=== PATIENT | female | born 1950 | race Caucasian/White ===

== ENCOUNTER 2023-02-01 14:47 | Observation (INO) ==
[2023-02-01] MEDS ORDERED: ONDANSETRON INJ 2 MG/ML 2 ML VIAL IV STA (14:57)
[2023-02-01 15:45] LABS: Basophils # (auto) 0.03 K/uL (0.00-0.20); Basophils % (auto) 0.4 %; Hematocrit (blood only) 41.2 % (37.0-47.0); Hemoglobin 14.6 g/dl (12.0-16.0); Immature Granulocytes # (auto) 0.03 K/uL (0.01-0.20); Immature Granulocytes % (auto) 0.4 %; Lymphocytes # (auto) 0.74 K/uL (1.20-3.40); Lymphocytes % (auto) 9.2 %; Mean Corpuscular Hemoglobin 30.3 pg (25.0-34.0); Mean Corpuscular Hgb Conc 35.4 g/dL (32.0-36.0); Mean Corpuscular Volume 85.5 fL (80.0-100.0); Mean Platelet Volume 11.5 fL (9.4-12.4); Monocytes # (auto) 0.18 K/uL (0.11-0.59); Monocytes % (auto) 2.2 %; Neutrophils # (auto) 7.04 K/uL (1.40-6.50); Neutrophils % (auto) 87.8 %; Platelet Count 201 K/uL (130-400); RDW Coefficient of Variation 12.5 % (11.5-14.5); RDW Standard Deviation 38.7 fL (36.4-46.3); Red Blood Count 4.82 M/uL (4.20-5.40); White Blood Count 8.02 K/ul (4.8-10.8)
[2023-02-01 15:57] LABS: Albumin Globulin Ratio 1.3 (0.9-2); Albumin Level 4.2 gm/dl (3.4-5.0); BUN Creatinine Ratio 22.7 (10-20); Bilirubin,Total 0.5 mg/dl (0.2-1.0); Calcium 9.2 mg/dl (8.6-10.3); Creatinine Clr Calc Pharmacy 61.6 ml/min; Est GFR (Non-African American) 78.5 ml/min; Globulin 3.3 gm/dl (2.5-4.0); Potassium 3.8 mmol/L (3.5-5.1); Total Protein 7.5 gm/dl (6.0-8.3)
[2023-02-01 15:59] LABS: Influenza A virus by PCR Negative (Neg); Influenza B virus by PCR Negative (Neg); RSV by PCR Negative (Neg); SARS CoV2 RNA(COVID-19) Ceph NEGATIVE (Negative)
[2023-02-01] MEDS ORDERED: SODIUM CHLORIDE 0.9% 1,000 ML IV ONE (16:11)
[2023-02-01] MEDS ORDERED: FAMOTIDINE 20MG IV PUSH 20 MG/5 ML SYR IV STA (16:11)
[2023-02-01] MEDS ORDERED: KETOROLAC TROMETHAMINE 15 MG/ML VIAL IV ONE (16:11)
[2023-02-01 16:14] LABS: Magnesium 1.9 mg/dl (1.7-2.4)
--- NOTE | 2023-02-01 16:16 | Emergency Department Note ---
Impression & Plan Dizziness, Vomiting, Ambulatory dysfunction ED Provider Note Provider: Ry Valle MD DATE OF SERVICE: 02/01/2023 CHIEF COMPLAINT: Vomiting, dizziness, weakness HISTORY OF PRESENT ILLNESS: Patient is a 72-year-old female history of IBS prior cholecystectomy presenting here from home via ambulance. Patient speaks primarily Nicaraguan. Patient's son is present at bedside and translate. Offered formal translation services which they declined. Report is the patient had a very transient episode of some dizziness on January 21 but self resolved in a brief period. Today this morning developed significant dizziness and unsteadiness with recurrent nausea and vomiting. Does report headache. Yellowish in nature. Has had a little bit sweaty and diffusely numb at times. No sick contacts. No URI symptoms. Denies significant shortness of breath or chest pain. Sharp burning type pain in the lower abdomen reported. Does take omeprazole normally. No trauma or syncope. No falls. Is concerned she could pass out and son reports that she is very unsteady on her feet that is new. Is having some improvement at this point after receiving some Zofran. Patient states it is worse when she sits up. PAST MEDICAL HISTORY: As noted above MEDICATIONS: Omeprazole SOCIAL HISTORY: Speaks Nicaraguan, lives with son PHYSICAL EXAM: GENERAL: alert and oriented in no acute distress on stretcher with son at bedside translating Head: normocephalic and atraumatic EYES: No injection, discharge or icterus. PERRL, EOMI. NECK: Trachea midline. ENT: Mucous membranes pink and moist. Pharynx without erythema or exudate. LUNGS: Airway patent. No retractions. Breath sounds clear with good air entry bilaterally. HEART: Regular rate and rhythm. No chest wall tenderness ABDOMEN: Soft mild diffuse abdominal tenderness without guarding. No rebound. SKIN: Acyanotic, warm, dry, without rashes EXTREMITIES: Without swelling, tenderness or deformity NEUROLOGICAL: No focal deficits. No aphasia. No facial droop or slurred speech. Normal strength and tone in the extremities. Sensation to gross touch normal. EK bpm normal sinus rhythm with incomplete right bundle branch block and left anterior fascicular block. No acute ST segment elevation or depression with a QTc of 463. CONTINUOUS CARDIAC MONITORING: was ordered and showed a heart rate of 70s bpm in normal sinus rhythm Patient's laboratory studies and imaging reviewed. Differential includes Benign positional vertigo, dehydration, hypovolemia, anemia, tumor, infection, hypoglycemia, electrolyte abnormalities, cardiac sources, intracerebral event, toxicologic, neurologic, gastrointestinal issues, pancreatitis, hepatitis, obstruction, perforation, diverticulitis, appendicitis, gastroenteritis, as well as other pathologies. IMPRESSION/MEDICAL DECISION MAKING: Flu COVID and RSV testing negative and really does not endorse URI symptoms. No focal numbness or weakness at this point but generalized dizziness. May be hydration only related given significant vomiting today. Son states that she always has some nausea issue and has a bad stomach. Mild diffuse tenderness. Will give some IV fluids and Pepcid in addition to Toradol. Some headache but again no significant or syncope reported. EKG obtained as well as troponin but denying significant chest discomfort. Basic blood work obtained without evidence of leukocytosis or anemia. No significant electrolyte abnormality or signs of renal dysfunction today. No findings concerning for bilirubin elevation or hepatitis based on labs. Plan for CT head given her age and complaint of headache and dizziness with vomiting as well as a CT of the abdomen pelvis given her complaint of abdominal pain here with nausea and vomiting. 2 stools today but not reported to be significantly bloody or diarrheal. Per radiology CT of the head and abdomen pelvis with contrast without evidence of acute intracranial abnormality or acute intra-abdominal pathology to explain the patient's symptoms. Discussed with the patient via her son acting as electro optics engineer per their request and reassessed. Patient declined Toradol as we have the son evidently the patient is allergic to NSAIDs and Tylenol. Still very dizzy but nausea is improving. Will try some sips of fluid but very unsteady she states is still unable to walk. Will try some meclizine as again CT imaging is reassuring. Given her significant symptoms however difficult with oral intake will discuss with hospitalist for further observation. DIAGNOSIS: Nausea and vomiting, dizziness DISPOSITION: Hospitalist will evaluate Past Med/Surg History Social History Smoking Status: Never smoker Second Hand Exposure: No; Do You Dip or Chew Tobacco: No; Tobacco Cessation Education Requested by Patient: No Hx Alcohol Use: No Hx Substance Use: No Preferred Language: Ukranian Communication Ability: Effective Manager Latin Required: No Beliefs That Will Affect Care: None Current Living Situation: Alone Other Information That Helps Us Care for You: No Feels Safe at Home: Yes Safety Concerns: Feels Safe At This Time Assistive Devices: None Allergies Allergies Allergy/AdvReac Type Severity Reaction Status Date / Time levofloxacin Allergy Severe increased Verified 03/09/20 13:31 pain magnesium Allergy Severe fainting Verified 03/09/20 13:31 procaine [From Novocain] AdvReac Severe Dizziness Unverified 03/09/20 13:31 NSAIDS (Non-Steroidal AdvReac Mild Verified 02/01/23 17:49 Anti-Inflamma ANALGEN Allergy Severe increased Uncoded 03/09/20 13:31 pain Home Meds Home Medications Medication Instructions Recorded Confirmed omeprazole 20 mg capsule,delayed 20 mg PO QDL 03/09/20 02/01/23 release Results & Data (ED) Vital Signs Vital Signs - 24 hr 02/01/23 14:40 02/01/23 14:49 02/01/23 15:30 Temperature 36.8 C Temperature Source Temporal Artery Scan Pulse Rate 88 Pulse Rate [Apical] 63 Pulse Rate from SpO2 Sensor Respiratory Rate 16 20 Respiratory Effort / Characteristics Non-Labored Spontaneous Respiratory Depth Normal Respiratory Pattern Regular Blood Pressure 131/80 151/76 H Blood Pressure [Right Arm] 151/76 H Blood Pressure Mean 97 115 Blood Pressure Mean [Right Arm] 101 Pulse Oximetry 97 99 Oxygen Delivery Method Room Air Room Air Sepsis Recent Fever Within 48 Hours No Sepsis New/Unexplained Change in Mental Status No Sepsis Action Taken by Nursing No Action Required 02/01/23 15:31 02/01/23 15:31 02/01/23 16:00 Temperature Temperature Source Pulse Rate 60 61 Pulse Rate [Apical] Pulse Rate from SpO2 Sensor 61 Respiratory Rate 19 Respiratory Effort / Characteristics Respiratory Depth Respiratory Pattern Blood Pressure 145/79 H Blood Pressure [Right Arm] Blood Pressure Mean 112 Blood Pressure Mean [Right Arm] Pulse Oximetry 97 Oxygen Delivery Method Sepsis Recent Fever Within 48 Hours Sepsis New/Unexplained Change in Mental Status Sepsis Action Taken by Nursing 02/01/23 16:00 02/01/23 17:44 02/01/23 17:45 Temperature Temperature Source Pulse Rate 61 73 Pulse Rate [Apical] Pulse Rate from SpO2 Sensor 61 Respiratory Rate 20 22 Respiratory Effort / Characteristics Respiratory Depth Respiratory Pattern Blood Pressure 155/79 H Blood Pressure [Right Arm] Blood Pressure Mean 104 Blood Pressure Mean [Right Arm] Pulse Oximetry 97 Oxygen Delivery Method Sepsis Recent Fever Within 48 Hours Sepsis New/Unexplained Change in Mental Status Sepsis Action Taken by Nursing 02/01/23 17:45 02/01/23 18:00 02/01/23 18:00 Temperature Temperature Source Pulse Rate 82 76 Pulse Rate [Apical] Pulse Rate from SpO2 Sensor 75 Respiratory Rate 16 14 Respiratory Effort / Characteristics Respiratory Depth Respiratory Pattern Blood Pressure 149/86 H Blood Pressure [Right Arm] Blood Pressure Mean 125 Blood Pressure Mean [Right Arm] Pulse Oximetry 97 Oxygen Delivery Method Sepsis Recent Fever Within 48 Hours Sepsis New/Unexplained Change in Mental Status Sepsis Action Taken by Nursing Laboratory Data 02/01/23 15:05 02/01/23 15:05 Lab Results 02/01/23 02/01/23 02/01/23 Range/Units 15:00 15:00 15:00 WBC (4.8-10.8) K/ul RBC (4.20-5.40) M/uL Hgb (12.0-16.0) g/dl Hct (37.0-47.0) % MCV (80.0-100.0) fL MCH (25.0-34.0) pg MCHC (32.0-36.0) g/dL RDW Std Deviation (36.4-46.3) fL RDW Coeff of Zahira (11.5-14.5) % Plt Count (130-400) K/uL MPV (9.4-12.4) fL Immature Gran % (Auto) % Neut % (Auto) % Lymph % (Auto) % [place] % (Auto) % Eos % (Auto) % Baso % (Auto) % Neut # (Auto) (1.40-6.50) K/uL Lymph # (Auto) (1.20-3.40) K/uL [place] # (Auto) (0.11-0.59) K/uL Eos # (Auto) (0.00-0.50) K/uL Baso # (Auto) (0.00-0.20) K/uL Immature Gran # (Auto) (0.01-0.20) K/uL Sodium (136-145) mmol/L Potassium (3.5-5.1) mmol/L Chloride (98-107) mmol/L Carbon Dioxide (21-32) mmol/L Anion Gap (3-11) BUN (6-23) mg/dl Creatinine (0.6-1.2) mg/dl Est Cr Clr Drug Dosing ml/min Est GFR ( Amer) ml/min Est GFR (Non-Af Amer) ml/min BUN/Creatinine Ratio (10-20) Glucose (70-99(Fasting)) mg/dl Calcium (8.6-10.3) mg/dl Magnesium (1.7-2.4) mg/dl Total Bilirubin (0.2-1.0) mg/dl AST (13-39) U/L ALT (7-52) U/L Alkaline Phosphatase (34-104) U/L Troponin I High Sens (0-14) pg/ml Total Protein (6.0-8.3) gm/dl Albumin (3.4-5.0) gm/dl Globulin (2.5-4.0) gm/dl Albumin/Globulin Ratio (0.9-2) Lipase (11-82) U/L TSH (0.300-4.500) uIu/ml Adenovirus (PCR) Not Detected (NotDetected) B. pertussis DNA (PCR) Not Detected (NotDetected) B.parapertussis DNA PCR Not Detected (NotDetected) C. pneumoniae DNA (PCR) Not Detected (NotDetected) Coronavirus OC43 (PCR) Not Detected (NotDetected) Coronavirus HKU1 (PCR) Not Detected (NotDetected) Coronavirus 229E (PCR) Not Detected (NotDetected) SARS-CoV-2 (PCR) NEGATIVE Not Detected (Negative) Coronavirus NL63 (PCR) Not Detected (NotDetected) Human Metapneumovir PCR Not Detected (NotDetected) Influenza Type A (PCR) Negative Not Detected (Neg) Influenza Type B (PCR) Negative (Neg) M. pneumoniae (PCR) (NotDetected) Parainfluenza 1 (PCR) (NotDetected) Parainfluenza 2 (PCR) (NotDetected) Parainfluenza 3 (PCR) (NotDetected) Parainfluenza 4 (PCR) (NotDetected) RSV (RT-PCR) (Neg) RSV (PCR) (NotDetected) Entero/Rhino (PCR) (NotDetected) 02/01/23 02/01/23 Range/Units 15:00 15:05 WBC 8.02 (4.8-10.8) K/ul RBC 4.82 (4.20-5.40) M/uL Hgb 14.6 (12.0-16.0) g/dl Hct 41.2 (37.0-47.0) % MCV 85.5 (80.0-100.0) fL MCH 30.3 (25.0-34.0) pg MCHC 35.4 (32.0-36.0) g/dL RDW Std Deviation 38.7 (36.4-46.3) fL RDW Coeff of Zahira 12.5 (11.5-14.5) % Plt Count 201 (130-400) K/uL MPV 11.5 (9.4-12.4) fL Immature Gran % (Auto) 0.4 % Neut % (Auto) 87.8 % Lymph % (Auto) 9.2 % [place] % (Auto) 2.2 % Eos % (Auto) 0.0 % Baso % (Auto) 0.4 % Neut # (Auto) 7.04 H (1.40-6.50) K/uL Lymph # (Auto) 0.74 L (1.20-3.40) K/uL [place] # (Auto) 0.18 (0.11-0.59) K/uL Eos # (Auto) 0.00 (0.00-0.50) K/uL Baso # (Auto) 0.03 (0.00-0.20) K/uL Immature Gran # (Auto) 0.03 (0.01-0.20) K/uL Sodium 137 (136-145) mmol/L Potassium 3.8 (3.5-5.1) mmol/L Chloride 101 (98-107) mmol/L Carbon Dioxide 24 (21-32) mmol/L Anion Gap 12 H (3-11) BUN 17 (6-23) mg/dl Creatinine 0.75 (0.6-1.2) mg/dl Est Cr Clr Drug Dosing 61.6 ml/min Est GFR ( Amer) 91.0 ml/min Est GFR (Non-Af Amer) 78.5 ml/min BUN/Creatinine Ratio 22.7 H (10-20) Glucose 134 H (70-99(Fasting)) mg/dl Calcium 9.2 (8.6-10.3) mg/dl Magnesium 1.9 (1.7-2.4) mg/dl Total Bilirubin 0.5 (0.2-1.0) mg/dl AST 17 (13-39) U/L ALT 12 (7-52) U/L Alkaline Phosphatase 57 (34-104) U/L Troponin I High Sens 3.8 (0-14) pg/ml Total Protein 7.5 (6.0-8.3) gm/dl Albumin 4.2 (3.4-5.0) gm/dl Globulin 3.3 (2.5-4.0) gm/dl Albumin/Globulin Ratio 1.3 (0.9-2) Lipase 16 (11-82) U/L TSH 0.883 (0.300-4.500) uIu/ml Adenovirus (PCR) (NotDetected) B. pertussis DNA (PCR) (NotDetected) B.parapertussis DNA PCR (NotDetected) C. pneumoniae DNA (PCR) (NotDetected) Coronavirus OC43 (PCR) (NotDetected) Coronavirus HKU1 (PCR) (NotDetected) Coronavirus 229E (PCR) (NotDetected) SARS-CoV-2 (PCR) (Negative) Coronavirus NL63 (PCR) (NotDetected) Human Metapneumovir PCR (NotDetected) Influenza Type A (PCR) (Neg) Influenza Type B (PCR) Not Detected (Neg) M. pneumoniae (PCR) Not Detected (NotDetected) Parainfluenza 1 (PCR) Not Detected (NotDetected) Parainfluenza 2 (PCR) Not Detected (NotDetected) Parainfluenza 3 (PCR) Not Detected (NotDetected) Parainfluenza 4 (PCR) Not Detected (NotDetected) RSV (RT-PCR) Negative (Neg) RSV (PCR) Not Detected (NotDetected) Entero/Rhino (PCR) Not Detected (NotDetected) Administered Medications Sodium Chloride (Nss) 1,000 mls @ 65 mls/hr IV .[id number] JAVIER Stop: 02/03/23 01:16 Last Admin: 02/01/23 21:19 Dose: 65 mls/hr Documented By: ACC Discontinued Medications Famotidine (Pepcid 20mg Iv Push) 20 mg in 5 mls @ 2.5 mls/min IV NOW STA Stop: 02/01/23 16:12 Last Admin: 02/01/23 16:40 Dose: 2.5 mls/min Documented By: ACC Sodium Chloride (Nss) 1,000 mls @ 999 mls/hr IV .[id number] ONE Stop: 02/01/23 17:11 Last Infusion: 02/01/23 17:51 Dose: Infused Documented By: Admin: 02/01/23 16:42 Dose: 999 mls/hr Documented By: ACC Potassium Chloride (K Jhoan / Wtr) 10 meq in 100 mls @ 100 mls/hr IV Q1H JAVIER Stop: 02/01/23 20:29 Last Infusion: 02/01/23 21:19 Dose: Infused Documented By: Admin: 02/01/23 19:52 Dose: 100 mls/hr Documented By: Infusion: 02/01/23 19:47 Dose: Infused Documented By: Admin: 02/01/23 18:47 Dose: 100 mls/hr Documented By: ACC Ioversol (Optiray 320 500ml) 88 ml IV ONCE ONE Stop: 02/01/23 16:32 Last Admin: 02/01/23 16:31 Dose: 88 ml Documented By: KSF Ketorolac Tromethamine (Ketorolac Tromethamine 15 Mg/Ml Vial) 10 mg IV NOW ONE Stop: 02/01/23 16:12 Last Admin: 02/01/23 16:57 Dose: Not Given Documented By: ACC Meclizine HCl (Meclizine Hcl 25 Mg Tab) 25 mg PO NOW STA Stop: 02/01/23 17:49 Last Admin: 02/01/23 18:03 Dose: 25 mg Documented By: ML Ondansetron HCl (Ondansetron Inj 2 Mg/Ml 2 Ml Vial) 4 mg IV NOW STA Stop: 02/01/23 14:58 Last Admin: 02/01/23 15:08 Dose: 4 mg Documented By: RJ Imaging Data Radiologist's Impression: Chest X-Ray 02/01/23 14:56 XR chest 1V portable CLINICAL HISTORY: dizziness, illness TECHNIQUE: Single frontal radiograph of the chest was obtained. Comparison: Comparison is made to chest radiograph 03/09/2020 FINDINGS: No lines and tubes are seen. Calcified aortic knob is seen. The lungs are clear. No evidence of pleural effusion or pneumothorax. IMPRESSION: No acute chest disease. ACT 112: Negative or not required by law. Electronically signed by: Guru George M.D. 02/01/2023 4:23 PM Abdomen/Pelvis CT 02/01/23 16:11 CT abd pelvis IV con only CLINICAL HISTORY: abd pain, vomiting, dizzy TECHNIQUE: Helical axial images of the abdomen and pelvis were obtained and displayed. Automated dose lowering techniques and/or adjustment according to patient size were utilized for this exam. This exam was performed with intravenous contrast. COMPARISON: None available at the time of this dictation. FINDINGS: Lower chest: Bibasilar atelectasis versus scarring is seen. Liver: Unremarkable. No focal lesions are seen. Gallbladder and biliary tree: Patient is status post cholecystectomy. Physiologic prominence of the biliary ducts is noted. Pancreas: Unremarkable, no focal lesions. Spleen: Unremarkable. Adrenals: Unremarkable. Kidneys and ureters: Unremarkable. Bladder: Unremarkable. Reproductive organs: Unremarkable. Bowel: Diverticulosis is seen without evidence of diverticulitis. The appendix is not seen. There is a small hiatal hernia. Lymph nodes Retroperitoneal: Unremarkable. Pelvic: Unremarkable. Mesenteric: Unremarkable. Peritoneum: Normal. Vessels: Atherosclerotic calcifications are seen. Abdominal wall: Unremarkable. Bones: Degenerative changes in the visualized spine. IMPRESSION: No acute abnormalities to explain vomiting and abdominal pain. ACT 112: Negative or not required by law. Electronically signed by: Guru George M.D. 02/01/2023 4:[address] 02/01/23 16:11 CT OF THE HEAD WITHOUT CONTRAST CLINICAL HISTORY: dizzy, headache, vomiting COMPARISON STUDY: No previous studies for comparison. CT DOSE: 1619.44 mGy.cm TECHNIQUE: Helical axial images of the head were obtained without IV contrast. Automated exposure control was utilized for the study. A dose lowering technique was utilized adhering to the principles of ALARA. FINDINGS: No acute intracranial hemorrhage, midline shift or mass effect is present. White matter hypodensity suggests small vessel disease. The ventricular system is unremarkable. The basal cisterns are patent. No extra-axial collections are present. There are no findings to suggest acute dural sinus thrombosis or acute territorial infarct. No significant calvarial abnormalities are present. Visualized portions of the sinuses and mastoid air cells are clear. IMPRESSION: No acute intracranial findings. ACT 112: Negative or not required by law. Electronically signed by: Al Ding M.D. 02/01/2023 4:39 PM Discharge Plan Visit Data Chief Complaint: Illness Stated Complaint: NAUSEA, VOMITING, DIZZINESS ED Provider: Ry Valle Discharge Problem: Dizziness, Vomiting, Ambulatory dysfunction Patient Disposition: Admitted As Inpatient Discharge Instructions Interventions: ED Discharge Assessment Last Done: 02/01/23 21:26 Discharge Problem: Vomiting Qualifiers: Vomiting type: unspecified Nausea presence: with nausea Qualified Code(s): R 11.2 - Nausea with vomiting, unspecified
[2023-02-01 16:21] LABS: Troponin I High Sensitivity 3.8 pg/ml (0-14)
--- NOTE | 2023-02-01 16:25 | XRay Report ---
XR chest 1V portable CLINICAL HISTORY: dizziness, illness TECHNIQUE: Single frontal radiograph of the chest was obtained. Comparison: Comparison is made to chest radiograph 03/09/2020 FINDINGS: No lines and tubes are seen. Calcified aortic knob is seen. The lungs are clear. No evidence of pleur al effusion or pneumothorax. IMPRESSION: No acute chest disease. ACT 112: Negative or not required by law. Electronically signed by: Guru George M.D. 02/01/2023 4:23 PM
[2023-02-01 16:31] LABS: Thyroid Stimulating Hormone 0.883 uIu/ml (0.300-4.500)
[2023-02-01] MEDS ORDERED: OPTIRAY 320 500ml IV ONE (16:31)
--- NOTE | 2023-02-01 16:40 | CT Scan Report ---
CT OF THE HEAD WITHOUT CONTRAST CLINICAL HISTORY: dizzy, headache, vomiting COMPARISON STUDY: No previous studies for comparison. CT DOSE: 1619.44 mGy.cm TECHNIQUE: Helical axial images of the head were obtained without IV contrast. Automated exposure con trol was utilized for the study. A dose lowering technique was utilized adhering to the principles o f ALARA. FINDINGS: No acute intracranial hemorrhage, midline shift or mass effect is present. White matter hyp odensity suggests small vessel disease. The ventricular system is unremarkable. The basal cisterns ar e patent. No extra-axial collections are present. There are no findings to suggest acute dural sinus thrombosis or acute territorial infarct. No significant calvarial abnormalities are present. Visualiz ed portions of the sinuses and mastoid air cells are clear. IMPRESSION: No acute intracranial findings. ACT 112: Negative or not required by law. Electronically signed by: Al Ding M.D. 02/01/2023 4:39 PM
--- NOTE | 2023-02-01 16:48 | CT Scan Report ---
CT abd pelvis IV con only CLINICAL HISTORY: abd pain, vomiting, dizzy TECHNIQUE: Helical axial images of the abdomen and pelvis were obtained and displayed. Automated dose lowering techniques and/or adjustment according to patient size were utilized for this exam. This e xam was performed with intravenous contrast. COMPARISON: None available at the time of this dictation. FINDINGS: Lower chest: Bibasilar atelectasis versus scarring is seen. Liver: Unremarkable. No focal lesions are seen. Gallbladder and biliary tree: Patient is status post cholecystectomy. Physiologic prominence of the b iliary ducts is noted. Pancreas: Unremarkable, no focal lesions. Spleen: Unremarkable. Adrenals: Unremarkable. Kidneys and ureters: Unremarkable. Bladder: Unremarkable. Reproductive organs: Unremarkable. Bowel: Diverticulosis is seen without evidence of diverticulitis. The appendix is not seen. There is a small hiatal hernia. Lymph nodes Retroperitoneal: Unremarkable. Pelvic: Unremarkable. Mesenteric: Unremarkable. Peritoneum: Normal. Vessels: Atherosclerotic calcifications are seen. Abdominal wall: Unremarkable. Bones: Degenerative changes in the visualized spine. IMPRESSION: No acute abnormalities to explain vomiting and abdominal pain. ACT 112: Negative or not required by law. Electronically signed by: Guru George M.D. 02/01/2023 4:47 PM
[2023-02-01] MEDS ORDERED: MECLIZINE HCL 25 MG TAB PO STA (17:48)
[2023-02-01] MEDS ORDERED: ACETAMINOPHEN 325 MG TAB PO PRN (18:27)
[2023-02-01] MEDS ORDERED: ONDANSETRON INJ 2 MG/ML 2 ML VIAL IV PRN (18:27)
[2023-02-01] MEDS ORDERED: SODIUM CHLORIDE 0.9% 1,000 ML IV SCH (18:30)
--- NOTE | 2023-02-01 18:43 | History & Physical Report ---
Date of Service February 01, 2023 Assessment & Plan (1) Vomiting: Plan Nausea, vomiting Generalized weakness History of irritable bowel syndrome Patient was reported to have nausea and vomiting/dizziness January 21 per patient's son, she was recovering from it. Nausea and vomiting worsened today leading to worsening dizziness and weakness. Patient denies diarrhea. Has poor appetite. Admitting labs and CTAP/CT head and CXR reviewed. No acute findings and imag ings. IV fluid, replace electrolyte Labs in a.m. PT/OT. Orthostatic vitals. Will get respiratory panel as patient also reports cough for 6 7 days. Nausea medications, clear liquid diet, advance diet as tolerated. Fall precaution. Other chronic medical conditions: GERD-continue with home meds as and when able. DVT prophylaxis: Heparin subcu DNR/DNI History of Present Illness Chief Complaint: Nausea and vomiting Primary Care Provider: Eliud Mendoza DO 72-year-old lady with PMH of HLD, IBS, GERD presented to the hospital with worsening nausea and vomiting x 1 day. Patient's son at bedside, patient speaks Iranian, they declined fertilizer mixer service. Per patient's son, patient had nausea and vomiting and dizziness episode in January 21 and she was recovering from it but again she had worsening nausea and vomiting today with worsening dizziness and hence they presented to the hospital. Patient also is having cough, mostly dry in nature for about 7 days, no sore throat. Patient denies chest pain. Per patient's son, patient usually shivers after nausea and vomiting episode which is seen at bedside exam. Patient's son reports that he has not seen any focal weakness but Pt has generalized weakness. She has decreased appetite secondary to vomiting. She only takes omeprazole at home. DNR DNI as per my discussion with the patient and her son. Patient denies smoking/alcohol use/recreational drug use. Allergies Allergy/AdvReac Type Severity Reaction Status Date / Time levofloxacin Allergy Severe increased Verified 03/09/20 13:31 pain magnesium Allergy Severe fainting Verified 03/09/20 13:31 procaine [From Novocain] AdvReac Severe Dizziness Unverified 03/09/20 13:31 NSAIDS (Non-Steroidal AdvReac Mild Verified 02/01/23 17:49 Anti-Inflamma ANALGEN Allergy Severe increased Uncoded 03/09/20 13:31 pain Home Medications Medication Instructions Recorded Confirmed Type omeprazole 20 mg capsule,delayed 20 mg PO QDL 03/09/20 02/01/23 History release Past Med/Surg History Social History Smoking Status: Never smoker Preferred Language: Ukranian Feels Safe at Home: Yes Review of Systems Review of Systems: Negative otherwise mentioned in HPI. Physical Exam Physical Exam: GENERAL: Alert and oriented x3. NAD, on RA. Appears weak/ill. HEENT: No pallor, no icterus. Pupils equal, round and reactive to light. Oral mucosa moist. NECK: No JVD, no neck masses. HEART: S1 and S2 heard. Regular rate and rhythm. No murmur, no gallop. RESPIRATORY SYSTEM: Normal AP diameter. No accessory muscle use. No wheezing, no crackles. ABDOMEN: Soft, bowel sounds present, nontender, no distention. CENTRAL NERVOUS SYSTEM: No facial droop. Speech is clear. Obeys simple commands. Moves extremities. Power 5/5 all extremities. EXTREMITIES: No edema, no erythema seen. Results & Data Results & Data Vital Signs (Past 12 Hours) Vital Signs Temp Pulse Pulse Resp BP BP Pulse Ox 02/01/23 15:31 60 02/01/23 14:49 36.8 C 88 20 131/80 99 02/01/23 14:40 63 16 151/76 H 97 O2 Del Method 02/01/23 15:31 02/01/23 14:49 Room Air 02/01/23 14:40 Room Air
[2023-02-01] MEDS: POTASSIUM CHLORIDE / WTR 10 MEQ/100 ML PLCT IV SCH ×2 (18:47→19:52)
[2023-02-01 19:49] LABS: Appearance Urine Clear (Clear); Bilirubin Urine Negative (Negative); Blood Urine Negative (Negative); Color Urine Yellow; Glucose Urine UA Negative (Negative); Ketones Urine 2+ (Negative); Leukocyte Esterase Urine Negative (Negative); Nitrite Urine Negative (Negative); Protein Urine Negative (Negative); Specific Gravity Urine > 1.045 (1.000-1.030); Urobilinogen Urine Negative (Negative); pH Urine 7.5 (4.5-7.5)
[2023-02-01 20:34] LABS: Adenovirus PCR Not Detected (NotDetected); Bordetella parapertussis PCR Not Detected (NotDetected); Bordetella pertussis PCR Not Detected (NotDetected); Chlamydia pneumoniae PCR Not Detected (NotDetected); Coronavirus 229E PCR Not Detected (NotDetected); Coronavirus CoV-2 (COVID19)PCR Not Detected (NotDetected); Coronavirus HKU1 PCR Not Detected (NotDetected); Coronavirus NL63 PCR Not Detected (NotDetected); Coronavirus OC43PCR Not Detected (NotDetected); Human Metapneumovirus PCR Not Detected (NotDetected); Influenza A PCR Not Detected (NotDetected); Influenza B PCR Not Detected (NotDetected); Mycoplasma pneumoniae PCR Not Detected (NotDetected); Parainfluenza Virus 1 PCR Not Detected (NotDetected); Parainfluenza Virus 2 PCR Not Detected (NotDetected); Parainfluenza Virus 3 PCR Not Detected (NotDetected); Parainfluenza Virus 4 PCR Not Detected (NotDetected); Respiratory Syncytial VirusPCR Not Detected (NotDetected); Rhinovirus/Enterovirus PCR Not Detected (NotDetected)
--- OUTSIDE RECORDS SUMMARY | 2023-02-01 23:54 | External Medical Summary | Summary of Care ---
Author Name Unknown Organization [facility] Address [address] [place] [address] Phone [phone] Care Team Providers Care Senior Service Technician Name Role Phone Jesús Gale MD Primary Care Provider + Reason for Visit * Reason Onset Date Comments Test Results 12/07/2022 Encounter Details Date Type Department Care Team (Late st Contact Info) Description 12/07/2022 Telephone General Internal Medicine [facility] [place] [address] Jesús Gale MD [address] [facility] [place] [address] Test Results Allergies Active Allergy Reactions Criticality Noted Date Comments Magnesium 09/12/2013 Novocain 09/12/2013 Other Allergy (See Comments) Other (Please comment) 04/17/2015 Patient reports reaction to medication anal'gin; medication not available in [place]; medication caused increased pain Acetaminophen 08/10/2018 documented as of this encounter (statuses as of 12/24/2022) Medications Medication Sig Dispensed Refills Start Date End Date Status Cyanocobalamin (VITAMIN B-12) 1000 MCG TabletIndications:Low serum vitamin B12 Take 1 Tablet by mouth in the morning. 0 01/16/2019 Active Aspirin 81 MG Oral Tablet Delayed Release Take 1 Tablet by mouth in the morning. 0 Active Omeprazole 20 MG Oral Capsule Delayed Release (PriLOSEC)Indications :Gastroesophageal reflux disease without esophagitis TAKE 1 CAPSULE BY MOUTH ONCE DAILY 1 hour prior to first meal of the day 90 Capsule 2 10/27/2021 Active documented as of this encounter (statuses as of 12/24/2022) Active Problems Problem Noted Date Diagnosed Date Mixed hyperlipidemia 04/10/2021 Gastroesophageal reflux disease without esophagi tis 10/03/2020 IBS (irritable bowel syndrome) 09/12/2013 documented as of this encounter (statuses as of 12/24/2022) Resolved Problems Problem Noted Date Diagnosed Date Resolved Date Mass on back 05/20/2017 10/27/2021 documented as of this encounter (statuses as of 12/24/2022) Social History Tobacco Use Types Packs/Day Years Used Date Smoking Tobacco: Never Smokeless Tobacco: Never Alcohol Use Standard Drinks/Week Comments No 0 (1 standard drink = 0.6 oz pur e alcohol) PHQ-2 Answer Date Recorded PHQ Adult Total Score 0 11/04/2022 Hunger Vital Sign Answer Date Recorded Worried About Running Out of Food in the Last Ye ar Never true 01/15/2019 Ran Out of Food in the Last Year Never true 01/15/2019 Sex and Gender Information Value Date Recorded Sex Assigned at Female 09/14/2019 12:18 PM EDT Gender Identity Female 09/14/2019 12:18 PM EDT Sexual Orientation Straight 09/14/2019 12 :18 PM EDT Job Start Date Occupation Industry Not on file Not on file Not on file documented as of this encounter Miscellaneous Notes * Telephone Encounter - Darin Heart CMA - 12/24/2022 3:43 PM EST Called, left message for patient to return call, via language line * Telephone Encounter - Lucas Hoff LPN - 12/07/2022 8:30 AM EDT Language line left message for pt to call back. * Telephone Encounter - Lucas Hoff LPN - 12/07/2022 8:29 AM EDT ----- Message from Jesús Gale MD sent at 11/10/2022 4:59 PM EDT ----- Has a large mass in shoulder which looks like a lipoma which is benign, but given size should have mri (test where she needs to lay still for 45 min) to confirm. Pls confirm no metal in body or claustrophobia and I will order if agrees. Can also refer to surgery if wants removed documented in this encounter Plan of Treatment Upcoming Encounters Date Type Department Care Team (Latest Contact Info) Description 02/21/2023 3:15 PM EST Office Visit Gynecology/Obstetri [facility] [address] [place] [address] Kenton Concepcion MD [address] [place] [address] 02/24/2023 2:05 PM EST Hospital Encounter [facility], Operating Room [facility] [address] [place] [address] Kenton Concepcion MD [address] [place] [address] 02/24/2023 2:05 PM EST - 02/24/2023 3:02 PM EST Surgery OR [facility], Operating Room [facility] [address] [place] [address] Kenton Concepcion MD [address] [place] [address] HYSTEROSCOPY WITH BIOPSY AND/OR POLYPECTOMY WITH OR WITHOUT D&C 03/09/2023 11:30 AM EST Office Visit Gynecology/Obstetri [facility] [address] [place] [address] Kenton Concepcion MD [address] [place] [address] 11/07/2023 10:20 AM EDT [facility] [place] [facility] [address] Jesús Gale MD 200 [facility] [place] [address] Scheduled Procedures Name Priority Associated Diagnoses Date/Ti me HYSTEROSCOPY WITH BIOPSY AND/OR POLYPECTOMY WITH OR WITHOUT D&C Postmenopausal bleeding Endometrial thickening on ultrasound 02/24/2023 2:05 PM EST PELVIC EXAMINATION UNDER ANESTHESIA Postmenopausal bleeding Endometrial thickening on ultrasound 02/24/2023 2:05 PM EST Health Maintenance Due Date Last Done Comments DXA Scan 1950 COVID-19 Vaccine (#1) 01/18/1951 Hepatitis C Screening 1966 DTaP,Tdap,and Td Vaccines (1 - Tdap) 07/20/1967 Cologuard 1993 Colonoscopy 1993 Colorectal Cancer Screening 1993 Fecal Occult Blood Test 1993 Sigmoidoscopy 1993 Zoster Vaccines (1 of 2) 1998 Pneumococcal Vaccine: 65+ Years (1 - PCV) 2013 Mammogram 12/04/2014 12/04/2013, 10/16/2013 Influenza Vaccine (FLU shot) (#1) 2022 Depression Screening 11/05/2023 11/04/2022 Lipid Panel 11/05/2027 11/04/2022, 10/16, 04/09/2021, Additional history exists GARDASIL-HPV IMMUNIZATION SERIES Aged Out No longer eligible based on patient's age to complete this topic Hepatitis B Aged Out No longer eligi ble based on patient's age to complete this topic MENINGOCOCCAL (MENACTRA/MENVEO) Aged Out No longer eligible based on patient's age to complete this topic documented as of this encounter Medical Devices Not on filedocumented as of this encounter Care Teams Senior Service Technician Relationship Specialty Start Date End Date Jesús Gale MD [address] [place] [address] PCP - General Internal Medicine 12/03/20 documented as of this encounter
--- OUTSIDE RECORDS SUMMARY | 2023-02-01 23:54 | External Medical Summary | Summary of Care ---
Author Name Unknown Organization [facility] Address [address] [place] [address] Phone [phone] Care Team Providers Care Coordinator Integrated Marketing Name Role Phone Jesús Gale MD Primary Care Provider + Reason for Visit * Reason Onset Date Comments Test Results 12/07/2022 Encounter Details Date Type Department Care Team (Late st Contact Info) Description 12/07/2022 Telephone General Internal Medicine [facility] 200 [facility] [place] [address] Jesús Gale MD [address] [facility] [address] Test Results Allergies Active Allergy Reactions Criticality Noted Date Comments Magnesium 09/12/2013 Novocain 09/12/2013 Other Allergy (See Comments) Other (Please comment) 04/17/2015 Patient reports reaction to medication anal'gin; medication not available in [place]; medication caused increased pain Acetaminophen 08/10/2018 documented as of this encounter (statuses as of 12/07/2022) Medications Medication Sig Dispensed Refills Start Date [...] as of this encounter (statuses as of 12/07/2022) Active Problems Problem Noted Date Diagnosed Date Mixed hyperlipidemia 04/10/2021 Gastroesophageal reflux disease without esophagi tis 10/03/2020 IBS (irritable bowel syndrome) 09/12/2013 documented as of this encounter (statuses as of 12/07/2022) Resolved Problems Problem Noted Date Diagnosed Date Resolved Date Mass on back 05/20/2017 10/27/2021 documented as of this encounter (statuses as of 12/07/2022) Social History Tobacco Use Types Packs/Day Years [...] encounter Miscellaneous Notes * Telephone Encounter - Lucas Hoff LPN [...] Upcoming Encounters Date Type Department Care Team (Late st Contact Info) Description 12/07/2022 12:15 PM EDT Imaging Radiology [facility] [address] [place] [address] 12/08/2022 2:00 PM EDT Office Visit Gynecology/Obstetrics [facility] [address] [place] [address] Kenton Concepcion MD [address] [place] [address] 11/07/2023 10:20 AM EDT Office Visit General Internal Medicine [facility] [place] [address] [facility] [place] [address] Jesús Gale MD 200 [facility] [place] [address] Health Maintenance Due Date Last Done Comments [...] filedocumented as of this encounter Care Teams Coordinator Integrated Marketing Relationship Specialty Start Date End Date Jesús Gale MD 200 [place] [address] PCP - General Internal Medicine 12/03/20 documented as of this encounter
--- OUTSIDE RECORDS SUMMARY | 2023-02-01 23:54 | External Medical Summary | Summary of Care ---
Author Name Unknown Organization [facility] Address [address] [place] [address] Phone [phone] Care Team Providers Care Hogshead Filler Name Role Phone Jesús Gale MD Primary Care Provider + Reason for Visit * Reason Onset Date Comments Test Results 12/07/2022 US PELVIS TRANS- VAGINAL NON-OB Encounter Details Date Type Department Care Team (Late st Contact Info) Description 12/07/2022 Telephone General Internal Medicine [facility] [address] [place] [address] Nikole Perkins MD [address] [facility] [place] [address] Test Results (US PELVIS TRANS-VAGINAL NON-OB) Allergies Active Allergy Reactions Criticality Noted Date Comments Magnesium 09/12/2013 Novocain 09/12/2013 Other Allergy (See Comments) Other (Please comment) 04/17/2015 Patient reports reaction to medication anal'gin; medication not available in [place]; medication caused increased pain Acetaminophen 08/10/2018 documented as of this encounter (statuses as of 12/08/2022) Medications Medication Sig Dispensed Refills Start Date [...] as of this encounter (statuses as of 12/08/2022) Active Problems Problem Noted Date Diagnosed Date Mixed hyperlipidemia 04/10/2021 Gastroesophageal reflux disease without esophagi tis 10/03/2020 IBS (irritable bowel syndrome) 09/12/2013 documented as of this encounter (statuses as of 12/08/2022) Resolved Problems Problem Noted Date Diagnosed Date Resolved Date Mass on back 05/20/2017 10/27/2021 documented as of this encounter (statuses as of 12/08/2022) Social History Tobacco Use Types Packs/Day Years [...] encounter Miscellaneous Notes * Telephone Encounter - Nikole Perkins MD - 12/08/2022 1:13 PM EDT Pelvic US - 1. Heterogenous endometrium which is abnormally thickened. In view of postmenopausal bleeding consideration should be given to endometrial sampling. 2. Lesion abutting the anterior wall of the cervix and lower uterine body could represent a subserosal fibroid arising from the cervix Keep Appliance Painter And Refinisher appoint Today for eval of both * Telephone Encounter - KEITH Leo - 12/07/2022 9:46 PM EDT Hello- The radiologist discovered an unexpected or indeterminate finding on Khang Oates ([id number]) and asks that you review the following report. Study Type:US PELVIS TRANS-VAGINAL NON-OB Date of Study: 12/07/2022 IMPRESSION IMPRESSION: 1. Heterogenous endometrium which is abnormally thickened. In view of postmenopausal bleeding consideration should be given to endometrial sampling. 2. Hypoechoic lesion abutting the anterior wall of the cervix and lower uterine body could represent a subserosal fibroid arising from the cervix. Correlate with prior imaging. If no prior imaging isavailable then consider further assessment with MRI of the pelvis without and with contrast. 3. Details as above. Please respond to this encounter to acknowledge receipt of this message and take responsibility to ensure this report is reviewed. Thank you, KEITH Leo Client Service Rep Diagnostic Medicine [place] documented in this encounter Plan of Treatment Upcoming Encounters Date Type Department Care Team (Late st Contact Info) Description 12/08/2022 2:00 PM EDT Office Visit Gynecology/Obstetrics [facility] [address] [place] [address] Kenton Concepcion MD [address] [place] [address] 11/07/2023 10:20 AM EDT Office Visit General Internal Medicine [facility] 200 [facility] [place] [address] Jesús Gale MD 200 [facility] [place] [address] Health Maintenance Due Date Last Done Comments [...] filedocumented as of this encounter Care Teams Hogshead Filler Relationship Specialty Start Date End Date Jesús Gale MD 200 [facility] [place] [address] PCP - General Internal Medicine 12/03/20 documented as of this encounter
--- OUTSIDE RECORDS SUMMARY | 2023-02-01 23:54 | External Medical Summary | Summary of Care ---
Author Name Unknown Organization [facility] Address [address] [place] [address] Phone [phone] Care Team Providers Care Digital Production Artist Name Role Phone Jesús Gale MD Primary Care Provider + Reason for Visit * Reason Onset Date Comments Test Results 12/07/2022 US PELVIS TRANS- VAGINAL NON-OB Encounter Details Date Type Department Care Team (Late st Contact Info) Description 12/07/2022 Telephone General Internal Medicine [facility] [address] [place] [address] Nikole Perkins MD [address] [place] [address] Test Results (US PELVIS TRANS-VAGINAL NON-OB) Allergies [...] encounter Miscellaneous Notes * Telephone Encounter - Micaela Nieves LPN - 12/08/2022 2:03 PM EDT Currently at appt with CARDIAC MONITOR TECHNICIAN * Telephone Encounter - Nikole Perkins MD - 12/08/2022 1:13 PM EDT Pelvic US - 1. Heterogenous endometrium which is abnormally thickened. In view of postmenopausal bleeding consideration should be given to endometrial sampling. 2. Lesion abutting the anterior wall of the cervix and lower uterine body could represent a subserosal fibroid arising from the cervix Keep Older Adult Social Work Specialist appoint Today for eval of both * Telephone Encounter - KEITH Leo - 12/07/2022 9:46 PM EDT Rashaad- The radiologist discovered an unexpected or indeterminate finding on Khang Oates ([id number]) and asks that you review the following [...] with prior imaging. If no prior imaging is available then consider further assessment with MRI of the pelvis without and with contrast. 3. Details as above. Please respond to this encounter to acknowledge receipt of this message and take responsibility to ensure this report is reviewed. Thank you, KEITH Leo Client Service Rep [facility] Medicine [place] documented in this encounter Plan of Treatment Upcoming Encounters Date Type Department Care Team (Late st Contact Info) Description 11/07/2023 10:20 AM EDT Office Visit General Internal Medicine [facility] 200 [facility] [place] [address] Jesús Gale MD 200 [facility] [address] Health Maintenance Due Date Last Done Comments [...] filedocumented as of this encounter Care Teams Digital Production Artist Relationship Specialty Start Date End Date Jesús Gale MD [address] [place] [address] PCP - General Internal Medicine 12/03/20 documented as of this encounter
--- OUTSIDE RECORDS SUMMARY | 2023-02-01 23:54 | External Medical Summary | Summary of Care ---
Author Name Unknown Organization [facility] Address [address] [place] [address] Phone [phone] Care Team Providers Care Document Review Specialist Name Role Phone Jesús Gale MD Primary Care Provider + Reason for Visit * Reason Onset Date Comments Test Results 12/07/2022 Encounter Details Date Type Department Care Team (Late st Contact Info) Description 12/07/2022 Telephone General Internal Medicine [facility] 200 [facility] [place] [address] Jesús Gale MD [address] [facility] [address] Test Results Allergies Active Allergy Reactions Criticality Noted Date Comments Magnesium 09/12/2013 Novocain 09/12/2013 Other Allergy (See Comments) Other (Please comment) 04/17/2015 Patient reports reaction to medication anal'gin; medication not available in [place]; medication caused increased pain Acetaminophen 08/10/2018 documented as of this encounter (statuses as of 12/30/2022) Medications Medication Sig Dispensed Refills Start Date [...] as of this encounter (statuses as of 12/30/2022) Active Problems Problem Noted Date Diagnosed Date Mixed hyperlipidemia 04/10/2021 Gastroesophageal reflux disease without esophagi tis 10/03/2020 IBS (irritable bowel syndrome) 09/12/2013 documented as of this encounter (statuses as of 12/30/2022) Resolved Problems Problem Noted Date Diagnosed Date Resolved Date Mass on back 05/20/2017 10/27/2021 documented as of this encounter (statuses as of 12/30/2022) Social History Tobacco Use Types Packs/Day Years [...] Telephone Encounter - Darin Heart CMA - 12/30/2022 3:11 PM EST Called, left message for patient to return call, via language line. Letter mailed to patient * Telephone Encounter - Darin Heart CMA [...] Gynecology/Obstetri [facility] [address] [place] [address] Kenton Concepcion MD [address] [place] [address] 02/24/2023 2:05 PM EST Hospital Encounter OR [facility], Operating Room [facility] [address] [place] [address] Kenton Concepcion MD [address] [place] [address] 02/24/2023 2:05 PM EST - 02/24/2023 3:02 PM EST Surgery OR [facility], Operating Room [facility] [address] [place] [address] Kenton Concepcion MD [address] [place] [address] HYSTEROSCOPY WITH BIOPSY AND/OR POLYPECTOMY WITH OR WITHOUT D&C 03/09/2023 11:30 AM EST Office Visit Gynecology/Obstetri [facility] [address] [place] [address] Kenton Concepcion MD [address] [place] [address] 11/07/2023 10:20 AM EDT Office Visit General Internal Medicine [facility] 200 [facility] [place] [address] Jesús Gale MD 200 [facility] [place] [address] Scheduled Procedures Name Priority Associated Diagnoses Date/Ti [...] filedocumented as of this encounter Care Teams Document Review Specialist Relationship Specialty Start Date End Date Jesús Gale MD 200 [facility], [place] [id number] PCP - General Internal Medicine 12/03/20 documented as of this encounter
--- OUTSIDE RECORDS SUMMARY | 2023-02-01 23:54 | External Medical Summary | Summary of Care ---
Author Name Unknown Organization [facility] Address [address] [place] [address] Phone [phone] Care Team Providers Care High School Librarian Name Role Phone Jesús Gale MD Primary Care Provider + Reason for Visit * Reason Onset Date Comments Test Results 12/07/2022 US PELVIS TRANS- VAGINAL NON-OB Encounter Details Date Type Department Care Team (Late st Contact Info) Description 12/07/2022 Telephone General Internal Medicine [facility] [address] [place] [address] Nikole Perkins MD [address] [facility] [place] [address] Test Results (US PELVIS TRANS-VAGINAL NON-OB) Allergies [...] 2:03 PM EDT Currently at appt with DIAGNOSTIC RADIOLOGIC TECHNOLOGIST * Telephone Encounter - Nikole Perkins MD - 12/08/2022 1:13 PM EDT Pelvic US - 1. Heterogenous endometrium which is abnormally thickened. In view of postmenopausal bleeding consideration should be given to endometrial sampling. 2. Lesion abutting the anterior wall of the cervix and lower uterine body could represent a subserosal fibroid arising from the cervix Keep Dialysis Tech appoint Today for eval of both * Telephone Encounter - KEITH Leo - 12/07/2022 9:46 PM EDT Rashaad- The radiologist discovered an unexpected or indeterminate finding on Khang Oates ([id number]) and asks that you review the following [...] Thank you, KEITH Leo Client Service Rep [facility] Medicine [place] documented in this encounter Plan of Treatment Upcoming Encounters Date Type Department Care Team (Late st Contact Info) Description 11/07/2023 10:20 AM EDT Office Visit General Internal Medicine [facility] [place] [address] Jesús Gale MD [facility] [address] Health Maintenance Due Date Last Done Comments [...] filedocumented as of this encounter Care Teams High School Librarian Relationship Specialty Start Date End Date Jesús Gale MD [address] [place] [address] PCP - General Internal Medicine 12/03/20 documented as of this encounter
--- OUTSIDE RECORDS SUMMARY | 2023-02-01 23:54 | External Medical Summary | Summary of Care ---
Author Name Unknown Organization [facility] Address [address] [place] [address] Phone [phone] Care Team Providers Care Stunner Animal Name Role Phone Jesús Jara MD Primary Care Provider + Reason for Referral * Precert (Within 10 days (routine)) - Pending Review Specialty Diagnoses / Procedures Referred By Clifford neri Referred To Contact Radiology Diagnoses Mass of joint of right shoulder Procedures MRI SHOULDER RIGHT W WO CONTRAST Jesús Jara MD [address] [place], [place] [address] [address] Referral ID Status Reason Start Date Expiration Date V isits Requested Visits Authorized [id number] Pending Review 01/12/[phone] Reason for Visit * Reason Onset Date Comments Test Results 12/07/2022 Encounter Details Date Type Department Care Team (Late st Contact Info) Description 12/07/2022 Telephone General Internal Medicine [facility] [place] [address] [place] [address] Jesús Jara MD [address] [place] [address] [place] [id number] Test Results Allergies Active Allergy Reactions Criticality Noted Date Comments Magnesium 09/12/2013 Novocain 09/12/2013 Other Allergy (See Comments) Other (Please comment) 04/17/2015 Patient reports reaction to medication anal'gin; medication not available in [place]; medication caused increased pain Acetaminophen 08/10/2018 documented as of this encounter (statuses as of 01/12/2023) Medications Medication Sig Dispensed Refills Start Date End Date Status Cyanocobalamin (VITAMIN B-12) 1000 MCG TabletIndications :Low serum vitamin B12 Take 1 Tablet by mouth in the morning. 0 01/16/2019 Active Aspirin 81 MG Oral Tablet Delayed Release Take 1 Tablet by mouth in the morning. 0 Active Omeprazole 20 MG Oral Capsule Delayed Release (PriLOSEC)Indicat ions:Gastroesopha geal reflux disease without esophagitis TAKE 1 CAPSULE BY MOUTH ONCE DAILY 1 hour prior to first meal of the day 90 Capsule 2 10/27/2021 01/10/2023 Discontinued documented as of this encounter (statuses as of 01/12/2023) Active Problems Problem Noted Date Diagnosed Date Mixed hyperlipidemia 04/10/2021 Gastroesophageal reflux disease without esophagi tis 10/03/2020 IBS (irritable bowel syndrome) 09/12/2013 documented as of this encounter (statuses as of 01/12/2023) Resolved Problems Problem Noted Date Diagnosed Date Resolved Date Mass on back 05/20/2017 10/27/2021 documented as of this encounter (statuses as of 01/12/2023) Social History Tobacco Use Types Packs/Day Years [...] as of this encounter Miscellaneous Notes * Addendum Note - Jesús Jara MD - 01/12/2023 3:08 PM ESTAddended by: JESÚS JARA on: 01/12/2023 03:08 PM Modules accepted: Orders * Telephone Encounter - Soha Esparza LPN - 01/12/2023 3:02 PM EST Patient's son Delaney aware and verbalized understanding, will comply. Delaney provided information to the pt while on the phone. States that the pt is not claustrophobic and has no metal in her body. Wants MRI for now and will decide on seeing surgeon later on. Please advise. * Telephone Encounter - Darin Heart CMA [...] 8:29 AM EDT ----- Message from Jesús Jara MD sent at 11/10/2022 4:59 PM EDT [...] 02/21/2023 3:15 PM EST Office Visit Gynecology/Obstetri [facility] [address] [place] [address] Kenton Concepcion MD [address] [place] [address] 02/24/2023 2:05 PM EST Hospital Encounter OR [facility], Operating Room [facility] [address] [place] [id number] Kenton Concepcion MD [address] [place] [address] 02/24/2023 2:05 PM EST - 02/24/2023 3:02 PM EST Surgery OR [facility], Operating Room [facility] [address] [place] [address] Kenton Concepcion MD [address] [place] [address] HYSTEROSCOPY WITH BIOPSY AND/OR POLYPECTOMY WITH OR WITHOUT D&C 03/09/2023 11:30 AM EST Office Visit Gynecology/Obstetri [facility] [address] [place] [address] Kenton Concepcion MD [address] [place] [address] 11/07/2023 10:20 AM EDT Office Visit General Internal Medicine [address] [place] [address] [place] [address] Jesús Jara MD 200 [facility] [place] [address] Scheduled Orders Name Type Priority Associated Diagnoses Orde r Schedule MRI SHOULDER RIGHT W WO CONTRAST Medical Imaging Routine Mass of joint of right shoulder Expected: 01/12/2023, Expires: 02/12/2024 Scheduled Procedures Name Priority Associated Diagnoses Date/Ti [...] Not on filedocumented as of this encounter Visit Diagnoses Diagnosis Mass of joint of right shoulder- Primary Postmenopausal bleeding Endometrial thickening on ultrasound documented in this encounter Care Teams Stunner Animal Relationship Specialty Start Date End Date Jesús Jara MD [address] [place] [address] PCP - General Internal Medicine 12/03/20 documented as of this encounter
--- OUTSIDE RECORDS SUMMARY | 2023-02-01 23:54 | External Medical Summary | Summary of Care ---
Author Name Unknown Organization [facility] Address [address] [place] [address] Phone [phone] Care Team Providers Care Hot Plate Plywood Press Feeder Name Role Phone Jesús Gale MD Primary Care Provider + Reason for Visit * Reason Onset Date Comments Test Results 12/07/2022 US PELVIS TRANS- VAGINAL NON-OB Encounter Details Date Type Department Care Team (Late st Contact Info) Description 12/07/2022 Telephone General Internal Medicine [facility] [address] [place] [address] Nikole Perkins MD [address] [place] [facility] [place] [address] Test Results (US PELVIS TRANS-VAGINAL NON-OB) Allergies [...] subserosal fibroid arising from the cervix Keep School Adjustment Counselor appoint Today for eval of both * Telephone Encounter - KEITH Leo - 12/07/2022 9:46 PM EDT Hello- The radiologist discovered an unexpected or indeterminate finding on Khang Oates ([id number]) and asks that you review the following [...] KEITH Leo Client Service Rep Diagnostic Medicine [place] documented in this encounter Plan of Treatment Upcoming Encounters Date Type Department Care Team (Late st Contact Info) Description 11/07/2023 10:20 AM EDT Office Visit General Internal Medicine [facility] 200 [facility] [place] [address] Jesús Gale MD 200 [facility] [place] [address] Health Maintenance Due Date Last Done Comments [...] filedocumented as of this encounter Care Teams Hot Plate Plywood Press Feeder Relationship Specialty Start Date End Date Jesús Gale MD [address] [place] [address] PCP - General Internal Medicine 12/03/20 documented as of this encounter
--- OUTSIDE RECORDS SUMMARY | 2023-02-01 23:54 | External Medical Summary | Summary of Care ---
Author Name Unknown Organization [facility] Address [address] [place] [address] Phone [phone] Care Team Providers Care Bow Maker Production Name Role Phone Jesús Gale MD Primary Care Provider + Reason for Visit * Reason Onset Date Comments Test Results 12/07/2022 Encounter Details Date Type Department Care Team (Late st Contact Info) Description 12/07/2022 Telephone General Internal Medicine [facility] [address] [place] [address] Jesús Gale MD [address] [facility] [address] Test Results Allergies Active Allergy Reactions Criticality [...] encounter Miscellaneous Notes * Telephone Encounter - Soha Esparza LPN [...] 02/21/2023 3:15 PM EST Office Visit Gynecology/Obstetri [facility] [address] [place] [address] Kenton Concepcion MD [address] [place] [address] 02/24/2023 2:05 PM EST Hospital Encounter OR [facility], Operating Room [facility] [address] [place] [phone] Kenton Concepcion MD [address] [place] [address] 02/24/2023 2:05 PM EST - 02/24/2023 3:02 PM EST Surgery OR [facility], Operating Room [facility] [address] [place] [phone] Kenton Concepcion MD [address] [place] [address] HYSTEROSCOPY WITH BIOPSY AND/OR POLYPECTOMY WITH OR WITHOUT D&C 03/09/2023 11:30 AM EST Office Visit Gynecology/Obstetri [facility] [address] [place] [address] Kenton Concepcion MD [address] [place] [address] 11/07/2023 10:20 AM EDT Office Visit General Internal Medicine [facility] 200 [facility] [place] [address] Jesús Gale MD 200 [facility] [place] [address] Scheduled Procedures Name Priority Associated Diagnoses Date/Ti [...] filedocumented as of this encounter Care Teams Bow Maker Production Relationship Specialty Start Date End Date Jesús Gale MD 200 [place] [address] PCP - General Internal Medicine 12/03/20 documented as of this encounter
--- OUTSIDE RECORDS SUMMARY | 2023-02-01 23:54 | External Medical Summary | Summary of Care ---
Author Name Unknown Organization [facility] Address [address] [place] [address] Phone [phone] Care Team Providers Care Tablet Coater Name Role Phone Jesús Jara MD Primary Care Provider + Reason for Visit * Reason Comments eRx-Medication Refill Encounter Details Date Type Department Care Team (Late st Contact Info) Description 01/10/2023 Refill General Internal Medicine [facility] [place] 200 [facility] [place] [address] Jesús Jara MD 200 [facility] [address] Gastroesophageal reflux disease without esophagitis Allergies Active Allergy Reactions Criticality Noted Date Comments Magnesium 09/12/2013 Novocain 09/12/2013 Other Allergy (See Comments) Other (Please comment) 04/17/2015 Patient reports reaction to medication anal'gin; medication not available in [place]; medication caused increased pain Acetaminophen 08/10/2018 documented as of this encounter (statuses as of 01/10/2023) Medications Medication Sig Dispensed Refills Start Date [...] meal of the day 90 Capsule 2 01/10/2023 Active Omeprazole 20 MG Oral Capsule Delayed Release (PriLOSEC)Indicat ions:Gastroesopha geal reflux disease without esophagitis TAKE 1 CAPSULE BY MOUTH ONCE DAILY 1 hour prior to first meal of the day 90 Capsule 2 10/27/2021 01/10/2023 Discontinued documented as of this encounter (statuses as of 01/10/2023) Active Problems Problem Noted Date Diagnosed Date Mixed hyperlipidemia 04/10/2021 Gastroesophageal reflux disease without esophagi tis 10/03/2020 IBS (irritable bowel syndrome) 09/12/2013 documented as of this encounter (statuses as of 01/10/2023) Resolved Problems Problem Noted Date Diagnosed Date Resolved Date Mass on back 05/20/2017 10/27/2021 documented as of this encounter (statuses as of 01/10/2023) Social History Tobacco Use Types Packs/Day Years [...] encounter Miscellaneous Notes * Telephone Encounter - Melissa Gamboa [facility] - 01/10/2023 5:26 PM ESTSigned Prescriptions: Disp Refills Omeprazole 20 MG Oral Capsule Delayed Rele*90 Cap*2 Sig: TAKE 1 CAPSULE BY MOUTH ONCE DAILY 1 hour prior to first meal of the dayAuthorizing Provider: JESÚS JARA User: MELISSA GAMBOA documented in this encounter Plan of Treatment Upcoming Encounters Date Type Department Care Team (Latest Contact Info) Description 02/21/2023 3:15 PM EST Office Visit Gynecology/Obstetri [facility] [address] [place] [address] Kenton Concepcion MD [address] [place] [address] 02/24/2023 2:05 PM EST Hospital Encounter OR [facility], Operating Room [facility] [address] [place] [phone] Kenton Concepcion MD [address] [place] [address] 02/24/2023 2:05 PM EST - 02/24/2023 3:02 PM EST Surgery OR [facility], Operating Room [facility] [address] [place] [address] Kenton Concepcion MD [address] [place] [address] HYSTEROSCOPY WITH BIOPSY AND/OR POLYPECTOMY WITH OR WITHOUT D&C 03/09/2023 11:30 AM EST Office Visit Gynecology/Obstetri [facility] [address] [place] [address] Kenton Concepcion MD [address] [place] [address] 11/07/2023 10:20 AM EDT Office Visit General Internal Medicine [facility] [place] 200 [facility] [place] [address] Jesús Jara MD 200 [facility] [place] [address] Scheduled Procedures Name Priority Associated Diagnoses Date/Ti [...] as of this encounter Visit Diagnoses Diagnosis Gastroesophageal reflux disease without esophagitis Esophageal reflux Postmenopausal bleeding Endometrial thickening on ultrasound documented in this encounter Care Teams Tablet Coater Relationship Specialty Start Date End Date Jesús Jara MD 200 [place] [address] PCP - General Internal Medicine 12/03/20 documented as of this encounter
--- OUTSIDE RECORDS SUMMARY | 2023-02-01 23:54 | External Medical Summary | Summary of Care ---
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 New * Evaluate & Treat - Unlimited Visits (Within 10 days (routine)) - Pending Review Specialty Diagnoses / Procedures Referred By Contac t Referred To Contact Obstetrics/Gynecology / Gynecology Obstetrics Diagnoses Postmenopausal vaginal bleeding Nikole Perkins MD [address] [place] [address] Referral ID Status Reason Start Date Expiration Date Visits Requested Visits Authorized [id number] Pending Review Specialty Services Required [phone] Encounter Details Date Type Department Care Team (Late st Contact Info) Description 12/08/2022 2:00 PM EDT Office Visit Gynecology/Obstetric s [facility] [address] [place] [address] Kenton Concepcion [facility] [place] [address] PMB (postmenopausal bleeding)* Allergies Active Allergy Reactions Criticality Noted Date [...] on file documented as of this encounter Last Filed Vital Signs Vital Sign Reading Time Taken Comments Blood Pressure 120/64 12/08/2022 2:06 PM EDT Pulse - - Temperature - - Respiratory Rate - - Oxygen Saturation - - Inhaled Oxygen Concentration - - Weight 66.7 kg (147 lb) 12/08/2022 2:06 PM EDT Height 154.9 cm (5' 1") 12/08/2022 2:06 PM EDT Body Mass Index 27.78 12/08/2022 2:06 PM EDT documented in this encounter Progress Notes * Kenton Concepcion MD - 12/08/2022 2:28 PM EDT Patient Name: Khang Oates Patient Context: (HPI) 72 year old presents with son with complaints of postmenopausal bleeding. Patient only speaks [place] so brand marketing manager is set up patient reports her bleeding started on 11/21/2021 and persistent 03/26/2021.. She denies any other pelvic complaints. Denies hematuria patient saw PCP who ordered an ultrasound that was done on 12/07/2022. Location: Quality: Severity: Duration: Worsening/improving sympt: Pain level/ Scale: Timing: Associated symptoms: Past Medical Hx: Past Medical History: Diagnosis Date Gastroesophageal reflux disease without esophagitis 10/03/2020 IBS (irritable bowel syndrome) 09/12/2013 Mass on back 05/20/2017 Past Surgical Hx: Past Surgical History: Procedure Laterality Date ANESTH, CS DELIVERY 1982 CHOLECYSTOTOMY OR CHOLECYSTOSTOMY, OPEN 1985 HEMORRHOID LIGATION, INTERNAL, 1 COLUMN Social Hx: Social History Socioeconomic History Marital status: Tobacco Use Smoking status: Never Smokeless tobacco: Never Substance and Sexual Activity Alcohol use: No Drug use: No Sexual activity: Not Currently Partners: Male Social Determinants of Health Food Insecurity: No Food Insecurity (01/15/2019) Hunger Vital Sign Worried About Running Out of Food in the Last Year: Never true Ran Out of Food in the Last Year: Never true Allergy: Review of patient's allergies indicates: Allergen Reactions Magnesium Novocain Other Allergy (See Comments) Other (Please comment) Patient reports reaction to medication anal'gin; medication not available in [place]; medication caused increased pain Tylenol [Acetaminophen] Family HX: Family History Problem Relation Age of Onset Hypertension Father Stroke Mother ROS: REVIEW OF SYSTEMS CONSTITUTIONAL ROS: No change in weight, No weakness, No fatigue and No fevers, sweats, or chills PULMONARY ROS: No cough, sputum, or hemoptysis, No wheezing, No shortness or breath and No recent change in breathing CARDIOVASCULAR ROS: No chest pain, No shortness of breath, No dyspnea on exertion, No orthopnea, Noparoxysmal nocturnal dyspnea, No edema, No palpitations and No syncope BREAST ROS: No new breast lumps or masses, No severe breast pain, No nipple discharge, No recent change in shape/color and Performs self breast exam ENDOCRINE ROS; No change in wt gain, hair loss or bowel habits, malaise or fatigue. No polyuria, polyphagia polydipsia GASTROINTESTINAL ROS: No abdominal pain, No change in bowel habits, No significant heartburn, No significant change in appetite, No nausea, vomiting, diarrhea, or constipation, No hematemesis, No blood in stools or black tarry stools, No abdominal bloating or early satiety and No dysphagia GENITO-URINARY FEMALE ROS: No STDs, No dysuria, No frequency, No incontinence, No urgency and No vaginal discharge and + for irreg menses. ALL OTHERS REVIEWED AND ALL OTHERS NEGATIVE LABS: Pelvic Sonogram; Done 12/07/2022 HISTORY: post menopausal bleeding TECHNIQUE: Sonographic evaluation of the pelvis using transvaginal and transabdominal approach. COMPARISON: None. FINDINGS: LMP: Postmenopausal UTERUS: Anteverted measuring 7.4 cm x 3.7 cm x 5.6 cm transvaginally. Nabothian cysts are present in the cervix. MYOMETRIUM: Heterogeneous. ENDOMETRIUM: Heterogenous endometrium measuring 6.6 mm at the level of the fundus and 4 mm at the level of the body. RIGHT OVARY: 1.9 cm x 1.1 cm x 1.4 cm, 1.6 ml. Unremarkable. LEFT OVARY: 2.0 cm x 1.1 cm x 1.9 cm, 2.3 ml. A 7 mm simple cyst is present. MISCELLANEOUS: A 1.9 x 1.4 x 1.1 cm hypoechoic vascular lesion abuts the anterior wall of the cervix and lower uterine body. IMPRESSION IMPRESSION: 1. Heterogenous endometrium which is [...] and with contrast. 3. Details as above. PHYSICAL EXAMINATION Well developed. Well nourishes white female in no acute distress Vital signs BP 120/64 | Ht 1.549 m (5' 1") | Wt 66.7 kg (147 lb) | BMI 27.78 kg/m | BSA 1.69 m Pelvic : Atrophic vulva vagina. Cervix appears atrophic as well. We will lesions or blood seen in the vaginal vault. Uterus is about 6 week size. No adnexal masses palpated. Patient tolerated exam well. No guarding or rebound. A/P Postmenopausal bleeding. Endometrial thickening seen on ultrasound. Discussed the above findings with patient offered patient office endometrial biopsy versus hysteroscopy D&C. Patient is with son we discussed risks and benefits of both. Both of agreed to undergo a D&C hysteroscopy. Evaluate [facility] to [facility] for scheduled. I spent a total of 30-39 minutes (exact time 33 mins) on the date of service in preparation, delivery, and documentation of the care provided to hKang Oates excluding any time spent in the performance of separately billed services. documented in this encounter Nursing Notes * Lynette De Leon LPN - 12/08/2022 2:05 PM EDT Pt is here for PMB 11/21-12/05 Was heavy changing pads 5+ times a day Had episode 1 yr ago lasted 2 days Denies any pain or any other symptoms Saw pcp and had US documented in this encounter Plan of Treatment Upcoming Encounters Date Type Department Care Team (Late st Contact Info) Description 11/07/2023 10:20 AM EDT Office Visit General Internal Medicine [address] [place] [address] Jesús Gale MD 200 [facility] [place], [place] [address] Scheduled Referrals Name Type Priority Associated Diagnoses Orde r Schedule [facility] REFERRAL OP Referral Within 10 days (routine) Postmenopausal vaginal bleeding Ordered: 11/30/2022 Health Maintenance Due Date Last Done Comments [...] as of this encounter Visit Diagnoses Diagnosis PMB (postmenopausal bleeding)- Primary Postmenopausal bleeding documented in this encounter Care Teams Shipping Room Supervisor Relationship Specialty Start Date End Date Jesús Gale MD 200 [place] [address] PCP - General Internal Medicine 12/03/20 documented as of this encounter
--- OUTSIDE RECORDS SUMMARY | 2023-02-01 23:54 | External Medical Summary | Summary of Care ---
Author Name Unknown Organization [facility] Address [address] [place] [address] Phone [phone] Care Team Providers Care Rubber Goods Repairer Name Role Phone Jesús Gale MD Primary Care Provider + Reason for Visit * Reason Onset Date Comments Test Results 12/07/2022 US PELVIS TRANS- VAGINAL NON-OB Encounter Details Date Type Department Care Team (Late st Contact Info) Description 12/07/2022 Telephone General Internal Medicine [facility] [address] [place] [address] Nikole Perkins MD [address] [place] [facility] [place] [address] Test Results (US PELVIS TRANS-VAGINAL NON-OB) Allergies [...] encounter Miscellaneous Notes * Telephone Encounter - KEITH Leo - 12/07/2022 9:46 PM EDT Hello- The radiologist discovered an unexpected or indeterminate finding on Khang Oates ([id number]) and asks that you review the following [...] KEITH Leo Client Service Rep Diagnostic Medicine [place] documented in this encounter Plan of Treatment Upcoming Encounters Date Type Department Care Team (Late st Contact Info) Description 12/08/2022 2:00 PM EDT Office Visit Gynecology/Obstetrics [facility] [address] [place] [address] Kenton Concepcion MD [address] [place] [address] 11/07/2023 10:20 AM EDT Office Visit General Internal [facility] 200 [place] [address] Jesús Gale MD 200 [facility] [place] [address] Health Maintenance Due Date Last Done Comments [...] filedocumented as of this encounter Care Teams Rubber Goods Repairer Relationship Specialty Start Date End Date Jesús Gale MD [address] [place] [address] PCP - General Internal Medicine 12/03/20 documented as of this encounter
--- OUTSIDE RECORDS SUMMARY | 2023-02-01 23:55 | External Medical Summary ---
Author Name Unknown Address Unknown Organization K09:[facility] [address] [place] [address] Laboratory Report Ordering Provider Test Date Status DO REECERENEE 11/04/2022 13:18:06 Final Observation Date Value Abnormality Reference (Units ) Status BUN 11/04/2022 13:18:06 17 6-20 (mg/dL) Final Creatinine 11/04/2022 13:18:06 0.9 0.5-1.0 (mg/dL) Final Glomerular filtration rate/1.73 sq M.predicted [Volume Rate/Area] in Serum, Plasma or Blood by Creatinine-based formula (CKD-EPI) 11/04/2022 13:18:06 72 >=60 (mL/min) Final eGFR is calculated based on the CKD-EPI 2020 equation SODIUM 11/04/2022 13:18:06 140 135-146 (m mol/L) Final Potassium 11/04/2022 13:18:06 4.4 3.5-5.1 (m mol/L) Final Cl 11/04/2022 13:18:06 102 98-107 (mm ol/L) Final CO2 11/04/2022 13:18:06 28 22-32 (mmo l/L) Final Anion gap 11/04/2022 13:18:06 10 7-15 (mmol /L) Final Glucose 11/04/2022 13:18:06 95 70-120 (mg /dL) Final Albumin 11/04/2022 13:18:06 4.6 3.8-5.0 (g /dL) Final AST (Aspartate aminotransferase) 11/04/2022 13:18:06 21 10-35 (U/L) Final Alk Phos 11/04/2022 13:18:06 70 35-130 (U/ L) Final Bilirubin, Total 11/04/2022 13:18:06 0.3 <=1 .2 (mg/dL) Final Calcium 11/04/2022 13:18:06 9.2 8.4-10.2 ( mg/dL) Final Protein 11/04/2022 13:18:06 7.0 6.0-8.3 (g /dL) Final ALT (Alanine aminotransferase) 11/04/2022 13:18:06 16 10-35 (U/L) Final Performing Location [facility] [address] [place] [address]
--- OUTSIDE RECORDS SUMMARY | 2023-02-01 23:55 | External Medical Summary ---
Author Name Unknown Address Unknown Organization K01:[facility] [place] [facility] [place] [address] [facility] [address] Laboratory Report Ordering Provider Test Date Status CARLOS EDUARDO HARDING 11/30/2022 09:26:37 Final Observation Date Value Abnormality Reference (Units ) Status TSH 11/30/2022 09:26:37 3.16 0.27-4.20 (uIU/mL) Final Performing Location [facility] [place] [address] [facility] [address]
--- OUTSIDE RECORDS SUMMARY | 2023-02-01 23:55 | External Medical Summary | Summary of Care ---
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 Name Role Phone Jesús Gale MD Primary Care Provider + Reason for Referral * Evaluate & Treat - Unlimited Visits (Within 10 days (routine)) - Pending Review Specialty Diagnoses / Procedures Referred By Contac t Referred To Contact Obstetrics/Gynecology / Gynecology Obstetrics Diagnoses Postmenopausal vaginal bleeding Nikole Perkins MD [address] [place] [address] Referral ID Status Reason Start Date Expiration Date Visits Requested Visits Authorized [id number] Pending Review Specialty Services Required 3 [phone] Question Answer Referral Priority Within 10 days (routine) Where should this appointment be scheduled? [facility] What condition is the patient being seen for? Bleeding Specific Condition: Heavy Comments Post menopausal bleeding * (Within 10 days (routine)) - Pending Review Specialty Diagnoses / Procedures Referred By Contac t Referred To Contact Radiology Diagnoses Postmenopausal vaginal bleeding Procedures US PELVIS TRANS-VAGINAL NON-OB Nikole Perkins MD [address] [facility] [place] [address] Referral ID Status Reason Start Date Expiration Date V isits Requested Visits Authorized [id number] Pending Review 12/07/[phone] * (Within 10 days (routine)) - Pending Review Specialty Diagnoses / Procedures Referred By Contac t Referred To Contact Radiology Diagnoses Postmenopausal vaginal bleeding Procedures US PELVIS TRANS-ABDOMINAL Nikole Perkins MD [address] [facility] [place] [address] Referral ID Status Reason Start Date Expiration Date V isits Requested Visits Authorized [id number] Pending Review 12/07/[phone] Reason for Visit * Reason Comments Vaginal Bleeding C/o vaginal bleeding for the past 10 days and it has not stopped. Son states it looks like she is having her period. Blood is bright red. Denies pain or other symptoms. Encounter Details Date Type Department Care Team Description 11/30/2022 Office Visit General Internal Medicine [facility] [address] [facility] [place] [id number] Nikole Perkins MD [address] [facility] [place] [id number] Postmenopausal vaginal bleeding*; Fatigue, unspecified type; Gastroesophageal reflux disease without esophagitis; Irritable bowel syndrome without diarrhea; Mixed hyperlipidemia Allergies Active Allergy Reactions Severity Noted Date Comments Magnesium 09/12/2013 Novocain 09/12/2013 Other Allergy (See Comments) Other (Please comment) 04/17/2015 Patient reports reaction to medication anal'gin; medication not available in [place]; medication caused increased pain Acetaminophen 08/10/2018 documented as of this encounter (statuses as of 11/30/2022) Medications Medication Sig Dispensed Refills Start Date [...] as of this encounter (statuses as of 11/30/2022) Active Problems Problem Noted Date Mixed hyperlipidemia 04/10/2021 Gastroesophageal reflux disease without esophagitis 10/03/2020 IBS (irritable bowel syndrome) 4 documented as of this encounter (statuses as of 11/30/2022) Resolved Problems Problem Noted Date Resolved Date Mass on back 05/20/2017 10/27/2021 documented as of this encounter (statuses as of 11/30/2022) Social History Tobacco Use Types Packs/Day Years Used Date Smoking Tobacco: Never Smokeless Tobacco: Never Alcohol Use Standard Drinks/Week Comments No 0 (1 standard drink = 0.6 oz pur e alcohol) Food Insecurity Answer Date Recorded Within the past 12 months, y ou worried that your food would run out before you got money to buy more. Never true 01/15/2019 Within the past 12 months, t he food you bought just didn't last and you didn't have money to get more. Never true 01/15/2019 Sex Assigned at Date Recorded Female 09/14/2019 12:18 PM EDT Job Start Date Occupation Industry Not on file Not on file Not on file documented as of this encounter Last Filed Vital Signs Vital Sign Reading Time Taken Comments Blood Pressure 128/82 11/30/2022 8:28 AM EDT Pulse 64 11/30/2022 8:28 AM EDT Temperature 36.6 C (97.9 F) 11/30/2022 8:28 AM ED T Respiratory Rate - - Oxygen Saturation 98% 11/30/2022 8:28 AM EDT Inhaled Oxygen Concentration - - Weight 66.7 kg (147 lb 1.6 oz) 11/30/2022 8:28 AM EDT Height - - Body Mass Index 27.79 11/04/2022 12:58 PM EDT documented in this encounter Progress Notes * Nikole Perkins MD - 11/30/2022 8:44 AM EDT Images from the original note were not included. History of Present Illness Khang Oates is a 72 year old female that presents for Vaginal Bleeding (C/o vaginal bleeding for the past 10 days and it has not stopped. Son states it looks like she is having her period. Blood is bright red. Denies pain or other symptoms. 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 The patient's pertinent negatives include no genital itching, genital lesions, genital rash, pelvic pain or vaginal discharge. This is a recurrent problem. The current episode started 1 to 4 weeks ago (Ten days). The problem occurs constantly. The problem has been gradually worsening. Pertinent negatives include no abdominal pain, anorexia, chills, constipation, diarrhea, discolored urine, dysuria, fever, flank pain, frequency, headaches,hematuria, joint swelling, nausea, sore throat, urgency or vomiting. Nothing aggravates the symptoms. Treatments tried: Used pads or paper towel. She is not sexually active. She is postmenopausal. There is no history of a section, an ectopic , a gynecological surgery, herpes simple x, PID or an STD. Physical Exam Vitals: 11/30/22 0828 Temp: 36.6 C (97.9 F) Pulse: 64 SpO2: 98% BP: 128/82 Physical Exam Vitals reviewed. Constitutional: General: She is not in acute distress. Appearance: She is normal weight. She is not ill-appearing. HENT: Head: Normocephalic. Mouth/Throat: Mouth: Mucous membranes are moist. Pharynx: Oropharynx is clear. No oropharyngeal exudate or posterior oropharyngeal erythema. Cardiovascular: Rate and Rhythm: Normal rate and regular rhythm. Heart sounds: Normal heart sounds. No murmur heard. Pulmonary: Effort: Pulmonary effort is normal. No respiratory distress. Breath sounds: Normal breath sounds. No wheezing. Abdominal: General: There is no distension. Palpations: Abdomen is soft. There is no mass. Tenderness: There is no abdominal tenderness. Musculoskeletal: General: No swelling or tenderness. Cervical back: No rigidity or tenderness. Right lower leg: No edema. Left lower leg: No edema. Lymphadenopathy: Cervical: No cervical adenopathy. Skin: General: Skin is warm. Neurological: Mental Status: She is alert. I have reviewed the following results: Assessment and Plan Postmenopausal vaginal bleeding - US PELVIS TRANS-ABDOMINAL; Future - US PELVIS TRANS-VAGINAL NON-OB; Future - [employer] FABRICATOR REFERRAL OP - CBC WITH WBC DIFFERENTIAL AND ANEMIA REFLEX WORKUP; Future - COMPREHENSIVE METABOLIC PANEL; Future TSH Fatigue, unspecified type - TSH WITH FREE T4 IF INDICATED; Future Gastroesophageal reflux disease without esophagitis Irritable bowel syndrome without diarrhea Mixed hyperlipidemia Wrap-Up Time: I spent a total of 30-39 minutes (exact time 35 mins) on the date of service in preparation, delivery, and documentation of the care provided to Khang Oates excluding any time spent in the performance of separately billed services. documented in this encounter Nursing Notes * Sarika Cheney LPN - 11/30/2022 8:28 AM EDT Chief Complaint Patient presents with Vaginal Bleeding C/o vaginal bleeding for the past 10 days and it has not stopped. Son states it looks like she is having her period. Blood is bright red. Denies pain or other symptoms. documented in this encounter Plan of Treatment Upcoming Encounters Date Type Specialty Care Team Description 12/07/2022 Imaging Radiology 12/07/2022 Imaging Radiology 12/08/2022 Office Visit Gynecology [facility]stetrics [facility]pcion [facility] [address] [facility] [address] 11/07/2023 Office Visit Internal Medicine Jesús Gale MD [address] [facility] [place] [place] [address] Pending Results Name Type Priority Associated Diagnoses Date /Time CBC WITH WBC DIFFERENTIAL AND ANEMIA REFLEX WORKUP Lab Routine Postmenopausal vaginal bleeding 11/30/2022 9:26 AM EDT TSH WITH FREE T4 IF INDICATED Lab Routine Fatigue, unspecified type 11/30/2022 9:26 AM EDT Scheduled Orders Name Type Priority Associated Diagnoses Orde r Schedule US PELVIS TRANS-ABDOMINAL Medical Imaging Routine Postmenopausal vaginal bleeding Expected: 12/07/2022, Expires: 01/01/2024 US PELVIS TRANS-VAGINAL NON-OB Medical Imaging Routine Postmenopausal vaginal bleeding Expected: 12/07/2022, Expires: 01/01/2024 CBC WITH WBC DIFFERENTIAL AND ANEMIA REFLEX WORKUP Lab Routine Postmenopausal vaginal bleeding Expected: 11/30/2022 (Approximate), Expires: 12/01/2023 TSH WITH FREE T4 IF INDICATED Lab Routine Fatigue, unspecified type Expected: 11/30/2022 (Approximate), Expires: 11/30/2023 Scheduled Referrals Name Type Priority Associated Diagnoses Orde r Schedule W[employer] F[employer]RICATOR REFERRAL OP Referral Within 10 days (routine) [...] Not on filedocumented as of this encounter Results * (ABNORMAL) COMPREHENSIVE METABOLIC PANEL (11/30/2022 9:26 AM EDT) BUN 15 6 - 20 mg/dL 11/30/2022 11:03 AM EDT [facility] Creatinine 1.0 0.5 - 1.0 mg/dL 11/30/2022 11:03 AM EDT [facility] Estimated Glomerular Filtration Rate 57(L) >=60 mL/min 11/30/2022 11:03 AM EDT [facility] Comment:eGFR is calculated b ased on the CKD-EPI 2020 equation Sodium 138 135 - 146 mmol/L 11/30/2022 11:03 AM EDT [facility] Potassium 4.7 3.5 - 5.1 mmol/L 11/30/2022 11:03 AM EDT [facility] 56- Chloride 104 98 - 107 mmol/L 11/30/2022 11:03 AM EDT [facility] 56- CO2 26 22 - 32 mmol/L 11/30/2022 11:03 AM EDT [facility] 56 Anion Gap 8 7 - 15 mmol/L 11/30/2022 11:03 AM EDT [address] Glucose 107 70 - 120 mg/dL 11/30/2022 11:03 AM EDT [address] Albumin 4.6 3.8 - 5.0 g/dL 11/30/2022 11:03 AM EDT [address] AST 24 10 - 35 U/L 11/30/2022 11:03 AM EDT [address] Alkaline Phosphatase 68 35 - 130 U/L 11/30/2022 11:03 AM T [address] Bilirubin, Total 0.3 <=1.2 mg/dL 11/30/2022 11:03 AM EDT [address] Calcium 9.2 8.4 - 10.2 mg/dL 11/30/2022 11:03 AM T [facility] 56 Protein 7.3 6.0 - 8.3 g/dL 11/30/2022 11:03 AM T [facility] 56- ALT 18 10 - 35 U/L 11/30/2022 11:03 AM T [facility] 56 Blood Venous blood specimen / Unknown Venipuncture / Unknown 11/30/2022 9:26 AM EDT 11/30/2022 9:26 AM EDT Nikole Perkins MD LAB BLOOD ORDERABLES [facility] [address] [facility] [place] [address] documented in this encounter Visit Diagnoses Diagnosis Postmenopausal vaginal bleeding- Primary Postmenopausal bleeding Fatigue, unspecified type Gastroesophageal reflux disease without esophagitis Esophageal reflux Irritable bowel syndrome without diarrhea Irritable bowel syndrome Mixed hyperlipidemia documented in this encounter Care Teams Furniture Assembly Supervisor Relationship Specialty Start Date End Date Jesús Gale MD [address] [facility] [address] PCP - General Internal Medicine 12/03/20 documented as of this encounter
--- OUTSIDE RECORDS SUMMARY | 2023-02-01 23:55 | External Medical Summary ---
Author Name Unknown Address Unknown Organization [facility] [place] [address] Laboratory Report Ordering Provider Test Date Status CARLOS EDUARDO HARDING 11/30/2022 09:26:37 Final Observation Date Value Abnormality Reference (Units ) Status BUN 11/30/2022 09:26:37 15 6-20 (mg/dL) Final Creatinine 11/30/2022 09:26:37 1.0 0.5-1.0 (mg/dL) Final Glomerular filtration rate/1.73 sq M.predicted [Volume Rate/Area] in Serum, Plasma or Blood by Creatinine-based formula (CKD-EPI) 11/30/2022 09:26:37 57 Below low normal >=60 (mL/min) Final eGFR is calculated based on the CKD-EPI 2020 equation SODIUM 11/30/2022 09:26:37 138 135-146 (m mol/L) Final Potassium 11/30/2022 09:26:37 4.7 3.5-5.1 (m mol/L) Final Cl 11/30/2022 09:26:37 104 98-107 (mm ol/L) Final CO2 11/30/2022 09:26:37 26 22-32 (mmo l/L) Final Anion gap 11/30/2022 09:26:37 8 7-15 (mmol /L) Final Glucose 11/30/2022 09:26:37 107 70-120 (mg /dL) Final Albumin 11/30/2022 09:26:37 4.6 3.8-5.0 (g /dL) Final AST (Aspartate aminotransferase) 11/30/2022 09:26:37 24 10-35 (U/L) Final Alk Phos 11/30/2022 09:26:37 68 35-130 (U/ L) Final Bilirubin, Total 11/30/2022 09:26:37 0.3 <=1 .2 (mg/dL) Final Calcium 11/30/2022 09:26:37 9.2 8.4-10.2 ( mg/dL) Final Protein 11/30/2022 09:26:37 7.3 6.0-8.3 (g /dL) Final ALT (Alanine aminotransferase) 11/30/2022 09:26:37 18 10-35 (U/L) Final Performing Location [facility] [address] [place] [address]
--- OUTSIDE RECORDS SUMMARY | 2023-02-01 23:55 | External Medical Summary | Summary of Care ---
Author Name Unknown Organization [facility] Address [address] [place] [address] Phone [phone] Care Team Providers Care Hand Cigar Maker Name Role Phone Jesús Gale MD Primary Care Provider + Reason for Referral * (Within 10 days (routine)) - Pending Review Specialty Diagnoses / Procedures Referred By Clifford neri Referred To Contact Radiology Diagnoses Lump of skin of back Skin lump of arm, right Procedures US EXTREMITY, NON-VASCULAR LIMITED Jesús Gale MD [address] [place] [address] Referral ID Status Reason Start Date Expiration Date V isits Requested Visits Authorized [id number] Pending Review 11/04/2022 999 999 Reason for Visit * Reason Comments Follow Up 6 month follow up. Kortney rudolph's son is present to translate. He states concerns for wanting referral to have right shoulder lump examined, states she has had for 20 years but continues to grow in size. Encounter Details Date Type Department Care Team Description 11/04/2022 Office Visit General Internal Medicine [facility] [address] [place] [address] Jesús Gale MD [address] [place] [address] Mixed hyperlipidemia*; Encounter for long-term (current) use of medications; Lump of skin of back; Skin lump of arm, right; Gastroesophageal reflux disease without esophagitis Allergies Active Allergy Reactions Severity Noted Date Comments Magnesium 09/12/2013 Novocain 09/12/2013 Other Allergy (See Comments) Other (Please comment) 04/17/2015 Patient reports reaction to medication anal'gin; medication not available in [place]; medication caused increased pain Acetaminophen 08/10/2018 documented as of this encounter (statuses as of 11/04/2022) Medications Medication Sig Dispensed Refills Start Date [...] as of this encounter (statuses as of 11/04/2022) Active Problems Problem Noted Date Mixed hyperlipidemia 04/10/2021 Gastroesophageal reflux disease without esophagitis 10/03/2020 IBS (irritable bowel syndrome) 4 documented as of this encounter (statuses as of 11/04/2022) Resolved Problems Problem Noted Date Resolved Date Mass on back 05/20/2017 10/27/2021 documented as of this encounter (statuses as of 11/04/2022) Social History Tobacco Use Types Packs/Day Years Used Date Smoking Tobacco: Never Smokeless Tobacco: Never Tobacco Cessation:Counseling Given: Not Answered Alcohol Use Standard Drinks/Week Comments No 0 [...] Sign Reading Time Taken Comments Blood Pressure 118/62 11/04/2022 12:58 PM EDT Pulse 68 11/04/2022 12:58 PM EDT Temperature 35.9 C (96.7 F) 11/04/2022 1 2:58 PM EDT Respiratory Rate - - Oxygen Saturation 97% 11/04/2022 12: 58 PM EDT Inhaled Oxygen Concentration - - Weight 66.1 kg (145 lb 11.2 oz) 023 12:58 PM EDT Height 154.9 cm (5' 1") 11/04/2022 12:5 8 PM EDT Body Mass Index 27.53 11/04/2022 12:58 PM EDT documented in this encounter Progress Notes * Jesús Gale MD - 11/04/2022 1:13 PM EDT Chief Complaint Patient presents with Follow Up 6 month follow up. Patient's son is present to translate. He states concerns for wanting referral to have right shoulder lump examined, states she has had for 20 years but continues to grow in size. SUBJECTIVE: Khang Oates is a 72 year old female with PMH as below who presents for follow up of lipids, gerd. No cp, sob, lees. Diet has been good. Mood is good. Has a lump right arm/back for 20 years, slowly bigger. 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 Patient Active Problem List Diagnosis Code IBS (irritable bowel syndrome) K58.9 Gastroesophageal reflux disease without esophagitis K21.9 Mixed hyperlipidemia E78.2 Current Outpatient Medications Medication Sig Dispense Refill Cyanocobalamin (VITAMIN B-12) 1000 MCG Tablet Take 1 Tablet by mouth in the morning. Aspirin 81 MG Oral Tablet Delayed Release Take 1 Tablet by mouth in the morning. Omeprazole 20 MG Oral Capsule Delayed Release (PriLOSEC) TAKE 1 CAPSULE BY MOUTH ONCE DAILY 1 hour prior to first meal of the day 90 Capsule 2 No current facility-administered medications for this visit. Review of patient's allergies indicates: Allergen Reactions Magnesium Novocain Other Allergy (See Comments) Other (Please comment) Patient reports reaction to medication anal'gin; medication not available in [place]; medication caused increased pain Tylenol [Acetaminophen] Health Maintenance Due Topic Date Due DXA Scan Never done COVID-19 Vaccine (1) Never done Hepatitis C Screening Never done DTaP,Tdap,and Td Vaccines (1 - Tdap) Never done Colorectal Cancer Screening Never done Zoster Vaccines (1 of 2) Never done Pneumococcal Vaccine: 65+ Years (1 - PCV) Never done Mammogram 12/04/2014 Depression Screening 01/16/2020 Influenza Vaccine (FLU shot) (1) Never done ROS: CONSTITUTIONAL: No change in weight, No weakness, and No fevers, sweats, or chills EYE: No recent significant change in vision and No eye pain, redness, discharge EARS: No ear pain, No drainage, No tinnitus or vertigo, and No recent change in hearing PULMONARY: No cough, sputum, or hemoptysis, No wheezing, No rales, No shortness of breath, and No recent change in breathing CARDIOVASCULAR: No chest pain, No shortness of breath, No dyspnea on exertion, No orthopnea, No paroxysmal nocturnal dyspnea, No edema, No palpitations, and No syncope GASTROINTESTINAL: No abdominal pain, No change in bowel habits, No significant heartburn, No significant change in appetite, No nausea, vomiting, diarrhea, or constipation, No hematemesis, No blood in stools or black tarry stools, No abdominal bloating or early satiety, and No dysphagia EXTREMITIES: No pain, redness or swelling on the joints SKIN/INTEGUMENTARY: No edema, No rash, and No itching ALL OTHER SYSTEMS NEGATIVE I reviewed social, PMH, PSH, and family history and updated where needed. Social History Socioeconomic History Marital status: Spouse name: Not on file Number of children: Not on file Years of education: Not on file Highest education level: Not on file Occupational History Not on file Tobacco Use Smoking status: Never Smokeless tobacco: Never Substance and Sexual Activity Alcohol use: No Drug use: No Sexual activity: Yes Partners: Male Other Topics Concern Not on file Social History Narrative Not on file Social Determinants of Health Financial Resource Strain: Not on file Food Insecurity: Not on file Transportation Needs: Not on file Physical Activity: Not on file Stress: Not on file Social Connections: Not on file Intimate Partner Violence: Not on file Housing Stability: Not on file Past Medical History: Diagnosis Date Gastroesophageal reflux disease without esophagitis 10/03/2020 IBS (irritable bowel syndrome) 09/12/2013 Mass on back 05/20/2017 Past Surgical History: Procedure Laterality Date ANESTH, CS DELIVERY 1982 CHOLECYSTOTOMY OR CHOLECYSTOSTOMY, OPEN 1985 HEMORRHOID LIGATION, INTERNAL, 1 COLUMN Family History Problem Relation Age of Onset Hypertension Father Stroke Mother OBJECTIVE: PHYSICAL EXAM: BP 118/62 | Pulse 68 | Temp 35.9 C (96.7 F) | Ht 1.549 m (5' 1") | Wt 66.1 kg (145 lb 11.2 oz) | SpO2 97% | BMI 27.53 kg/m | BSA 1.69 m General: alert, healthy, and no distress Head: Normocephalic, No masses, lesions, or abnormalities Eye Exam: conjunctiva are pink and non-injected, sclera clear Ears: External ears normal, Canals clear, TM's Normal Heart: regular rate & rhythm, no murmur, no gallops, PMI non-displaced, S-1 normal, and S-2 normal Lungs: normal respiratory rate and rhythm, lungs clear to auscultation Abdomen: abdomen soft, non-tender, normal bowel sounds, and no masses or organomegaly Back: back symmetric, no curvature, large mass proximal right arm on back/shoulder w/o pain, discharge Psych: normal affect, no flight of ideas or tangential thought, good eye contact, no pressured speech ASSESSMENT: E78.2 Mixed hyperlipidemia (primary encounter diagnosis) Z79.899 Encounter for long-term (current) use of medications R22.2 Lump of skin of back R22.31 Skin lump of arm, right K21.9 Gastroesophageal reflux disease without esophagitis PLAN: Mixed hyperlipidemia (Primary) - COMPREHENSIVE METABOLIC PANEL; Future; Expected date: 11/04/2022 - LIPID PANEL WITH DIRECT LDL IF TG IS HIGH; Future; Expected date: 11/04/2022 Recheck labs Encounter for long-term (current) use of medications - MAGNESIUM; Future; Expected date: 11/04/2022 - VITAMIN B12; Future; Expected date: 11/04/2022 Recheck on PPI Lump of skin of back - US EXTREMITY, NON-VASCULAR LIMITED Possible lipoma, check u/s Skin lump of arm, right - US EXTREMITY, NON-VASCULAR LIMITED Gastroesophageal reflux disease without esophagitis Cont PPI Follow Up: Return in about 1 year (around 11/05/2023), or if symptoms worsen or fail to improve, forFasting Labs Soon. | For: Fasting Labs Soon Declines all vaccines, screen/hm Jesús Gale MD documented in this encounter Nursing Notes * Darin eHart CMA - 11/04/2022 12:58 PM EDT Chief Complaint Patient presents with Follow Up 6 month follow up. Patient's son is present to translate. He states concerns for wanting referral to have right shoulder lump examined, states she has had for 20 years but continues to grow in size. documented in this encounter Plan of Treatment Upcoming Encounters Date Type Specialty Care Team Description 11/04/2022 Laboratory [facility] [place] [facility] [address] [place] [id number] Mixed hyperlipidemia; Encounter for long-term (current) use of medications 11/09/2022 Imaging Radiology 11/07/2023 Office Visit Internal Medicine Jesús Gale MD [address] [place] [address] Pending Results Name Type Priority Associated Diagnoses Date /Time COMPREHENSIVE METABOLIC PANEL Lab Routine Mixed hyperlipidemia 11/04/2022 1:18 PM EDT LIPID PANEL WITH DIRECT LDL IF TG IS HIGH Lab Routine Mixed hyperlipidemia 11/04/2022 1:18 PM EDT MAGNESIUM Lab Routine Encounter for long-term (current) use of medications 11/04/2022 1:18 PM EDT VITAMIN B12 Lab Routine Encounter for long-term (current) use of medications 11/04/2022 1:18 PM EDT Scheduled Orders Name Type Priority Associated Diagnoses Orde r Schedule COMPREHENSIVE METABOLIC PANEL Lab Routine Mixed hyperlipidemia Expected: 11/04/2022 (Approximate), Expires: 11/04/2023 LIPID PANEL WITH DIRECT LDL IF TG IS HIGH Lab Routine Mixed hyperlipidemia Expected: 11/04/2022, Expires: 11/05/2023 MAGNESIUM Lab Routine Encounter for long-term (current) use of medications Expected: 11/04/2022 (Approximate), Expires: 11/04/2023 VITAMIN B12 Lab Routine Encounter for long-term (current) use of medications Expected: 11/04/2022 (Approximate), Expires: 11/04/2023 EXTREMITY, NON-VASCULAR LIMITED Medical Imaging Routine Lump of skin of back Skin lump of arm, right Ordered: 11/04/2022 Health Maintenance Due Date Last Done Comments DXA Scan 1948 COVID-19 Vaccine (#1) 01/18/1951 Hepatitis C Screening 1966 DTaP,Tdap,and Td Vaccines (1 - Tdap) 07/20/1967 Cologuard 1993 Colonoscopy 1993 Colorectal Cancer Screening 1993 Fecal Occult Blood Test 1993 Sigmoidoscopy 1993 Zoster Vaccines (1 of 2) 1998 Pneumococcal Vaccine: 65+ Years (1 - PCV) 2013 Mammogram 12/04/2014 12/04/2013, 10/16/2013 Depression Screening 01/16/2020 01/15/2019 Influenza Vaccine (FLU shot) (#1) 2022 Lipid Panel 11/10/2026 11/10/2021, 04/09/2021, 09/12/2013 GARDASIL-HPV IMMUNIZATION SERIES Aged Out No longer eligible b ased on patient's age to complete this topic Hepatitis B Aged Out No longer eligi ble based on patient's age to complete this topic MENINGOCOCCAL (MENACTRA/MENVEO) Aged Out No longer eligible b ased on patient's age to complete this topic documented as of this encounter Medical Devices Not on filedocumented as of this encounter Visit Diagnoses Diagnosis Mixed hyperlipidemia- Primary Encounter for long-term (current) use of medications Encounter for long-term (current) use of other medications Lump of skin of back Localized superficial swelling, mass, or lump Skin lump of arm, right Gastroesophageal reflux disease without esophagitis Esophageal reflux Mixed hyperlipidemia Encounter for long-term (current) use of medications Encounter for long-term (current) use of other medications documented in this encounter Care Teams Hand Cigar Maker Relationship Specialty Start Date End Date Jesús Gale MD [address] [facility] [place] [address] PCP - General Internal Medicine 12/03/20 documented as of this encounter
--- OUTSIDE RECORDS SUMMARY | 2023-02-01 23:55 | External Medical Summary | Summary of Care ---
Author Name Unknown Organization [facility] Address [address] [place] [address] Phone [phone] Care Team Providers Care Director Of Channel Marketing Name Role Phone Jesús Gale MD Primary Care Provider + Reason for Visit * Reason Comments Outpatient Testing Encounter Details Date Type Department Care Team Description 11/04/2022 Laboratory [facility] [place] [facility] [place] [address] [place] [address] [place], [facility] [address] [place] [id number] Mixed hyperlipidemia; Encounter for long-term (current) use of medications Allergies Active Allergy Reactions Severity Noted Date [...] on file documented as of this encounter Plan of Treatment Upcoming Encounters Date Type Specialty Care Team Description 11/09/2022 Imaging Radiology 11/07/2023 Office Visit Internal Medicine Jesús Gale MD [address] [place] [address] Pending Results Name Type Priority Associated Diagnoses [...] use of medications 11/04/2022 1:18 PM EDT Health Maintenance Due Date Last Done Comments [...] of this encounter Visit Diagnoses Diagnosis Mixed hyperlipidemia Encounter for long-term (current) use of medications Encounter for long-term (current) use of other medications documented in this encounter Care Teams Director Of Channel Marketing Relationship Specialty Start Date End Date Jesús Gale MD [address] [place] [address] PCP - General Internal Medicine 12/03/20 documented as of this encounter
--- OUTSIDE RECORDS SUMMARY | 2023-02-01 23:55 | External Medical Summary | Summary of Care ---
Author Name Unknown Organization [facility] Address [address] [place] [address] Phone [phone] Care Team Providers Care Street Commissioner Name Role Phone Jesús Gale MD Primary Care Provider + Reason for Visit * Reason Comments Outpatient Testing Encounter Details Date Type Department Care Team Description 11/30/2022 Laboratory [facility] [place] [address] [place] [address] [place] [address] [place] [address] Postmenopausal vaginal bleeding; Fatigue, unspecified type Allergies Active Allergy Reactions Severity Noted Date [...] Gynecology Obstetrics Kenton Concepcion MD [address] [place] [address] 11/07/2023 Office Visit Internal Medicine Jesús Gale MD [address] [place] [address] Pending Results Name Type Priority Associated Diagnoses Date /Time CBC WITH WBC DIFFERENTIAL AND ANEMIA REFLEX WORKUP Lab Routine Postmenopausal vaginal bleeding 11/30/2022 9:26 AM EDT COMPREHENSIVE METABOLIC PANEL Lab Routine Postmenopausal vaginal bleeding 11/30/2022 9:26 AM EDT TSH WITH FREE T4 IF INDICATED Lab Routine Fatigue, unspecified type 11/30/2022 9:26 AM EDT ANEMIA CBC Lab Routine Postmenopausal vaginal bleeding 11/30/2022 9:26 AM EDT DIFFERENTIAL, AUTOMATED Lab Routine Postmenopausal vaginal bleeding 11/30/2022 9:26 AM EDT ANEMIA REFLEX CHEMISTRY HOLD Lab Routine Postmenopausal vaginal bleeding 11/30/2022 9:26 AM EDT Health Maintenance Due Date Last Done [...] as of this encounter Visit Diagnoses Diagnosis Postmenopausal vaginal bleeding Postmenopausal bleeding Fatigue, unspecified type documented in this encounter Care Teams Street Commissioner Relationship Specialty Start Date End Date Jesús Gale MD [address] [place] [address], [place] [address] PCP - General Internal Medicine 12/03/20 documented as of this encounter
--- OUTSIDE RECORDS SUMMARY | 2023-02-01 23:55 | External Medical Summary ---
Author Name Unknown Address Unknown Organization [id number]:LABORATORY [facility] [place] - [address] [place] [address] Laboratory Report Ordering Provider Test Date Status DO REECELAURENCESTEPHANIE 11/04/2022 13:18:06 Final Observation Date Value Abnormality Reference (Units ) Status Triglyceride 11/04/2022 13:18:06 98 <=174 ( mg/dL) Final Triglyceride Reference Range s (mg/dL):
<150 Acceptable
150-174 Borderline high
175-499 High
>=500 Very high Cholesterol 11/04/2022 13:18:06 197 <200 (mg /dL) Final Total Cholesterol Reference Ranges (mg/dL):
<200 Desirable
200-239 Borderline high
>=240 High HDL 11/04/2022 13:18:06 49 Below low normal >49 (mg/dL) Final HDL Cholesterol Reference Ra nges (mg/dL):
>=60 High (Desirable)
<50 Low (Undesirable) For Females
<40 Low (Undesirable) For Males NON-HDL CHOLESTEROL 11/04/2022 13:18:06 148 <=159 (mg/dL) Final Non-HDL Cholesterol Referenc e Range (mg/dL):
<100 Target level for high risk ASCVD patient
<130 Optimal for general population
130-159 Near optimal for general population
160-189 Borderline High
190-219 High
>=220 Very High LDL, (calculated) 11/04/2022 13:18:06 128 <= 129 (mg/dL) Final LDL Cholesterol Reference Ra nges (mg/dL):
<70 Target level for high risk ASCVD patient
<100 Optimal for general population
100-129 Near optimal for general population
130-159 Borderline high
160-189 High
>=190 Very high Performing Location LABORATORY [facility] [place] - [address] [facility] [address]
--- OUTSIDE RECORDS SUMMARY | 2023-02-01 23:55 | External Medical Summary | Summary of Care ---
Author Name Unknown Organization [facility] Address [address] [place] [address] Phone [phone] Care Team Providers Care Pathology Lab Technician Name Role Phone Jesús Gale MD Primary Care Provider + Reason for Visit * Reason Onset Date Comments Advice 11/29/2022 Appt scheduled. Encounter Details Date Type Department Care Team Description 11/29/2022 Telephone General Internal Medicine [facility] [place] [address] [facility] [place] [address] [facility] [address] Advice (Appt scheduled. ) Allergies Active Allergy Reactions Severity Noted Date [...] Telephone Encounter - Nikole Perkins MD - 11/30/2022 12:42 PM EDT Seen * Telephone Encounter - Maricarmen Resendiz LPN - 11/29/2022 10:13 AM EDT Patient's son Delaney and his calling. The patient has had vaginal bleeding for 6 days. Experiencing itching and burning. Patient is wearing a pad, changing 3x daily. Unknown if she is saturating the pads. Unknown if the color is bright red or dark. Patient is experiencing abdominal pain. Patient described to her son that it's like having a period. Denies fever, chills, nausea, vomiting. They don't have any additional details. Not with the patient. Requesting a PUSH CONNECTOR ASSEMBLER referral. Advised appt in PCPs office for eval. Appt scheduled with Dr. Perkins tomorrow morning at 840am. documented in this encounter Plan of Treatment Upcoming Encounters Date Type Specialty Care Team Description 12/07/2022 Imaging Radiology 12/07/2022 Imaging Radiology 12/08/2022 Office Visit Gynecology Obstetrics Kenton Concepcion MD [address] [place] [address] 11/07/2023 Office Visit Internal Medicine Jesús Gale MD [address] [place] [address] Health Maintenance Due Date Last Done Comments [...] filedocumented as of this encounter Care Teams Pathology Lab Technician Relationship Specialty Start Date End Date Jesús Gale MD [address] [place] [address] PCP - General Internal Medicine 12/03/20 documented as of this encounter
--- OUTSIDE RECORDS SUMMARY | 2023-02-01 23:55 | External Medical Summary ---
Author Name Unknown Address Unknown Organization [id number]:[facility] [place] [address] Laboratory Report Ordering Provider Test Date Status MAREK NEWELL 11/04/2022 13:18:06 Final Observation Date Value Abnormality Reference (Units ) Status Magnesium 11/04/2022 13:18:06 2.2 1.5-2.6 (m g/dL) Final Performing Location [facility] [place] [address]
--- OUTSIDE RECORDS SUMMARY | 2023-02-01 23:55 | External Medical Summary ---
Author Name Unknown Address Unknown Organization [id number]:LABORATORY [facility] [place] - [address] [facility] [address] Laboratory Report Ordering Provider Test Date Status CARLOS EDUARDO HARDING 11/30/2022 09:26:37 Final Observation Date Value Abnormality Reference (Units ) Status SYNC LEUKOCYTES IN BLOOD BY AUTOMATED COUNT 11/30/2022 09:26:37 5.36 4.00-10.80 (K/uL) Final Segs 11/30/2022 09:26:37 73.6 40.0-75.0 (%) Final Lymphs % 11/30/2022 09:26:37 18.3 18.0-42.0 (%) Final Monos 11/30/2022 09:26:37 6.7 1.0-11.0 (%) Final Eosinophils 11/30/2022 09:26:37 0.6 0.0-6.0 (%) Final Basos 11/30/2022 09:26:37 0.6 0.0-2.0 (%) Final Immature Granulocyte, Percent 11/30/2022 09:26:37 0.2 0.0-2.0 (%) Final Absolute Segs 11/30/2022 09:26:37 3.95 1.80-7.70 (K/uL) Final Lymphs, absolute 11/30/2022 09:26:37 0.98 Below low normal 1.00-4.80 (K/ul) Final Monos, Abs 11/30/2022 09:26:37 0.36 0.00-1.10 (K/uL) Final Eos, Abs 11/30/2022 09:26:37 0.03 0.00-0.70 (K/uL) Final Basos, Abs 11/30/2022 09:26:37 0.03 0.00-0.20 (K/uL) Final Immature Granulocytes, Number 11/30/2022 09:26:37 0.01 0.00-0.20 (K/uL) Final Performing Location LABORATORY [facility] - [address] [facility] [address]
--- OUTSIDE RECORDS SUMMARY | 2023-02-01 23:55 | External Medical Summary ---
Author Name Unknown Address Unknown Organization [id number]:[facility] [place] [address] [place] [address] Laboratory Report Ordering Provider Test Date Status MAREK NEWELL 11/04/2022 13:18:06 Final Observation Date Value Abnormality Reference (Units ) Status Vitamin B12 11/04/2022 13:18:06 348 384-1819 (pg/mL) Final Performing Location [facility] [place] [address] [place] [address]
--- OUTSIDE RECORDS SUMMARY | 2023-02-01 23:55 | External Medical Summary ---
Author Name Unknown Address Unknown Organization K01:[facility] - [address] [place] [address] Laboratory Report Ordering Provider Test Date Status CARLOS EDUARDO HARDING 11/30/2022 09:26:37 Final Observation Date Value Abnormality Reference (Units ) Status WBC, Total 11/30/2022 09:26:37 5.36 4.00-10.8 0 (K/uL) Final RBC 11/30/2022 09:26:37 4.58 3.85-5.15 (M/uL) Final Hemoglobin 11/30/2022 09:26:37 13.9 12.0-15.3 (g/dL) Final Anemia reflex testing trigge rs on a HGB < 12.0 for Females and HGB < 13.0 for Males in accordance with the WHO Anemia Guidelines
Anemia reflex testing triggers on a HGB < 12.0 for Females and HGB < 13.0 for Males in accordance with the WHO Anemia Guidelines HCT 11/30/2022 09:26:37 43.6 36.0-45.2 (%) Final MCV 11/30/2022 09:26:37 95.2 81.5-97.5 (fL) Final MCH 11/30/2022 09:26:37 30.3 27.0-34.0 (pg) Final MCHC 11/30/2022 09:26:37 31.9 32.0-36.0 (g/dL) Final RDW 11/30/2022 09:26:37 13.6 11.5-15.5 (%) Final Platelets 11/30/2022 09:26:37 190 140-400 (K /uL) Final MPV 11/30/2022 09:26:37 11.8 6.6-11.1 ( fL) Final Nucleated erythrocytes/100 leukocytes [Ratio] in Blood by Automated count 11/30/2022 09:26:37 0 <=0 (/100 WBCs) Fi [facility] Performing Location LABORATORY [facility] - [address] [facility] [address]
[2023-02-02 06:28] LABS: Hematocrit (blood only) 37.1 % (37.0-47.0); Hemoglobin 12.3 g/dl (12.0-16.0); Mean Corpuscular Hemoglobin 29.5 pg (25.0-34.0); Mean Corpuscular Hgb Conc 33.2 g/dL (32.0-36.0); Mean Platelet Volume 11.4 fL (9.4-12.4); Platelet Count 160 K/uL (130-400); RDW Coefficient of Variation 12.6 % (11.5-14.5); RDW Standard Deviation 41.1 fL (36.4-46.3); Red Blood Count 4.17 M/uL (4.20-5.40); White Blood Count 5.19 K/ul (4.8-10.8)
[2023-02-02 06:51] LABS: BUN Creatinine Ratio 17.8 (10-20); Calcium 7.7 mg/dl (8.6-10.3); Creatinine Clr Calc Pharmacy 63.3 ml/min; Est GFR (Non-African American) 81.1 ml/min; Phosphorus 2.2 mg/dl (2.5-4.9); Potassium 3.7 mmol/L (3.5-5.1)
[2023-02-02] MEDS ORDERED: PANTOprazole 40 MG TAB PO SCH (11:30)
--- NOTE | 2023-02-02 14:48 | Discharge Summary ---
Date of Service February 02, 2023 Admission HPI Per Admitting Provider 72-year-old lady with PMH of HLD, IBS, GERD presented to the hospital with worsening nausea and vomiting x 1 day. 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 Per patient's son, patient had nausea and vomiting and dizziness episode in January 21 and she was recovering from it but again she had worsening nausea and vomiting today with worsening dizziness and hence they presented to the hospital. Patient also is having cough, mostly dry in nature for about 7 days, no sore throat. Patient denies chest pain. Per patient's son, patient usually shivers after nausea and vo miting episode which is seen at bedside exam. Patient's son reports that he has not seen any focal weakness but Pt has generalized weakness. She has decreased appetite secondary to vomiting. She only takes omeprazole at home. DNR DNI as per my discussion with the patient and her son. Patient denies smoking/alcohol use/recreational drug use. Admission Exam Per Admitting Provider GENERAL: Alert and oriented x3. NAD, on RA. Appears weak/ill. HEENT: No pallor, no icterus. Pupils equal, round and reactive to light. Oral mucosa moist. NECK: No JVD, no neck masses. HEART: S1 and S2 heard. Regular rate and rhythm. No murmur, no gallop. RESPIRATORY SYSTEM: Normal AP diameter. No accessory muscle use. No wheezing, no crackles. ABDOMEN: Soft, bowel sounds present, nontender, no distention. CENTRAL NERVOUS SYSTEM: No facial droop. Speech is clear. Obeys simple commands. Moves extremities. Power 5/5 all extremities. EXTREMITIES: No edema, no erythema seen. Principal Diagnosis Acute gastroenteritis Discharge Exam Constitutional: Awake alert oriented x 3; not in distress. Respiratory: normal respiratory effort, lungs clear to auscultation, no wheeze, rales, rhonchi. Normal insp/exp effort, no accessory muscle use Cardiovascular: RRR, no murmur, no edema Vessels: no JVD or carotid bruit Chest: normal inspection of chest Abdomen: normal bowel sounds, soft, nontender, no hepatosplenomegaly Musculoskeletal: no cyanosis or clubbing, extremities motor strength 5/5 Skin: no rashes, warm and dry normal turgor Neurologic: PERRL, EOMI, accommodation nl, no face palsy, no dysarthria CN's II- XI intact bilaterally and moves all extremities Psychiatric: A+Ox3, euthymic affect Discharge Data Allergies Allergy/AdvReac Type Severity Reaction Status Date / Time levofloxacin Allergy Severe increased Verified 03/09/20 13:31 pain magnesium Allergy Severe fainting Verified 03/09/20 13:31 procaine [From Novocain] AdvReac Severe Dizziness Unverified 03/09/20 13:31 NSAIDS (Non-Steroidal AdvReac Mild Verified 02/01/23 17:49 Anti-Inflamma ANALGEN Allergy Severe increased Uncoded 03/09/20 13:31 pain Consultations 02/01/23 18:08 ED Decision to Admit Stat Ordered Studies 02/01/23 16:11 CT abd pelvis IV con only Stat CT head/brain wo con Stat Hospital Course (1) Vomiting: Plan Nausea, vomiting Generalized weakness Acute gastroenteritis Patient was reported to have nausea and vomiting/dizziness for several days. On presentation to the ED, vitals were stable. Patient was afebrile and hemodynamically stable. CT abdomen pelvis did not show any acute findings. CT head without contrast did not show any acute findings. Patient was admitted to medical floor; started on IV fluids. Over night, patient reported improvement in the symptoms. Discussed with her son at bedside; no acute concern at the moment. Reports that patient has improved significantly with IV hydration; no nausea or vomiting noted by him during the hospitalization. He wanted to take her home. Patient discharged home with her son. Please note the above document was generated using voice recognition software. It may contain grammatical, syntax or spelling errors. Any formal questions or concerns about the content, text or information contained within the body of this dictation should be directly addressed to the provider for clarification Total Time Total Time Spent Total Time Spent (In Minutes): 35 Total Time Includes: Examination of the Patient, Discharge Planning, Medication Reconciliation, Communication With Other Providers and Other Discharge Plan Discharge Items Patient Disposition: Home - Self-Care Reason For Visit: VOMITING Discharge Diagnosis: Acute gastroenteritis Activity: Resume your previous activity Non-emergency contact: Primary Care Provider Call non-emergency contact if: you have any medication questions and your symptoms worsen Follow-up/Referrals: Eliud Mendoza, [Primary Care Provider] - (Date & Time 02/08/2023 10:20 AM Provider Emilia Alexandra MD Department General Internal Medicine [facility] ) Diet: Regular Addtl Attending Provider Instructions: You were admitted to the hospital due to nausea and vomiting. CT of the abdomen was done which did not show any abnormality. The cause for the nausea and vomiting could be acute gastroenteritis. Please advance diet as tolerated at home. You are prescribed Zofran to be taken as needed every 8 hours for nausea and vomiting. An appointment with your primary care doctor will be set up in next couple of weeks. You might need GI referral if you have persistent nausea and vomiting. Pending Studies at Discharge: No Stand-Alone Forms: My [facility], Smoking Cessation Medications and DC Order Prescriptions: New ondansetron 4 mg tablet,disintegrating 4 mg PO Q8H PRN (Reason: nausea and vomiting) Qty: 20 0RF Continued omeprazole 20 mg capsule,delayed release(DR/EC) 20 mg PO QDL Discharge Orders: Discharge Order (Routine); Ordered 02/02/23 Ordered By: Abdoulaye Fischer Admission Data Admit Date/Time: 02/01/23 18:27 Attending Provider: Abdoulaye Fischer Admit Provider: Brie Jenkins Primary Care Provider: Eliud Mendoza Other Providers: Brie Jenkins Other Interventions: Discharge Summary Assessment (RN) Last Done: 02/02/23 13:03
--- NOTE | 2023-02-04 06:25 | Electrocardiogram Report ---
Test Reason : Blood Pressure : / mmHG Vent. Rate : 077 BPM Atrial Rate : 077 BPM P-R Int : 144 ms QRS Dur : 104 ms QT Int : 410 ms P-R-T Axes : 057 -61 044 degrees QTc Int : 463 ms Normal sinus rhythm Incomplete right bundle branch block Left anterior fascicular block Abnormal ECG When compared with ECG of 09-MAR-2020 11:08, No significant change Confirmed by Timur Scott ([id number]) on 02/04/2023 6:24:33 AM Referred By: Confirmed By:Timur Scott
== END 2023-02-02 13:27 | disposition home or self-care (01) ==
LOC: 2S 14:47 → ED 14:47 → SUATTDRO 18:27 → 2S 21:26

== ENCOUNTER 2023-09-12 13:35 | Inpatient (IN) ==
--- NOTE | 2023-09-12 14:09 | Emergency Department Note ---
Impression & Plan Abdominal pain, Intractable nausea and vomiting, Vomiting, Dizziness ED Provider Note Name: TRISTAN COLLINS Age: 73 Sex: Female Arrives Via: Ambulance Informant: Patient(Sierra Leonean-speaking) son at bedside gives primary story ED Provider: John Paul MD Chief Complaint: Abdominal pain Impression: As per impressions above Medical Decision Making: Pleasant 73-year-old female with episodes of recurrent abdominal pain vomiting and dizziness over the last year arrives for evaluation of severe abdominal pain and vomiting. Once she was feeling bit better from this she noted she would been having some dizzy spells as well. She was given Dilaudid, Zofran and then some Ativan with some improvement in her symptoms the nausea continues and another dose of Zofran was given. Laboratory was consistent with her baseline neutropenia but otherwise no acute concerning findings. A CT of her head is unremarkable. A CT of her abdomen pelvis shows some questionable ureteral thickening but her UA is unremarkable thus I think this is unlikely infectious. Due to return of symptoms she had been given further fentanyl and Zofran. In the setting of persistent symptoms hospitalist was consulted for further management. Of note patient does not have acute peritonitis. Her symptoms have been ongoing since yesterday has no neurodeficits I do not feel this patient is a TNKase candidate and does not have evidence of LVO. Hospitalist consulted for further evaluation and management. Triage/Nursing Notes reviewed by Me External Chart Review by me: Discharge summary 02/02/2023 describing similar symptoms. Differential:Gastroenteritis, food borne illness, infections, appendicitis, diverticulitis, inflammatory bowel disease, obstruction, GI bleed, biliary pathology, volvulus, as well as other pathologies. Vital Signs: reviewed and remarkable for moderate hypertension on arrival Interventions: Dilaudid IV, Zofran IV, Ativan IV, Zofran IV, fentanyl IV, normal saline bolus Labs:ED labs Reviewed by me and remarkable for neutropenia chronic Imaging:CT of the head without consciousness as per my informal interpretation no intracranial hemorrhage or mass effect appreciated. Confirmed by radiologist CT of the abdomen and pelvis with IV contrast as per my informal interpretation. No obstruction, no free air, no significant free fluid. Confirmed by radiologist who does note some thickening of the ureter. EKG:As per my interpretation. Indication hypertension. Normal sinus rhythm 75 bpm QTc of 453. There is no ectopy nor ischemia. A bifascicular block is noted. When compared to EKG of June 10, 2023 there is no significant change. Cardiac/Tele Monitoring: Cardiac Monitoring: An Order was placed for continuous cardiac monitoring. The monitor shows a rate of 75 with a normal sinus rhythm. Consults:Dr Keli Mckee hospitalist. Discussed case with her she will evaluate for further management and possible hospitalization. Plan: Disposition:Hospitalization. Condition: Good History of Present Illness: 73-year-old female arrives for evaluation of abdominal pain. This has been ongoing for the last 24 hours. Associated with nausea, vomiting. She has been hypertensive since yesterday with a blood pressure in the 170s where it usually is in the 120s. Is also associated with headache, dizziness, lightheadedness difficulty ambulating. She is also been having significant loose stools with some diarrhea. No black or bloody stools. No blood in emesis. No swelling. Patient has been having near syncopal events but has not passed out. This is occurred twice previously once May 2023 and the other in January 2023. There is no clear etiology of the symptoms. Patient was feeling fine until yesterday morning when she started having symptoms again. Denies any falls, trauma, injuries. Unable to keep down any of her oral medications including Zofran that she was prescribed. Past Medical History: Hypertension, GERD Home Medications: Zofran, amlodipine, omeprazole Allergies: Levaquin, magnesium, procaine, NSAIDs Vitals:Blood Pressure: 176/98, Pulse 69, RR 22, T 36.5C, O2 99% on RA Physical Exam: GENERAL: Patient is uncomfortable appearing and in moderate distress. Tremulous RESPIRATORY: No dyspnea. Clear to auscultation and equal bilaterally. CARDIOVASCULAR: Regular rate and rhythm.No murmur appreciated. GASTROINTESTINAL: Diffuse upper abdominal tenderness palpation. No peritonitis. Normoactive bowel sounds. EXTREMITIES: Normal motion all extremities, no cyanosis, no edema. NEUROLOGIC: Alert and oriented. No focal neurologic deficits appreciated SKIN: No rash, no jaundice, no diaphoresis. PSYCH: Appropriate GCS: 15 ED Course: Times/Reassessments: Patient with waxing and waning symptoms though unable to fully control and still too weak and fatigued to discharge to home. John Paul MD Past Med/Surg History Problem List (Updated 09/12/23 @ 18:14 by Megan Vides PA-C) Intractable nausea and vomiting Abdominal pain Dizziness (Acute) Vomiting (Acute) Contact dermatitis (Acute) Medical History Irritable bowel syndrome (IBS) Mixed hyperlipidemia GERD (gastroesophageal reflux disease) Ambulatory dysfunction Social History Smoking Status: Unknown if ever smoked Second Hand Exposure: No; Do You Dip or Chew Tobacco: No; Hx Alcohol Use: No Hx Substance Use: No Preferred Language: Ukranian Communication Ability: Effective Communication Tools: Other Production Material Handler Required: No Beliefs That Will Affect Care: None Current Living Situation: Alone Feels Safe at Home: Yes Assistive Devices: None Allergies Allergies Allergy/AdvReac Type Severity Reaction Status Date / Time levofloxacin AdvReac Severe increased Verified 09/12/23 16:00 pain magnesium AdvReac Severe fainting Verified 09/12/23 16:00 NSAIDS (Non-Steroidal AdvReac Severe losses Verified 09/12/23 16:00 Anti-Inflamma consciousness procaine [From Novocain] AdvReac Severe Dizziness Verified 09/12/23 16:00 acetaminophen [From Tylenol] AdvReac Unknown PER PT'S Verified 09/12/23 16:00 SON, "WILL NOT TAKE". ANALGEN AdvReac Severe increased Uncoded 09/12/23 16:00 pain Home Meds Home Medications Medication Instructions Recorded Confirmed omeprazole 20 mg capsule,delayed 20 mg PO QDL 03/09/20 09/12/23 release meclizine 25 mg tablet 12.5 mg PO TID PRN Dizziness Or 09/12/23 09/12/23 Vertigo sumatriptan succinate 25 mg tablet 50 mg PO Q2H PRN Migraine Headache 09/12/23 09/12/23 Previous Rx's Medication Instructions Recorded ondansetron 4 mg disintegrating 4 mg PO Q8H PRN nausea and 02/02/23 tablet vomiting #20 tabs Results & Data (ED) Vital Signs Vital Signs - 24 hr 09/12/23 13:42 09/12/23 13:52 09/12/23 13:52 Temperature 36.5 C Temperature Source Temporal Artery Scan Pulse Rate 72 69 Pulse Rate [Apical] Respiratory Rate 22 Respiratory Effort / Characteristics Non-Labored Respiratory Depth Normal Blood Pressure 176/98 H Blood Pressure [Left Arm] Blood Pressure Mean 124 Blood Pressure Mean [Left Arm] Pulse Oximetry 99 Oxygen Delivery Method Room Air Room Air Sepsis New/Unexplained Change in Mental Status No Sepsis Action Taken by Nursing No Action Required 09/12/23 15:30 09/12/23 17:00 09/12/23 17:40 Temperature Temperature Source Pulse Rate 68 Pulse Rate [Apical] 60 62 Respiratory Rate 20 20 Respiratory Effort / Characteristics Respiratory Depth Blood Pressure Blood Pressure [Left Arm] 159/74 H 144/76 H Blood Pressure Mean Blood Pressure Mean [Left Arm] 102 98 Pulse Oximetry 97 97 Oxygen Delivery Method Room Air Room Air Sepsis New/Unexplained Change in Mental Status Sepsis Action Taken by Nursing 09/12/23 18:00 Temperature Temperature Source Pulse Rate Pulse Rate [Apical] 62 Respiratory Rate 14 Respiratory Effort / Characteristics Respiratory Depth Blood Pressure Blood Pressure [Left Arm] 156/83 H Blood Pressure Mean Blood Pressure Mean [Left Arm] 107 Pulse Oximetry 98 Oxygen Delivery Method Room Air Sepsis New/Unexplained Change in Mental Status Sepsis Action Taken by Nursing Laboratory Data 09/12/23 13:45 09/12/23 13:45 Lab Results 09/12/23 09/12/23 Range/Units 13:45 16:21 WBC 3.80 L (4.8-10.8) K/ul RBC 4.27 (4.20-5.40) M/uL Hgb 13.1 (12.0-16.0) g/dl Hct 37.5 (37.0-47.0) % MCV 87.8 (80.0-100.0) fL MCH 30.7 (25.0-34.0) pg MCHC 34.9 (32.0-36.0) g/dL RDW Std Deviation 40.8 (36.4-46.3) fL RDW Coeff of [place] 12.8 (11.5-14.5) % Plt Count 176 (130-400) K/uL MPV 10.6 (9.4-12.4) fL Immature Gran % (Auto) 0.3 % Neut % (Auto) 67.2 % Lymph % (Auto) 26.6 % [place] % (Auto) 5.3 % Eos % (Auto) 0.3 % Baso % (Auto) 0.3 % Neut # (Auto) 2.56 (1.40-6.50) K/uL Lymph # (Auto) 1.01 L (1.20-3.40) K/uL [place] # (Auto) 0.20 (0.11-0.59) K/uL Eos # (Auto) 0.01 (0.00-0.50) K/uL Baso # (Auto) 0.01 (0.00-0.20) K/uL Immature Gran # (Auto) 0.01 (0.01-0.20) K/uL Sodium 136 (136-145) mmol/L Potassium 3.3 L (3.5-5.1) mmol/L Chloride 99 (98-107) mmol/L Carbon Dioxide 25 (21-32) mmol/L Anion Gap 12 H (3-11) BUN 12 (6-23) mg/dl Creatinine 0.75 (0.6-1.2) mg/dl Est Cr Clr Drug Dosing 56.0 ml/min Est GFR ( Amer) 90.4 ml/min Est GFR (Non-Af Amer) 78.0 ml/min BUN/Creatinine Ratio 16.0 (10-20) Glucose 107 H (70-99(Fasting)) mg/dl Calcium 9.6 (8.6-10.3) mg/dl Magnesium 1.7 (1.7-2.4) mg/dl Total Bilirubin 0.8 (0.2-1.0) mg/dl Direct Bilirubin 0.1 (0-0.2) mg/dl AST 30 (13-39) U/L ALT 23 (7-52) U/L Alkaline Phosphatase 46 (34-104) U/L Troponin I High Sens 5.4 (0-14) pg/ml Total Protein 7.8 (6.0-8.3) gm/dl Albumin 4.9 (3.4-5.0) gm/dl Lipase 22 (11-82) U/L Urine Color Yellow Urine Appearance Clear (Clear) Urine pH 6.5 (4.5-7.5) Ur Specific [place] > 1.045 H (1.000-1.030) Urine Protein Negative (Negative) Urine Glucose (UA) Negative (Negative) Urine Ketones 2+ H (Negative) Urine Blood Negative (Negative) Urine Nitrite Negative (Negative) Urine Bilirubin Negative (Negative) Urine Urobilinogen Negative (Negative) Ur Leukocyte Esterase Negative (Negative) Administered Medications Discontinued Medications Fentanyl Citrate (Fentanyl Citrate Pf 100 Mcg/2 Ml Vial) 50 mcg IV NOW STA Stop: 09/12/23 17:43 Last Admin: 09/12/23 18:01 Dose: 50 mcg Documented By: HOUSTON Hydromorphone HCl (Hydromorphone Inj 0.5 Mg/0.5 Ml Syr) 0.5 mg IV NOW STA Stop: 09/12/23 14:07 Last Admin: 09/12/23 14:19 Dose: 0.5 mg Documented By: KIRA Sodium Chloride (Nss) 1,000 mls @ 999 mls/hr IV .Q1H1M ONE Stop: 09/12/23 15:06 Last Infusion: 09/12/23 15:20 Dose: Infused Documented By: Admin: 09/12/23 14:19 Dose: 999 mls/hr Documented By: KIRA Ioversol (Optiray 320 100ml) 94 ml IV ONCE ONE Stop: 09/12/23 15:08 Last Admin: 09/12/23 15:08 Dose: 94 ml Documented By: VIPUL Lorazepam (Lorazepam 1 Mg/1 Ml Syr Ed Inj Use) 1 mg IV ONE STA Stop: 09/12/23 16:14 Last Admin: 09/12/23 16:22 Dose: 1 mg Documented By: HOUSTON Ondansetron HCl (Ondansetron Inj 2 Mg/Ml 2 Ml Vial) 4 mg IV NOW STA Stop: 09/12/23 14:07 Last Admin: 09/12/23 14:19 Dose: 4 mg Documented By: KIRA Ondansetron HCl (Ondansetron Inj 2 Mg/Ml 2 Ml Vial) 4 mg IV NOW STA Stop: 09/12/23 17:43 Last Admin: 09/12/23 18:02 Dose: 4 mg Documented By: HOUSTON Imaging Data Radiologist's Impression: Abdomen/Pelvis CT 09/12/23 14:06 CT abd pelvis IV con only CLINICAL HISTORY: diffuse abdominal pain vomiting TECHNIQUE: Helical axial images of the abdomen and pelvis were obtained and displayed. Automated dose lowering techniques and/or adjustment according to patient size were utilized for this exam. This exam was performed with intravenous contrast. CT DOSE: 1189.16 mGy.cm COMPARISON: Comparison is made to CT abdomen pelvis 02/01/2023 FINDINGS: Lower chest: No acute abnormality. Liver: Unremarkable. No focal lesions are seen. Gallbladder and biliary tree: Patient is status post cholecystectomy. Physiologic prominence of the biliary ducts is noted. Pancreas: Unremarkable, no focal lesions. Spleen: Unremarkable. Adrenals: Nodularity of the adrenal glands is noted. Kidneys and ureters: There is mild prominence and enhancement of the bilateral ureteral long. Bladder: Diffuse homogeneous wall thickening is seen. Reproductive organs: Unremarkable. Bowel: Diverticulosis is seen without evidence of diverticulitis. A small hiatal hernia is seen. Patient is status post appendectomy. Lymph nodes Retroperitoneal: Unremarkable. Pelvic: Unremarkable. Mesenteric: Unremarkable. Peritoneum: Normal. Vessels: Unremarkable. Abdominal wall: Unremarkable. Bones: Degenerative changes in the visualized spine. IMPRESSION: 1. There is mild prominence and enhancement of the ureteral wall which can be seen in ureteritis. Correlation with urinalysis is recommended. 2. Diverticulosis without diverticulitis. 3. Small hiatal hernia. ACT 112: Negative or not required by law. Electronically signed by: Guru George M.D. 09/12/2023 4:[address] 09/12/23 14:[address] DOSE: HISTORY: headache, ataxia, HTN, vomiting TECHNIQUE: Multiaxial CT images of the head were performed without the use of intravenous contrast. Automated exposure control was utilized for this study. A dose lowering technique was utilized adhering to the principles of ALARA. Comparison: Head CT 02/01/2023. Findings: The paranasal sinuses and mastoid air cells are clear. The calvarium and skull base are intact. The ventricles and sulci are within normal limits. There is no mass, hematoma, midline shift, or acute infarct. Impression: No acute intracranial abnormality. ACT 112: Negative or not required by law. Electronically signed by: Remigio Cabello M.D. 09/12/2023 3:38 PM Chest X-Ray 09/12/23 14:07 XR chest 1V portable CLINICAL HISTORY: HTN, dizzy, vomiting TECHNIQUE: Single frontal radiograph of the chest was obtained. Comparison: Comparison is made to chest and abdomen radiograph 06/10/2023 FINDINGS: No lines and tubes are seen. Calcified aortic knob is seen. The lungs are clear. No evidence of pleural effusion or pneumothorax. IMPRESSION: No acute chest disease. ACT 112: Negative or not required by law. Electronically signed by: Guru George M.D. 09/12/2023 2:44 PM Discharge Plan Visit Data Chief Complaint: Weakness Stated Complaint: GENERAL WEAKNESS, V/D, BACK & ABD PAIN ED Provider: John Paul Discharge Problem: Abdominal pain, Intractable nausea and vomiting, Vomiting, Dizziness Forms Stand Alone Forms: [employer] Prescriptions Prescriptions: No Action omeprazole 20 mg capsule,delayed release(DR/EC) 20 mg PO QDL ondansetron 4 mg tablet,disintegrating 4 mg PO Q8H PRN (Reason: nausea and vomiting) Qty: 20 0RF Rx Instructions: PER PT'S SON "DOES NOT HELP". sumatriptan succinate 25 mg tablet 50 mg PO Q2H PRN (Reason: Migraine Headache) Rx Instructions: Take 2 tablets at onset of migraine and one tablet every 2 hours as needed, not more than 5 tablets in 24 hours. meclizine 25 mg tablet 12.5 mg PO TID PRN (Reason: Dizziness Or Vertigo) Rx Instructions: Take 0.5 Tablets by mouth 3 times a day as needed for dizziness. Referrals Referrals: Eliud Mendoza, [Outside Practitioners] -
[2023-09-12] MEDS: HYDROmorphone INJ 0.5 MG/0.5 ML SYR IV STA (14:19)
[2023-09-12] MEDS: SODIUM CHLORIDE 0.9% 1,000 ML IV ONE (14:19)
[2023-09-12] MEDS: ONDANSETRON INJ 2 MG/ML 2 ML VIAL IV STA ×2 (14:19→18:02)
[2023-09-12 14:20] LABS: Basophils # (auto) 0.01 K/uL (0.00-0.20); Basophils % (auto) 0.3 %; Eosinophils # (auto) 0.01 K/uL (0.00-0.50); Eosinophils % (auto) 0.3 %; Hematocrit (blood only) 37.5 % (37.0-47.0); Hemoglobin 13.1 g/dl (12.0-16.0); Immature Granulocytes # (auto) 0.01 K/uL (0.01-0.20); Immature Granulocytes % (auto) 0.3 %; Lymphocytes # (auto) 1.01 K/uL (1.20-3.40); Lymphocytes % (auto) 26.6 %; Mean Corpuscular Hemoglobin 30.7 pg (25.0-34.0); Mean Corpuscular Hgb Conc 34.9 g/dL (32.0-36.0); Mean Corpuscular Volume 87.8 fL (80.0-100.0); Mean Platelet Volume 10.6 fL (9.4-12.4); Monocytes % (auto) 5.3 %; Neutrophils # (auto) 2.56 K/uL (1.40-6.50); Neutrophils % (auto) 67.2 %; Platelet Count 176 K/uL (130-400); RDW Coefficient of Variation 12.8 % (11.5-14.5); RDW Standard Deviation 40.8 fL (36.4-46.3); Red Blood Count 4.27 M/uL (4.20-5.40)
[2023-09-12 14:36] LABS: Albumin Level 4.9 gm/dl (3.4-5.0); Bilirubin Direct 0.1 mg/dl (0-0.2); Bilirubin,Total 0.8 mg/dl (0.2-1.0); Calcium 9.6 mg/dl (8.6-10.3); Est GFR (African American) 90.4 ml/min; Magnesium 1.7 mg/dl (1.7-2.4); Potassium 3.3 mmol/L (3.5-5.1); Total Protein 7.8 gm/dl (6.0-8.3)
[2023-09-12 14:42] LABS: Troponin I High Sensitivity 5.4 pg/ml (0-14)
--- NOTE | 2023-09-12 14:45 | XRay Report ---
XR chest 1V portable CLINICAL HISTORY: HTN, dizzy, vomiting TECHNIQUE: Single frontal radiograph of the chest was obtained. Comparison: Comparison is made to chest and abdomen radiograph 06/10/2023 FINDINGS: No lines and tubes are seen. Calcified aortic knob is seen. The lungs are clear. No evidence of pleur al effusion or pneumothorax. IMPRESSION: No acute chest disease. ACT 112: Negative or not required by law. Electronically signed by: Guru George M.D. 09/12/2023 2:44 PM
[2023-09-12] MEDS: OPTIRAY 320 100ml IV ONE (15:08)
--- NOTE | 2023-09-12 15:40 | CT Scan Report ---
HEAD CT NONCONTRAST CT DOSE: HISTORY: headache, ataxia, HTN, vomiting TECHNIQUE: Multiaxial CT images of the head were performed without the use of intravenous contrast. A utomated exposure control was utilized for this study. A dose lowering technique was utilized adheri ng to the principles of ALARA. Comparison: Head CT 02/01/2023. Findings: The paranasal sinuses and mastoid air cells are clear. The calvarium and skull base are int act. The ventricles and sulci are within normal limits. There is no mass, hematoma, midline shift, or acute infarct. Impression: No acute intracranial abnormality. ACT 112: Negative or not required by law. Electronically signed by: Remigio Cabello M.D. 09/12/2023 3:38 PM
--- NOTE | 2023-09-12 16:11 | CT Scan Report ---
CT abd pelvis IV con only CLINICAL HISTORY: diffuse abdominal pain vomiting TECHNIQUE: Helical axial images of the abdomen and pelvis were obtained and displayed. Automated dose lowering techniques and/or adjustment according to patient size were utilized for this exam. This e xam was performed with intravenous contrast. CT DOSE: 1189.16 mGy.cm COMPARISON: Comparison is made to CT abdomen pelvis 02/01/2023 FINDINGS: Lower chest: No acute abnormality. Liver: Unremarkable. No focal lesions are seen. Gallbladder and biliary tree: Patient is status post cholecystectomy. Physiologic prominence of the b iliary ducts is noted. Pancreas: Unremarkable, no focal lesions. Spleen: Unremarkable. Adrenals: Nodularity of the adrenal glands is noted. Kidneys and ureters: There is mild prominence and enhancement of the bilateral ureteral long. Bladder: Diffuse homogeneous wall thickening is seen. Reproductive organs: Unremarkable. Bowel: Diverticulosis is seen without evidence of diverticulitis. A small hiatal hernia is seen. Beth ent is status post appendectomy. Lymph nodes Retroperitoneal: Unremarkable. Pelvic: Unremarkable. Mesenteric: Unremarkable. Peritoneum: Normal. Vessels: Unremarkable. Abdominal wall: Unremarkable. Bones: Degenerative changes in the visualized spine. IMPRESSION: 1. There is mild prominence and enhancement of the ureteral wall which can be seen in ureteritis. Co rrelation with urinalysis is recommended. 2. Diverticulosis without diverticulitis. 3. Small hiatal hernia. ACT 112: Negative or not required by law. Electronically signed by: Guru George M.D. 09/12/2023 4:09 PM
[2023-09-12] MEDS: LORazepam 1 MG/1 ML SYR ED Inj Use IV STA (16:22)
[2023-09-12 16:48] LABS: Appearance Urine Clear (Clear); Bilirubin Urine Negative (Negative); Blood Urine Negative (Negative); Color Urine Yellow; Glucose Urine UA Negative (Negative); Ketones Urine 2+ (Negative); Leukocyte Esterase Urine Negative (Negative); Nitrite Urine Negative (Negative); Protein Urine Negative (Negative); Specific Gravity Urine > 1.045 (1.000-1.030); Urobilinogen Urine Negative (Negative); pH Urine 6.5 (4.5-7.5)
--- NOTE | 2023-09-12 17:56 | History & Physical Report ---
Date of Service September 12, 2023 Assessment & Plan (1) Abdominal pain: (2) Lightheadedness: (3) Dizziness: (4) Intractable nausea and vomiting: Plan Khang Oates is a 73y/o F with PMHx significant for mixed hyperlipidemia, IBS and GERD without esophagitis who presented to the ED for evaluation secondary to abdominal pain, intractable nausea/vomiting and vertigo symptoms. Patient's son translates for her directly [declined assisted living care manager service] - patient only speaks Emirati. Abdominal Pain Lightheadedness & Dizziness Intractable Nausea & Vomiting CBC rather unremarkable; No evidence of leukocytosis or anemia. UA negative for infection, lipase WNL. Head CT & CXR were both negative for any acute findings. MRI brain & mesenteric duplex US pending - follow results. However, CTAP revealed the following: i. There is mild prominence and enhancement of the ureteral wall which can be seen in ureteritis. ii. Diverticulosis without diverticulitis. Small hiatal hernia. Urology consulted given above finding of ureteritis; ? May be related to her presenting symptoms ? Will keep pt NPO for now 2/2 intractable N/V; Reassess in AM, could start w/ clear liquid diet tomorrow if N/V improved. Pt was administered the following in the ED: 1L NSS, 1mg IV Ativan, 0.5mg IV Dilaudid, 50mcg IV fentanyl & 8mg IV Zofran. Will continue IVF w/ LR's @ 80cc/hr x 2 bags, PRN IV Zofran. PT/OT consults pending, pain regimen in place. 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 GI consulted given repeated episodes of intractable N/V; Appreciate their recs/input moving forward. No previous GI visits or history of endoscopic evaluation per chart review. Pt is scheduled to see [facility] on 10[facility]12/23 according to chart review. Hypokalemia K+ 3.3 on admission; Ordered 10mEq IV KCl x 4 bags. Continue to monitor K+ closely and replete PRN. DVT Prophylaxis: SQ Heparin Code Status: FULL CODE PCP: Jesús Gale MD Disposition: Admit to Med/Surg w/ Telemetry Patient seen in collaboration with Dr. Dickey. Please see addendum. I spent a total of 60 minutes coordinating, documenting, and providing care for this patient excluding time spent in the performance of separately billed services. This included personally reviewing all current laboratories and imaging studies, medical reconciliation, outpatient chart review and discussion with specialists. This chart was completed in part utilizing Speech Voice Recognition Software. Grammatical errors, random word insertions, pronoun errors, and incomplete sentences are an occasional consequence of this system due to software limitations, ambient noise, and hardware issues. Any formal questions or concerns about the content, text, or information contained within the body of this dictation should be directly addressed to the provider for clarification. History of Present Illness Chief Complaint: Abdominal Pain, N/V & Vertigo Primary Care Provider: Jesús Gale MD Khang Oates is a 73y/o F with PMHx significant for mixed hyperlipidemia, IBS and GERD without esophagitis who presented to the ED for evaluation secondary to abdominal pain, intractable nausea/vomiting and vertigo symptoms. Patient's son at bedside and translates the history from the patient; patient speaks Emirati - declined assisted living care manager service. Additional history obtained from chart review and [place] phlebotomist medical lab assistant helping with translation at bedside. Patient has been experiencing abdominal pain for the past 24 hours with associated nausea and vomiting. Son reports that she was hypertensive this morning with a systolic BP in the 170s - it is usually in the 120s at baseline. She is also experiencing dizziness, lightheadedness and difficulty ambulating. The dizziness occurs both with movement and at rest. Patient is experiencing loose stools as well, however denies any black or bloody stools. She also denies any blood in her vomit. Her son reports that she is "vomiting up bile all of the time." Patient has reportedly been close to syncope, but has never passed out. According to her son, this situation has occurred twice previously - once in May 2023 and once in January 2023. There has been no clear etiology of her symptoms thus far. Patient was reportedly feeling fine yesterday morning until these symptoms began. No recent falls, trauma or injuries per her son. Patient i s unable to keep any oral medications down, including her Zofran - which was prescribed by her PCP back in April. Patient denies any fevers or recent illness, but does endorse chills. She is reporting some improvement in her nausea after receiving some Zofran and IVF in the ED. Allergies Allergy/AdvReac Type Severity Reaction Status Date / Time levofloxacin AdvReac Severe increased Verified 09/12/23 16:00 pain magnesium AdvReac Severe fainting Verified 09/12/23 16:00 NSAIDS (Non-Steroidal AdvReac Severe losses Verified 09/12/23 16:00 Anti-Inflamma consciousness procaine [From Novocain] AdvReac Severe Dizziness Verified 09/12/23 16:00 acetaminophen [From Tylenol] AdvReac Unknown PER PT'S Verified 09/12/23 16:00 SON, "WILL NOT TAKE". ANALGEN AdvReac Severe increased Uncoded 09/12/23 16:00 pain Home Medications Medication Instructions Recorded Confirmed Type omeprazole 20 mg capsule,delayed 20 mg PO QDL 03/09/20 09/12/23 History release ondansetron 4 mg disintegrating 4 mg PO Q8H PRN nausea and 02/02/23 09/12/23 Rx tablet vomiting #20 tabs meclizine 25 mg tablet 12.5 mg PO TID PRN Dizziness Or 09/12/23 09/12/23 History Vertigo sumatriptan succinate 25 mg tablet 50 mg PO Q2H PRN Migraine Headache 09/12/23 09/12/23 History Past Med/Surg History Problem List (Updated 09/12/23 @ 20:00 by Megan Vides PA-C) Lightheadedness Intractable nausea and vomiting Abdominal pain Dizziness (Acute) Vomiting (Acute) Contact dermatitis (Acute) Medical History Irritable bowel syndrome (IBS) Mixed hyperlipidemia GERD (gastroesophageal reflux disease) Ambulatory dysfunction Social History Smoking Status: Unknown if ever smoked Second Hand Exposure: No; Do You Dip or Chew Tobacco: No; Hx Alcohol Use: No Hx Substance Use: No Preferred Language: Emirati Communication Ability: Effective Communication Ability Comment: Pt's son is her main assisted living care manager Communication Tools: Other Medical Billing Service Required: No Beliefs That Will Affect Care: None Current Living Situation: Alone Feels Safe at Home: Yes Assistive Devices: None Review of Systems Review of Systems: At least ten systems reviewed and negative, except as noted in the HPI. Physical Exam Physical Exam: General: Vitals as above, NAD, laying down in bed, appears comfortable. A+Ox3, euthymic affect. HEENT: Normocephalic, atraumatic. PERRL, conjunctivae normal, anicteric sclerae. Oropharynx slightly dry. Respiratory: Normal respiratory effort, lungs clear to auscultation, no wheeze, rales, rhonchi. No accessory muscle use. Cardiovascular: Regular rate, rhythm, no murmur, normal peripheral pulses, no BLE edema. Vessels: No JVD. Abdomen/GI: Normal bowel sounds, diffusely tender to palpation (lower abdomen > upper abdomen). Extremities/Musculoskeletal: No cyanosis or clubbing, able to move all extremities. Neurologic: EOMI, accommodation nl, no face palsy, no dysarthria - no focal deficits appreciated. Skin: No rashes, normal color, warm/dry, no diaphoresis. Results & Data Results & Data Vital Signs (Past 12 Hours) Vital Signs Temp Pulse Pulse Resp BP BP Pulse Ox 09/12/23 17:00 62 20 144/76 H 97 09/12/23 15:30 60 20 159/74 H 97 09/12/23 13:52 09/12/23 13:52 36.5 C 69 22 176/98 H 99 09/12/23 13:42 72 O2 Del Method 09/12/23 17:00 Room Air 09/12/23 15:30 Room Air 09/12/23 13:52 Room Air 09/12/23 13:52 Room Air 09/12/23 13:42 Laboratory Results Short CBC 09/12/23 Range/Units 13:45 WBC 3.80 L (4.8-10.8) K/ul Hgb 13.1 (12.0-16.0) g/dl Hct 37.5 (37.0-47.0) % Plt Count 176 (130-400) K/uL BMP 09/12/23 13:45 Sodium 136 Potassium 3.3 L Chloride 99 Carbon Dioxide 25 BUN 12 Creatinine 0.75 Glucose 107 H Calcium 9.6 Liver Function 09/12/23 Range/Units 13:45 Total Bilirubin 0.8 (0.2-1.0) mg/dl Direct Bilirubin 0.1 (0-0.2) mg/dl AST 30 (13-39) U/L ALT 23 (7-52) U/L Alkaline Phosphatase 46 (34-104) U/L Albumin 4.9 (3.4-5.0) gm/dl Urine 09/12/23 Range/Units 16:21 Urine Color Yellow Urine Appearance Clear (Clear) Urine pH 6.5 (4.5-7.5) Ur Specific [place] > 1.045 H (1.000-1.030) Urine Protein Negative (Negative) Urine Glucose (UA) Negative (Negative) Diagnostic Findings Abdomen/Pelvis CT 09/12/23 14:06 CT abd pelvis IV con only CLINICAL HISTORY: diffuse abdominal pain vomiting TECHNIQUE: Helical axial images of the abdomen and pelvis were obtained and d isplayed. Automated dose lowering techniques and/or adjustment according to patient size were utilized for this exam. This exam was performed with intravenous contrast. CT DOSE: 1189.16 mGy.cm COMPARISON: Comparison is made to CT abdomen pelvis 02/01/2023 FINDINGS: Lower chest: No acute abnormality. Liver: Unremarkable. No focal lesions are seen. Gallbladder and biliary tree: Patient is status post cholecystectomy. Physiologic prominence of the biliary ducts is noted. Pancreas: Unremarkable, no focal lesions. Spleen: Unremarkable. Adrenals: Nodularity of the adrenal glands is noted. Kidneys and ureters: There is mild prominence and enhancement of the bilateral ureteral long. Bladder: Diffuse homogeneous wall thickening is seen. Reproductive organs: Unremarkable. Bowel: Diverticulosis is seen without evidence of diverticulitis. A small hiatal hernia is seen. Patient is status post appendectomy. Lymph nodes Retroperitoneal: Unremarkable. Pelvic: Unremarkable. Mesenteric: Unremarkable. Peritoneum: Normal. Vessels: Unremarkable. Abdominal wall: Unremarkable. Bones: Degenerative changes in the visualized spine. IMPRESSION: 1. There is mild prominence and enhancement of the ureteral wall which can be seen in ureteritis. Correlation with urinalysis is recommended. 2. Diverticulosis without diverticulitis. 3. Small hiatal hernia. ACT 112: Negative or not required by law. Electronically signed by: Guru George M.D. 09/12/2023 4:[address] 09/12/23 14:[address] DOSE: HISTORY: headache, ataxia, HTN, vomiting TECHNIQUE: Multiaxial CT images of the head were performed without the use of intravenous contrast. Automated exposure control was utilized for this study. A dose lowering technique was utilized adhering to the principles of ALARA. Comparison: Head CT 02/01/2023. Findings: The paranasal sinuses and mastoid air cells are clear. The calvarium and skull base are intact. The ventricles and sulci are within normal limits. There is no mass, hematoma, midline shift, or acute infarct. Impression: No acute intracranial abnormality. ACT 112: Negative or not required by law. Electronically signed by: Remigio Cabello M.D. 09/12/2023 3:38 PM Chest X-Ray 09/12/23 14:07 XR chest 1V portable CLINICAL HISTORY: HTN, dizzy, vomiting TECHNIQUE: Single frontal radiograph of the chest was obtained. Comparison: Comparison is made to chest and abdomen radiograph 06/10/2023 FINDINGS: No lines and tubes are seen. Calcified aortic knob is seen. The lungs are clear. No evidence of pleural effusion or pneumothorax. IMPRESSION: No acute chest disease. ACT 112: Negative or not required by law. Electronically signed by: Guru George M.D. 09/12/2023 2:44 PM Medications Administered Discontinued Medications Hydromorphone HCl (Hydromorphone Inj 0.5 Mg/0.5 Ml Syr) 0.5 mg IV NOW STA Stop: 09/12/23 14:07 Last Admin: 09/12/23 14:19 Dose: 0.5 mg Documented By: KIRA Sodium Chloride (Nss) 1,000 mls @ 999 mls/hr IV .Q1H1M ONE Stop: 09/12/23 15:06 Last Infusion: 09/12/23 15:20 Dose: Infused Documented By: Admin: 09/12/23 14:19 Dose: 999 mls/hr Documented By: KIRA Ioversol (Optiray 320 100ml) 94 ml IV ONCE ONE Stop: 09/12/23 15:08 Last Admin: 09/12/23 15:08 Dose: 94 ml Documented By: VIPUL Lorazepam (Lorazepam 1 Mg/1 Ml Syr Ed Inj Use) 1 mg IV ONE STA Stop: 09/12/23 16:14 Last Admin: 09/12/23 16:22 Dose: 1 mg Documented By: [place] Ondansetron HCl (Ondansetron Inj 2 Mg/Ml 2 Ml Vial) 4 mg IV NOW STA Stop: 09/12/23 14:07 Last Admin: 09/12/23 14:19 Dose: 4 mg Documented By: ALS Code Status & VTE Plan Code Status FULL CODE Supervising Physician Co-Signing Physician Notes I have seen and discussed the case with the collaborating advanced practitioner. I agree with the above H&P. I have reviewed and confirmed the patients medical history, the findings on physical examination, and the patients diagnosis and treatment plan with Brian MENDEZ and agree with the information documented. Ms. 73 year old year old woman with PMH significant for HLD, GERD, IBS , post menopausal bleed under evaluation, migraine, dizziness admitted for ongoing dizziness, which often precipitates vomiting and nausea spells. 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 It seems dizziness spells are multiple times a week, which then often result in severe nausea and vomiting of bile. Once the vomiting starts, patient is unable to "break" the cycle. Patient has followed up as an OP and seeking to establish with GI--but even drinking oral contrast is intolerable. Patient will go days without eating and drinking minimally Patient suspects her blood pressure contributes to the symptoms--however, it was explained that perhaps the pressure is elevated given the distress of the vomiting. She states the dizziness is more like a "wavy" feeling, and not brought on positionally. Denies vision changes or MSK symptoms. She notes that she does have frequent suprapubic pain and flank pain, but is not sure if it is all related. GENERAL APPEARANCE: AxOx4, generally well-appearing interactive, no acute distress. HEENT: NC, AT. MMM. EOMI, clear conjunctiva, oropharynx clear. NECK: Supple without lymphadenopathy. No stiffness or restricted ROM. HEART: Normal rate and regular rhythm, normal S1/S1, no m/r/g LUNGS: CTAB, moving air well. No crackles or wheezes are heard. ABDOMEN: Soft, TTP suprapubic area and epigastrium BACK: No CVAT, no obvious deformity. EXTREMITIES: Without cyanosis, clubbing or edema. NEUROLOGICAL: Grossly nonfocal. Alert and oriented, moving all 4 extremities. CN not formally tested but appear grossly intact. Dizziness not reproduced with sitting upright Skin: Warm and dry without any rash. #Dizziness -Unclear eitology, doesn't seem to be BPPV related, given the reports of it preceeding the N/V will order MRI #Intractable Nausea/Vomiting, diffuse abominal pain Imaging/exam not c/w reported pain and discomfort -NPO -Antiemetics prn and pain regimen -PPI BID IV -IVF -GI consult given inability to eat #Diffuse bladder thickening #Ureteris Noted on CT imaging, UA without hematuria or other changes--question if this is contributing to the presentation v incidental finding Urology consult rest of plan as above I spent a total of 35 minutes coordinating, documenting, and providing care for this patient excluding time spent in the performance of separately billed services. All of the aforementioned completed outside of collaborating with the assigned advanced practitioner for a full treatment plan. I have reviewed the advanced practitioner's documentation, and I agree with, and take responsibility for the plan of care (1) Abdominal pain Abdominal location: unspecified location Qualified Code(s): R10.9 - Unspecified abdominal pain
[2023-09-12] MEDS: fentaNYL citrate PF 100 MCG/2 ML VIAL IV STA (18:01)
[2023-09-12] MEDS: FAMOTIDINE 20MG IV PUSH 20 MG/5 ML SYR IV STA (19:34)
[2023-09-12] MEDS ORDERED: MECLIZINE 12.5 MG TAB PO PRN (19:44)
[2023-09-12] MEDS: LORazepam 0.5 MG in SYRINGE 0.25 ML IV STA (20:10)
[2023-09-12] MEDS ORDERED: POLYETHYLENE (MIRALAX) 17 GM PACK PO PRN (21:50)
--- NOTE | 2023-09-12 22:24 | Communication Note ---
Date of Service: September 12, 2023 Urology service recommending antibiotic Rx for ureteritis on CT. Ceftriaxone Rx for now
[2023-09-12] MEDS: HYDROmorphone INJ 0.5 MG/0.5 ML SYR IV PRN (22:30)
[2023-09-12] MEDS: LACTATED RINGER'S 1,000 ML IV SCH (22:30)
[2023-09-12] MEDS: ONDANSETRON INJ 2 MG/ML 2 ML VIAL IV PRN (22:30)
[2023-09-12] MEDS: HEPARIN SOD 5,000 UNIT/0.5 ML VIAL SQ SCH (22:30)
[2023-09-12] MEDS: POTASSIUM CHLORIDE / WTR 10 MEQ/100 ML PLCT IV SCH (22:31)
--- NOTE | 2023-09-12 22:31 | Urology Consultation ---
Date of Consultation September 12, 2023 Assessment & Plan (1) Ureteritis: The patient has been admitted on the hospitalist service. From a urologic perspective we recommend the following: Although the patient has urinalysis does not indicative of infection the patient does have some clinical signs and symptoms suggestive of a urinary tract infection/pyelonephritis (dysuria, nausea and vomiting, CVA tenderness with percussion) May be beneficial to treat the patient empirically with antibioticsI have discussed with the fast food shift lead hospitalist and he notes that he will add antibiotics to the patient's medication regimen I have ordered a urine culture just to make sure that there is no bacteria t hat shows on the study that was not evident on urinalysis Will monitor the patient's clinical response with further recommendations to follow Based on the patient's clinical response and may be beneficial to reimage the patient's abdomen/pelvis in the future to determine she has resolution of the noted ureteritis History of Present Illness Reason for Consultation: Ureteritis Attending Physician: Kait Dickey MD History of Present Illness This is a 73-year-old Malawian-speaking female who presented to the emergency department secondary to abdominal pain as well as nausea and vomiting. Should be noted that the patient speaks Malawian but her son was at bedside who did help translate. He notes that the patient has been experiencing abdominal pain for the past 24 hours with associated nausea and vomiting. Patient notes that she has been having some intermittent dysuria but denies hematuria. She also notes bilateral flank pain with the left greater than the right. The patient denies any radiation of the pain and denies any modifying factors other than the pain was palliated with medicines that have been administered since she has been hospitalized. Because of her symptomatology she presented to the emergency department. Since admission to the hospital the patient has had labs and imaging which I independent reviewed. A CT scan of the abdomen and pelvis showed the patient had prominence of the ureteral long concerning for ureteritis. There is diverticulosis without diverticulitis. The patient had a CT scan of the head that showed no acute intracranial abnormalities. Chest x-ray showed no acute disease. A brain MRI has also been ordered which is pending. Labs included CBC were white blood cell count was 3.8. Hemoglobin, hematocrit, and platelet count were normal. Chemistry profile showed sodium is 136 with a potassium of 3.3. BUN and creatinine were both normal. The patient did have a urinalysis that was not indicative of infection. After further discussion with the patient's son he notes that the patient was seen in the emergency department on 06/10/2023 for similar symptoms but was able to be discharged home. Review of diagnostic studies performed during this emergency department visit included an obstruction series which showed no evidence of obstruction and no acute cardiopulmonary process on the chest x-ray portion. Labs included CBC were white blood cell count was elevated at 2.9. Hemoglobin and hematocrit were 12.6 and 36.8. Platelet count was normal. Chemistry profile showed sodium was 138 with a potassium of 3.4. BUN and creatinine were noted to be normal. Urinalysis was not performed at that time. At the time of my interview the patient was resting comfortably in bed and she was in no distress Allergies Allergy/AdvReac Type Severity Reaction Status Date / Time levofloxacin AdvReac Severe increased Verified 09/12/23 16:00 pain magnesium AdvReac Severe fainting Verified 09/12/23 16:00 NSAIDS (Non-Steroidal AdvReac Severe losses Verified 09/12/23 16:00 Anti-Inflamma consciousness procaine [From Novocain] AdvReac Severe Dizziness Verified 09/12/23 16:00 acetaminophen [From Tylenol] AdvReac Unknown PER PT'S Verified 09/12/23 22:13 SON, "WILL NOT TAKE". ANALGEN AdvReac Severe increased Uncoded 09/12/23 16:00 pain Home Medications Medication Instructions Recorded Confirmed Type omeprazole 20 mg capsule,delayed 20 mg PO QDL 03/09/20 09/12/23 History release ondansetron 4 mg disintegrating 4 mg PO Q8H PRN nausea and 02/02/23 09/12/23 Rx tablet vomiting #20 tabs meclizine 25 mg tablet 12.5 mg PO TID PRN Dizziness Or 09/12/23 09/12/23 History Vertigo sumatriptan succinate 25 mg tablet 50 mg PO Q2H PRN Migraine Headache 09/12/23 09/12/23 History Patient History Medical History Irritable bowel syndrome (IBS) Mixed hyperlipidemia GERD (gastroesophageal reflux disease) Ambulatory dysfunction Social History Smoking Status: Unknown if ever smoked Second Hand Exposure: No; Do You Dip or Chew Tobacco: No; Hx Alcohol Use: No Hx Substance Use: No Preferred Language: Malawian Communication Ability: Effective Communication Ability Comment: Pt's son is her main street photographer Communication Tools: Other Skip Loader Required: No Beliefs That Will Affect Care: None Current Living Situation: Alone Feels Safe at Home: Yes Assistive Devices: None Review of Systems Review of Systems: All systems reviewed & are unremarkable except as noted in HPI & below Physical Exam Constitutional: WD/WN, vitals as above Eyes: no conjunctival abnormality ENMT: Ears: no hearing impairment and no external ear abnormality Neck: trachea midline Respiratory: normal respiratory effort; no respiratory distress and no labored breathing Cardiovascular: Rate/Rhythm: regular rate and regular rhythm Gastrointestinal (Abdomen): Abdomen is soft and nonrigid. It is nondistended. There is no rebound tenderness or guarding. Palpation at this time did not elicit a painful response Musculoskeletal: No calf tenderness Skin: no rashes Neurologic: moves all extremities Genitourinary: CVA tenderness was noted bilaterally with percussion with the left greater than the right Results & Data Vital Signs (Past 12 Hours) Vital Signs Temp Pulse Pulse Resp BP BP Pulse Ox 09/12/23 21:50 36.6 C 62 18 165/67 H 97 09/12/23 20:00 67 20 131/66 98 09/12/23 18:00 62 14 156/83 H 98 09/12/23 17:40 68 09/12/23 17:00 62 20 144/76 H 97 09/12/23 15:30 60 20 159/74 H 97 09/12/23 13:52 09/12/23 13:52 36.5 C 69 22 176/98 H 99 09/12/23 13:42 72 O2 Del Method 09/12/23 21:50 Room Air 09/12/23 20:00 Room Air 09/12/23 18:00 Room Air 09/12/23 17:40 09/12/23 17:00 Room Air 09/12/23 15:30 Room Air 09/12/23 13:52 Room Air 09/12/23 13:52 Room Air 09/12/23 13:42 PG Care Time/CCT Total # of Minutes Spent Total Time Spent with Patient: Total time spent is greater than 50% in coordination of care (as documented) at patient's floor/unit and/or counseling patient: Coding Level of Care Code 79998 INT INP/OBS CARE MIN Diagnoses Ureteritis N28.89
--- OUTSIDE RECORDS SUMMARY | 2023-09-12 22:36 | External Medical Summary | Summary of Care ---
Author Name Unknown Organization [facility] Address [address] [place] [address] Phone [phone] Care Team Providers Care Box Spring Frame Builder Name Role Phone Jesús Jaar MD Primary Care Provider + Reason for Visit * Reason Comments eRx-Medication Refill Encounter Details Date Type Department Care Team (Late st Contact Info) Description 06/27/2023 Refill General Internal Medicine [facility] [place] [address] [facility] [place] [id number] Nikole Perkins MD [address] [facility] [place] [id number] Nausea and vomiting, unspecified vomiting type Allergies Active Allergy Reactions Criticality Noted Date Comments Magnesium 09/12/2013 Novocain 09/12/2013 Other Allergy (See Comments) Other (Please comment) 04/17/2015 Patient reports reaction to medication anal'gin; medication not available in [place]; medication caused increased pain Acetaminophen 08/10/2018 documented as of this encounter (statuses as of 06/29/2023) Medications Medication Sig Dispensed Refills Start Date End Date Status Cyanocobalamin (VITAMIN B-12) 1000 MCG TabletIndication s:Low serum vitamin B12 Take 1 Tablet by mouth in the morning. 0 01/16/2019 Active Meclizine HCl 25 MG Oral Tablet (Antivert)Indica tions:Migraine variant,Dizzines s Take 0.5 Tablets by mouth 3 times a day as needed for Dizziness. 30 Tablet 1 02/17/2023 Active SUMAtriptan Succinate 25 MG Oral Tablet (Imitrex)Indicat ions:Migraine variant,Dizzines s Take 2 tablets at onset of migraine and one tablet every 2 hours as needed, not more than 5 tablets in 24 hours 6 Tablet 11 02/17/2023 Active predniSONE 10 MG Oral Tablet (Deltasone)Indic ations:Migraine variant Take 5 tabs for 2 days, 4 tabs for 2 days, 3 tabs for 2 days, 2 tabs for 2 days 1 tab for 2 days 30 Tablet 0 02/17/2023 Active Additional Information Patient not taking.Reported on 04/18/2023 Omeprazole 20 MG Oral Capsule Delayed Release (PriLOSEC)Indica tions:Gastroesop hageal reflux disease without esophagitis TAKE 1 CAPSULE BY MOUTH ONCE DAILY 1 hour prior to first meal of the day and 2nd dose at bedtime 180 Capsule 2 04/18/2023 Active Ondansetron HCl 4 MG Oral Tablet (Zofran)Indicati ons:Nausea and vomiting, unspecified vomiting type TAKE ONE TABLET BY MOUTH EVERY EIGHT HOURS NEEDED FOR NAUSEA 30 Tablet 1 06/29/2023 Active Ondansetron HCl 4 MG Oral TabletIndication s:Nausea and vomiting, unspecified vomiting type Take 1 Tablet by mouth every 8 hours as needed for Nausea. 30 Tablet 1 04/18/2023 06/29/19 24 Discontinued documented as of this encounter (statuses as of 06/29/2023) Active Problems Problem Noted Date Diagnosed Date Mixed hyperlipidemia 04/10/2021 Gastroesophageal reflux disease without esophagi tis 10/03/2020 IBS (irritable bowel syndrome) 09/12/2013 documented as of this encounter (statuses as of 06/29/2023) Resolved Problems Problem Noted Date Diagnosed Date Resolved Date Mass on back 05/20/2017 10/27/2021 documented as of this encounter (statuses as of 06/29/2023) Social History Tobacco Use Types Packs/Day Years [...] encounter Miscellaneous Notes * Telephone Encounter - Jesús Jara MD - 06/29/2023 1:31 PM EDTSigned Prescriptions: Disp Refills Ondansetron HCl 4 MG Oral Tablet (Zofran) 30 Tab*1 Sig: TAKE ONE TABLET BY MOUTH EVERY EIGHT HOURS NEEDED FOR NAUSEA Authorizing Provider: JESÚS JARA * Telephone Encounter - Interface, [facility] - 06/29/2023 11:58 AM EDT Pending Prescriptions: Disp Refills Ondansetron HCl 4 MG Oral Tablet (Zofran) 30 Tab* Sig: TAKE ONE TABLET BY MOUTH EVERY EIGHT HOURS NEEDED FOR NAUSEA * Telephone Encounter - Karolyn Butler [facility] - 06/28/2023 4:38 PM EDTPending Prescriptions: Disp Refills Ondansetron HCl 4 MG Oral Tablet (Zofran) 30 Tab* Sig: TAKE ONE TABLET BY MOUTH EVERY EIGHT HOURS NEEDED FOR NAUSEA * Telephone Encounter - Karolyn Butler RPh - 06/28/2023 4:37 PM EDT Ondansetron prescribed on 04/18/23 OV. Please approve continuation of therapy if appropriate. Thank you, Karolyn Butler, PharmD Clinical Pharmacist [facility] (formerly [facility]) [phone] 06/28/2023, 4:37 PM Pending Prescriptions: Disp Refills Ondansetron HCl 4 MG Oral Tablet (Zofran)*30 Tab* Sig: TAKE ONE TABLET BY MOUTH EVERY EIGHT HOURS NEEDED FOR NAUSEA Last Visit: 04/18/2023 (in office), Visit date not found (telemedicine) Next Visit: 11/07/2023 If no future appointments scheduled, and last appointment is greater than a year ago, please schedule patient for a follow-up appointment Last date the medication was ordered: 04/17 Pharmacy: [facility] [id number] Is this request for a controlled substance? No Urine Drug Screen:No results found for this or any previous visit. Patient Phone Numbers Labs: Lab Results Component Value Date/Time CREAT 0.9 04/18/2023 02:04 PM CREAT 0.84 03/09/2020 12:00 AM CREAT 0.7 01/15/2019 02:51 PM POTASSIUM 4.0 04/18/2023 02:04 PM POTASSIUM 3.7 03/09/2020 12:00 AM POTASSIUM 4.8 01/15/2019 02:51 PM TSH 3.16 11/30/2022 09:26 AM TSH 1.270 03/09/2020 12:00 AM TSH 2.13 09/12/2013 03:56 PM LDLCALC 128 11/04/2022 01:18 PM LDLDIRECT 92 09/12/2013 03:56 PM ALT 14 04/18/2023 02:04 PM ALT 12 01/15/2019 02:51 PM HGBA1C 5.5 11/10/2021 09:52 AM documented in this encounter Plan of Treatment Upcoming Encounters Date Type Department Care Team (Late st Contact Info) Description 10/12/2023 8:00 AM EDT Office Visit Gastroenterology, [facility] [address] [place] [id number] Dolores Shaver CRNP [address] [place] [id number] 11/07/2023 10:20 AM EDT Office Visit General Internal Medicine [facility] [address] [facility] [place] [address] Jesús Jara MD [address] [facility] [place] [address] Health Maintenance Due Date Last Done Comments DXA Scan 1948 Hepatitis C Screening 1966 DTaP,Tdap,and Td Vaccines (1 - Tdap) 07/20/1967 Cologuard 1993 Colonoscopy 1993 Colorectal Cancer Screening 1993 Fecal Occult Blood Test 1993 Sigmoidoscopy 1993 Zoster Vaccines (1 of 2) 1998 Pneumococcal Vaccine: 65+ Years (1 of 1 - PCV) 2013 Mammogram 12/04/2014 12/04/2013, 10/16/2013 COVID-19 Vaccine ( - 2022- season) 2022 Influenza Vaccine (FLU shot) (Season Ended) 2023 Depression Screening 11/05/2023 11/04/2022 Lipid Panel 11/05/2027 [...] as of this encounter Visit Diagnoses Diagnosis Nausea and vomiting, unspecified vomiting type documented in this encounter Care Teams Box Spring Frame Builder Relationship Specialty Start Date End Date Jesús Jara MD [address] [place] [address] PCP - General Internal Medicine 12/03/20 documented as of this encounter
[2023-09-12] MEDS: cefTRIAXone SODIUM 2,000 MG/50 ML BAG IV SCH (22:39)
[2023-09-12] MEDS: PANTOprazole 40 MG in SYRINGE 0 ML IV SCH (22:39)
--- NOTE | 2023-09-12 22:48 | Magnetic Resonance Report ---
Exam(s): MRI HEAD Without Contrast EXAM: MR Head Without Intravenous Contrast CLINICAL HISTORY: Reason for exam: Dizziness, lightheadedness. TECHNIQUE: Magnetic resonance images of the head/brain without intravenous contrast in multiple planes. COMPARISON: No relevant prior studies available. FINDINGS: Brain: Mild nonspecific white matter changes. No mass. No hemorrhage. No acute infarct. The flow voids at the base of the brain are intact. Ventricles: Unremarkable. No ventriculomegaly. Bones/joints: Unremarkable. No acute fracture. Sinuses: Chronic ethmoid sinusitis. No acute sinusitis. Mastoid air cells: Unremarkable as visualized. No mastoid effusion. Orbits: Unremarkable as visualized. IMPRESSION: No evidence of acute intracranial pathology. Mild nonspecific white matter changes. Electronically signed by: Rosa Rutledge MD 09/12/23 22:46 PM
[2023-09-12] MEDS: ACETAMINOPHEN 1,000 MG/100 ML VIAL IV SCH (23:01)
--- NOTE | 2023-09-13 06:15 | Gastrointestinal Consultation ---
<Statement entered by Stormy Parisi MD - 09/13/23 17:51> I have examined the patient, reviewed the History & Physical and in the interval since the performance of the History & Physical I have noted the following changes of clinical significance: no changes noted. I agree with the documentation provided by [place] with no additional comments. Intermittent n/v for a few years; requiring 3 hospital visits in the last 8 months. Some constipation but symptoms do not occur at the same time. No evidence of bleeding. ~5-8 lb weight loss. Was taking occasional aspirin but no regular NSAID usage. Proceed w EGD 09/13. Date of Consultation September 13, 2023 Assessment & Plan (1) Intractable nausea and vomiting: (2) Abdominal pain: Plan -Continue to treat ureteritis per urology -Continue IV Protonix 40 mg BID; Can continue this upon discharge as patient's son did not feel like the Omeprazole was helping. -Continue IV antiemetics. -Keep NPO after midnight for EGD tomorrow 09/14/23. History of Present Illness Reason for Consultation: Intractable nausea & vomiting, abdominal pain Attending Physician: Kait iDckey MD History of Present Illness Patient is a 73 yo female with PMH of HLD, IBS, & GERD who presented to the ED with abdominal pain, nausea, vomiting, & vertigo that occurred abruptly. Much of the provided history thus far has come from son as patient is British speaking only and does not wish to utilize translation services. In the ED, the patient was noted to have a low WBC count. CT abdomen/pelvis without oral contrast identified ureteritis but no GI abnormalities. Urology is following and treating with antibiotics. UA was unremarkable. The patient has a reported history of IBS and chronic looser stools. She takes Omeprazole 20 mg daily chronically for her GERD. Patient is currently on IV antiemetics and IV Protonix 40 mg BID. Reported ly she was unable to tolerate po medications at home including Zofran. I am unclear whether this is the dissolvable tablets. No significant NSAID use. No melena, hematemesis, hematochezia. No EGD history. Patient's presenting hemoglobin was >13. It is now 10.1 after IV fluid hydration. No overt GI bleeding at present. No pertinent family history. Patient's son tells me that he feels that she is vomiting bile. She is s/p cholecystectomy years ago. He feels that the Omeprazole stopped working. She has an evaluation planned with [facility] in September 2023. Allergies Allergy/AdvReac Type Severity Reaction Status Date / Time levofloxacin AdvReac Severe increased Verified 09/12/23 16:00 pain magnesium AdvReac Severe fainting Verified 09/12/23 16:00 NSAIDS (Non-Steroidal AdvReac Severe losses Verified 09/12/23 16:00 Anti-Inflamma consciousness procaine [From Novocain] AdvReac Severe Dizziness Verified 09/12/23 16:00 acetaminophen [From Tylenol] AdvReac Unknown PER PT'S Verified 09/12/23 22:13 SON, "WILL NOT TAKE". ANALGEN AdvReac Severe increased Uncoded 09/12/23 16:00 pain Home Medications Medication Instructions Recorded Confirmed Type omeprazole 20 mg capsule,delayed 20 mg PO QDL 03/09/20 09/12/23 History release ondansetron 4 mg disintegrating 4 mg PO Q8H PRN nausea and 02/02/23 09/12/23 Rx tablet vomiting #20 tabs meclizine 25 mg tablet 12.5 mg PO TID PRN Dizziness Or 09/12/23 09/12/23 History Vertigo sumatriptan succinate 25 mg tablet 50 mg PO Q2H PRN Migraine Headache 09/12/23 09/12/23 History Patient History Medical History Irritable bowel syndrome (IBS) Mixed hyperlipidemia GERD (gastroesophageal reflux disease) Ambulatory dysfunction Social History Smoking Status: Never smoker Second Hand Exposure: No; Do You Dip or Chew Tobacco: No; Hx Alcohol Use: No Hx Substance Use: No Preferred Language: British Communication Ability: Effective Communication Ability Comment: Pt's son is her main platform operations director Communication Tools: Other Senior Sales Operations Analyst Required: Yes Beliefs That Will Affect Care: None Current Living Situation: Family Current Living Situation Comment: son staying with her at her apartment. Feels Safe at Home: Yes Safety Concerns: Feels Safe At This Time Assistive Devices: Walker, Wheelchair and Other Review of Systems Constitutional: no fever and no chills Respiratory: no cough Cardiovascular: no chest pain Gastrointestinal: + nausea and + vomiting Physical Exam Constitutional: well developed Respiratory: normal respiratory effort Gastrointestinal (Abdomen): normal bowel sounds, soft, nontender, no hepatosplenomegaly Psychiatric: Orientation: alert and oriented x 3 Results & Data Vital Signs (Past 12 Hours) Vital Signs Temp Pulse Pulse Pulse Resp BP BP 09/13/23 02:25 36.9 C 57 L 16 126/68 09/12/23 23:03 09/12/23 22:09 36.6 C 62 18 165/67 H 09/12/23 22:00 57 L 09/12/23 21:50 36.6 C 62 18 165/67 H 09/12/23 20:00 67 20 131/66 Pulse Ox O2 Del Method 09/13/23 02:25 97 Room Air 09/12/23 23:03 Room Air 09/12/23 22:09 97 Room Air 09/12/23 22:00 09/12/23 21:50 97 Room Air 09/12/23 20:00 98 Room Air PG Care Time/CCT Total # of Minutes Spent Total Time Spent with Patient: Total time spent is greater than 50% in coordination of care (as documented) at patient's floor/unit and/or counseling patient: Coding Level of Care Code 29498 IN/OBS CONSULT LVL 4,60M Diagnoses Intractable nausea and vomiting R11.2 Abdominal pain, unspecified abdominal location R10.9 Abdominal location: unspecified location (2) Abdominal pain Abdominal location: unspecified location Qualified Code(s): R10.9 - Unspecified abdominal pain
[2023-09-13 06:20] LABS: Hematocrit (blood only) 31.9 % (37.0-47.0); Hemoglobin 10.8 g/dl (12.0-16.0); Mean Corpuscular Hemoglobin 30.3 pg (25.0-34.0); Mean Corpuscular Hgb Conc 33.9 g/dL (32.0-36.0); Mean Corpuscular Volume 89.6 fL (80.0-100.0); Mean Platelet Volume 10.7 fL (9.4-12.4); Platelet Count 147 K/uL (130-400); RDW Coefficient of Variation 12.5 % (11.5-14.5); RDW Standard Deviation 41.1 fL (36.4-46.3); Red Blood Count 3.56 M/uL (4.20-5.40); White Blood Count 3.57 K/ul (4.8-10.8)
[2023-09-13 06:22] LABS: BUN Creatinine Ratio 13.7 (10-20); Creatinine Clr Calc Pharmacy 57.5 ml/min; Est GFR (African American) 93.4 ml/min; Est GFR (Non-African American) 80.6 ml/min; Magnesium 1.7 mg/dl (1.7-2.4); Phosphorus 3.1 mg/dl (2.5-4.9); Potassium 3.9 mmol/L (3.5-5.1)
--- NOTE | 2023-09-13 06:22 | Electrocardiogram Report ---
Test Reason : Blood Pressure : / mmHG Vent. Rate : 075 BPM Atrial Rate : 075 BPM P-R Int : 162 ms QRS Dur : 120 ms QT Int : 406 ms P-R-T Axes : 073 -63 052 degrees QTc Int : 453 ms Normal sinus rhythm Right bundle branch block Left anterior fascicular block Bifascicular block Abnormal ECG When compared with ECG of 10-JUN-2023 12:47, No significant change Confirmed by Timur Scott ([id number]) on 09/13/2023 6:22:34 AM Referred By: REFERRED SELF Confirmed By:Timur Scott
--- NOTE | 2023-09-13 11:21 | Urology Progress Note ---
Date of Service September 13, 2023 Assessment & Plan (1) Ureteritis: Plan: 73-year-old female admitted for abdominal pain, nausea and vomiting. Patient afebrile, hemodynamically stable Labs reviewedcreatinine 0.73, no leukocytosis CT with possible ureteritis UA on arrival was not suspicious for UTI Urine culture is pending Continue with broad-spectrum antibiotics and follow culture Continue supportive care, antibiotics, and medical management per primary team Continue with GI recommendations No acute intervention at this time We can arrange follow-up outpatient with our service will follow peripherally Admission and Anticipated Discharge Date Admission Date: September 12, 2023 Subjective Patient seen and examined at bedside this morning Her son is present Offered marketing rep, but he wishes to facilitate She reports some intermittent flank/back pain, greater on the left She is voiding spontaneously Reports occasional dysuria, not presently Nausea/vomiting improved No fever or chills Review of Systems Constitutional: as per Subjective / HPI Genitourinary: as per Subjective / HPI Physical Exam Constitutional: well developed and well nourished; no acute distress Respiratory: normal respiratory effort; no respiratory distress and no labored breathing Gastrointestinal (Abdomen): Inspection/Auscultation: abdomen normal to inspection Musculoskeletal: Head/Neck/Chest: normocephalic Neurologic: moves all extremities and awake Psychiatric: Orientation: alert and oriented x 3 Genitourinary: mild tenderness to percussion on left flank Results & Data Vital Signs (Past 12 Hours) Vital Signs Temp Pulse Pulse Resp BP Pulse Ox O2 Del Method 09/13/23 11:05 37.2 C 61 16 162/75 H 97 Room Air 09/13/23 07:28 36.8 C 64 14 169/76 H 96 Room Air 09/13/23 07:16 56 L 09/13/23 02:25 36.9 C 57 L 16 126/68 97 Room Air PG Care Time/CCT Total # of Minutes Spent Total Time Spent with Patient: Total time spent is greater than 50% in coordination of care (as documented) at patient's floor/unit and/or counseling patient: Coding Level of Care Code 91830 SUB INP/OBS CARE 03/10MIN Diagnoses Ureteritis N28.89
--- NOTE | 2023-09-13 17:52 | Hospitalist Progress Note ---
Date of Service September 13, 2023 Assessment & Plan (1) Abdominal pain: (2) Lightheadedness: (3) Dizziness: (4) Intractable nausea and vomiting: Plan Khang Oates is a 73y/o F with PMHx significant for mixed hyperlipidemia, IBS and GERD without esophagitis who presented to the ED for evaluation secondary to abdominal pain, intractable nausea/vomiting and vertigo symptoms. Patient's son translates for her directly [declined apartment coordinator service] - patient only speaks Grenadian. Abdominal Pain Lightheadedness & Dizziness Intractable Nausea & Vomiting GERD w/o Esophagitis H/O Diverticulosis & IBS Has been getting intravenous fluid and symptomatic medications for nausea and vomiting Intravenous PPI twice daily MRI of the brain did not show any significant finding Clinically better Appreciate GI input and recommendation for possible EGD tomorrow Patient remains weak and does not want to go for EGD Will continue current management and evaluate in the morning Urethritis UA negative for infection, lipase WNL. However, CTAP revealed the following: i. There is mild prominence and enhancement of the ureteral wall which can be seen in ureteritis. ii. Diverticulosis without diverticulitis. Small hiatal hernia. Appreciate urology input and recommendation Will continue intravenous antibiotic for now Await cultures Hypokalemia K+ 3.3 on admission; Ordered 10mEq IV KCl x 4 bags. Continue to monitor K+ closely and replete PRN. Potassium has been normalized DVT Prophylaxis: SQ Heparin Code Status: FULL CODE PCP: Jesús Gale MD Admission and Anticipated Discharge Date Admission Date: September 12, 2023 Subjective 09/13/2023 The patient was seen and examined in medical telemetry unit in presence of the son She was admitted with the intractable nausea vomiting and abdominal discomfort She has been feeling better and does not want to go for endoscopy She remains generally weak and lethargic Review of Systems Review of Systems: All systems reviewed and are unremarkable except as noted below Physical Exam Physical Exam: Lying in bed without any acute distress Constitutional: + ill appearing and average body habitus Eyes: PERRL, conjunctivae normal, anicteric sclerae ENMT: external ear and nose normal, oropharynx normal Neck: trachea midline, no thyromegaly Respiratory: no respiratory distress Auscultation: lungs clear to auscultation bilaterally Cardiovascular: Rate/Rhythm: regular rate and regular rhythm; not tachycardic Heart Sounds: normal S1 and normal S2; no murmur Gastrointestinal (Abdomen): Inspection/Auscultation: normal bowel sounds; abdomen not distended Percussion/Palpation: + abdomen tender (Mainly in lower quadrants and renal angles) and abdomen soft Musculoskeletal: No acute arthritis involving any of the joints Neurologic: normal touch/pain/proprioception and moves all extremities; no focal motor deficits Lymphatic: no cervical or axillary lymphadenopathy Results & Data Results & Data Vital Signs (Past 12 Hours) Vital Signs Temp Pulse Pulse Resp BP Pulse Ox O2 Del Method 09/13/23 15:15 37.0 C 63 16 111/70 96 Room Air 09/13/23 13:55 57 L 09/13/23 11:05 37.2 C 61 16 162/75 H 97 Room Air 09/13/23 07:28 36.8 C 64 14 169/76 H 96 Room Air 09/13/23 07:16 56 L Laboratory Results Short CBC 09/13/23 Range/Units 05:20 WBC 3.57 L (4.8-10.8) K/ul Hgb 10.8 L (12.0-16.0) g/dl Hct 31.9 L (37.0-47.0) % Plt Count 147 (130-400) K/uL BMP 09/13/23 05:20 Sodium 137 Potassium 3.9 Chloride 104 Carbon Dioxide 26 BUN 10 Creatinine 0.73 Glucose 76 Calcium 9.0 Medications Administered Current Inpatient Medications Heparin Sodium (Porcine) (Heparin Sod 5,000 Unit/0.5 Ml Vial) 5,000 units SQ Q12 [facility] Stop: 10/12/23 21:49 Last Admin: 09/13/23 07:50 Dose: 5,000 units Hydromorphone HCl (Hydromorphone Inj 0.5 Mg/0.5 Ml Syr) 0.5 mg IV Q3H PRN PRN Reason: Mod-Sev Pain (Scale 4-10) Stop: 09/26/23 21:49 Last Admin: 09/13/23 12:40 Dose: 0.5 mg Lactated Ringer's (Lr) 1,000 mls @ 80 mls/hr IV .[id number] [facility] Stop: 09/13/23 22:49 Last Infusion: 09/13/23 11:51 Dose: 80 mls/hr Pantoprazole Sodium 40 mg/ (Syringe) 10 mls @ 5 mls/min IV BID J[facility]IER Stop: 10/12/23 21:49 Last Admin: 09/13/23 07:50 Dose: 5 mls/min Ceftriaxone Sodium (Rocephin) 2,000 mg in 50 mls @ 100 mls/hr IV Q24H [facility] Stop: 09/22/23 22:29 Last Infusion: 09/12/23 23:09 Dose: Infused Meclizine HCl (Meclizine 12.5 Mg Tab) 12.5 mg PO TID PRN PRN Reason: Dizziness Or Vertigo Stop: 10/12/23 19:43 Ondansetron HCl (Ondansetron Inj 2 Mg/Ml 2 Ml Vial) 4 mg IV Q4H PRN PRN Reason: Nausea Stop: 10/12/23 21:49 Last Admin: 09/13/23 05:54 Dose: 4 mg Polyethylene Glycol (Polyethylene (Miralax) 17 Gm Pack) 17 gm PO DAILY PRN PRN Reason: Constipation Stop: 10/12/23 21:49 (1) Abdominal pain Abdominal location: unspecified location Qualified Code(s): R10.9 - Unspecified abdominal pain
[2023-09-14 06:46] LABS: Basophils # (auto) 0.02 K/uL (0.00-0.20); Basophils % (auto) 0.6 %; Eosinophils # (auto) 0.04 K/uL (0.00-0.50); Eosinophils % (auto) 1.2 %; Hematocrit (blood only) 33.9 % (37.0-47.0); Hemoglobin 11.6 g/dl (12.0-16.0); Immature Granulocytes # (auto) 0.01 K/uL (0.01-0.20); Immature Granulocytes % (auto) 0.3 %; Lymphocytes # (auto) 1.02 K/uL (1.20-3.40); Lymphocytes % (auto) 29.7 %; Mean Corpuscular Hemoglobin 30.2 pg (25.0-34.0); Mean Corpuscular Hgb Conc 34.2 g/dL (32.0-36.0); Mean Corpuscular Volume 88.3 fL (80.0-100.0); Mean Platelet Volume 10.3 fL (9.4-12.4); Monocytes # (auto) 0.23 K/uL (0.11-0.59); Monocytes % (auto) 6.7 %; Neutrophils # (auto) 2.12 K/uL (1.40-6.50); Neutrophils % (auto) 61.5 %; Platelet Count 148 K/uL (130-400); RDW Coefficient of Variation 12.5 % (11.5-14.5); RDW Standard Deviation 39.8 fL (36.4-46.3); Red Blood Count 3.84 M/uL (4.20-5.40); White Blood Count 3.44 K/ul (4.8-10.8)
[2023-09-14 07:13] LABS: BUN Creatinine Ratio 17.9 (10-20); Calcium 8.6 mg/dl (8.6-10.3); Creatinine Clr Calc Pharmacy 53.8 ml/min; Est GFR (African American) 86.2 ml/min; Est GFR (Non-African American) 74.4 ml/min; Potassium 3.8 mmol/L (3.5-5.1)
--- NOTE | 2023-09-14 09:14 | History & Physical Bridge Note ---
<Statement entered by Stormy Parisi MD - 09/14/23 14:26> I agree with the documentation provided by CONTRERAS Alvarez with no additional comments. Date of Service September 14, 2023 History & Physical Bridge Note I have reviewed the History & Physical and in the interval since the performance of the History & Physical I have noted the following changes of clinical significance: no changes noted Keep NPO & proceed with EGD today.
--- NOTE | 2023-09-14 14:15 | Anesthesiology Consultation ---
Date of Service September 14, 2023 Assessment & Plan Chart Review Chart Review: Acceptable Risk for Surgery and Patient NOT seen in Pre Admission Testing Consults Requested none ASA ASA2 Proposed Anesthesia Anesthesia Type: MAC Risk / Benefits Reviewed With: PT / POA / Parent / Guardian, Accepts Plan and Informed Consent Obtained History Surgery Operation Date: 09/14/23 16:30 Proposed Procedures p Esophagogastroduodenoscopy Isak - Stormy Parisi MD Height/Weight Height: 5 ft 4 in Weight: 55.9 kg Allergies Allergy/AdvReac Type Severity Reaction Status Date / Time levofloxacin AdvReac Severe increased Verified 09/12/23 16:00 pain magnesium AdvReac Severe fainting Verified 09/12/23 16:00 NSAIDS (Non-Steroidal AdvReac Severe losses Verified 09/12/23 16:00 Anti-Inflamma consciousness procaine [From Novocain] AdvReac Severe Dizziness Verified 09/12/23 16:00 acetaminophen [From Tylenol] AdvReac Unknown PER PT'S Verified 09/12/23 22:13 SON, "WILL NOT TAKE". ANALGEN AdvReac Severe increased Uncoded 09/12/23 16:00 pain Medications Home Medications Medication Instructions Recorded Confirmed Last Taken omeprazole 20 mg capsule,delayed 20 mg PO QDL 03/09/20 09/12/23 03/08/20 release ondansetron 4 mg disintegrating 4 mg PO Q8H PRN nausea and 02/02/23 09/12/23 Unknown tablet vomiting #20 tabs meclizine 25 mg tablet 12.5 mg PO TID PRN Dizziness Or 09/12/23 09/12/23 Unknown Vertigo sumatriptan succinate 25 mg tablet 50 mg PO Q2H PRN Migraine Headache 09/12/23 09/12/23 Unknown Active Medications Generic Name Dose Route Start Last Admin Trade Name Freq PRN Reason Stop Dose Admin Heparin Sodium (Porcine) 5,000 units 09/12/23 21:50 09/14/23 07:20 Heparin Sod 5,000 Unit/0.5 Ml Vial SQ 10/12/23 21:49 5,000 units Q12 [facility] Administration Hydromorphone HCl 0.5 mg 09/12/23 21:50 09/13/23 20:24 Hydromorphone Inj 0.5 Mg/0.5 Ml Syr IV 09/26/23 21:49 0.5 mg Q3H PRN Administration Mod-Sev Pain (Scale 4-10) Pantoprazole Sodium 40 mg/ 10 mls @ 5 mls/min 09/12/23 21:50 09/14/23 07:20 Syringe IV 10/12/23 21:49 5 mls/min BID JAVIER Administration Ceftriaxone Sodium 2,000 mg in 50 mls @ 100 mls/hr 09/12/23 22:30 09/13/23 21:19 Rocephin IV 09/22/23 22:29 Infused Q24H [facility] Infusion Ondansetron HCl 4 mg 09/12/23 21:50 09/13/23 20:24 Ondansetron Inj 2 Mg/Ml 2 Ml Vial IV 10/12/23 21:49 4 mg Q4H PRN Administration Nausea NPO Date Last Intake of Fluids: 09/13/23 Time Last Intake of Fluids: 23:59 Date Last Intake of Solids: 09/13/23 Time Last Intake of Solids: 23:59 Past Medical History Medical History Irritable bowel syndrome (IBS) Mixed hyperlipidemia GERD (gastroesophageal reflux disease) Ambulatory dysfunction Exercise / Class Metabolic Activity II 4-5 Yardwork/Stairs/Walk up hill Past Anesthesia History No Hx of Anesthesia Complications and No Family Hx of Anesthesia Complications History of PONV No Hx of PONV and No Hx of Motion Sickness Social History Smoking Status: Never smoker Do You Dip or Chew Tobacco: No Hx Alcohol Use: No Hx Substance Use: No Physical Exam Vital Signs Last Vital Signs Temp 36.6 C 09/14/23 14:01 Pulse 81 09/14/23 14:01 Resp 18 09/14/23 14:01 BP 166/74 H 09/14/23 14:01 Pulse Ox 97 09/14/23 14:01 O2 Del Method Room Air 09/14/23 14:01 ENMT Mouth: no dentition abnormality Thyromental Distance: > or= 3.5 Finger Breadths Mallampati Class: II Neck normal visual inspection Respiratory normal respiratory effort Auscultation: lungs clear to auscultation bilaterally Cardiovascular Rate/Rhythm: regular rate and regular rhythm Psychiatric Orientation: alert Testing Laboratory Results 09/14/23 06:12 09/14/23 06:12 Urine Color Yellow 09/12/23 16:21 Urine Appearance Clear (Clear) 09/12/23 16:21 Urine pH 6.5 (4.5-7.5) 09/12/23 16:21 Ur Specific [employer] > 1.045 (1.000-1.030) H 09/12/23 16:21 Urine Protein Negative (Negative) 09/12/23 16:21 Urine Glucose (UA) Negative (Negative) 09/12/23 16:21 Urine Ketones 2+ (Negative) H 09/12/23 16:21 Urine Nitrite Negative (Negative) 09/12/23 16:21 Ur Leukocyte Esterase Negative (Negative) 09/12/23 16:21 09/13/23 00:55 Urine Culture - Preliminary Urine,Clean Catch No growth - Less than 1,000 colonies/mL, Final report to follow.
--- NOTE | 2023-09-14 14:54 | GI REPORT ---
[facility] Patient: TRISTAN COLLINS : 1950 Sex at : Female Age: 73 Years Procedure: Upper GI endoscopy Date: 09/14/2023 Attending Physician: Stormy Parisi MD Referring MD: Ja Parks Indications: - Epigastric abdominal pain Medications: - Monitored Anesthesia Care Complications: - No immediate complications. Estimated Blood Loss: - Estimated blood loss was minimal. Procedure: - Prior to the procedure, a History and Physical was performed, and patient medications and allergies were reviewed. The patient's tolerance of previous anesthesia was also reviewed. The risks and benefits of the procedure and the sedation options and risks were discussed with the patient. All questions were answered, and informed consent was obtained. Prior Anticoagulants: The patient has taken no anticoagulant or antiplatelet agents. ASA Grade Assessment: II - A patient with mild systemic disease. After reviewing the risks and benefits, the patient was deemed in satisfactory condition to undergo the procedure. - The egd scope was introduced through the mouth and advanced to the third part of the duodenum. - The upper GI endoscopy was accomplished without difficulty. - The patient tolerated the procedure well. Findings: - The examined esophagus was normal. - Patchy mild inflammation characterized by congestion (edema) was found in the gastric antrum. Biopsies were taken with a cold forceps for histology. - The examined duodenum was normal. Impression: - Normal esophagus. - Non-erosive gastritis, characterized by congestion (edema). Biopsied. - Normal examined duodenum. Recommendation: - Resume previous diet. - Continue present medications. - Await pathology results. Procedure Code(s): - 48193, Esophagogastroduodenoscopy, flexible, transoral; with biopsy, single or multiple Diagnosis Code(s): - R10.13, Epigastric pain - K29.60, Other gastritis without bleeding CPT(R) - 2023 copyright [employer]. All Rights Reserved. The CPT codes, CCI edits and ICD codes generated are intended as suggestions and were generated based on input data. These codes are preliminary and upon stockroom attendant review may be revised to meet current compliance and payer requirements. The provider is responsible for the final determination of appropriate codes, and modifiers. Stormy Parisi MD This document has been electronically signed. Note Initiated:09/14/2023 Note Completed:09/14/2023 2:53 PM [id number]
--- NOTE | 2023-09-14 15:01 | Anesthesiology Progress Note ---
Date of Service September 14, 2023 Anesthesia Post Procedure Vital Signs Vital Signs: Temp Pulse Pulse Resp BP BP Pulse Ox 09/14/23 14:52 79 16 115/77 99 09/14/23 14:01 36.6 C 81 18 166/74 H 97 09/14/23 10:53 37.1 C 73 16 134/63 98 09/14/23 08:17 66 09/14/23 07:38 37.1 C 71 16 123/67 96 09/14/23 07:20 147/71 H 09/13/23 23:15 09/13/23 22:56 36.6 C 56 L 16 106/49 L 96 09/13/23 21:55 57 L 09/13/23 19:00 36.9 C 62 16 125/58 L 96 09/13/23 15:15 37.0 C 63 16 111/70 96 O2 Del Method 09/14/23 14:52 Room Air 09/14/23 14:01 Room Air 09/14/23 10:53 Room Air 09/14/23 08:17 09/14/23 07:38 Room Air 09/14/23 07:20 09/13/23 23:15 Room Air 09/13/23 22:56 Room Air 09/13/23 21:55 09/13/23 19:00 Room Air 09/13/23 15:15 Room Air Transfer of Care Handoff Completed per policy Notes Mental Status: alert / awake / arousable Patient Amnestic to Procedure: Yes Nausea / Vomiting: adequately controlled Pain: adequately controlled Airway Patency, RR, SpO2: stable & adequate BP & HR: stable & adequate Hydration State: stable & adequate Anesthetic Complications: no major complications apparent
[2023-09-14] MEDS: LIDOCAINE 2% 2 ML VIAL/AMP(20MG/ML) INFIL ONE (15:41)
[2023-09-14] MEDS: PROPOFOL IV EMULSION 10 MG/ML 20 ML VIAL IV ONE (15:41)
[2023-09-14] MEDS: ONDANSETRON INJ 2 MG/ML 2 ML VIAL ONE (15:41)
[2023-09-14] MEDS: SODIUM CHLORIDE 0.9% 500 ML IV SCH (15:42)
--- NOTE | 2023-09-14 15:42 | Hospitalist Progress Note ---
Date of Service September 14, 2023 Assessment & Plan (1) Abdominal pain: (2) Lightheadedness: (3) Dizziness: (4) Intractable nausea and vomiting: Plan Khang Oates is a 73y/o F with PMHx significant for mixed hyperlipidemia, IBS and GERD without esophagitis who presented to the ED for evaluation secondary to abdominal pain, intractable nausea/vomiting and vertigo symptoms. Patient's son translates for her directly [declined bus company manager service] - patient only speaks Sammarinese. Abdominal Pain Lightheadedness & Dizziness Intractable Nausea & Vomiting GERD w/o Esophagitis H/O Diverticulosis & IBS Has been getting intravenous fluid and symptomatic medications for nausea and vomiting Intravenous PPI twice daily MRI of the brain did not show any significant finding Clinically better Appreciate GI input and recommendation for possible EGD tomorrow Patient remains weak and does not want to go for EGD Will continue current management and evaluate in the morning Denies any more abdominal pain and no more nausea and or vomiting Status post EGD which showed nonerosive gastritis Biopsy has been taken She definitely wants to go home and does not want to stay any longer in the hospital She will be discharged home this afternoon She will be discharged on Protonix 40 mg twice daily Urethritis UA negative for infection, lipase WNL. However, CTAP revealed the following: i. There is mild prominence and enhancement of the ureteral wall which can be seen in ureteritis. ii. Diverticulosis without diverticulitis. Small hiatal hernia. Appreciate urology input and recommendation Will continue intravenous antibiotic for now Await cultures-Urine culture has been negative Will give antibiotic for next 4 days to finish the course of 5 days in total Hypokalemia K+ 3.3 on admission; Ordered 10mEq IV KCl x 4 bags. Continue to monitor K+ closely and replete PRN. Potassium has been normalized DVT Prophylaxis: SQ Heparin Code Status: FULL CODE PCP: Jesús Gale MD Admission and Anticipated Discharge Date Admission Date: September 12, 2023 Subjective 09/13/2023 The patient was seen and examined in medical telemetry unit in presence of the son She was admitted with the intractable nausea vomiting and abdominal discomfort She has been feeling better and does not want to go for endoscopy She remains generally weak and lethargic 09/14/2023 The patient was seen and examined in in medical telemetry unit in presence of the family members She has had EGD which showed nonerosive gastritis She wants to go home and she she has not been taking any food from the hospital After long discussion with the family members and the patient decided that she will be discharged this evening Review of Systems Review of Systems: All systems reviewed and are unremarkable except as noted below Physical Exam Physical Exam: Lying in bed without any acute distress Constitutional: + ill appearing and average body habitus Eyes: PERRL, conjunctivae normal, anicteric sclerae ENMT: external ear and nose normal, oropharynx normal Neck: trachea midline, no thyromegaly Respiratory: no respiratory distress Auscultation: lungs clear to auscultation bilaterally Cardiovascular: Rate/Rhythm: regular rate and regular rhythm; not tachycardic Heart Sounds: normal S1 and normal S2; no murmur Gastrointestinal (Abdomen): Inspection/Auscultation: normal bowel sounds; abdomen not distended Percussion/Palpation: + abdomen tender (Mainly in lower quadrants and renal angles) and abdomen soft Neurologic: normal touch/pain/proprioception and moves all extremities; no focal motor deficits Lymphatic: no cervical or axillary lymphadenopathy Results & Data Results & Data Vital Signs (Past 12 Hours) Vital Signs Temp Pulse Pulse Resp BP BP Pulse Ox 09/14/23 15:22 69 16 156/78 H 98 09/14/23 15:07 68 16 145/83 H 97 09/14/23 14:52 79 16 115/77 99 09/14/23 14:01 36.6 C 81 18 166/74 H 97 09/14/23 10:53 37.1 C 73 16 134/63 98 09/14/23 08:17 66 09/14/23 07:38 37.1 C 71 16 123/67 96 09/14/23 07:20 147/71 H O2 Del Method 09/14/23 15:22 Room Air 09/14/23 15:07 Room Air 09/14/23 14:52 Room Air 09/14/23 14:01 Room Air 09/14/23 10:53 Room Air 09/14/23 08:17 09/14/23 07:38 Room Air 09/14/23 07:20 Laboratory Results Short CBC 09/14/23 Range/Units 06:12 WBC 3.44 L (4.8-10.8) K/ul Hgb 11.6 L (12.0-16.0) g/dl Hct 33.9 L (37.0-47.0) % Plt Count 148 (130-400) K/uL BMP 09/14/23 06:12 Sodium 139 Potassium 3.8 Chloride 102 Carbon Dioxide 22 BUN 14 Creatinine 0.78 Glucose 54 L Calcium 8.6 Medications Administered Current Inpatient Medications Heparin Sodium (Porcine) (Heparin Sod 5,000 Unit/0.5 Ml Vial) 5,000 units SQ Q12 [facility] Stop: 10/12/23 21:49 Last Admin: 09/14/23 07:20 Dose: 5,000 units Hydromorphone HCl (Hydromorphone Inj 0.5 Mg/0.5 Ml Syr) 0.5 mg IV Q3H PRN PRN Reason: Mod-Sev Pain (Scale 4-10) Stop: 09/26/23 21:49 Last Admin: 09/13/23 20:24 Dose: 0.5 mg Pantoprazole Sodium 40 mg/ (Syringe) 10 mls @ 5 mls/min IV BID JAVIER Stop: 10/12/23 21:49 Last Admin: 09/14/23 07:20 Dose: 5 mls/min Ceftriaxone Sodium (Rocephin) 2,000 mg in 50 mls @ 100 mls/hr IV Q24H [facility] Stop: 09/22/23 22:29 Last Infusion: 09/13/23 21:19 Dose: Infused Sodium Chloride (Nss) 500 mls @ 15 mls/hr IV .Q24H [facility] Stop: 09/15/23 07:29 Last Admin: 09/14/23 15:42 Dose: Not Given Meclizine HCl (Meclizine 12.5 Mg Tab) 12.5 mg PO TID PRN PRN Reason: Dizziness Or Vertigo Stop: 10/12/23 19:43 Ondansetron HCl (Ondansetron Inj 2 Mg/Ml 2 Ml Vial) 4 mg IV Q4H PRN PRN Reason: Nausea Stop: 10/12/23 21:49 Last Admin: 09/13/23 20:24 Dose: 4 mg Polyethylene Glycol (Polyethylene (Miralax) 17 Gm Pack) 17 gm PO DAILY PRN PRN Reason: Constipation Stop: 10/12/23 21:49 (1) Abdominal pain Abdominal location: unspecified location Qualified Code(s): R10.9 - Unspecif ied abdominal pain
--- NOTE | 2023-09-14 17:31 | Anesthesiology Progress Note ---
Date of Service September 14, 2023 Anesthesia Post Procedure Vital Signs Vital Signs: Temp Pulse Pulse Pulse Resp BP BP 09/14/23 16:13 36.6 C 62 69 16 134/63 156/78 H 09/14/23 15:47 72 09/14/23 15:22 69 16 156/78 H 09/14/23 15:07 68 16 145/83 H 09/14/23 14:52 79 16 115/77 09/14/23 14:01 36.6 C 81 18 166/74 H 09/14/23 10:53 37.1 C 73 16 134/63 09/14/23 08:17 66 09/14/23 07:38 37.1 C 71 16 123/67 09/14/23 07:20 147/71 H 09/13/23 23:15 09/13/23 22:56 36.6 C 56 L 16 106/49 L 09/13/23 21:55 57 L 09/13/23 19:00 36.9 C 62 16 125/58 L Pulse Ox O2 Del Method 09/14/23 16:13 98 09/14/23 15:47 09/14/23 15:22 98 Room Air 09/14/23 15:07 97 Room Air 09/14/23 14:52 99 Room Air 09/14/23 14:01 97 Room Air 09/14/23 10:53 98 Room Air 09/14/23 08:17 09/14/23 07:38 96 Room Air 09/14/23 07:20 09/13/23 23:15 Room Air 09/13/23 22:56 96 Room Air 09/13/23 21:55 09/13/23 19:00 96 Room Air Transfer of Care Handoff Completed per policy Notes Mental Status: alert / awake / arousable and participated in evaluation Patient Amnestic to Procedure: Yes Nausea / Vomiting: adequately controlled Pain: adequately controlled Airway Patency, RR, SpO2: stable & adequate BP & HR: stable & adequate Hydration State: stable & adequate Anesthetic Complications: no major complications apparent and Pt Satisfied with anesthetic care
--- NOTE | 2023-09-15 07:40 | Discharge Summary ---
Date of Service September 15, 2023 Admission HPI Per Admitting Provider Khang Oates is a 73y/o F with PMHx significant for mixed hyperlipidemia, IBS and GERD without esophagitis who presented to the ED for evaluation secondary to abdominal pain, intractable nausea/vomiting and vertigo symptoms. Patient's son at bedside and translates the history from the patient; patient speaks Jamaican - declined monomer recovery supervisor service. Additional history obtained from chart review and [place] medical scientific liaison helping with translation at bedside. Patient has been experiencing abdominal pain for the past 24 hours with associated nausea and vomiting. Son reports that she was hypertensive this morning with a systolic BP in the 170s - it is usually in the 120s at baseline. She is also experiencing dizziness, lightheadedness and difficulty ambulating. The dizziness occurs both with movement and at rest. Patient is experiencing loose stools as well, however denies any black or bloody stools. She also denies any blood in her vomit. Her son reports that she is "vomiting up bile all of the time." Patient has reportedly been close to syncope, but has never passed out. According to her son, this situation has occurred twice previously - once in May 2023 and once in January 2023. There has been no clear etiology of her symptoms thus far. Patient was reportedly feeling fine yesterday morning until these symptoms began. No recent falls, trauma or injuries per her son. Patient is unable to keep any oral medications down, including her Zofran - which was prescribed by her PCP back in April. Patient denies any fevers or recent illness, but does endorse chills. She is reporting some improvement in her nausea after receiving some Zofran and IVF in the ED. Admission Exam Per Admitting Provider Physical Exam: General: Vitals as above, NAD, laying down in bed, appears comfortable. A+Ox3, euthymic affect. HEENT: Normocephalic, atraumatic. PERRL, conjunctivae normal, anicteric sclerae. Oropharynx slightly dry. Respiratory: Normal respiratory effort, lungs clear to auscultation, no wheeze, rales, rhonchi. No accessory muscle use. Cardiovascular: Regular rate, rhythm, no murmur, normal peripheral pulses, no BLE edema. Vessels: No JVD. Abdomen/GI: Normal bowel sounds, diffusely tender to palpation (lower abdomen > upper abdomen). Extremities/Musculoskeletal: No cyanosis or clubbing, able to move all extremities. Neurologic: EOMI, accommodation nl, no face palsy, no dysarthria - no focal deficits appreciated. Skin: No rashes, normal color, warm/dry, no diaphoresis. Principal Diagnosis Nonerosive gastritis,Uteritis Discharge Exam Lying in bed without any acute distress Constitutional + ill appearing and average body habitus Eyes PERRL, conjunctivae normal, anicteric sclerae ENMT external ear and nose normal, oropharynx normal Neck trachea midline, no thyromegaly Respiratory no respiratory distress Auscultation: lungs clear to auscultation bilaterally Cardiovascular Rate/Rhythm: regular rate and regular rhythm; not tachycardic Heart Sounds: normal S1 and normal S2; no murmur Gastrointestinal (Abdomen) Inspection/Auscultation: normal bowel sounds; abdomen not distended Percussion/Palpation: + abdomen tender (Mainly in lower quadrants and renal angles) and abdomen soft Neurologic normal touch/pain/proprioception and moves all extremities; no focal motor deficits Lymphatic no cervical or axillary lymphadenopathy Discharge Data Allergies Allergy/AdvReac Type Severity Reaction Status Date / Time levofloxacin AdvReac Severe increased Verified 09/12/23 16:00 pain magnesium AdvReac Severe fainting Verified 09/12/23 16:00 NSAIDS (Non-Steroidal AdvReac Severe losses Verified 09/12/23 16:00 Anti-Inflamma consciousness procaine [From Novocain] AdvReac Severe Dizziness Verified 09/12/23 16:00 acetaminophen [From Tylenol] AdvReac Unknown PER PT'S Verified 09/12/23 22:13 SON, "WILL NOT TAKE". ANALGEN AdvReac Severe increased Uncoded 09/12/23 16:00 pain Consultations 09/12/23 17:58 ED Decision to Admit Stat 09/12/23 19:04 Consult Gastroenterology Routine 09/12/23 19:48 Consult Urology Routine Procedures Performed Operation Date: 09/14/23 16:30 Actual Procedures p EGD Biopsy Cytology - Stormy Parisi MD Ordered Studies 09/12/23 14:06 CT abd pelvis IV con only Stat CT head/brain wo con Stat 09/12/23 18:59 MRI Brain [MR brain wo con] Routine Hospital Course (1) Abdominal pain: (2) Lightheadedness: (3) Dizziness: (4) Intractable nausea and vomiting: Plan Khang Oates is a 73y/o F with PMHx significant for mixed hyperlipidemia, IBS and GERD without esophagitis who presented to the ED for evaluation secondary to abdominal pain, intractable nausea/vomiting and vertigo symptoms. Patient's son translates for her directly [declined monomer recovery supervisor service] - patient only speaks Jamaican. Abdominal Pain Lightheadedness & Dizziness Intractable Nausea & Vomiting GERD w/o Esophagitis H/O Diverticulosis & IBS Has been getting intravenous fluid and symptomatic medications for nausea and vomiting Intravenous PPI twice daily MRI of the brain did not show any significant finding Clinically better Appreciate GI input and recommendation for possible EGD tomorrow Patient remains weak and does not want to go for EGD Will continue current management and evaluate in the morning Denies any more abdominal pain and no more nausea and or vomiting Status post EGD which showed nonerosive gastritis Biopsy has been taken She definitely wants to go home and does not want to stay any longer in the hospital She will be discharged home this afternoon She will be discharged on Protonix 40 mg twice daily Urethritis UA negative for infection, lipase WNL. However, CTAP revealed the following: i. There is mild prominence and enhancement of the ureteral wall which can be seen in ureteritis. ii. Diverticulosis without diverticulitis. Small hiatal hernia. Appreciate urology input and recommendation Will continue intravenous antibiotic for now Await cultures-Urine culture has been negative Will give antibiotic for next 4 days to finish the course of 5 days in total Hypokalemia K+ 3.3 on admission; Ordered 10mEq IV KCl x 4 bags. Continue to monitor K+ closely and replete PRN. Potassium has been normalized DVT Prophylaxis: SQ Heparin Code Status: FULL CODE PCP: Jesús Gale MD Total Time Total Time Spent Total Time Spent (In Minutes): 40 minutes Discharge Plan Discharge Items Patient Disposition: Home - Self-Care Reason For Visit: VERTIGO, ABD PAIN, N/V Discharge Diagnosis: Nonerosive gastritis,Uteritis Condition on Discharge: Fair Activity: Resume your previous activity Non-emergency contact: Primary Care Provider Call non-emergency contact if: you have any medication questions and your symptoms worsen Follow-up/Referrals: Jesús Gale MD [Primary Care Provider] - 09/21/23 5:20 pm Diet: Other - See Diet Comment Diet Comment: Continue with your previous diet Addtl Attending Provider Instructions: Please take precautions to avoid falls Take your medications as advised Please give appointment with the healthcare provider Pending Studies at Discharge: Yes Studies:: Result of Stomach biopsy Stand-Alone Forms: My [facility], Smoking Cessation Medications and DC Order Prescriptions: New pantoprazole [Protonix] 40 mg tablet,delayed release (DR/EC) 40 mg PO BID Qty: 60 0RF cephalexin 250 mg capsule 250 mg PO Q8H 4 Days Qty: 12 0RF Continued ondansetron 4 mg tablet,disintegrating 4 mg PO Q8H PRN (Reason: nausea and vomiting) Qty: 20 0RF Rx Instructions: PER PT'S SON "DOES NOT HELP". sumatriptan succinate 25 mg tablet 50 mg PO Q2H PRN (Reason: Migraine Headache) Rx Instructions: Take 2 tablets at onset of migraine and one tablet every 2 hours as needed, not more than 5 tablets in 24 hours. meclizine 25 mg tablet 12.5 mg PO TID PRN (Reason: Dizziness Or Vertigo) Rx Instructions: Take 0.5 Tablets by mouth 3 times a day as needed for dizziness. Discontinued omeprazole 20 mg capsule,delayed release(DR/EC) 20 mg PO QDL Discharge Orders: Discharge Order (Routine); Ordered 09/14/23 Ordered By: Ja Parks Admission Data Admit Date/Time: 09/12/23 18:07 Attending Provider: aJ Parks Admit Provider: Kait Dickey Primary Care Provider: Jesús Gale Other Providers: Kesha Gonzales Jr; David Caldwell; Kait Dickey Other Interventions: Discharge Summary Assessment (RN) Last Done: 09/14/23 16:13
== END 2023-09-14 16:28 | disposition home or self-care (01) | DRG 392 ==
LOC: ED 13:35 → SUATTDRO 18:07 → 2N 18:07

== ENCOUNTER 2024-03-16 01:23 | Observation (INO) ==
[2024-03-16] MEDS: FAMOTIDINE 20MG IV PUSH 20 MG/5 ML SYR IV STA (02:55)
[2024-03-16] MEDS: SODIUM CHLORIDE 0.9% 1,000 ML IV ONE (02:55)
[2024-03-16] MEDS: DICYCLOMINE HCL 10 MG/ML 2 ML AMP/VIAL IM ONE (02:58)
[2024-03-16] MEDS: ONDANSETRON INJ 2 MG/ML 2 ML VIAL IV STA (02:58)
[2024-03-16 03:03] LABS: Basophils # (auto) 0.02 K/uL (0.00-0.20); Basophils % (auto) 0.2 %; Eosinophils # (auto) 0.06 K/uL (0.00-0.50); Eosinophils % (auto) 0.7 %; Hematocrit (blood only) 37.1 % (37.0-47.0); Hemoglobin 12.6 g/dl (12.0-16.0); Immature Granulocytes # (auto) 0.02 K/uL (0.01-0.20); Immature Granulocytes % (auto) 0.2 %; Lymphocytes # (auto) 0.89 K/uL (1.20-3.40); Lymphocytes % (auto) 10.5 %; Mean Corpuscular Hemoglobin 29.5 pg (25.0-34.0); Mean Corpuscular Volume 86.9 fL (80.0-100.0); Monocytes # (auto) 0.31 K/uL (0.11-0.59); Monocytes % (auto) 3.6 %; Neutrophils # (auto) 7.21 K/uL (1.40-6.50); Neutrophils % (auto) 84.8 %; Platelet Count 162 K/uL (130-400); RDW Coefficient of Variation 12.6 % (11.5-14.5); Red Blood Count 4.27 M/uL (4.20-5.40); White Blood Count 8.51 K/ul (4.8-10.8)
[2024-03-16 03:08] LABS: Albumin Globulin Ratio 1.4 (0.9-2); Albumin Level 4.5 gm/dl (3.4-5.0); BUN Creatinine Ratio 27.4 (10-20); Bilirubin,Total 0.3 mg/dl (0.2-1.0); Calcium 9.2 mg/dl (8.6-10.3); Creatinine Clr Calc Pharmacy 41.2 ml/min; Globulin 3.2 gm/dl (2.5-4.0); Magnesium 1.9 mg/dl (1.7-2.4); Potassium 3.6 mmol/L (3.5-5.1); Total Protein 7.7 gm/dl (6.0-8.3)
--- NOTE | 2024-03-16 04:14 | Emergency Department Note ---
Impression & Plan Abdominal pain, Nausea & vomiting, Diarrhea ED Provider Note ED Provider Note NAME: TRISTAN COLLINS AGE:73 SEX: Female : 1950 ARRIVES VIA: Private vehicle INFORMANT: Patient, son ED PROVIDER(s): Unique Koenig DO CHIEF COMPLAINT: Abdominal pain, vomiting and diarrhea HPI: This is a 73-year-old female who presents to the emergency department with family at bedside due to concern for abdominal pain with vomiting and diarrhea. Patient is primarily Uruguayan speaking and we did use the iPad japanese interpreter to help with her evaluation. Patient states this evening at 10 PM she developed abdominal pain and had recurrent vomiting and diarrhea. She states the pain is in the central abdomen and is otherwise nonradiating. She states it is intermittent and sharp. She denies hematemesis, melena, or hematochezia. She denies fevers or chills but states she is cold at this time. No recent change in diet or new medications. Patient states she has had similar episodes before and was admitted last year. She states she feels some of this is side effects of having had a prior cholecystectomy. No recent travel, no URI symptoms. It was difficult obtaining a history even with use of the iPad japanese interpreter. Patient's son tried to help at bedside additionally and provide further history regarding these episodes. He states at 1 point she had significant dizziness and that was part of the reason for her last admission. PAST MEDICAL HISTORY:See Below PAST SURGICAL HISTORY:See Below FAMILY HISTORY:See Below SOCIAL HISTORY:See Below HOME MEDICATIONS:See Below ALLERGIES:See Below VITALS:See Below PHYSICAL EXAMINATION: GENERAL: alert, well appearing, well nourished, no distress, non-toxic EYE EXAM: normal conjunctiva, PERRL and EOM's grossly intact OROPHARYNX: no exudate, no erythema, lips, buccal mucosa, and tongue normal and mucous membranes are moist NECK: supple, no nuchal rigidity, no adenopathy, non-tender LUNGS: Clear to auscultation. Normal chest wall mechanics, no w/r/r HEART: no murmurs, S1 normal and S2 normal ABDOMEN: abdomen soft, mild central abdominal tenderness with palpation normo- active bowel sounds, no masses, no rebound or guarding. SKIN: no rashes, petechiae, orbruising UPPER EXTREMITIES: upper extremities are grossly normal. FROM, nml pulses b/l. LOWER EXTREMITIES: No pitting edema. FROM, nml pulses b/l. NEURO EXAM: Normal sensorium, cranial nerves II-XII grossly intact, normal speech, no facial droop,nogross weakness of arms, no gross weakness of legs. Gross sensation intact. No ataxia. Vital Signs: reviewed and remarkable Differential Diagnosis: Viral syndrome, SBO, perforation, PUD, foodborne illness, medication ADR, IBS, anxiety, as well as others were considered MEDICAL DECISION MAKING: This is a 73-year-old female who presents to the emergency department with family at bedside due to concern for abdominal pain, nausea and vomiting, and diarrhea. She was afebrile and hemodynamically stable on arrival. Labs drawn and sent, IV established, EKG performed at bedside interpreted by me and she was monitored on telemetry. Initially CT of the abdomen pelvis was ordered however patient declined this stating this episode is similar to last time when she did not wish to have any further imaging as she was concern for potential side effects. Patient started on IV fluids and given IV Tylenol, IV Zofran, IV Pepcid, and IM Bentyl. Patient did report some improvement however symptoms were still present she had 3 further episodes of vomiting the emergency department and 1 further episode of diarrhea. Stool culture was obtained and sent. We did try p.o. challenge at bedside as patient had reported some improvement following medications however she stated she could not tolerate anything by mouth at this time and still felt weak and dizzy additionally. Case discussed with the hospitalist team for additional evaluation. Stool culture pending at that time. Consultation(s): 810: Discussed with Dr. Jenkins, [facility] hospitalist team for additional evaluation and management. ER Treatment Provided: See below Diagnostics Interpreted By Me: -ECG: Normal sinus at 76, leftward axis, normal intervals, no acute ST/T wave changes -Cardiac Monitoring: An order was placed for continuous cardiac monitoring. The monitor shows a rate of 80 with normal sinus rhythm. -Laboratory studies: As stated above and show below. Triage Nursing Note Reviewed Prior/Outside Records Reviewed -prior hospitalization and discharge summary reviewed including GI consult and EGD from 2023 Past Med/Surg History Problem List (Updated 03/16/24 @ 10:31 by Reina Gonzales PA-C) Gastroenteritis due to norovirus Diarrhea (Acute) Nausea & vomiting (Acute) Ureteritis Lightheadedness Intractable nausea and vomiting Abdominal pain (Acute) Dizziness (Acute) Vomiting (Acute) Contact dermatitis (Acute) Medical History Irritable bowel syndrome (IBS) Mixed hyperlipidemia GERD (gastroesophageal reflux disease) Ambulatory dysfunction Social History Smoking Status: Never smoker Second Hand Exposure: No; Do You Dip or Chew Tobacco: No; Hx Alcohol Use: No Hx Substance Use: No Preferred Language: Ukranian Communication Ability: Ukranian Communication Ability Comment: Pt's son is her main adz worker Communication Tools: IPad Staff Rn Required: Yes Beliefs That Will Affect Care: None Current Living Situation: Spouse Current Living Situation Comment: son staying with her at her apartment. Feels Safe at Home: Yes Assistive Devices: Glasses Allergies Allergies Allergy/AdvReac Type Severity Reaction Status Date / Time levofloxacin AdvReac Severe increased Verified 09/12/23 16:00 pain magnesium AdvReac Severe fainting Verified 09/12/23 16:00 NSAIDS (Non-Steroidal AdvReac Severe losses Verified 09/12/23 16:00 Anti-Inflamma consciousness procaine [From Novocain] AdvReac Severe Dizziness Verified 09/12/23 16:00 acetaminophen [From Tylenol] AdvReac Unknown PER PT'S Verified 09/12/23 22:13 SON, "WILL NOT TAKE". ANALGEN AdvReac Severe increased Uncoded 09/12/23 16:00 pain Home Meds Home Medications Medication Instructions Recorded Confirmed meclizine 25 mg tablet 12.5 mg PO TID PRN Dizziness Or 09/12/23 03/16/24 Vertigo sumatriptan succinate 25 mg tablet 50 mg PO Q2H PRN Migraine Headache 09/12/23 03/16/24 mirtazapine 15 mg tablet 15 mg PO UD 03/16/24 03/16/24 pantoprazole 40 mg tablet,delayed 40 mg PO UD 03/16/24 03/16/24 release (Protonix) Previous Rx's Medication Instructions Recorded ondansetron 4 mg disintegrating 4 mg PO Q8H PRN nausea and 02/02/23 tablet vomiting #20 tabs Results & Data (ED) Vital Signs Vital Signs - 24 hr 03/16/24 01:28 03/16/24 03:30 03/16/24 04:25 Temperature 36.5 C Temperature Source Oral Pulse Rate 83 74 Pulse Rate [Finger] 78 Pulse Rhythm [Finger] Regular Pulse Strength [Finger] Normal Respiratory Rate 27 H 20 Respiratory Effort / Characteristics Non-Labored Spontaneous Non-Labored Respiratory Depth Normal Normal Respiratory Pattern Blood Pressure 147/79 H Blood Pressure [Right Arm] 131/70 Blood Pressure Mean 101 Blood Pressure Mean [Right Arm] 90 Blood Pressure Position [Right Arm] Lying Pulse Oximetry 97 Oxygen Delivery Method Room Air Room Air Sepsis Recent Fever Within 48 Hours No Sepsis New/Unexplained Change in Mental Status No Sepsis Action Taken by Nursing No Action Required 03/16/24 05:00 03/16/24 07:00 03/16/24 08:03 Temperature Temperature Source Pulse Rate 79 Pulse Rate [Finger] 105 H 98 H Pulse Rhythm [Finger] Regular Regular Pulse Strength [Finger] Normal Normal Respiratory Rate 20 20 Respiratory Effort / Characteristics Non-Labored Spontaneous Respiratory Depth Normal Respiratory Pattern Regular Blood Pressure Blood Pressure [Right Arm] 133/75 131/79 Blood Pressure Mean Blood Pressure Mean [Right Arm] 94 96 Blood Pressure Position [Right Arm] Sitting Pulse Oximetry 98 98 Oxygen Delivery Method Room Air Room Air Sepsis Recent Fever Within 48 Hours Sepsis New/Unexplained Change in Mental Status Sepsis Action Taken by Nursing Laboratory Data 03/17/24 06:26 03/17/24 06:26 Lab Results 03/16/24 03/16/24 03/16/24 Range/Units 01:36 05:50 07:50 WBC 8.51 (4.8-10.8) K/ul RBC 4.27 (4.20-5.40) M/uL Hgb 12.6 (12.0-16.0) g/dl Hct 37.1 (37.0-47.0) % MCV 86.9 (80.0-100.0) fL MCH 29.5 (25.0-34.0) pg MCHC 34.0 (32.0-36.0) g/dL RDW Std Deviation 40.0 (36.4-46.3) fL RDW Coeff of Zahira 12.6 (11.5-14.5) % Plt Count 162 (130-400) K/uL MPV 12.0 (9.4-12.4) fL Immature Gran % (Auto) 0.2 % Neut % (Auto) 84.8 % Lymph % (Auto) 10.5 % Walsh % (Auto) 3.6 % Eos % (Auto) 0.7 % Baso % (Auto) 0.2 % Neut # (Auto) 7.21 H (1.40-6.50) K/uL Lymph # (Auto) 0.89 L (1.20-3.40) K/uL Walsh # (Auto) 0.31 (0.11-0.59) K/uL Eos # (Auto) 0.06 (0.00-0.50) K/uL Baso # (Auto) 0.02 (0.00-0.20) K/uL Immature Gran # (Auto) 0.02 (0.01-0.20) K/uL Sodium 140 (136-145) mmol/L Potassium 3.6 (3.5-5.1) mmol/L Chloride 106 (98-107) mmol/L Carbon Dioxide 26 (21-32) mmol/L Anion Gap 8 (3-11) BUN 29 H (6-23) mg/dl Creatinine 1.06 (0.6-1.2) mg/dl Est Cr Clr Drug Dosing 41.2 ml/min eGFR 54.78 BUN/Creatinine Ratio 27.4 H (10-20) Glucose 120 H (70-99(Fasting)) mg/dl Calcium 9.2 (8.6-10.3) mg/dl Magnesium 1.9 (1.7-2.4) mg/dl Total Bilirubin 0.3 (0.2-1.0) mg/dl AST 29 (13-39) U/L ALT 17 (7-52) U/L Alkaline Phosphatase 56 (34-104) U/L Total Protein 7.7 (6.0-8.3) gm/dl Albumin 4.5 (3.4-5.0) gm/dl Globulin 3.2 (2.5-4.0) gm/dl Albumin/Globulin Ratio 1.4 (0.9-2) Lipase 44 (11-82) U/L Urine Color Yellow Urine Appearance Clear (Clear) Urine pH 5.0 (4.5-7.5) Ur Specific Snover 1.019 (1.000-1.030) Urine Protein Negative (Negative) Urine Glucose (UA) Negative (Negative) Urine Ketones Negative (Negative) Urine Blood Negative (Negative) Urine Nitrite Negative (Negative) Urine Bilirubin Negative (Negative) Urine Urobilinogen Negative (Negative) Ur Leukocyte Esterase Negative (Negative) Stl C. cayetanensis PCR Not Detected (NotDetected) Stool Rotavirus A PCR Not Detected (NotDetected) Stl Adenov F 40/41 PCR Not Detected (NotDetected) Stool Astrovirus (PCR) Not Detected (NotDetected) Stool Campylobacter PCR Not Detected (NotDetected) Stool Cryptosporidium PCR Not Detected (NotDetected) Stl E.coli Shiga Tox PCR Not Detected (NotDetected) Stl Enterotoxigenic E PCR Not Detected (NotDetected) Stool EPEC (PCR) Not Detected (NotDetected) Stool EAEC (PCR) Not Detected (NotDetected) Stl E. histolytica PCR Not Detected (NotDetected) Stool Giardia Lamblia PCR Not Detected (NotDetected) Stool Salmonella PCR Not Detected (NotDetected) Stool Sapovirus (PCR) Not Detected (NotDetected) Stl P. shigelloides PCR Not Detected (NotDetected) Stl Shigella/EIEC PCR Not Detected (NotDetected) St Y.enterocolitica PCR Not Detected (NotDetected) Stool Vibrio (PCR) Not Detected (NotDetected) Stl Vibrio cholerae PCR Not Detected (NotDetected) Stl Norovirus GI/GII PCR DETECTED A* (NotDetected) Administered Medications Discontinued Medications Dicyclomine HCl (Dicyclomine Hcl 10 Mg/Ml 2 Ml Amp/Vial) 20 mg IM NOW ONE Stop: 03/16/24 02:46 Last Admin: 03/16/24 02:58 Dose: 20 mg Documented By: COLLEEN Sodium Chloride (Nss) 1,000 mls @ 999 mls/hr IV .Q1H1M ONE Stop: 03/16/24 03:43 Last Infusion: 03/16/24 03:58 Dose: Infused Documented By: Admin: 03/16/24 02:55 Dose: 999 mls/hr Documented By: COLLEEN Famotidine (Pepcid 20mg Iv Push) 20 mg in 5 mls @ 2.5 mls/min IV NOW STA Stop: 03/16/24 02:44 Last Admin: 03/16/24 02:55 Dose: 2.5 mls/min Documented By: COLLEEN Sodium Chloride (Nss) 1,000 mls @ 125 mls/hr IV .Q8H JAVIER Stop: 03/17/24 07:44 Last Infusion: 03/17/24 07:33 Dose: Infused Documented By: Admin: 03/16/24 23:45 Dose: 125 mls/hr Documented By: Infusion: 03/16/24 23:45 Dose: Infused Documented By: Admin: 03/16/24 16:19 Dose: 125 mls/hr Documented By: Infusion: 03/16/24 15:59 Dose: Infused Documented By: Admin: 03/16/24 07:59 Dose: 125 mls/hr Documented By: KATELYNN Pantoprazole Sodium (Protonix) 40 mg in 10 mls @ 5 mls/min IV NOW ONE Stop: 03/16/24 07:46 Last Admin: 03/16/24 07:59 Dose: 5 mls/min Documented By: KATELYNN Pantoprazole Sodium (Protonix) 40 mg in 10 mls @ 5 mls/min IV BID JAVIER Stop: 04/15/24 20:59 Last Admin: 03/17/24 08:09 Dose: 5 mls/min Documented By: Admin: 03/16/24 20:41 Dose: 5 mls/min Documented By: LIANNA Mirtazapine (Mirtazapine Tab 15 Mg Tab) 15 mg PO HS JAVIER Stop: 04/15/24 20:59 Last Admin: 03/16/24 20:46 Dose: 15 mg Documented By: LIANNA Ondansetron HCl (Ondansetron Inj 2 Mg/Ml 2 Ml Vial) 4 mg IV NOW STA Stop: 03/16/24 02:46 Last Admin: 03/16/24 02:58 Dose: 4 mg Documented By: COLLEEN Discharge Plan Visit Data Chief Complaint: Abdominal Pain Stated Complaint: abd pain ED Provider: Unique Koenig Discharge Problem: Abdominal pain, Nausea & vomiting, Diarrhea Patient Disposition: Admitted As Inpatient Discharge Instructions Interventions: ED Discharge Assessment Last Done: 03/16/24 11:23
[2024-03-16 06:08] LABS: Appearance Urine Clear (Clear); Bilirubin Urine Negative (Negative); Blood Urine Negative (Negative); Color Urine Yellow; Glucose Urine UA Negative (Negative); Ketones Urine Negative (Negative); Leukocyte Esterase Urine Negative (Negative); Nitrite Urine Negative (Negative); Protein Urine Negative (Negative); Specific Gravity Urine 1.019 (1.000-1.030); Urobilinogen Urine Negative (Negative)
--- OUTSIDE RECORDS SUMMARY | 2024-03-16 06:43 | External Medical Summary | Summary of Care ---
Author Name Unknown Organization [facility] Address [address] [place] [address] Phone [phone] Care Team Providers Care Pet Nutrition Specialist Name Role Phone Jesús Jara MD Primary Care Provider + Reason for Visit * Reason Comments eRx-Medication Refill Encounter Details Date Type Department Care Team (Late st Contact Info) Description 02/24/2024 Refill General Internal Medicine [facility] [address] [place] [address] Yamileth Schaefer PA-C [address] [place] [address] Allergies Active Allergy Reactions Criticality Noted Date Comments Novocain 09/12/2013 Other Allergy (See Comments) Other (Please comment) 04/17/2015 Patient reports reaction to medication anal'gin; medication not available in [place]; medication caused increased pain Acetaminophen 08/10/2018 documented as of this encounter (statuses as of 02/24/2024) Medications Mirtazapine 15 MG Oral Tablet (Remeron) Take 1 Tablet by mouth at bedtime. 30 Tablet 12 4 Active Rosuvastatin Calcium 5 MG Oral Tablet (Crestor) Take 1 Tablet by mouth in the morning. 90 Tablet 3 4 Active Metoclopramide HCl 10 MG Oral Tablet (Reglan)Indicat ions:Migraine without aura and without status migrainosus, not intractable Take 2 tablets by mouth every 6-8 hours for head pain and nausea. Take no more than 3 days a week. 30 Tablet 6 4 Active Pantoprazole Sodium 40 MG Oral Tablet Delayed Release (Protonix) Take 1 Tablet by mouth in the morning. 30 Tablet 2 5 Active Pantoprazole Sodium 40 MG Oral Tablet Delayed Release (Protonix) Take 1 Tablet by mouth in the morning. 30 Tablet 3 4 025 Discontinued documented as of this encounter (statuses as of 02/24/2024) Active Problems Problem Noted Date Diagnosed Date Migraine without aura and wi thout status migrainosus, not intractable 01/09/2024 Balance problem 01/09/2024 Mixed hyperlipidemia 04/10/2021 Gastroesophageal reflux disease without esophagi tis 10/03/2020 IBS (irritable bowel syndrome) 09/12/2013 documented as of this encounter (statuses as of 02/24/2024) Resolved Problems Problem Noted Date Diagnosed Date Resolved Date Mass on back 05/20/2017 10/27/2021 documented as of this encounter (statuses as of 02/24/2024) Social History Tobacco Use Types Packs/Day Years Used Date Smoking Tobacco: Never Smokeless Tobacco: Never Alcohol Use Standard Drinks/Week Comments No 0 (1 standard drink = 0.6 oz pur e alcohol) PHQ-2 Answer Date Recorded PHQ Adult Total Score 0 11/04/2022 Hunger Vital Sign Answer Date Recorded Within the past 12 months, y ou worried that your food would run out before you got the money to buy more. Patient declined Within the past 12 months, t he food you bought just didn't last and you didn't have money to get more. Patient declined Childcare Answer Date Recorded Do you feel overwhelmed with taking care of a child, family member or friend? No 01/09/2024 Does your family need help f inding childcare? (Household - for ages 0-17 years) Not on file 01/09/2024 Clothing Answer Date Recorded Have you been unable to get clothing when it was really needed? No 01/09/2024 Is your family able to get c lothes or diapers when needed? (Household - for ages 0-17 years) Not on file 01/09/2024 Personal Safety Answer Date Recorded Do you feel unsafe or have concerns for your saf ety? No 01/09/2024 Do you have concerns for you r family's safety? (Household - for ages 0-17 years) Not on file 01/09/2024 Utilities Answer Date Recorded Do you have trouble paying y our heating, water, or electric bill? No 01/09/2024 Is your family able to pay t he heat, water, or electric bill? (Household - for ages 0-17 years) Not on file 01/09/2024 Does your family have access to good internet? (Household - for ages 0-17 years) Not on file 01/09/2024 Employment Status Answer Date Recorded Are you unemployed or without regular income? No 01/09/2024 Does the household have a [facility] source of income? (Household - for ages 0-17 years) Not on file 01/09/2024 Social Connections Answer Date Recorded How often do you feel lonely or isolated from th ose around you? Never 01/09/2024 Financial Resource Strain Answer Date R ecorded Do you have any trouble payi ng for your medications, or do you think you might in the future? No 01/09/2024 Does your family have troubl e paying for medicine? (Household - for ages 0-17 years) Not on file 01/09/2024 Transportation Needs Answer Date Record ed Do you have trouble getting a ride to medical visits or work? (Adult - for ages 18 years and over) Not on file 01/09/2024 Does your family have a hard time getting a ride to doctors visits? (Household - for ages 0-17 years) Not on file 01/09/2024 Has lack of transportation k ept you from medical appointments, meetings, work, or from getting things needed for daily living? Check all that apply. No 01/09/2024 Do you (or your family) have trouble finding or paying for a ride (transportation)? (Household - for ages 0-17 years) Not on file 01/09/2024 Housing Stability Answer Date Recorded Do you currently live in a s helter or have no steady place to sleep at night? No 01/09/2024 Do you think you are at risk of becoming homeless? (Adult - for ages 18 years and over) Not on file 01/09/2024 Does your family worry about paying for your home or becoming homeless? (Household - for ages 0-17 years) Not on file 1 03/10/2023 Are you homeless or worried that you might be in the future? No 01/09/2024 Are you (or your family) theodore eless or worried that you might be in the future? (Household - for ages 0-17 years) Not on file Food Insecurity Answer Date Recorded Do you need food for this week? No 01/09/2024 Are you able to get enough f ood for your family? (Household - for ages 0-17 years) Not on file 01/09/2024 Does your family need food t his week? (Household - for ages 0-17 years) Not on file 01/09/2024 Do you always have enough fo od for your family? (Household - for ages 0-17 years) Not on file 01/09/2024 Comments No Sex and Gender Information Value Date Recorded Sex Assigned at Female 09/14/2019 12:18 PM EDT Legal Sex Female 4:21 PM EDT Gender Identity Female 09/14/2019 12:18 PM EDT Sexual Orientation Straight 09/14/2019 12 :18 PM EDT documented as of this encounter Miscellaneous Notes * Telephone Encounter - July Patton RPh - 02/24/2024 8:43 PM EST Signed Prescriptions: Disp Refills Pantoprazole Sodium 40 MG Oral Tablet Charleen*30 Tab*2 Sig: Take 1 Tablet by mouth in the morning.Authorizing Provider: JESÚS JARA User: JULY PATTON documented in this encounter Plan of Treatment Upcoming Encounters Date Type Department Care Team (Late st Contact Info) Description 07/31/2024 2:40 PM EDT Office [facility] [place] [address] [facility] [place] [address] Jesús Jara MD [address] [place] [address] 08/21/2024 9:00 AM EDT Office Visit Gastroenterology, [facility] [address] [place] [address] Dolores Shaver CRNP [address] [place] [address] 02/04/2025 2:20 PM EST Office Visit Neurology [facility] [place] [address] [place] [phone] Nandini Nielson MD [address] [facility] [place] [address] Health Maintenance Due Date Last Done Comments DXA Scan 1950 Hepatitis C Screening 1966 DTap/Tdap Vaccines (1 - Tdap) 07/20/1967 Pneumococcal Vaccine: 50+ Ye ars (1 of 1 - PCV) 1998 Zoster Vaccines (1 of 2) 1998 Adult Wellness Visit 2014 COVID-19 Vaccine ( - 2023-2 5 season) 2023 Influenza Vaccine (FLU shot) (#1) 2023 Depression Screening 11/05/2023 11/04/2022 HPV (Gardasil) Vaccine Aged Out No lo nger eligible based on patient's age to complete this topic Hepatitis B Vaccine Aged Out No longe r eligible based on patient's age to complete this topic MENINGOCOCCAL (MENACTRA/MENVEO) Aged Out No longer eligible based on patient's age to complete this topic documented as of this encounter Medical Devices Not on filedocumented as of this encounter Care Teams Pet Nutrition Specialist Relationship Specialty Start Date End Date Jesús Jara MD [address] [place] [address] PCP - General Internal Medicine 12/03/20 documented as of this encounter
--- OUTSIDE RECORDS SUMMARY | 2024-03-16 06:43 | External Medical Summary | Summary of Care ---
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 [facility] What body part is the patient being seen for? Shoulder What condition is the patient being seen for? Tumor - all ages Reason for Visit * Reason Onset Date Comments Test Results 12/02/2023 Unexpected or In determinate Result Encounter Details Date Type Department Care Team (Late st Contact Info) Description 12/02/2023 Telephone General Internal Medicine [facility] [address] [place] [address] Jesús Gale MD [address] [place] [address] Test Results (Unexpected or Indeterminate ... Allergies Active Allergy Reactions Criticality Noted Date Comments Novocain 09/12/2013 Other Allergy (See Comments) Other (Please comment) 04/17/2015 Patient reports reaction to medication anal'gin; medication not available in [place]; medication caused increased pain Acetaminophen 08/10/2018 documented as of this encounter (statuses as of 03/02/2024) Medications Mirtazapine 15 MG Oral Tablet (Remeron) Take 1 Tablet by mouth at bedtime. 30 Tablet 12 4 Active Rosuvastatin Calcium 5 MG Oral Tablet (Crestor) Take 1 Tablet by mouth in the morning. 90 Tablet 3 4 Active Pantoprazole Sodium 40 MG Oral Tablet Delayed Release (Protonix) Take 1 Tablet by mouth in the morning. 30 Tablet 3 4 02/23/19 25 Discontinued documented as of this encounter (statuses as of 03/02/2024) Active Problems Problem Noted Date Diagnosed Date Migraine without aura and wi thout status migrainosus, not intractable 01/09/2024 Balance problem 01/09/2024 Mixed hyperlipidemia 04/10/2021 Gastroesophageal reflux disease without esophagi tis 10/03/2020 IBS (irritable bowel syndrome) 09/12/2013 documented as of this encounter (statuses as of 03/02/2024) Resolved Problems Problem Noted Date Diagnosed Date Resolved Date Mass on back 05/20/2017 10/27/2021 documented as of this encounter (statuses as of 03/02/2024) Social History Tobacco Use Types Packs/Day Years [...] No 01/09/2024 Does the household have a re gular source of income? (Household - for ages [...] encounter Miscellaneous Notes * Telephone Encounter - John Singer RN - 12/06/2023 10:19 AM EDT Called and spoke with patient's son Jaime and informed him of Dr. Gale's previous message. He verbalized understanding of all information, agreeable for patient to see ortho oncology. Referral order pended for review and signature. * Telephone Encounter - Jesús Gale MD - 12/06/2023 8:25 AM EDT Please call has a large (12.6 cm!) shoulder lesion. This is likely lipoma, but also has some changes that could suggest malignancy. I would strongly suggest they see orthopaedics oncology to see if malignant and if needs surgery to remove. Let me know if agreeable to set up visit likely in [place] * Telephone Encounter - Jasmin Wei MED ASSIST - 12/02/2023 3:50 PM EDT Please review. * Telephone Encounter - Briseida Fernandez OSA - 12/02/2023 3:45 PM EDT Hello- The radiologist discovered an unexpected or indeterminate finding on Khang Oates ([id number]) and asks that you review the following report. Study Type:MRI SHOULDER RIGHT WO CONTRAST Date of Study: 12/02/2023 IMPRESSION 1. 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 Referral to orthopedic oncology is suggested. 2. Additional findings, as above. Please respond to this encounter to acknowledge receipt of this message and take responsibility to ensure this report is reviewed. Thank you, WAYNE Ashley Client Service Rep [facility] documented in this encounter Plan of Treatment Upcoming Encounters Date Type Department Care Team (Late st Contact Info) Description 07/31/2024 2:40 PM EDT Office Visit General Internal Medicine [facility] [address] [facility] [place] [address] Jesús Gale MD [address] [facility] [place] [address] 08/21/2024 9:00 AM EDT Office Visit Gastroenterology, [facility] [address] [facility] [address] Dolores Shaver CRNP [address] [place] [address] 02/04/2025 2:20 PM EST Office Visit Neurology [address] [place] [phone] Nandini Nielson MD [address] [place] [address] Scheduled Referrals Name Type Priority Associated Diagnoses Order Schedule ORTHOPAEDICS REFERRAL OP Referral Within 3 days (urgent) Shoulder mass 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
--- OUTSIDE RECORDS SUMMARY | 2024-03-16 06:43 | External Medical Summary | Summary of Care ---
Author Name Unknown Organization [facility] Address [address] [facility] [address] Phone [phone] Care Team Providers Care Metal Furniture Assembly Supervisor Name Role Phone Jesús Gale MD Primary Care Provider + Reason for Visit * Reason Comments Follow Up Pt here w/ son to f/ u for N/V/gastroparesis and wt loss. Encounter Details Date Type Department Care Team (Latest Contact Info) Description 02/22/2024 9:00 AM EST Office Visit [facility]ology, [facility] [address] [facility] [address] Dolores Shaver CRNP [address] [place] [address] Gastroesophageal reflux disease without esophagitis*; Gastroparesis Allergies Active Allergy Reactions Criticality Noted Date Comments Novocain 09/12/2013 Other Allergy (See Comments) Other (Please comment) 04/17/2015 Patient reports reaction to medication anal'gin; medication not available in [place]; medication caused increased pain Acetaminophen 08/10/2018 documented as of this encounter (statuses as of 02/22/2024) Medications Mirtazapine 15 MG Oral Tablet (Remeron) Take 1 Tablet by mouth at bedtime. 30 Tablet 12 10/12/2023 Active Pantoprazole Sodium 40 MG Oral Tablet Delayed Release (Protonix) Take 1 Tablet by mouth in the morning. 30 Tablet 3 10/25/2023 Active Rosuvastatin Calcium 5 MG Oral Tablet (Crestor) Take 1 Tablet by mouth in the morning. 90 Tablet 3 11/11/2023 Active Metoclopramide HCl 10 MG Oral Tablet (Reglan)Indicati ons:Migraine without aura and without status migrainosus, not intractable Take 2 tablets by mouth every 6-8 hours for head pain and nausea. Take no more than 3 days a week. 30 Tablet 6 01/09/2024 Active documented as of this encounter (statuses as of 02/22/2024) Active Problems Problem Noted Date Diagnosed Date Migraine without aura and wi thout status migrainosus, not intractable 01/09/2024 Balance problem 01/09/2024 Mixed hyperlipidemia 04/10/2021 Gastroesophageal reflux disease without esophagi tis 10/03/2020 IBS (irritable bowel syndrome) 09/12/2013 documented as of this encounter (statuses as of 02/22/2024) Resolved Problems Problem Noted Date Diagnosed Date Resolved Date Mass on back 05/20/2017 10/27/2021 documented as of this encounter (statuses as of 02/22/2024) Social History Tobacco Use Types Packs/Day Years [...] No 01/09/2024 Does the household have a [facility] source of income? (Household - for ages [...] PM EDT documented as of this encounter Last Filed Vital Signs Vital Sign Reading Time Taken Comments Blood Pressure 130/74 02/22/2024 8:52 AM EST Pulse - - Temperature 36.7 C (98.1 F) 02/22/2024 8:52 AM ES T Respiratory Rate - - Oxygen Saturation - - Inhaled Oxygen Concentration - - Weight 62.1 kg (137 lb) 02/22/2024 8:52 AM EST Height - - Body Mass Index 24.66 01/09/2024 9:51 AM EST documented in this encounter Progress Notes * Dolores Shaver CRNP - 02/22/2024 8:55 AM EST CC: f/u N/V HPI: Recall that Ms. Khang Oates is a 73 yr old female pt of Dr. Gregorio eller a hx of migraines who was seen in GI clinic in September for unintentional weight loss, N/V. She was started on mirtazapine which helped her appetite and improved her sleep. GES showed gastroparesis. She was started on metoclopramide twice daily. She feels much better. She has [place]. She is here with her son today who serves as a wire preparation worker. They declined the translation video service. Diagnostic Testing: Labs: August 2023 at [facility]: Hb 10.8, 11.6, Hct 33.9, WBC 3.44,MCV normalCMP w/o significant abnormalities EGD at [facility] August 2023: patchy mild gastric inflammation (non erosive gastritis) CTAP w IV April 2023: No acute intra-abdominal pathology Brain CT and MRI August 2023: no acute changes CTAP w IV August 2023 [facility]: 1. There is mild prominence and enhancement of the ureteral wall which can be seen in ureteritis. Correlation with urinalysis is recommended. 2. Diverticulosis without diverticulitis. 3. Small hiatal hernia. CTAP w IV Jan 2023 [facility]: No acute abnormalities to explain vomiting and abdominal pain. Colonoscopy in the [facility] about 30 yrs ago. EXAM: BP 130/74 | Temp 36.7 C (98.1 F) | Wt 62.1 kg (137 lb) | BMI 24.66 kg/m | BSA 1.66 m GENERAL: 73 year old female well developed and well nourished in no acute distress SKIN: no rashes, ulcers, or spider angiomata HEENT: normocephalic, sclera clear, pharynx normal NECK: supple, no lymphadenopathy, no masses or thyroid enlargement LUNGS: clear to auscultation anterior and posterior HEART: regular rate & rhythm, no murmurs and no gallops ABDOMEN: normo-active bowel sounds, soft, non-tender, non-distended no masses, no hepatosplenomegaly, no rebound or guarding, no bruits EXTREMITIES: no palmar erythema, no edema, no skin discoloration, no clubbing, no cyanosis NEURO: no lateralizing findings, Sensory/Motor grossly normal IMPRESSION/RECOMMENDATIONS: 73 year old female with Gastroesophageal reflux disease without esophagitis (Primary) - Continue pantoprazole 40 mg 1 tablet every morning Gastroparesis - continue metoclopramide 10 mg as needed for nausea. . If develops tremors. - continue mirtazapine 15 mg 1 tablet at bedtime Of note Neurology also recommended continuing thisfor prevention of migraines. Recheck in GI in 6 months I spent a total of 30 minutes on the date of service in review of patient's record, and previously obtained information in person and appropriate medical visit, discussion and education of plan, withpatient and/or caregiver, placing orders for tests/referral/procedures as medically necessary and documentation of pertinent clinical information in patient's medical records for their visit today. Thank you for the opportunity to be involved in the care of this patient. MARCELLUS Jiménez documented in this encounter Nursing Notes * Cami Lagunas CMA - 02/22/2024 8:51 AM EST Chief Complaint Patient presents with Follow Up Pt here w/ son to f/u for N/V/gastroparesis and wt loss. documented in this encounter Plan of Treatment Upcoming Encounters Date Type Department Care Team (Late st Contact Info) Description 07/31/2024 2:40 PM EDT Office Visit General Internal Medicine [facility] [address] [facility] [place] [address] Jesús Gale MD [address] [facility] [place] [address] 08/21/2024 9:00 AM EDT Office Visit Gastroenterology, [facility] [address] [place] [address] [facility]aver [facility] [place] [address] 02/04/2025 2:20 PM EST Office Visit Neurology [address] [place] [phone] Nandini Nielson MD [address] [facility] [place] [address] Health Maintenance Due Date Last Done Comments [...] Visit Diagnoses Diagnosis Gastroesophageal reflux disease without esophagitis- Primary Esophageal reflux Gastroparesis documented in this encounter Care Teams Metal Furniture Assembly Supervisor Relationship Specialty Start Date End Date Jesús Gale MD [address] [facility] [place] [address] PCP - General Internal Medicine 12/03/20 documented as of this encounter"
--- OUTSIDE RECORDS SUMMARY | 2024-03-16 06:44 | External Medical Summary ---
Author Name Unknown Address Unknown Organization K09:[facility] [place] [address] Laboratory Report Ordering Provider Test Date Status DO REECELAURENCESTEPHANIE 12/16/2023 12:11:44 Final Observation Date Value Abnormality Reference (Units ) Status WBC, Total 12/16/2023 12:11:44 3.73 Below low normal 4. 00-10.80 (K/uL) Final RBC 12/16/2023 12:11:44 3.50 3.85-5.15 (M/uL) Final Hemoglobin 12/16/2023 12:11:44 10.8 Below low normal 12 .0-15.3 (g/dL) Final HCT 12/16/2023 12:11:44 32.5 Below low normal 36. 0-45.2 (%) Final MCV 12/16/2023 12:11:44 92.9 81.5-97.5 (fL) Final MCH 12/16/2023 12:11:44 30.9 27.0-34.0 (pg) Final MCHC 12/16/2023 12:11:44 33.2 32.0-36.0 (g/dL) Final RDW 12/16/2023 12:11:44 12.9 11.5-15.5 (%) Final Platelets 12/16/2023 12:11:44 154 140-400 (K /uL) Final MPV 12/16/2023 12:11:44 11.4 6.6-11.1 ( fL) Final Performing Location [facility] [place] [address]
--- OUTSIDE RECORDS SUMMARY | 2024-03-16 06:44 | External Medical Summary | Summary of Care ---
Author Name Unknown Organization [facility] Address [address] [place] [address] Phone [phone] Care Team Providers Care Personnel Security Specialist Name Role Phone Jesús Gale MD Primary Care Provider + Reason for Visit * Reason Onset Date Comments Forms Request 10/07/2023 Encounter Details Date Type Department Care Team (Late st Contact Info) Description 10/07/2023 Telephone General Internal Medicine [facility] 200 [place] [address] Jesús Gale MD 200 [facility], [place] [address] Forms Request Allergies Active Allergy Reactions Criticality Noted Date Comments Novocain 09/12/2013 Other Allergy (See Comments) Other (Please comment) 04/17/2015 Patient reports reaction to medication anal'gin; medication not available in [place]; medication caused increased pain Acetaminophen 08/10/2018 documented as of this encounter (statuses as of 01/06/2024) Medications No known medicationsdocumented as of this encounter (statuses as of 01/06/2024) Active Problems Problem Noted Date Diagnosed Date Mixed hyperlipidemia 04/10/2021 Gastroesophageal reflux disease without esophagi tis 10/03/2020 IBS (irritable bowel syndrome) 09/12/2013 documented as of this encounter (statuses as of 01/06/2024) Resolved Problems Problem Noted Date Diagnosed Date Resolved Date Mass on back 05/20/2017 10/27/2021 documented as of this encounter (statuses as of 01/06/2024) Social History Tobacco Use Types Packs/Day Years [...] in the Last Year Never true 01/15/2019 Utilities Answer Date Recorded Do you have trouble paying y our heating, water, or electric bill? (Adult - for ages 18 years and over) Not on file 08/02/2023 Is your family able to pay t he heat, water, or electric bill? (Household - for ages 0-17 years) Not on file 08/02/2023 Does your family have access to good internet? (Household - for ages 0-17 years) Not on file 08/02/2023 Social Connections Answer Date Recorded How often do you feel lonely or isolated from those around you? (Adult - for ages 18 years and over) Not on file 08/02/2023 Comments No Sex and Gender Information Value Date Recorded Sex Assigned at Female 09/14/2019 12:18 PM EDT Legal Sex Female 4:21 PM EDT Gender Identity Female 09/14/2019 12:18 PM EDT Sexual Orientation Straight 09/14/2019 12 :18 PM EDT documented as of this encounter Miscellaneous Notes * Telephone Encounter - Salud Pino MED ASSIST - 10/07/2023 3:42 PM EDT Demographic and physician information completed. Form placed in Dr. Gale's folder to be completed. * Telephone Encounter - Kalli Del Valle OSA - 10/07/2023 1:16 PM EDT Patient's son dropped off forms to be filled out. The son is requesting that the forms be filled out for correction care rather than short term care. Forms are located in IM mailbox at E2. Please callthe pt when forms are completed. documented in this encounter Plan of Treatment Upcoming Encounters Date Type Department Care Team (Late st Contact Info) Description 01/09/2024 10:00 AM EST Office Visit Neurology [address] [place] [address] Nandini Nielson MD 100 [address] [facility] [place] [address] 01/27/2024 11:00 AM EST Office Visit Urology Sarah Lopez [address] [place] [address] [place] [address] Tashia Doan PA-C [address] [place] [address] 02/22/2024 9:00 AM EST Office Visit Gastroenterology, [facility] 132 [facility] [place] [address] Dolores Shaver CRNP 132 [facility] [place] [address] 07/31/2024 2:40 PM EDT Office Visit General Internal Medicine [facility] 200 [facility] [address] Jesús Gale MD 200 [facility] [address] Health Maintenance Due Date Last Done Comments DXA Scan 1950 Hepatitis C Screening 1966 DTap/Tdap Vaccines (1 - Tdap) 07/20/1967 Zoster Vaccines (1 of 2) 1998 Pneumococcal Vaccine: 65+ Ye ars (1 of 1 - PCV) 2013 Adult Wellness Visit 2014 COVID-19 Vaccine ( [...] filedocumented as of this encounter Care Teams Personnel Security Specialist Relationship Specialty Start Date End Date Jesús Gale MD 200 [facility] [place] [address] PCP - General Internal Medicine 12/03/20 documented as of this encounter
--- OUTSIDE RECORDS SUMMARY | 2024-03-16 06:44 | External Medical Summary | Summary of Care ---
Author Name Unknown Organization [facility] Address [address] [place] [address] Phone [phone] Care Team Providers Care Vice President Medical Affairs Name Role Phone Jesús Gale MD Primary Care Provider + Reason for Visit * Reason Onset Date Comments Test Results Lab 12/21/2023 Encounter Details Date Type Department Care Team (Late st Contact Info) Description 12/21/2023 Telephone General Internal Medicine [facility] 200 [facility] [place] [address] Jesús Gale MD 200 [facility] [address] Test Results Lab Allergies Active Allergy Reactions Criticality Noted Date Comments Novocain 09/12/2013 Other Allergy (See Comments) Other (Please comment) 04/17/2015 Patient reports reaction to medication anal'gin; medication not available in [place]; medication caused increased pain Acetaminophen 08/10/2018 documented as of this encounter (statuses as of 12/26/2023) Medications Mirtazapine 15 MG Oral Tablet (Remeron) Take 1 Tablet by mouth at bedtime. 30 Tablet 12 10/12/2023 Active Pantoprazole Sodium 40 MG Oral Tablet Delayed Release (Protonix) Take 1 Tablet by mouth in the morning. 30 Tablet 3 10/25/2023 Active Rosuvastatin Calcium 5 MG Oral Tablet (Crestor) Take 1 Tablet by mouth in the morning. 90 Tablet 3 11/11/2023 Active documented as of this encounter (statuses as of 12/26/2023) Active Problems Problem Noted Date Diagnosed Date Mixed hyperlipidemia 04/10/2021 Gastroesophageal reflux disease without esophagi tis 10/03/2020 IBS (irritable bowel syndrome) 09/12/2013 documented as of this encounter (statuses as of 12/26/2023) Resolved Problems Problem Noted Date Diagnosed Date Resolved Date Mass on back 05/20/2017 10/27/2021 documented as of this encounter (statuses as of 12/26/2023) Social History Tobacco Use Types Packs/Day Years [...] Encounter - Salud Pino MED ASSIST - 12/21/2023 2:41 PM EST Language Line lobby porter [phone] left message for the patient to call the office. Upon return call please transfer to a dedicated triage telephone nurse. * Telephone Encounter - Salud Pino, MED ASSIST - 12/21/2023 2:40 PM EST ----- Message from Jesús Gale MD sent at 12/19/2023 9:08 AM EST ----- 1. Kidney, liver ok 2. Slightly anemic, I want to recheck this in 1-2 weeks to trend 3. Lipids much better!!! 4. She was to see ortho about her shoulder mass, (see previous phone), can she please schedule thisasap!! documented in this encounter Plan of Treatment Upcoming Encounters Date Type Department Care Team (Late st Contact Info) Description 01/09/2024 10:00 AM EST Office Visit Neurology [address] [place] [address] Nandini Nielson MD [address] [facility] [place] [address] 01/27/2024 11:00 AM EST Office Visit Urology Sarah Lopez [address] [place] [address] [place] [address] Tashia Doan PA-C [address] [place] [address] 02/22/2024 9:00 AM EST Office Visit Gastroenterology, [facility] [address] [place] [address] Dolores Shaver CRNP [address] [place] [address] 07/31/2024 2:40 PM EDT Office Visit General Internal Medicine [facility] [address] [place] [address] Jesús Gale MD 200 [facility] [place] [address] Health Maintenance Due Date Last Done Comments DXA Scan 1950 Hepatitis C Screening 1966 DTap/Tdap Vaccines (1 - Tdap) 07/20/1967 Zoster Vaccines (1 of 2) 1998 Pneumococcal Vaccine: 65+ Ye ars (1 of 1 - PCV) 2013 Adult Wellness Visit 2014 COVID-19 Vaccine (1 - 2023-2 5 season) 2023 Influenza Vaccine [...] filedocumented as of this encounter Care Teams Vice President Medical Affairs Relationship Specialty Start Date End Date Jesús Gale MD [address] [place], [place] [address] PCP - General Internal Medicine 12/03/20 documented as of this encounter
--- OUTSIDE RECORDS SUMMARY | 2024-03-16 06:44 | External Medical Summary | Summary of Care ---
Author Name Unknown Organization [facility] Address [address] [place] [address] Phone [phone] Care Team Providers Care Hoop Machine Operator Name Role Phone Jesús Gale MD Primary Care Provider + Reason for Visit * Reason Comments Outpatient Testing Encounter Details Date Type Department Care Team (Late st Contact Info) Description 02/01/2024 9:30 AM EST Laboratory Laboratory [facility] [place] [address] [place] [address] [facility] [address] [facility] [place] [address] Ureteritis; History of UTI Allergies Active Allergy Reactions Criticality Noted Date Comments Novocain 09/12/2013 Other Allergy (See Comments) Other (Please comment) 04/17/2015 Patient reports reaction to medication anal'gin; medication not available in [place]; medication caused increased pain Acetaminophen 08/10/2018 documented as of this encounter (statuses as of 02/01/2024) Medications Mirtazapine 15 MG Oral Tablet (Remeron) [...] as of this encounter (statuses as of 02/01/2024) Active Problems Problem Noted Date Diagnosed Date Migraine without aura and wi thout status migrainosus, not intractable 01/09/2024 Balance problem 01/09/2024 Mixed hyperlipidemia 04/10/2021 Gastroesophageal reflux disease without esophagi tis 10/03/2020 IBS (irritable bowel syndrome) 09/12/2013 documented as of this encounter (statuses as of 02/01/2024) Resolved Problems Problem Noted Date Diagnosed Date Resolved Date Mass on back 05/20/2017 10/27/2021 documented as of this encounter (statuses as of 02/01/2024) Social History Tobacco Use Types Packs/Day Years [...] 01/09/2024 Does the household have a re lar source of income? (Household - for ages [...] PM EDT documented as of this encounter Plan of Treatment Upcoming Encounters Date Type Department Care Team (Late st Contact Info) Description 02/06/2024 1:45 PM EST Imaging Radiology [address] [place] [address] 02/10/2024 10:00 AM EST Telemedicine Urology Sarah Lopez [address] [place] [address] [place] [address] Tashia Doan PA-C [address] [place] [address] 02/22/2024 9:00 AM EST Office Visit Gastroenterology, [facility] [address] [place] [address] Dolores Shaver CRNP [address] [place] [address] 07/31/2024 2:40 PM EDT Office Visit General Internal Medicine [facility] 200 [facility] [address] Jesús Gale MD 200 [place] [address] 02/04/2025 2:20 PM EST Office Visit Neurology [address] [place] [address] Nandini Nielson MD [address] [place] [address] Pending Results Name Type Priority Associated Diagnoses Date /Time CREATININE Lab Routine Ureteritis History of UTI 02/01/2024 9:38 AM EST Health Maintenance Due Date Last Done [...] as of this encounter Visit Diagnoses Diagnosis Ureteritis Other specified disorder of kidney and ureter History of UTI Personal history of urinary (tract) infection documented in this encounter Care Teams Hoop Machine Operator Relationship Specialty Start Date End Date Jesús Gale MD [address] [place] [address] PCP - General Internal Medicine 12/03/20 documented as of this encounter
--- OUTSIDE RECORDS SUMMARY | 2024-03-16 06:44 | External Medical Summary | Summary of Care ---
Author Name Unknown Organization [facility] Address [address] [place] [address] Phone [phone] Care Team Providers Care Risk And Insurance Manager Name Role Phone Jesús Gale MD Primary Care Provider + Reason for Visit * Reason Onset Date Comments Blood Pressure Check Patient acc ompanied by son who is translating - declined ekg/ecg technician today Blood Pressure Check 11/23/2023 Encounter Details Date Type Department Care Team (Late st Contact Info) Description 11/23/2023 10:00 AM EDT Nurse Only Ancillary [facility] [place] [address] [place] [address] Nurse, Int Med 200 [facility] [place] [address] Blood Pressure Check (Patient accompanied ... Allergies Active Allergy Reactions Criticality Noted Date Comments Novocain 09/12/2013 Other Allergy (See Comments) Other (Please comment) 04/17/2015 Patient reports reaction to medication anal'gin; medication not available in [place]; medication caused increased pain Acetaminophen 08/10/2018 documented as of this encounter (statuses as of 11/23/2023) Medications Medication Sig Dispensed Refills Start Date End Date Status Mirtazapine 15 MG Oral Tablet (Remeron) Take [...] as of this encounter (statuses as of 11/23/2023) Active Problems Problem Noted Date Diagnosed Date Mixed hyperlipidemia 04/10/2021 Gastroesophageal reflux disease without esophagi tis 10/03/2020 IBS (irritable bowel syndrome) 09/12/2013 documented as of this encounter (statuses as of 11/23/2023) Resolved Problems Problem Noted Date Diagnosed Date Resolved Date Mass on back 05/20/2017 10/27/2021 documented as of this encounter (statuses as of 11/23/2023) Social History Tobacco Use Types Packs/Day Years [...] years and over) Not on file 08/02/2023 Sex and Gender Information Value Date Recorded Sex Assigned at Female 09/14/2019 12:18 PM EDT Gender Identity Female 09/14/2019 12:18 PM EDT Sexual Orientation Straight 09/14/2019 12 :18 PM EDT Job Start Date Occupation Industry Not on file Not on file Not on file documented as of this encounter Last Filed Vital Signs Vital Sign Reading Time Taken Comments Blood Pressure 116/62 11/23/2023 10:09 AM EDT Pulse 72 11/23/2023 10:09 AM EDT Temperature - - Respiratory Rate - - Oxygen Saturation - - Inhaled Oxygen Concentration - - Weight - - Height - - Body Mass Index - - documented in this encounter Progress Notes * John Singer RN - 11/23/2023 10:17 AM EDT Khang Oates presented for blood pressure check per provider orders. The blood pressure was obtained using the left arm in the sitting position using a adult cuff. The results were charted in Vital Signs. BP Readings from Last 3 Encounters: 11/23/23 116/62 11/09/23 110/56 10/25/23 144/78 BP 116/62 (BP Site: Left Arm, BP Position: Sitting, BP Cuff Size: Regular) | Pulse 72 Reading using patient's home BP cuff: BP 115/68 (BP Site: Left Arm, BP Position: Sitting, BP Cuff Size: Regular) | Pulse 72 Patient denies headache, pressure in head, lightheadedness, chest discomfort, focal neurological symptoms, change in vision, nose bleeds. Patient reports slight dizziness at this time. Patient statesshe has not eaten anything yet today. Did patient take medications today? No, does not take any BP medication. Advised patient's son that BP cuff is accurate and to continue home BP readings as Dr. Gale previously instructed. Patient's son verbalized understanding. Patient informed ok for her to go and we will call with any further instructions from PCP. Patient and patient's son verbalized understanding. documented in this encounter Nursing Notes * John Singer RN - 11/23/2023 10:11 AM EDT Chief Complaint Patient presents with Blood Pressure Check Patient accompanied by son who is translating - declined ekg/ecg technician today Blood Pressure Check Reading using patient's home BP cuff: BP 115/68 (BP Site: Left Arm, BP Position: Sitting, BP Cuff Size: Regular) | Pulse 72 documented in this encounter Plan of Treatment Upcoming Encounters Date Type Department Care Team (Late st Contact Info) Description 12/02/2023 12:30 PM EDT Imaging Radiology [address], [place] 132 [facility] [place] [address] 12/07/2023 10:00 AM EDT Imaging [facility] 2nd Floor Cardiology, [address] [place] [address] 12/07/2023 11:30 AM EDT Imaging [facility] 2nd Floor Cardiology, [address] [place] [address] 12/07/2023 12:30 PM EDT Imaging [facility] 2nd Floor Cardiology, [address] [place] [address] 12/07/2023 2:30 PM EDT Imaging [facility] 2nd Floor Cardiology, [address] [place] [address] 01/09/2024 10:00 AM EST Office Visit Neurology [address] [place] [address] Nandini Nielson MD [address] [place] [facility] [place] [address] 01/27/2024 11:00 AM EST Office Visit Urology Sarah Lopez [address] [place] [address] [place] [address] Tashia Doan PA-C [address] [place] [address] 02/22/2024 9:00 AM EST Office Visit Gastroenterology, [facility] 132 [facility] [place] [address] Dolores Shaver CRNP 132 [facility] [place] [address] 07/31/2024 2:40 PM EDT Office Visit General Internal [facility] [address] [place] [address] Jesús Gale MD 200 [facility] [place] [address] Health Maintenance Due Date Last Done Comments [...] Not on filedocumented as of this encounter Procedures Procedure Name Priority Date/Time Associated Diagnosis Comments BLOOD PRESSURE Routine 11/23/2023 10:20 AM EDT Elevated blood pressure, situational documented in this encounter Results * BLOOD PRESSURE (11/23/2023 10:20 AM EDT) Narrative John Singer RN - 11/23/2023 10:20 AM EDT BP 116/62 (BP Site: Left Arm, BP Position: Sitting, BP Cuff Size: Regular) | Pulse 72 Jesús Gale MD MEDICAL SERVICES documented in this encounter Visit Diagnoses Diagnosis Elevated blood pressure, situational- Primary Elevated blood pressure reading without diagnosis of hypertension documented in this encounter Care Teams Risk And Insurance Manager Relationship Specialty Start Date End Date Jesús Gale MD [address] [place] [address] PCP - General Internal Medicine 12/03/20 documented as of this encounter"
--- OUTSIDE RECORDS SUMMARY | 2024-03-16 06:44 | External Medical Summary | Summary of Care ---
Author Name Unknown Organization [facility] Address [address] [place] [address] Phone [phone] Care Team Providers Care Maintenance Data Analyst Name Role Phone Jesús Gale MD Primary Care Provider + Reason for Visit * Reason Onset Date Comments MyCode Nonconsent - Language Barrier 11/09/2023 Encounter Details Date Type Department Care Team (Late st Contact Info) Description 11/09/2023 Orders Only Outcomes Research Department [address] [place] [address] Felice George CHRA MyCode Nonconsent Documentation Allergies Active Allergy Reactions Criticality Noted Date Comments Novocain 09/12/2013 Other Allergy (See Comments) Other (Please comment) 04/17/2015 Patient reports reaction to medication anal'gin; medication not available in [place]; medication caused increased pain Acetaminophen 08/10/2018 documented as of this encounter (statuses as of 11/09/2023) Medications Medication Sig Dispensed Refills Start Date End Date Status Mirtazapine 15 MG Oral Tablet (Remeron) Take 1 Tablet by mouth at bedtime. 30 Tablet 12 10/12/2023 Active Pantoprazole Sodium 40 MG Oral Tablet Delayed Release (Protonix) Take 1 Tablet by mouth in the morning. 30 Tablet 3 10/25/2023 Active documented as of this encounter (statuses as of 11/09/2023) Active Problems Problem Noted Date Diagnosed Date Mixed hyperlipidemia 04/10/2021 Gastroesophageal reflux disease without esophagi tis 10/03/2020 IBS (irritable bowel syndrome) 09/12/2013 documented as of this encounter (statuses as of 11/09/2023) Resolved Problems Problem Noted Date Diagnosed Date Resolved Date Mass on back 05/20/2017 10/27/2021 documented as of this encounter (statuses as of 11/09/2023) Social History Tobacco Use Types Packs/Day Years [...] on file documented as of this encounter Progress Notes * Felice George CHRA - 11/09/2023 2:28 PM EDT MyCode Nonconsent Documentation Khang Oates was approached in the clinic regarding participation in the MyCode Project and did not consent. documented in this encounter Plan of Treatment Upcoming Encounters Date Type Department Care Team (Late st Contact Info) Description 11/23/2023 10:00 AM EDT Nurse Only Ancillary [place] [facility] [address] [place] [address] Nurse, Int Med [address] [place] [address] 12/02/2023 12:30 PM EDT Imaging Radiology [facility] 1st Floor, [place] [facility] [place] [address] 12/07/2023 10:00 AM EDT Imaging [facility] 2nd Floor Cardiology, [address] [place] [address] 12/07/2023 11:30 AM EDT Imaging [facility] 2nd Floor Cardiology, [address] [place] [address] 12/07/2023 12:30 PM EDT Imaging [facility] 2nd Floor Cardiology, [address] [place] [address] 12/07/2023 2:30 PM EDT Imaging [facility] 2nd Floor Cardiology, [place] 132 [facility] [place] [address] 01/09/2024 10:00 AM EST Office Visit Neurology [address] [place] [address] Nandini Nielosn MD [address] [place] [address] 01/27/2024 11:00 AM EST Office Visit Urology Sarah Lopez [address] [place] [address] [place] [address] Tashia Doan PA-C [address] [place] [address] 02/22/2024 9:00 AM EST Office Visit Gastroenterology, [facility], [place] 132 [facility] [place] [address] Dolores Shaver CRNP 132 [place] [address] 07/31/2024 2:40 PM EDT Office Visit General Internal Medicine [place] [facility] [address] [place] [address] Jesús Gale MD 200 [facility] [place] [address] Health Maintenance Due Date Last Done Comments [...] filedocumented as of this encounter Care Teams Maintenance Data Analyst Relationship Specialty Start Date End Date Jesús Glae MD [address] [place] [address] [address] PCP - General Internal Medicine 12/03/20 documented as of this encounter
--- OUTSIDE RECORDS SUMMARY | 2024-03-16 06:44 | External Medical Summary | Summary of Care ---
Author Name Unknown Organization [facility] Address [address] [place] [address] Phone [phone] Care Team Providers Care Religious Educator Name Role Phone Jesús Gale MD Primary Care Provider + Reason for Visit * Reason Comments Outpatient Testing Encounter Details Date Type Department Care Team (Late st Contact Info) Description 12/16/2023 12:10 PM EDT Laboratory Laboratory [facility] [place] [address] [place] [address] [facility] [address] [facility] [place] [address] Abnormal CBC; Mixed hyperlipidemia Allergies Active Allergy Reactions Criticality Noted Date Comments Novocain 09/12/2013 Other Allergy (See Comments) Other (Please comment) 04/17/2015 Patient reports reaction to medication anal'gin; medication not available in [place]; medication caused increased pain Acetaminophen 08/10/2018 documented as of this encounter (statuses as of 12/16/2023) Medications Medication Sig Dispensed Refills Start Date [...] as of this encounter (statuses as of 12/16/2023) Active Problems Problem Noted Date Diagnosed Date Mixed hyperlipidemia 04/10/2021 Gastroesophageal reflux disease without esophagi tis 10/03/2020 IBS (irritable bowel syndrome) 09/12/2013 documented as of this encounter (statuses as of 12/16/2023) Resolved Problems Problem Noted Date Diagnosed Date Resolved Date Mass on back 05/20/2017 10/27/2021 documented as of this encounter (statuses as of 12/16/2023) Social History Tobacco Use Types Packs/Day Years [...] [place] [id number] Nandini Nielson MD [address] [facility] [place] [address] 01/27/2024 11:00 AM EST Office Visit Urology [place] [address] [place] [address] [place] [address] Tashia Doan PA-C [address] [place] [address] 02/22/2024 9:00 AM EST Office Visit Gastroenterology, [facility] [address] [place] [address] Dolores Shaver CRNP [address] [place] [address] 07/31/2024 2:40 PM EDT Office Visit General Internal Medicine [facility] [address] [place] [address] Jesús Gale MD [address] [place] [address] Pending Results Name Type Priority Associated Diagnoses Date /Time CBC WITH WBC DIFFERENTIAL Lab Routine Abnormal CBC 12/16/2023 12:11 PM EDT COMPREHENSIVE METABOLIC PANEL Lab Routine Mixed hyperlipidemia 12/16/2023 12:11 PM EDT LIPID PANEL WITH DIRECT LDL IF TG IS HIGH Lab Routine Mixed hyperlipidemia 12/16/2023 12:11 PM EDT CBC Lab Routine Abnormal CBC 12/16/2023 12:11 PM EDT DIFFERENTIAL, AUTOMATED Lab Routine Abnormal CBC 12/16/2023 12:11 PM EDT Health Maintenance Due Date Last [...] as of this encounter Visit Diagnoses Diagnosis Abnormal CBC Other abnormal blood chemistry Mixed hyperlipidemia documented in this encounter Care Teams Religious Educator Relationship Specialty Start Date End Date Jesús Gale MD [address] [facility] [place] [address] PCP - General Internal Medicine 12/03/20 documented as of this encounter
--- OUTSIDE RECORDS SUMMARY | 2024-03-16 06:44 | External Medical Summary | Summary of Care ---
Author Name Unknown Organization [facility] Address [address] [place] [address] Phone [phone] Care Team Providers Care Machine Hand Name Role Phone Jesús Gale MD Primary Care Provider + Encounter Details Date Type Department Care Team (Late st Contact Info) Description 11/11/2023 [address]phone [address] Internal Medicine [facility] [address] [facility] [place] [phone] [facility] [id number] Allergies Active Allergy Reactions Criticality Noted Date Comments Novocain 09/12/2013 Other Allergy (See Comments) Other (Please comment) 04/17/2015 Patient reports reaction to medication anal'gin; medication not available in [place]; medication caused increased pain Acetaminophen 08/10/2018 documented as of this encounter (statuses as of 11/11/2023) Medications Medication Sig Dispensed Refills Start Date [...] as of this encounter (statuses as of 11/11/2023) Active Problems Problem Noted Date Diagnosed Date Mixed hyperlipidemia 04/10/2021 Gastroesophageal reflux disease without esophagi tis 10/03/2020 IBS (irritable bowel syndrome) 09/12/2013 documented as of this encounter (statuses as of 11/11/2023) Resolved Problems Problem Noted Date Diagnosed Date Resolved Date Mass on back 05/20/2017 10/27/2021 documented as of this encounter (statuses as of 11/11/2023) Social History Tobacco Use Types Packs/Day Years [...] encounter Miscellaneous Notes * Telephone Encounter - Naida Rivera LPN - 11/11/2023 1:28 PM EDT Called patient. Given message to her son. Verbalized understanding. Will comply. Asking for the crestor 5 mg to be sent to [facility]. * Telephone Encounter - Naida Rivera LPN - 11/11/2023 1:18 PM EDT ----- Message from Jesús Gale MD sent at 11/10/2023 9:30 AM EDT ----- 1. Lipids higher, still suggest crestor 5 mg to help lower. Watch out for muscle aches/pains, fatigue, cola colored urine, and call if develop. Repeat labs 1 month to follow 2. Looks slightly dry on labs, make sure staying hydrated 3. Sugar fine 4. Wbc slightly low, would like to repeat 1 month to follow documented in this encounter Plan of Treatment Upcoming Encounters Date Type Department Care Team (Late st Contact Info) Description 11/23/2023 10:00 AM EDT Nurse Only Ancillary [facility] [place] [address] [place] [address] Nurse, Int Med [address] [facility] [place] [address] 12/02/2023 12:30 PM EDT Imaging Radiology [facility] 1st Floor, [place] [facility] [place] [address] 12/07/2023 10:00 AM EDT Imaging [facility] 2nd Floor Cardiology, [place] [address] 12/07/2023 11:30 AM EDT Imaging [facility] 2nd Floor Cardiology, [place] [address] 12/07/2023 12:30 PM EDT Imaging [facility]le [facility] II 2nd Floor Cardiology, [place] [address] 12/07/2023 2:30 PM EDT Imaging [facility]le [facility] II 2nd Floor Cardiology, [place] [address] 01/09/2024 10:00 AM EST Office Visit Neurology [address] [place], [place] [phone] Nandini Nielson MD [address] [facility] [place] [address] 01/27/2024 11:00 AM EST Office Visit Urology [place] [address] [place] [address] [place] [address] Tashia Doan PA-C [address] [place] [address] 02/22/2024 9:00 AM EST Office Visit Gastroenterology, [facility] [address] [place] [address] Dolores Shaver CRNP [address] [place] [address] 07/31/2024 2:40 PM EDT Office Visit General Internal Medicine [facility] [address] [place] [address] Jesús Gale MD 200 [place] [address] Health Maintenance Due Date Last Done Comments [...] filedocumented as of this encounter Care Teams Machine Hand Relationship Specialty Start Date End Date Jesús Gale MD [address] [place] [address] PCP - General Internal Medicine 12/03/20 documented as of this encounter
--- OUTSIDE RECORDS SUMMARY | 2024-03-16 06:44 | External Medical Summary ---
Author Name Unknown Address Unknown Organization K[facility] [place] [address] Laboratory Report Ordering Provider Test Date Status DO REECERENEE 12/16/2023 12:11:44 Final Observation Date Value Abnormality Reference (Units ) Status SYNC LEUKOCYTES IN BLOOD BY AUTOMATED COUNT 12/16/2023 12:11:44 3.73 Below low normal 4.00-10.80 (K/uL) Final Segs 12/16/2023 12:11:44 59.6 40.0-75.0 (%) Final Lymphs % 12/16/2023 12:11:44 32.4 18.0-42.0 (%) Final Monos 12/16/2023 12:11:44 7.2 1.0-11.0 (%) Final Eosinophils 12/16/2023 12:11:44 0.5 0.0-6.0 (%) Final Basos 12/16/2023 12:11:44 0.3 0.0-2.0 (%) Final Absolute Segs 12/16/2023 12:11:44 2.22 1.80-7.70 (K/uL) Final Lymphs, absolute 12/16/2023 12:11:44 1.21 1.00-4.80 (K/ul) Final Monos, Abs 12/16/2023 12:11:44 0.27 0.00-1.10 (K/uL) Final Eos, Abs 12/16/2023 12:11:44 0.02 0.00-0.70 (K/uL) Final Basos, Abs 12/16/2023 12:11:44 0.01 0.00-0.20 (K/uL) Final Performing Location [facility] [place] [address]
--- OUTSIDE RECORDS SUMMARY | 2024-03-16 06:44 | External Medical Summary | Summary of Care ---
Author Name Unknown Organization [facility] Address [address] [place] [address] Phone [phone] Care Team Providers Care Sales Architect Name Role Phone Jesús Gale MD Primary Care Provider + Reason for Visit * Reason Comments NEW PATIENT * Evaluate & Treat - Unlimited Visits (Within 30 days (routine)) - Pending Review Specialty Diagnoses / Procedures Referred By Contac t Referred To Contact Neurology Diagnoses Nausea and vomiting, unspecified vomiting type Dizzinesses Hx of migraine headaches Dolores Shaver CRNP [address] [place] [address] Phone: tel: fax: [facility] Referral ID Status Reason Start Date Expiration Date Visits Requested Visits Authorized [id number] Pending Review Specialty Services Required 10/12/[phone] Encounter Details Date Type Department Care Team (Late st Contact Info) Description 01/09/2024 10:00 AM EST Office Visit Neurology [address] [place] [address] Nandini Nielson MD [address] [place] [address] Balance problem*; Migraine without aura and without status migrainosus, not intractable Allergies Active Allergy Reactions Criticality Noted Date Comments Novocain 09/12/2013 Other Allergy (See Comments) Other (Please comment) 04/17/2015 Patient reports reaction to medication anal'gin; medication not available in [place]; medication caused increased pain Acetaminophen 08/10/2018 documented as of this encounter (statuses as of 01/09/2024) Medications Mirtazapine 15 MG Oral Tablet (Remeron) [...] as of this encounter (statuses as of 01/09/2024) Active Problems Problem Noted Date Diagnosed Date Migraine without aura and wi thout status migrainosus, not intractable 01/09/2024 Balance problem 01/09/2024 Mixed hyperlipidemia 04/10/2021 Gastroesophageal reflux disease without esophagi tis 10/03/2020 IBS (irritable bowel syndrome) 09/12/2013 documented as of this encounter (statuses as of 01/09/2024) Resolved Problems Problem Noted Date Diagnosed Date Resolved Date Mass on back 05/20/2017 10/27/2021 documented as of this encounter (statuses as of 01/09/2024) Social History Tobacco Use Types Packs/Day Years [...] Sign Reading Time Taken Comments Blood Pressure 139/64 01/09/2024 9:51 AM EST Pulse 60 01/09/2024 9:51 AM EST Temperature 36.2 C (97.1 F) 01/09/2024 9:51 AM ES T Respiratory Rate - - Oxygen Saturation 100% 01/09/2024 9:51 AM EST Inhaled Oxygen Concentration - - Weight 59.6 kg (131 lb 8 oz) 01/09/2024 9:51 AM EST Height 158.8 cm (5' 2.5") 01/09/2024 9:51 AM EST Body Mass Index 23.67 01/09/2024 9:51 AM EST documented in this encounter Progress Notes * Nandini Nielson MD - 01/09/2024 9:16 AM EST [facility] Consultation 01/09/2024 PCP: Jesús Gale MD [address] [place] [address] [place] [address] CHIEF COMPLAINT: headache HPI: Ms. Oates is a 73 year old right handed female who is being seen in consultation at the request of Dolores GERMAIN for evaluation of her headache. Her headache first started in her 30s. She has not had headaches since May since starting the Remeron. Ms. 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 Referral reads: Frequent headaches; episodes of dizziness From [facility] Shaver's note on 10-12-23: 73 year old female pt of Jesús Gale MD with an otherwise unremarkable PMH who presents for N/V. She has had a significant unintentional weight loss in th past year 147-> 117. One week after the hospital had N/V and dizziness again, woke up at 6Am, everything was spinning, had to crawl on all fours until I could get to a place I could vomit. Generally vomiting every 2-3 days and gets high BP at the same time. High BP first, then gets dizziny then crawls on knees, then vomits, then stays in bed for 1-2 days, just unable to eat. Gets upper abd painwith the N/V (under the ribs, both sides). In between these episodes, she has nausea - it is constant. If vomiting occurs, it is always before eating in the morning, occurs only once and consists of bile/liquids. After vomiting she "just knows that I can't eat the rest of the day." Has a hx of migraines, takes Imitrex, has had these for years, since young - gets the N/V with out headaches. With her eyes closed, she is dizzy. She is not dizzy when she opens her eyes. She is not getting the information from her feet (proprioception). MIDAS (Migraine Disability Assessment) score: 30 (0 to 5, Little or no disability; 6 to 10, Mild disability; 11 to 20, Moderate disability; 21+, Severe disability) She only eats vegetables. She rarely eats fish. The patient's main concern today is to maintain her improvement. Current pertinent co-morbidities are GERD, IBS, hyperlipidemia, mild gastroparesis. Her current medications include Crestor, Protonix, Remeron. Current Medication Overuse: no. Past Neuroimaging Studies I reviewed the following imaging studies MRI brain 09-12-23 No acute intracranial abnormalities. Non-specific WM changes. Patient-Entered [facility] 2019 Msp: Part I And Employment Question 01/09/2024 9:11 AM EST - Incomplete Are you currently employed? No, Never Employed Do you have a spouse who is currently employed? No, Never Employed Medicare requires that we periodically ask the following questions. Are you receiving benefits under the Black Lung Benefits Act (BL)? No Was the illness/injury due to a work-related accident/condition? No Are you receiving treatment for an injury or illness covered under no-fault (and/or medical-paymentcoverage) including premises or automobile? No Are you receiving treatment for an injury, or illness, for which another green party may be liable? No Are you entitled to Medicare based on: Age? Yes End-stage renal disease (ESRD)? No Travel Screening Question 01/09/2024 9:20 AM EST - Filed by Patient Do you have any of the following new or worsening symptoms? None of these Have you recently been in contact with someone who was sick? 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 (Do not count mild pain) Inmy 30's If your first moderate to severe head/facial pain happened within the last year, please identify the month (Feb., Mar., Apr., etc. Please do not use numbers) september Section II: Headache and/or Facial Pain Characteristics The lowest level of head/facial pain I have had in the last 3 months is? (Answer '0' if you have days without head/facial pain) 4 The highest level of head/facial pain I have had in the last 3 months is? (Answer '0' if you have days without head/facial pain) 9 How often in the last 91 days (3 months) have you experienced head or facial pain? Daily (every day, but not all day) How long does your head/facial pain last? Hours My head/facial pain reaches its maximum severity... Suddenly Does your head/facial pain worsen with normal activity (climbing stairs, carrying groceries, ect.)?Never Describe the quality of your headache pain. Pressure What side of your head/face is affected by your pain? One side at a time, but can be left or right What area of your head/face is affected by your pain? Back of head Do you experience any of the following symptoms when you have head or facial pain? Weakness in face/arm/leg Loss of balance Blurry vision Vomiting Room spinning Nausea Do any of the following trigger your pain? Blood pressure Barometric pressure/weather Weather Do any of the following alleviate your head/facial pain? Vomiting Do you have a non-pain warning, lasting more than 5 minutes, before the onset of your headache or head pain begins? Ringing in ears Have you had this warning more than 5 times? No How long does the non-pain warning usually last? not sure Have you ever had a non-pain warning lasting more than 60 minutes? No Do you experience any of the following symptoms in the 24 hours before having headache or head pain, AND would NOT have experienced the symptoms if you were NOT going to be having a headache or face pain? I do not experience any of these symptoms in the 24 hours before having headache or head pain Section III: Lifestyle On average, how many cups of coffee do you drink a day? 0 On average, how many cups of tea do you have per day? 0 On average, how many soft drinks do you have per day? 0 On average, how many energy drinks do you have per day? 0 On average, how many ounces of noncaffeinated clear liquids do you drink per day? 25 On average, how many beers do you drink per day? 0 On average, how many coolers do you have per day? 0 On average, how many glasses of wine do you have per day? 0 On average, how muh liquor or spirits do you drink per week? 0 On average, how many hours do you sleep per 24 hour period? 6 to 8 How often do you have difficulty falling asleep or staying asleep? Never How often do you use tobacco products (cigars, cigarettes, pipes, chewing tobacco, etc.)? Never How often do you use smokeless tobacco, e-cigarettes, or vaping? Never Describe your eating habits on most days. 3 meals per day without snacks Describe your stress level. Mild/below average Do you feel you handle stress well? No How do you manage stress? Other Please describe how you manage your stress. 0 Section IV: Medical and Family History Have you ever experienced injury to your head, neck, or face? Yes Please describe the injury that you experienced to your head, neck, or face. the dog bite me Have any family members been diagnosed with any of the following? Headaches like yours High blood pressure Please describe the headaches like yours that a family member has been diagnosed with. 7 Please describe the high blood pressure your family member has been diagnosed with. 160 90 90 Have you ever had any of these tests or procedures? MRI, MRA of the brain CT scan of the head and/or brain From the list below, please select each problem if you have ever had the problem. I have no historyof these problems Section V: Please indicate if you have had a problem with any of the following in the past 2-4 weeks. Constitutional: No problems in the last 2-4 weeks Eyes: No problems in the past 2-4 weeks Ear: No problems in the last 2-4 weeks Nose: No problems in the last 2-4 weeks Neck: No problems in the last 2-4 weeks Lungs: No problems in the last 2-4 weeks Heart: Chest pain Stomach: Abdominal pain Extremities: No problems in last 2-4 weeks Nerves: Balance problems No problems in the last 2-4 weeks Endocrine: No problem in the last 2-4 weeks Psychiatric: No problems in the last 2-4 weeks Sleep: No problems in the last 2-4 weeks Section : Have you EVER TAKEN any of the following medications even if NOT taken for headache or facial pain. Sumatriptan (Imitrex, Treximet) No Naratriptan (Amerge) No Frovatriptan (Frova) No Rizatriptan (Maxalt) No Eletriptan (Relpax) No Zolmitriptan (Zomig) No Almotriptan (Axert) No Section : Have you EVER TAKEN any of the following medications even if NOT taken for headache or facial pain. Isometheptene (Midrin) No Ergotamine (Cafergot, Ergomar) No Dihydroergotamine (Migranal, DHE) No Intranasal Lidocaine No Methylergonovine (Methergine) No Section : Have you EVER TAKEN any of the following medications even if NOT taken for headache or facial pain. Ibuprofen (Advil, Motrin) Yes Excedrin No Naproxen (Anaprox, Aleve) No Indomethacin (Indocin) No Nabumetone (Relafen) No Meloxicam (Mobic) No Ketorolac (Toradol) No Salsalate (Amigesic, Disalcid) No Celecoxib (Celebrex) No Aspirin (Ecotrin, Patria, Fasprin) No Acetaminophen (Tylenol, Panadol, Paracetamol) No Diclofenac (Voltaren, Cambia) No Rofecoxib (Vioxx) No Piroxicam (Feldene) No Ketoprofen (Actron, Orudis) No Section : Have you EVER TAKEN any of the following medications even if NOT taken for headache or facial pain. Metoclopramide (Reglan, Metozolv) No Promethazine (Phenergan) No Prochlorperazine (Compazine) No Chlorpromazine (Thorazine) No Droperidol (Dridol) No Hydroxyzine (Vistaril) No Ondansetron (Zofran) No Section : Have you EVER TAKEN any of the following medications even if NOT taken for headache or facial pain. Baclofen (Lioresal) No Metaxalone (Skelaxin) No Cyclobenzaprine (Flexeril) No Methocarbamol (Robaxin) No Orphenadrine (Norflex) No Tizanidine (Zanaflex) No Carisoprodol (Soma) No Chlorzoxazone ( Parafan Forte) No Section : Have you EVER TAKEN any of the following medications even if NOT taken for headache or facial pain. Butabarbital (Soneryl) No Butalbital (Fiorinal, Fioricet, Alagesic, Analor, Dolgic, Esgic, Margesic, Orbivan, Repan, Zebutal,Medigesic) No Phenobarbital (Luminal) No Secobarbital (Seconal) No Thiopental (Pentothal) No Section : Have you EVER TAKEN any of the following medications even if NOT taken for headache or facial pain. Codeine No Propoxyphene (Darvocet) No Hydromorphone (Dilaudid, Hyrdrostat) No Oxycodone (Oxycontin, Endocet, Percocet, Percodone) No Tramadol (Ultram, Ultracet) No Hydrocodone (Anolor, Hydrocet, Lorcet, Lortab, Vicodin) No Meperidine (Demerol) No Morphine (MS Contin, Roxanol) No Methadone (Methadose) No Fentanyl (Actiq) No Diphenoxylate (Lomotil, Lonox) No Naloxone (Narcan) No Section : Have you EVER TAKEN any of the following medications even if NOT taken for headache or facial pain. Prednisone No Wellbutrin (Bupropion hydrochloride) No Botox injections? No Greater Occipital Nerve (CYNDEE) blocks? No Other types of nerve blocks? No Section : Have you EVER TAKEN any of the following medications even if NOT taken for headache or facial pain. Amitriptyline (Elvail) No Nortriptyline (Pamelor) No Dosulepin (Adapin, Sinequan) No Protriptyline (Vivactil) No Clomipramine (Anafranil) No Desiparmine (Norpramin) No Imipramine (Tofranil) No Section : Have you EVER TAKEN any of the following medications even if NOT taken for headache or facial pain. Citalopram (Celexa) No Escitalopram (Lexapro) No Paroxetine (Paxil) No Fluoxetine (Prozac) No Sertaline (Zoloft) No Fluvoxamine (Luvox) No Section : Have you EVER TAKEN any of the following medications even if NOT taken for headache or facial pain. Duloxetine (Cymbalta) No Venlafaxine (Effexor) No Desvenlafaxine (Pristiq) No Milnacipran (Ixel, Salvella) No Section : Have you EVER TAKEN any of the following medications even if NOT taken for headache or facial pain. Aimovig (Injectable)? No Emgality (Injectable)? No Aivoy (Injectable)? No Section : Have you EVER TAKEN any of the following medications even if NOT taken for headache or facial pain. Valproic Acid (Depakote) No Levetiracetam (Keppra) No Lamotrigine (Lamictal) No Pregabin (Lyrica) No Gabapentin (Neurontin) No Topiramate (Topamax) No Oxcarbazepine (Trileptal) No Zonisamide (Zonegran) No Phenytoin (Dilantin) No Carbamazepine (Tegretol) No Lacosamide (Vimpat) No Vigabatrin (Sabril) No Rufinamide (Banzel) No Section : Have you EVER TAKEN any of the following medications even if NOT taken for headache or facial pain. Propranolol (Inderal) No Nadolol (Corgard) No Metoprolol (Lopressor, Toprol) No Atenolol (Tenormin) No Nebivolol (Bystolic) No Penbutolol (Levatol) No Pindolol (Visken) No Carvedilol (Coreg) No Labetatol (Trandate) No Sotalol (Betapace, Sorine) No Timolol (Betimol, Timoptic) No Section : Have you EVER TAKEN any of the following medications even if NOT taken for headache or facial pain. COQ10 No Vitamin B2 (Riboflavan) No Petasites (Butterbur) No Magnesium No Melatonin No Feverfew No Section : Have you EVER TAKEN any of the following medications even if NOT taken for headache or facial pain. Clonazepam (Klonopin) No Lorazepam (Ativan) No Chlordiazepoxide (Librium) No Alprazolam (Xanax) No Diazepam (Valium) No Midazolam No Oxazepam (Serax) No Temazepam (Restoril) No Have you EVER TAKEN Methylergonovine Maleate (Methergine) even if NOT taken for headache or facial pain. No Section : Have you EVER TAKEN any of the following medications even if NOT taken for headache or facial pain. Memantine (Namenda) No Amantadine (Symmetrel) No Dextromethorpan (Delsym, Entex) No Ketamine (Ketaset, Ketalar) No Section : Have you EVER TAKEN any of the following medications even if NOT taken for headache or facial pain. Verapamil (Isoptin,Calan, Covera, Verelan) No Nimodipine (Nimotop, Nymalize) No Amlodipine (Norvasac, Caduet) No Diltiazem (Cardizem, Dilacor) No Felodipine (Plendil) No Isradipine (DynaCirc) No Nicardipine (Cardene) No Nifendipine (Procardia, Adelat, Nifedical, Afeditab) No Nisoldipine (Sular) No Section : Have you EVER TAKEN any of the following medications even if NOT taken for headache or facial pain. Acetazolamide (Diamox) No Furosemide (Lasix) No Metolazone (Zaroxolyn) No Amiloride (Midamor) No Butetanide (Bumex) No Spironolactone (Aldactone) No Torsemide (Demadex) No Triamterene (Dyrenium) No Section : Have you EVER TAKEN any of the following medications even if NOT taken for headache or facial pain. Eszopicolone (Lunesta) No Zolpidem (Ambien) No Zaleplon (Sonata) No Trazadone (Desyrel) No Doxepin (Sinequan) No Mirtazepine (Remeron) No Quetiapine (Serequel) No Section : Have you EVER TAKEN any of the following medications even if NOT taken for headache or facial pain. 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 Not working Please answer the following questions about ALL of the headaches you have had over the last 3 months. Input your answer in the box below each question. Input zero if you did not have the activity in the last 3 months. On how many days in the last 3 months did you not do household work (such as housework, home repairs and maintenance, shoping, caring for children and relatives) because of your headaches? (range: 0 - 92) 0 How many days in the last 3 months was your productivity in household work reduced by half or more because of your headaches? (Do not include days you counted in question 3 where you did not do household work.) (range: 0 - 92) 0 On how many days in the last 3 months did you miss family, social or leisure activities because of your headaches? (range: 0 - 92) 30 On how many days in the last 3 months did you have a headache (If a headache lasted more than 1 day, count each day.) (range: 0 - 92) 5 On a scale of 0 - 10, on average how painful were these headaches? (where 0=no pain at all, and 10=pain as bad as it can be.) 4 Total Disability Score (range: 0 - 450) 30 (Severe Disability: Grade IV) Current Outpatient Medications Medication Sig Dispense Refill Mirtazapine 15 MG Oral Tablet (Remeron) Take 1 Tablet by mouth at bedtime. 30 Tablet 12 Pantoprazole Sodium 40 MG Oral Tablet Delayed Release (Protonix) Take 1 Tablet by mouth in the morning. 30 Tablet 3 Rosuvastatin Calcium 5 MG Oral Tablet (Crestor) Take 1 Tablet by mouth in the morning. 90 Tablet 3 No current facility-administered medications for this visit. Past Medical History: Diagnosis Date Gastroesophageal reflux disease without esophagitis 10/03/2020 IBS (irritable bowel syndrome) 09/12/2013 Mass on back 05/20/2017 Past Surgical History: Procedure Laterality Date ANESTH, CS DELIVERY 02/14/1982 CHOLECYSTOTOMY OR CHOLECYSTOSTOMY, OPEN 02/14/1985 COLONOSCOPY HEMORRHOID LIGATION, INTERNAL, 1 [place] DELIVERY ONLY REMOVAL OF APPENDIX UPPER GI ENDOSCOPY Family History Problem Relation Name Age of Onset Stroke Mother Hypertension Father Social History Socioeconomic History Marital status: Spouse name: Not on file Number of children: Not on file Years of education: Not on file Highest education level: Not on file Occupational History Not on file Tobacco Use Smoking status: Never Smokeless tobacco: Never Vaping Use Vaping status: Never Used Substance and Sexual Activity Alcohol use: No Drug use: No Sexual activity: Not Currently Partners: Male Other Topics Concern Not on file Social History Narrative Not on file Social Needs Financial Resource Strain: Not on file Food Insecurity: No Food Insecurity (01/15/2019) Hunger Vital Sign Worried About Running Out of Food in the Last Year: Never true Ran Out of Food in the Last Year: Never true Transportation Needs: Not on file Social Connections: Unknown (08/02/2023) Social Connections How often do you feel lonely or isolated from those around you? (Adult - for ages 18 years and over): Not on file Housing Stability: Not on file Review of patient's allergies indicates: Allergen Reactions Novocain Other Allergy (See Comments) Other (Please comment) Patient reports reaction to medication anal'gin; medication not available in [place]; medication caused increased pain Tylenol [Acetaminophen] PHYSICAL EXAM: BP 139/64 (BP Site: Right Arm, BP Position: Sitting, BP Cuff Size: Regular) | Pulse 60 | Temp 36.2 C (97.1 F) (Tympanic) | Ht 1.588 m (5' 2.5") | Wt 59.6 kg (131 lb 8 oz) | SpO2 100% | BMI 23.67 kg/m | BSA 1.62 m General appearance: non cachetic, normal appearing Lungs: clear to auscultation Heart: regular rate & rhythm, no murmurs and no gallops Cervical examination: no CYNDEE tenderness, no cervical facet tenderness, no shoulder trigger points, and no TMJ tenderness. Neurologic Examination Mental status: Alert and oriented X3 normal speech and language recent and remote memory, attention span and concentration and fund of knowledge are intact Neurovascular examination: No supraclavicular, carotid, cranial or orbital bruits Eyes: TONI, EOMI, sclera clear Fundoscopic examination: sharp disc margins and venous pulsations bilaterally Presence of nystagmus no CRANIAL NERVES: -II : Visual boucher equal to examiner -III, IV, : EOMI, direct & consensual pupillary light reflexes intact, no ptosis. -V : Facial sensation intact, good bite strength -VII : Spontaneous Facial expressions symmetric -VIII: Auditory acuity intact to conversational voice -IX, X : palate elevates symmetrical, swallows without difficulty -XI : lateral head rotation, neck flexion and shoulder shrug intact -XII : tongue protrudes midline without deviation STRENGTH: - Deltoid/Arm Abduction/C5: 5/5 bilaterally - Biceps/Elbow Flexion/C5: 5/5 bilaterally - Ext. Carpi Radialis/Wrist Extension/C6: 5/5 bilaterally - Triceps/Elbow Extension/C7: 5/5 bilaterally - Intrinsics/finger abduction/C8: 5/5 bilaterally - Iliopsoas/Hip Flexion/L2, L3: 5/5 bilaterally - Quadriceps/Knee Extension/L4: 5/5 bilaterally Muscle tone and bulk are normal. No muscle atrophy. No pronator drift. No ataxia in the arms on [id number] testing. Rapid alternating movements are normal. Normal del angel sweep (knee to ankle). Reflexes are equal and symmetric throughout and plantar responses are flexor bilaterally. Sensory response to light touch, proprioception, vibration, and pinprick is intact in the arms and legs. Gait is normal. Tandem walking and walking on the heels and toes is normal. Romberg negative. Impression: Ms. Oates is a 73 year old right handed female who has been seen in consuttation at the request of Dolores GERMAIN for evaluation of her headache. By history, her headache meets criteria for (R26.89) Balance problem (primary encounter diagnosis) Plan: VITAMIN B12 (G43.009) Migraine without aura and without status migrainosus, not intractable Plan: Metoclopramide HCl 10 MG Oral Tablet (Reglan) Plan: Labs as above Medications: Preventive: Continue Remeron Abortive: Can take metoclopramide (Reglan) 10 mg, 1-2 tablet(s) at start of headache for relief of nausea and head pain. May use twice a day up to 3-4 days a week (more often may cause involuntary movements known as tardive dyskinesia). Use 2 tablets for pain. I spent a total of 50 minutes on the date of service in preparation, delivery, and documentation ofthe care provided to Khang Oates excluding any time spent in the performance of separately billed services. Among other things, we discussed: We discussed medication side effects and the patient was given written materials on her new medications along with written instructions on how to take the medications. We discussed the role of her neck pathology and poor posture, with straightening of the normal cervical lordosis, in her headaches. We discussed how tightening of the neck muscles can irritate the nerves in the occipital region of her head and cause or worsen head pain. We also discussed and demonstrated neck strengthening and relaxation exercises, as well as giving written instructions on these exercises. We talked about the importance of good posture for improving her shoulder, neck, and head pain. Thepatient was given visualization exercises for correcting posture, which she will practice at home. If this simple exercise does not help improve the posture, we will consider formal physical therapy in the future. We discussed lifestyle issues such as getting regular and sufficient sleep, having at least three meals daily (never skipping breakfast), drinking plenty of clear fluids (at least 64 ounces daily), getting regular exercise (one hour every other day or a half hour every day), limiting caffeine intake to less than 200 mg daily, and not using tobacco products. We discussed medication overuse headache (MOH) and how to avoid it in the future. It was explained that all analgesics have the potential to cause medication overuse headache (MOH) and analgesic overuse can negate the effectiveness of headache preventive measures. After successful MOH treatment, preventive medications for an underlying primary headache disorder have a greater chance for success. Avoid medications with narcotics, barbiturates, or caffeine in them as these can cause rebound headaches after very few doses and can interfere with other headache medicine efficacy. Taking any analgesics for more than 2-3 days a week can cause medication overuse headache. Nandini Nielson MD 01/09/2024 9:16 AM documented in this encounter Plan of Treatment Upcoming Encounters Date Type Department Care Team (Late st Contact Info) Description 01/27/2024 11:00 AM EST Office Visit Urology Sarah Lopez [address] [facility] [address] [place] [address] Tashia Doan PA-C [address] [place] [address] 02/22/2024 9:00 AM EST Office Visit Gastroenterology, [facility] [address] [place] [address] Dolores Shaver CRNP [address] [place] [address] 07/31/2024 2:40 PM EDT Office Visit General Internal Medicine [facility] Rupa Meredith [address] [place] [address] Jesús Gale MD 200 [facility] [place] [address] 02/04/2025 2:20 PM EST Office Visit Neurology [address] [place] [address] Nandini Nielson MD 100 [address] [facility] [place] [id number] Scheduled Orders Name Type Priority Associated Diagnoses Orde r Schedule VITAMIN B12 Lab Routine Balance problem Ordered: 01/09/2024 Health Maintenance Due Date Last Done Comments [...] as of this encounter Visit Diagnoses Diagnosis Balance problem- Primary Other symptoms involving nervous and musculoskeletal systems Migraine without aura and without status migrainosus, not intractable Migraine without aura, without mention of intractable migraine without mention of status migrainosus documented in this encounter Care Teams Sales Architect Relationship Specialty Start Date End Date Jesús Gale MD 200 [place] [address] PCP - General Internal Medicine 12/03/20 documented as of this encounter
--- OUTSIDE RECORDS SUMMARY | 2024-03-16 06:44 | External Medical Summary | Summary of Care ---
Author Name Unknown Organization [facility] Address [address] [place] [address] Phone [phone] Care Team Providers Care Supervisor Parking Lot Name Role Phone Jesús Gale MD Primary Care Provider + Reason for Visit * Reason Onset Date Comments Test Results Imaging Study 12/09/2023 Encounter Details Date Type Department Care Team (Late st Contact Info) Description 12/09/2023 Telephone Gastroenterology, [facility] [address] [place] [address] Brooklyn Perry CRNP [address] [place] [address] Test Results Imaging Study Allergies Active Allergy Reactions Criticality Noted Date Comments Novocain 09/12/2013 Other Allergy (See Comments) Other (Please comment) 04/17/2015 Patient reports reaction to medication anal'gin; medication not available in [place]; medication caused increased pain Acetaminophen 08/10/2018 documented as of this encounter (statuses as of 12/09/2023) Medications Medication Sig Dispensed Refills Start Date [...] as of this encounter (statuses as of 12/09/2023) Active Problems Problem Noted Date Diagnosed Date Mixed hyperlipidemia 04/10/2021 Gastroesophageal reflux disease without esophagi tis 10/03/2020 IBS (irritable bowel syndrome) 09/12/2013 documented as of this encounter (statuses as of 12/09/2023) Resolved Problems Problem Noted Date Diagnosed Date Resolved Date Mass on back 05/20/2017 10/27/2021 documented as of this encounter (statuses as of 12/09/2023) Social History Tobacco Use Types Packs/Day Years [...] encounter Miscellaneous Notes * Telephone Encounter - Mariana Peterson LPN - 12/09/2023 11:09 AM EDT Spoke with Jaime to inform him of his mom's results and recommendations. Diet form was also mailed. * Telephone Encounter - Mariana Peterson LPN - 12/09/2023 11:09 AM EDT ----- Message from Brooklyn Avilan sent at 12/08/2023 4:23 PM EDT ----- GES consistent with mild gastroparesis. Pls contact pt and provide education for gastroparesis typediet MARCELLUS Tamayo documented in this encounter Plan of Treatment Upcoming Encounters Date Type Department Care Team (Late st Contact Info) Description 01/09/2024 10:00 AM EST Office Visit Neurology Sanju [address] [place] [phone] Nandini Nielson MD 100 [address] [facility] [place] [id number] 01/27/2024 11:00 AM EST Office Visit Urology Sarah Lopez [address] [place] [address] [place] [place] [address] Tashia Doan PA-C [address] [place] [address] 02/22/2024 9:00 AM EST Office Visit Gastroenterology, [facility] [address] [place] [address] Dolores Shaver CRNP [address] [place] [address] 07/31/2024 2:40 PM EDT Office Visit General Internal Medicine [facility] [place] 200 [facility] [place] [address] Jesús Gale MD 200 [facility] [place] [address] Health Maintenance Due Date Last Done Comments [...] filedocumented as of this encounter Care Teams Supervisor Parking Lot Relationship Specialty Start Date End Date Jesús Gale MD [address] [place] [address] PCP - General Internal Medicine 12/03/20 documented as of this encounter
--- OUTSIDE RECORDS SUMMARY | 2024-03-16 06:44 | External Medical Summary | Summary of Care ---
Author Name Unknown Organization [facility] Address [address] [place] [address] Phone [phone] Care Team Providers Care Painter Touch Up Name Role Phone Jesús Gale MD Primary Care Provider + Reason for Visit * Reason Comments Outpatient Testing Encounter Details Date Type Department Care Team (Late st Contact Info) Description 11/09/2023 10:40 AM EDT Laboratory Laboratory [facility] [place] [address] [place] [address] [place], Lab Scenery [address] [facility] [place] [address] Nausea; Mixed hyperlipidemia Allergies Active Allergy Reactions Criticality [...] AM EDT Nurse Only Ancillary [address] [place] [address] [place] [address] Nurse, Int Med [address] [facility] [place] [address] 12/02/2023 12:30 PM EDT Imaging Radiology [facility] 1st [facility] [place] 132 [facility] [place] [address] 12/07/2023 10:00 AM EDT Imaging [facility] 2nd Floor Cardiology, [place] 132 [facility] [place] [address] 12/07/2023 11:30 AM EDT Imaging [facility] 2nd Floor Cardiology, [address] [place] [address] 12/07/2023 12:30 PM EDT Imaging [facility] 2nd Floor Cardiology, [place] 132 [facility] [place] [address] 12/07/2023 2:30 PM EDT Imaging [facility] 2nd Floor Cardiology, [place] 132 [facility] [place] [address] 01/09/2024 10:00 AM EST Office Visit Neurology Sanju [address]oso Dr [address] [place] [address] Nandini Nielson MD [address] [place] [address] 01/27/2024 11:00 AM EST Office Visit Urology Barry Lopezwn [address] [place] [address] [place] [address] Tashia Doan PA-C [address] [place] [address] 02/22/2024 9:00 AM EST Office Visit Gastroenterology, [facility] 132 [facility] [place] [address] Dolores Shaver CRNP 132 [facility] [place] [address] 07/31/2024 2:40 PM EDT Office Visit General Internal Medicine [facility] [address] [place] [address] Jesús Gale MD [address] [place] [address] Pending Results Name Type Priority Associated Diagnoses Date /Time COMPREHENSIVE METABOLIC PANEL Lab Routine Nausea 11/09/2023 10:37 AM EDT CBC WITH WBC DIFFERENTIAL Lab Routine Nausea 11/09/2023 10:37 AM EDT LIPID PANEL WITH DIRECT LDL IF TG IS HIGH Lab Routine Mixed hyperlipidemia 11/09/2023 10:37 AM EDT CBC Lab Routine Nausea 11/09/2023 10:37 AM EDT DIFFERENTIAL, AUTOMATED Lab Routine Nausea 11/09/2023 10:37 AM EDT Health Maintenance Due Date Last [...] of this encounter Visit Diagnoses Diagnosis Nausea Nausea alone Mixed hyperlipidemia documented in this encounter Care Teams Painter Touch Up Relationship Specialty Start Date End Date Jesús Gale MD [address] [place] [address] PCP - General Internal Medicine 12/03/20 documented as of this encounter
--- OUTSIDE RECORDS SUMMARY | 2024-03-16 06:44 | External Medical Summary | Summary of Care ---
Author Name Unknown Organization [facility] Address [address] [place] [address] Phone [phone] Care Team Providers Care Hot Metal Mixer Operator Helper Name Role Phone Jesús Gale MD Primary Care Provider + Reason for Visit * Reason Onset Date Comments Test Results Lab 12/21/2023 Encounter Details Date Type Department Care Team (Late st Contact Info) Description 12/21/2023 Telephone General Internal Medicine [facility] 200 [facility] [place] [address] Jesús Gale MD 200 [facility] [address] Test Results Lab Allergies Active Allergy Reactions [...] encounter Miscellaneous Notes * Telephone Encounter - Marika Samano LPN - 12/26/2023 5:33 PM EST Letter sent. * Telephone Encounter - Salud Pino, MED ASSIST - 12/21/2023 2:41 PM EST Language Line manager decision support [phone] left message for the patient to call the office. Upon return call please transfer to a dedicated triage telephone nurse. * Telephone Encounter - Salud Pino MED ASSIST - 12/21/2023 2:40 PM EST [...] [place] [phone] Nandini Nielson MD 100 N [facility] [place] [address] 01/27/2024 11:00 AM EST Office Visit Urology Sarah Lopez [address] [place] [address] [address] Tashia Doan PA-C [address] [place] [address] 02/22/2024 9:00 AM EST Office Visit Gastroenterology, [facility] [address] [place] [address] Dolores Shaver CRNP [address] [place] [address] 07/31/2024 2:40 PM EDT Office Visit General Internal Medicine H[address] [place]e [place] 200 [facility] [address] [place] [address] Jesús Gale MD 200 [facility] [address] [facility] [address] Health Maintenance Due Date Last Done Comments [...] as of this encounter Care Teams Hot Metal Mixer Operator Helper Relationship Specialty Start Date End Date Jesús Gael MD [address] [place] [address] PCP - General Internal Medicine 12/03/20 documented as of this encounter
--- OUTSIDE RECORDS SUMMARY | 2024-03-16 06:44 | External Medical Summary | Summary of Care ---
Author Name Unknown Organization [facility] Address [address] [place] [facility] [place] [place] [address] Phone [phone] Care Team Providers Care Die Drawing Checker Name Role Phone Jesús Gale MD Primary Care Provider + Encounter Details Date Type Department Care Team (Late st Contact Info) Description 02/13/2024 10:00 AM EST Telemedicine Urology Sarah Lopez [address] [place] [address] [address] Tashia Lara PA-C [address] [place] [address] Ureteritis*; History of UTI Allergies Active Allergy Reactions Criticality Noted Date Comments Novocain 09/12/2013 Other Allergy (See Comments) Other (Please comment) 04/17/2015 Patient reports reaction to medication anal'gin; medication not available in [place]; medication caused increased pain Acetaminophen 08/10/2018 documented as of this encounter (statuses as of 02/13/2024) Medications Mirtazapine 15 MG Oral Tablet (Remeron) [...] as of this encounter (statuses as of 02/13/2024) Active Problems Problem Noted Date Diagnosed Date Migraine without aura and wi thout status migrainosus, not intractable 01/09/2024 Balance problem 01/09/2024 Mixed hyperlipidemia 04/10/2021 Gastroesophageal reflux disease without esophagi tis 10/03/2020 IBS (irritable bowel syndrome) 09/12/2013 documented as of this encounter (statuses as of 02/13/2024) Resolved Problems Problem Noted Date Diagnosed Date Resolved Date Mass on back 05/20/2017 10/27/2021 documented as of this encounter (statuses as of 02/13/2024) Social History Tobacco Use Types Packs/Day Years [...] No 01/09/2024 Does the household have a [facility] source of income? (Household - for ages [...] Care Team (Late st Contact Info) Description 02/22/2024 9:00 AM EST Office Visit Gastroenterology, [facility] [place] [address] Dolores Shaver CRNP 132 [place] [address] 07/31/2024 2:40 PM EDT Office Visit [facility] Internal [facility] [address] [place] [address] Jesús Gale MD [address] [place] [address] 02/04/2025 2:20 PM EST Office Visit Neurology Sanju [address] [place] [phone] Nandini Nielson MD 100 N [facility] [place] [address] Health Maintenance Due Date Last Done Comments DXA Scan 1948 Hepatitis C Screening 1966 DTap/Tdap Vaccines (1 - Tdap) 07/20/1967 Pneumococcal Vaccine: 50+ Ye ars (1 of 1 - PCV) 1998 Zoster Vaccines (1 of 2) 1998 Adult Wellness Visit 2014 COVID-19 Vaccine (1 [...] as of this encounter Visit Diagnoses Diagnosis Ureteritis- Primary Other specified disorder of kidney and ureter History of UTI Personal history of urinary (tract) infection documented in this encounter Care Teams Die Drawing Checker Relationship Specialty Start Date End Date Jesús Gale MD 200 [place] [address] PCP - General Internal Medicine 12/03/20 documented as of this encounter
--- OUTSIDE RECORDS SUMMARY | 2024-03-16 06:44 | External Medical Summary | Summary of Care ---
Author Name Unknown Organization [facility] Address [address] [facility] [address] Phone [phone] Care Team Providers Care Clinical Education Academic Coordinator Name Role Phone Jesús Gale MD Primary Care Provider + Encounter Details Date Type Department Care Team (Late st Contact Info) Description 12/24/2023 Orders Only PATIENT PORTAL DO NOT DELETE THIS DEPT USED BY [place] [address] Allergies Active Allergy Reactions Criticality Noted Date Comments Novocain 09/12/2013 Other Allergy (See Comments) Other (Please comment) 04/17/2015 Patient reports reaction to medication anal'gin; medication not available in [place]; medication caused increased pain Acetaminophen 08/10/2018 documented as of this encounter (statuses as of 12/24/2023) Medications Mirtazapine 15 MG Oral Tablet (Remeron) [...] as of this encounter (statuses as of 12/24/2023) Active Problems Problem Noted Date Diagnosed Date Mixed hyperlipidemia 04/10/2021 Gastroesophageal reflux disease without esophagi tis 10/03/2020 IBS (irritable bowel syndrome) 09/12/2013 documented as of this encounter (statuses as of 12/24/2023) Resolved Problems Problem Noted Date Diagnosed Date Resolved Date Mass on back 05/20/2017 10/27/2021 documented as of this encounter (statuses as of 12/24/2023) Social History Tobacco Use Types Packs/Day Years [...] [place] [phone] Nandini Nielson MD 100 [address] [facility] [place] [address] 01/27/2024 11:00 AM EST Office Visit Urology Sarah Lopez [address] [place] [address] [place] [place] [id number] Tashia Doan PA-C [address] [place] [address] 02/22/2024 9:00 AM EST Office Visit Gastroenterology, [facility] [address] [place] [address] Dolores Shaver CRNP [address] [facility] [place] [address] 07/31/2024 2:40 PM EDT Office Visit General Internal Medicine [facility] 200 [facility] [place] [address] Jesús Gale MD 200 [facility] [place] [address] Health Maintenance Due Date Last Done Comments [...] filedocumented as of this encounter Care Teams Clinical Education Academic Coordinator Relationship Specialty Start Date End Date Jesús Gale MD 200 [facility] [place] [address] PCP - General Internal Medicine 12/03/20 documented as of this encounter
--- OUTSIDE RECORDS SUMMARY | 2024-03-16 06:44 | External Medical Summary | Summary of Care ---
Author Name Unknown Organization [facility] Address [address] [place] [address] Phone [phone] Care Team Providers Care It Systems Analyst Name Role Phone Jesús Gale MD Primary Care Provider + Reason for Referral * Precert (Within 10 days (routine)) - Pending Review Specialty Diagnoses / Procedures Referred By Contac t Referred To Contact Radiology Diagnoses Ureteritis History of UTI Procedures CT UROGRAPHY W WO [place] Tashia Doan PA-C [address] [place] [place] [address] Phone: tel: fax: Referral ID Status Reason Start Date Expiration Date V isits Requested Visits Authorized [id number] Pending Review 01/27/[phone] Reason for Visit * Reason Comments NEW PATIENT * Evaluate & Treat - Unlimited Visits (Within 30 days (routine)) - Pending Review Specialty Diagnoses / Procedures Referred By Contalicja t Referred To Contact Urology Diagnoses Ureteritis Jesús Gale MD 200 [place] [address] Phone: tel: fax: Referral ID Status Reason Start Date Expiration Date Visits Requested Visits Authorized [id number] Pending Review Specialty Services Required 11/09/[phone] Encounter Details Date Type Department Care Team (Late st Contact Info) Description 01/27/2024 11:00 AM EST Office Visit Urology Sarah Lopez [address] [place] [address] [place] [address] Tashia Doan PA-C [address] [place] [address] Ureteritis*; History of UTI Allergies Active Allergy Reactions Criticality Noted Date Comments Novocain 09/12/2013 Other Allergy (See Comments) Other (Please comment) 04/17/2015 Patient reports reaction to medication anal'gin; medication not available in [place]; medication caused increased pain Acetaminophen 08/10/2018 documented as of this encounter (statuses as of 01/27/2024) Medications Mirtazapine 15 MG Oral Tablet (Remeron) [...] as of this encounter (statuses as of 01/27/2024) Active Problems Problem Noted Date Diagnosed Date Migraine without aura and wi thout status migrainosus, not intractable 01/09/2024 Balance problem 01/09/2024 Mixed hyperlipidemia 04/10/2021 Gastroesophageal reflux disease without esophagi tis 10/03/2020 IBS (irritable bowel syndrome) 09/12/2013 documented as of this encounter (statuses as of 01/27/2024) Resolved Problems Problem Noted Date Diagnosed Date Resolved Date Mass on back 05/20/2017 10/27/2021 documented as of this encounter (statuses as of 01/27/2024) Social History Tobacco Use Types Packs/Day Years [...] PM EDT documented as of this encounter Nursing Notes * Ophelia Luu LPN - 01/27/2024 10:54 AM EST New patient presents for evaluation of ureteritis. 09/12/23, was admitted to hospital for UTI at [facility]. States her only urinary symptoms was lower abdominal pain. Was given IV antibiotics. States she feeling better now. Denies any urinary difficulties or gross hematuria. Derrick Hand used: Name- Kaylee ID- [id number] documented in this encounter Plan of Treatment Upcoming Encounters Date Type Department Care Team (Late st Contact Info) Description 02/06/2024 1:45 PM EST Imaging Radiology [facility] 1st [facility] 132 [facility] [place] [address] 02/10/2024 10:00 AM EST Telemedicine Urology Sarah Lopez [address] [place] [address] [place] [address] Tashia Doan PA-C [address] [place] [place] [address] 02/22/2024 9:00 AM EST Office Visit Gastroenterology, [facility] 132 [facility] [place] [address] Dolores Shaver CRNP 132 [place] [address] 07/31/2024 2:40 PM EDT Office Visit [facility] 200 [facility] [place] [address] Jesús Gale MD [address] [place] [address] 02/04/2025 2:20 PM EST Office Visit Neurology Sanju [address] [place] [address] Nandini Nielson MD [address] [place] [address] Scheduled Orders Name Type Priority Associated Diagnoses Orde r Schedule CT UROGRAPHY W WO [place] Medical Imaging Routine Ureteritis History of UTI Expected: 01/27/2024 (Approximate), Expires: 02/26/2025 CREATININE Lab Routine Ureteritis History of UTI Expected: 01/27/2024, Expires: 01/26/2025 Health Maintenance Due Date Last Done Comments [...] infection documented in this encounter Care Teams It Systems Analyst Relationship Specialty Start Date End Date Jesús Gale MD 200 [facility] [place] [address] PCP - General Internal Medicine 12/03/20 documented as of this encounter
--- OUTSIDE RECORDS SUMMARY | 2024-03-16 06:44 | External Medical Summary ---
Author Name Unknown Address Unknown Organization K09[facility] [place] [address] Laboratory Report Ordering Provider Test Date Status KINDRA GARNICA 02/01/2024 09:38:33 Final Observation Date Value Abnormality Reference (Units ) Status Creatinine 02/01/2024 09:38:33 1.2 Above high normal 0.5-1.0 (mg/dL) Final Glomerular filtration rate/1.73 sq M.predicted [Volume Rate/Area] in Serum, Plasma or Blood by Creatinine-based formula (CKD-EPI) 02/01/2024 09:38:33 50 Below low normal >=60 (mL/min) Final eGFR is calculated based on the CKD-EPI 2020 equation. Performing Location [facility] [place] [address]
--- OUTSIDE RECORDS SUMMARY | 2024-03-16 06:44 | External Medical Summary ---
Author Name Unknown Address Unknown Organization K09:[facility] [place] [address] Laboratory Report Ordering Provider Test Date Status DO REECERENEE 12/16/2023 12:11:44 Final Observation Date Value Abnormality Reference (Units ) Status BUN 12/16/2023 12:11:44 32 Above high normal 6-20 (mg/dL) Final Creatinine 12/16/2023 12:11:44 1.0 0.5-1.0 (mg/dL) Final Glomerular filtration rate/1.73 sq M.predicted [Volume Rate/Area] in Serum, Plasma or Blood by Creatinine-based formula (CKD-EPI) 12/16/2023 12:11:44 56 Below low normal >=60 (mL/min) Final eGFR is calculated based on the CKD-EPI 2020 equation. Sodium 12/16/2023 12:11:44 141 135-146 (m mol/L) Final Potassium 12/16/2023 12:11:44 4.4 3.5-5.1 (m mol/L) Final Cl 12/16/2023 12:11:44 105 98-107 (mm ol/L) Final CO2 12/16/2023 12:11:44 26 22-32 (mmo l/L) Final Anion gap 12/16/2023 12:11:44 10 7-15 (mmol /L) Final Glucose 12/16/2023 12:11:44 95 70-120 (mg /dL) Final Albumin 12/16/2023 12:11:44 4.3 3.8-5.0 (g /dL) Final AST (Aspartate aminotransferase) 12/16/2023 12:11:44 18 10-35 (U/L) Final Alk Phos 12/16/2023 12:11:44 63 35-130 (U/ L) Final Bilirubin, Total 12/16/2023 12:11:44 0.4 <=1 .2 (mg/dL) Final Calcium 12/16/2023 12:11:44 9.3 8.4-10.2 ( mg/dL) Final Protein 12/16/2023 12:11:44 6.9 6.0-8.3 (g /dL) Final ALT (Alanine aminotransferase) 12/16/2023 12:11:44 15 10-35 (U/L) Final Performing Location [facility] [address] [place] [address]
--- OUTSIDE RECORDS SUMMARY | 2024-03-16 06:44 | External Medical Summary | Summary of Care ---
Author Name Unknown Organization [facility] Address [address] [place] [address] Phone [phone] Care Team Providers Care Rig Welder Name Role Phone Jesús Gale MD Primary Care Provider + Reason for Visit * Reason Onset Date Comments Blood Pressure Check 11/23/2023 Encounter Details Date Type Department Care Team (Late st Contact Info) Description 11/23/2023 Telephone General Internal Medicine [facility] 200 [facility] [place] [address] Jesús Gale MD 200 [facility] [address] Blood Pressure Check Allergies Active Allergy Reactions Criticality Noted Date [...] encounter Miscellaneous Notes * Telephone Encounter - Yenni Hyde LPN - 11/23/2023 4:45 PM EDT Patient's son is aware and verbalizes understanding. * Telephone Encounter - Emmanuelle Rivas OSA - 11/23/2023 4:42 PM EDT Reason for patient's call: pt son retuning call Caller was transferred to [facility] at the nurse line. * Telephone Encounter - John Singer RN - 11/23/2023 1:29 PM EDT Called, left message for patient's son Jaime to return call to the dedicated nurse call center. Please see Dr. Gale's previous message. * Telephone Encounter - Jesús Gale MD - 11/23/2023 11:08 AM EDT Noted. Send me bp readings 2 weeks * Telephone Encounter - John Singer RN - 11/23/2023 10:23 AM EDT Khang Oates presented for blood [...] reports slight dizziness at this time. Patient states she has not eaten anything yet today.I did offer a snack and some water for the patient, but patient's son declined. He said she is on astrict diet, and she will go and eat. Did patient take medications today? No, does not take any BP medication. Advised patient's son that BP cuff is accurate and to continue home BP readings as Dr. Gale previously instructed. Patient's son verbalized understanding. Patient informed ok for her to go and we will call with any further instructions from PCP. Patient and patient's son verbalized understanding. Pharmacy confirmed. Please advise. documented in this encounter Plan of Treatment Upcoming Encounters Date Type Department Care Team (Late st Contact Info) Description 12/02/2023 12:30 PM EDT Imaging Radiology [facility] 1st Floor, [address] [place] [address] 12/07/2023 10:00 AM EDT Imaging [facility] 2nd Floor Cardiology, [address] [place] [address] 12/07/2023 11:30 AM EDT Imaging [facility] 2nd Floor Cardiology, [address] [address] 12/07/2023 12:30 PM EDT Imaging [facility] 2nd Floor Cardiology, [address] [place] [address] 12/07/2023 2:30 PM EDT Imaging [facility] 2nd Floor Cardiology, [address] [address] 01/09/2024 10:00 AM EST Office Visit Neurology [address] [place] [address] Nandini Nielson MD [address] [facility] [place] [id number] 01/27/2024 11:00 AM EST Office Visit Urology Sarah Lopez [address] [place] [address] [place] [phone] Tashia Doan PA-C [address] [place] [address] 02/22/2024 9:00 AM EST Office Visit Gastroenterology, [facility] [address] [place] [address] Dolores Shaver CRNP [address] [place] [address] 07/31/2024 2:40 PM EDT Office Visit General Internal Medicine [facility] [place] 200 [facility] [place] [address] Jesús Gale MD 200 [facility] [place] [address] Health Maintenance Due Date Last Done Comments [...] filedocumented as of this encounter Care Teams Rig Welder Relationship Specialty Start Date End Date Jesús Gale MD 200 [facility] [place] [address] PCP - General Internal Medicine 12/03/20 documented as of this encounter"
--- OUTSIDE RECORDS SUMMARY | 2024-03-16 06:45 | External Medical Summary | Summary of Care ---
Author Name Unknown Organization [facility] Address [address] [facility] [place] [address] Phone [phone] Care Team Providers Care Flight Attendant Name Role Phone Jesús Gale MD Primary Care Provider + Encounter Details Date Type Department Care Team (Late st Contact Info) Description 09/14/2023 Result Scan Unspecified Department Jesús Gale MD [address] [facility] [address] <No scans attached> Allergies Active Allergy Reactions Criticality Noted Date Comments Novocain 09/12/2013 Other Allergy (See Comments) Other (Please comment) 04/17/2015 Patient reports reaction to medication anal'gin; medication not available in [place]; medication caused increased pain Acetaminophen 08/10/2018 documented as of this encounter (statuses as of 10/18/2023) Medications No known medicationsdocumented as of this encounter (statuses as of 10/18/2023) Active Problems Problem Noted Date Diagnosed Date Mixed hyperlipidemia 04/10/2021 Gastroesophageal reflux disease without esophagi tis 10/03/2020 IBS (irritable bowel syndrome) 09/12/2013 documented as of this encounter (statuses as of 10/18/2023) Resolved Problems Problem Noted Date Diagnosed Date Resolved Date Mass on back 05/20/2017 10/27/2021 documented as of this encounter (statuses as of 10/18/2023) Social History Tobacco Use Types Packs/Day Years [...] Team (Late st Contact Info) Description 11/09/2023 10:00 AM EDT Office Visit General Internal Medicine [facility] [address] [place] [address] Jesús Gale MD 200 [facility] [place] [address] 12/07/2023 10:00 AM EDT Imaging [facility] 2nd Floor Cardiology, [place] [address] [phone] 12/07/2023 11:30 AM EDT Imaging [facility] 2nd Floor Cardiology, [place] [phone] 12/07/2023 12:30 PM EDT [facility], [place] [facility] [place] [address] 12/07/2023 2:30 PM EDT Imaging [facility] [address] [place] [phone] 01/09/2024 10:00 AM EST Office Visit Neurology [address] [place] [phone] Nandini Nielson MD 100 [address] [facility] [place] [address] 02/22/2024 9:00 AM EST Office Visit Gastroenterology, [facility] [address] [place] [address] Dolores Shaver CRNP [address] [place] [address] Health Maintenance Due Date Last Done Comments DXA Scan 1950 Hepatitis C Screening 1966 DTap/Tdap Vaccines (1 - Tdap) 07/20/1967 Zoster Vaccines (1 of 2) 1998 Pneumococcal Vaccine: 65+ Ye ars (1 of 1 - PCV) 2013 Adult Wellness Visit 2014 COVID-19 Vaccine ( - 2022-2 4 season) 2023 Influenza Vaccine (FLU shot) (#1) [...] Procedure Name Priority Date/Time Associated Diagnosis Comments PATHOLOGY SCANNED RESULT 09/14/2023 documented in this encounter Results * PATHOLOGY SCANNED RESULT (09/14/2023) 09/14/2023 Jesús Gale MD PATHOLOGY documented in this encounter Care Teams Flight Attendant Relationship Specialty Start Date End Date Jesús Gale MD [address] [place] [address], [place] [address] PCP - General Internal Medicine 12/03/20 documented as of this encounter
--- OUTSIDE RECORDS SUMMARY | 2024-03-16 06:45 | External Medical Summary | Summary of Care ---
Author Name Unknown Organization [facility] Address [address] [place] [address] Phone [phone] Care Team Providers Care Landscape Artist Name Role Phone Jesús Gale MD Primary Care Provider + Encounter Details Date Type Department Care Team (Late st Contact Info) Description 10/18/2023 Orders Only General Internal Medicine [facility] [place] 200 [facility] [place] [address] Jesús Gale MD 200 [facility] [id number] Allergies Active Allergy Reactions Criticality Noted Date Comments Novocain 09/12/2013 Other Allergy (See Comments) Other (Please comment) 04/17/2015 Patient reports reaction to medication anal'gin; medication not available in [place]; medication caused increased pain Acetaminophen 08/10/2018 documented as of this encounter (statuses as of 10/18/2023) Medications Medication Sig Dispensed Refills Start Date End Date Status Pantoprazole Sodium 40 MG Oral Tablet Delayed Release (Protonix) Take 1 Tablet by mouth in the morning and 1 Tablet before bedtime. 09/14/2023 Active Mirtazapine 15 MG Oral Tablet (Remeron) Take 1 Tablet by mouth at bedtime. 30 Tablet 12 10/12/2023 Active documented as of this encounter (statuses [...] Office Visit General Internal Medicine [address] [place] [address] [place] [address] Jesús Gale MD [address] [facility] [place] [address] 12/07/2023 10:00 AM EDT Imaging [facility] 2nd Floor Cardiology, [place] 132 [facility] [place] [address] 12/07/2023 11:30 AM EDT Imaging [facility] 2nd [facility] Cardiology, [place] 132 [facility] [place] [address] 12/07/2023 12:30 PM EDT Imaging [address] Cardiology, [address] [place] [address] 12/07/2023 2:30 PM EDT Imaging [address], [address] [place] [address] 01/09/2024 10:00 AM EST Office Visit Neurology [address] [place], [place] [address] Nandini Nielson MD 100 [address] [facility] [place] [address] 02/22/2024 9:00 AM EST Office Visit Gastroenterology, [facility] 132 [facility] [place] [address] Dolores Shaver CRNP 132 [facility] [place] [address] Health Maintenance Due Date Last Done Comments [...] Procedure Name Priority Date/Time Associated Diagnosis Comments CHEMISTRY-OUTSIDE Routine 09/14/2023 XR CHEST 1 VIEW Routine 09/12/2023 CHEMISTRY-OUTSIDE Routine 09/12/2023 documented in this encounter Results * (ABNORMAL) CHEMISTRY-OUTSIDE (09/14/2023) Not all results display below - see scan for full detail OUTSIDE LAB (SEE SCANNED REPORT) Comment:SCAN INCLUDES - CBCD , BMP CREATININE-OUTSID E LAB 0.78 0.6 - 1.2 MG/DL OUTSIDE LAB (SEE SCANNED REPORT) EGFR-OUTSIDE LAB 74.4 ML/MIN OUT SIDE LAB (SEE SCANNED REPORT) POTASSIUM-OUTSIDE LAB 3.8 3.5 - 5.1 MMOL/L OUTSIDE LAB (SEE SCANNED REPORT) GLUCOSE-OUTSIDE LAB 54(A) 70 - 99 MG/DL OUTSIDE LAB (SEE SCANNED REPORT) HOURS FASTING OUTSID E LAB (SEE SCANNED REPORT) TRIGLYCERIDES-OUT SIDE LAB OUTSIDE LAB (SEE SCANNED REPORT) CHOLESTEROL-OUTSI DE LAB OUTSIDE LAB (SEE SCANNED REPORT) HDL-OUTSIDE LAB OUTS ANNIKA LAB (SEE SCANNED REPORT) CHOL/HDL RATIO-OUTSIDE LAB OUTSIDE LA B (SEE SCANNED REPORT) LDL (CALCULATED)-OUTS ANNIKA LAB OUTSIDE LAB (SEE SCANNED REPORT) LDL (DIRECT MEASURE)-OUTSIDE LAB OUTSIDE LAB (SEE SCANNED REPORT) HEMOGLOBIN, [id number] LAB OUTSIDE LAB (SEE SCANNED REPORT) PHOSPHORUS-OUTSID E LAB OUTSIDE LAB (SEE SCANNED REPORT) PTH-OUTSIDE LAB OUTS ANNIKA LAB (SEE SCANNED REPORT) MICROALBUMIN RATIO-OUTSIDE LAB OUTSIDE LA B (SEE SCANNED REPORT) PROTEIN, UA-OUTSIDE LAB OUTSIDE LAB (SEE SCANNED REPORT) HGB 11.6(A) 12.0 - 16.0 G/DL OUTSIDE LAB (SEE SCANNED REPORT) 09/14/2023 Ja Parks MD LABORATORY OUTSIDE LAB (SEE SCANNED REPORT) * (ABNORMAL) CHEMISTRY-OUTSIDE (09/12/2023) Not all results display below - see scan for full detail OUTSIDE LAB (SEE SCANNED REPORT) Comment:SCAN INCLUDES - CBCD , CMP, MG, TROPONIN I, LIPASE, UA CREATININE-OUTSI DE LAB 0.75 0.6 - 1.2 MG/DL OUTSIDE LAB (SEE SCANNED REPORT) EGFR-OUTSIDE LAB 78.0 ML/MIN OUT SIDE LAB (SEE SCANNED REPORT) POTASSIUM-OUTSID E LAB 3.3(A) 3.5 - 5.1 MMOL/L OUTSIDE LAB (SEE SCANNED REPORT) GLUCOSE-OUTSIDE LAB 107(A) 70 - 99 MG/DL OUTSIDE LAB (SEE SCANNED REPORT) HOURS FASTING OUTSID E LAB (SEE SCANNED REPORT) TRIGLYCERIDES-OU TSIDE LAB OUTSIDE LAB (SEE SCANNED REPORT) CHOLESTEROL-OUTS ANNIKA LAB OUTSIDE LAB (SEE SCANNED REPORT) HDL-OUTSIDE LAB OUTS ANNIKA LAB (SEE SCANNED REPORT) CHOL/HDL RATIO-OUTSIDE LAB OUTSIDE LAB (SEE SCANNED REPORT) LDL (CALCULATED)-OUT SIDE LAB OUTSIDE LAB (SEE SCANNED REPORT) LDL (DIRECT MEASURE)-OUTSIDE LAB OUTSIDE LAB (SEE SCANNED REPORT) HEMOGLOBIN, [id number] LAB OUTSIDE LAB (SEE SCANNED REPORT) PHOSPHORUS-OUTSI DE LAB OUTSIDE LAB (SEE SCANNED REPORT) PTH-OUTSIDE LAB OUTS ANNIKA LAB (SEE SCANNED REPORT) MICROALBUMIN RATIO-OUTSIDE LAB OUTSIDE LAB (SEE SCANNED REPORT) PROTEIN, UA-OUTSIDE LAB NEGATIVE NEGATIVE OUTSIDE LAB (SEE SCANNED REPORT) HGB 13.1 12.0 - 16.0 G/DL OUTSIDE LAB (SEE SCANNED REPORT) 09/12/2023 John Paul MD LABORATORY OUTSIDE LAB (SEE SCANNED REPORT) * XR CHEST 1 VIEW (09/12/2023) Anatomical Region Laterality Modality Chest Other 09/12/2023 John Paul MD RADIOLOGY (RA D GENERAL) documented in this encounter Care Teams Landscape Artist Relationship Specialty Start Date End Date Jesús Gale MD [address] [place] [address] PCP - General Internal Medicine 12/03/20 documented as of this encounter
--- OUTSIDE RECORDS SUMMARY | 2024-03-16 06:45 | External Medical Summary ---
Author Name Unknown Address Unknown Organization [facility] [place] [address] Laboratory Report Ordering Provider Test Date Status MAREK NEWELL 11/09/2023 10:37:17 Final Observation Date Value Abnormality Reference (Units ) Status WBC, Total 11/09/2023 10:37:17 3.27 Below low normal 4. 00-10.80 (K/uL) Final RBC 11/09/2023 10:37:17 3.62 3.85-5.15 (M/uL) Final Hemoglobin 11/09/2023 10:37:17 11.3 Below low normal 12 .0-15.3 (g/dL) Final HCT 11/09/2023 10:37:17 34.0 Below low normal 36. 0-45.2 (%) Final MCV 11/09/2023 10:37:17 93.9 81.5-97.5 (fL) Final MCH 11/09/2023 10:37:17 31.2 27.0-34.0 (pg) Final MCHC 11/09/2023 10:37:17 33.2 32.0-36.0 (g/dL) Final RDW 11/09/2023 10:37:17 13.0 11.5-15.5 (%) Final Platelets 11/09/2023 10:37:17 174 140-400 (K /uL) Final MPV 11/09/2023 10:37:17 10.8 6.6-11.1 ( fL) Final Performing Location [facility] [place] [address]
--- OUTSIDE RECORDS SUMMARY | 2024-03-16 06:45 | External Medical Summary | Summary of Care ---
Author Name Unknown Organization [facility] Address [address] [place] [address] Phone [phone] Care Team Providers Care Office Specialist Name Role Phone Jesús Gale MD Primary Care Provider + Encounter Details Date Type Department Care Team (Late st Contact Info) Description 10/16/2023 New Patient Triage (CASE FITTER USE ONLY) Neurology [address] [place] [phone] Karly Robertson PA-C [address] [place] [address] Allergies Active Allergy Reactions Criticality Noted Date Comments Novocain 09/12/2013 Other Allergy (See Comments) Other (Please comment) 04/17/2015 Patient reports reaction to medication anal'gin; medication not available in [place]; medication caused increased pain Acetaminophen 08/10/2018 documented as of this encounter (statuses as of 10/16/2023) Medications Medication Sig Dispensed Refills Start Date End Date Status Pantoprazole Sodium 40 MG Oral Tablet Delayed Release (Protonix) Take 1 Tablet by mouth in the morning and 1 Tablet before bedtime. 09/14/2023 Active Mirtazapine 15 MG Oral Tablet (Remeron) Take 1 Tablet by mouth at bedtime. 30 Tablet 12 10/12/2023 Active documented as of this encounter (statuses as of 10/16/2023) Active Problems Problem Noted Date Diagnosed Date Mixed hyperlipidemia 04/10/2021 Gastroesophageal reflux disease without esophagi tis 10/03/2020 IBS (irritable bowel syndrome) 09/12/2013 documented as of this encounter (statuses as of 10/16/2023) Resolved Problems Problem Noted Date Diagnosed Date Resolved Date Mass on back 05/20/2017 10/27/2021 documented as of this encounter (statuses as of 10/16/2023) Social History Tobacco Use Types Packs/Day Years [...] as of this encounter Progress Notes * Karly Robertson PA-C - 10/16/2023 5:38 PM EDT Does patient need to be seen?: Yes Modality: First available Urgency: Within 30 days (routine) Discussed care plan with patient or proxy?: No sent to scheduling. Patient is appropriately scheduled with Dr. Nielson on 01/09/2024. * Karly Robertson PA-C - 10/16/2023 5:38 PM EDT New Patient Triage What is the diagnosis/reason for referral?: nausea and vomiting, dizziness, history of migraine headache Enter order ID here: [id number] Specialty specific documentation: Neuroscience: Neurology documented in this encounter Plan of Treatment Upcoming Encounters Date Type Department Care Team (Late st Contact Info) Description 11/09/2023 10:00 AM EDT Office Visit General Internal Medicine [facility] [address] [facility] [place] [address] Jesús Gale MD [address] [place] [address] 12/07/2023 10:00 AM EDT Imaging [facility] 2nd Floor Cardiology, [address] [place] [address] 12/07/2023 11:30 AM EDT Imaging [facility] 2nd Floor Cardiology, [address] [place] [address] 12/07/2023 12:30 PM EDT Imaging [facility] 2nd Floor Cardiology, [address] [place] [address] 12/07/2023 2:30 PM EDT Imaging [facility] 2nd Floor Cardiology, [address] [place] [address] 01/09/2024 10:00 AM EST Office Visit Neurology [address] [place] [phone] Nandini Nielson MD 100 [address] [facility] [place] [address] 02/22/2024 9:00 AM EST Office Visit Gastroenterology, [address] [place] [address] Dolores Shaver CRNP [address] [place] [address] Health Maintenance Due Date Last Done Comments DXA Scan 1950 Hepatitis C Screening 1966 DTap/Tdap Vaccines (1 - Tdap) 07/20/1967 Zoster Vaccines (1 of 2) 1998 Pneumococcal Vaccine: 65+ Ye ars (1 of 1 - PCV) 2013 Adult Wellness Visit 2014 COVID-19 Vaccine (1 - 2022-2 4 season) 2023 Influenza Vaccine [...] filedocumented as of this encounter Care Teams Office Specialist Relationship Specialty Start Date End Date Jesús Gale MD 200 [facility] [place] [address] PCP - General Internal Medicine 12/03/20 documented as of this encounter
--- OUTSIDE RECORDS SUMMARY | 2024-03-16 06:45 | External Medical Summary | Summary of Care ---
Author Name Unknown Organization [facility] Address [address] [place] [address] Phone [phone] Care Team Providers Care Shellacker Name Role Phone Jesús Gale MD Primary Care Provider + Reason for Visit * Reason Comments Return Visit Patient return to aureliano mary concerns regarding high blood pressure and pulse - son is concerned high BP is causing patient to vomit. Son was also inquiring about a certification form. Encounter Details Date Type Department Care Team (Late st Contact Info) Description 10/25/2023 1:40 PM EDT Office Visit General Internal Medicine [facility] [place] [address] [facility] [place] [address] Yamileth Schaefer PA-C [address] [facility] [place] [id number] Nausea and vomiting, unspecified vomiting type*; Dizziness; Light-headed feeling; Abdominal pain, epigastric Allergies Active Allergy Reactions Criticality Noted Date Comments Novocain 09/12/2013 Other Allergy (See Comments) Other (Please comment) 04/17/2015 Patient reports reaction to medication anal'gin; medication not available in [place]; medication caused increased pain Acetaminophen 08/10/2018 documented as of this encounter (statuses as of 10/25/2023) Medications Medication Sig Dispensed Refills Start Date End Date Status Mirtazapine 15 MG Oral Tablet (Remeron) Take 1 Tablet by mouth at bedtime. 30 Tablet 12 10/12/2023 Active Pantoprazole Sodium 40 MG Oral Tablet Delayed Release (Protonix) Take 1 Tablet by mouth in the morning. 30 Tablet 3 10/25/2023 Active Pantoprazole Sodium 40 MG Oral Tablet Delayed Release (Protonix) Take 1 Tablet by mouth in the morning and 1 Tablet before bedtime. 09/14/2023 10/25/2023 Discontinued (Refill) documented as of this encounter (statuses as of 10/25/2023) Active Problems Problem Noted Date Diagnosed Date Mixed hyperlipidemia 04/10/2021 Gastroesophageal reflux disease without esophagi tis 10/03/2020 IBS (irritable bowel syndrome) 09/12/2013 documented as of this encounter (statuses as of 10/25/2023) Resolved Problems Problem Noted Date Diagnosed Date Resolved Date Mass on back 05/20/2017 10/27/2021 documented as of this encounter (statuses as of 10/25/2023) Social History Tobacco Use Types Packs/Day Years [...] Sign Reading Time Taken Comments Blood Pressure 144/78 10/25/2023 2:26 PM EDT Pulse 89 10/25/2023 2:26 PM EDT Temperature 36.1 C (96.9 F) 10/25/2023 1:38 PM ED T Respiratory Rate - - Oxygen Saturation 98% 10/25/2023 1:38 PM EDT Inhaled Oxygen Concentration - - Weight 55.6 kg (122 lb 8 oz) 10/25/2023 1:38 PM EDT Height - - Body Mass Index 21.98 10/12/2023 8:07 AM EDT documented in this encounter Progress Notes * Yamileth Schaefer PA-C - 10/25/2023 1:43 PM EDT Images from the original note were not included. History of Present Illness Khang Oates is a 73 year old female that presents for Return Visit (Patient return to discussconcerns regarding high blood pressure and pulse - son is concerned high BP is causing patient to vomit. Son was also inquiring about a certification form. ) Pt here today with concerns about her BP. Accompanied by her son who translates for the pt. Declines use of staff counselor service. Pt has been dealing with ongoing worsening episodes of N/V and dizziness. These episodes are happening every few days. Last occurred on 10/18. Pt reports dizziness sometimesbefore and after the episodes. Once she vomits she avoids eating the rest of the day. Has had a coup le episodes of syncope, but not recently. Saw GI and was given mirtazapine 15 mg to help with appetite. Only other current med is Protonix--this was given in hospital and they have no refills remaining. They are concerned that her BP being up is causing the dizziness and vomiting. BP here in the office has always been stable. Review of Systems: See HPI for pertinent positives. All other review of systems is negative. Physical Exam Vitals: 10/25/23 1338 10/25/23 1425 10/25/23 1426 Temp: 36.1 C (96.9 F) Pulse: 79 76 89 SpO2: 98% BP: 124/60 140/83 144/78 Physical Exam Constitutional: General: She is not in acute distress. Appearance: She is not diaphoretic. HENT: Right Ear: Tympanic membrane, ear canal and external ear normal. Left Ear: Tympanic membrane, ear canal and external ear normal. Mouth/Throat: Mouth: Mucous membranes are moist. Pharynx: Oropharynx is clear. Cardiovascular: Rate and Rhythm: Normal rate and regular rhythm. Pulmonary: Effort: Pulmonary effort is normal. Breath sounds: Normal breath sounds. Abdominal: General: Bowel sounds are normal. Palpations: Abdomen is soft. Tenderness: There is generalized abdominal tenderness. There is no guarding or rebound. Musculoskeletal: Cervical back: Normal range of motion and neck supple. Skin: General: Skin is warm and dry. Neurological: General: No focal deficit present. Mental Status: She is alert. Mental status is at baseline. I have reviewed the following results: Assessment and Plan Nausea and vomiting, unspecified vomiting type Pt has seen GI. Gastric emptying study ordered. Continue mirtazapine and f/up with GI as sched. Dizziness Pt was on meclizine but this was recently D/C'ed by GI. Was referred to Neuro--has upcoming appt there. Light-headed feeling Orthostatic vitals stable today. Abdominal pain, epigastric Continue Protonix 40 mg daily. Wrap-Up Follow Up: Return if symptoms worsen or fail to improve. Time: I spent a total of 40-54 minutes (exact time 40 mins) on the date of service in preparation, delivery, and documentation of the care provided to Khang Oates excluding any time spent in the performance of separately billed services. documented in this encounter Nursing Notes * Jasmin Wei MED ASSIST - 10/25/2023 2:27 PM EDT Orthostatic BP Lying - 140/83 | P - 76 Standing - 144/78 | P - 89 * Jasmin Wei MED ASSIST - 10/25/2023 1:41 PM EDT Chief Complaint Patient presents with Return Visit Patient return to discuss concerns regarding high blood pressure and pulse - son is concerned high BP is causing patient to vomit. Son was also inquiring about a certification form. Will look into certification form for patient. documented in this encounter Plan of Treatment Upcoming Encounters Date Type Department Care Team (Late st Contact Info) Description 11/09/2023 10:00 AM EDT Office Visit [facility] [address] [place] [address] Jesús Gale MD [address] [place] [address] 12/07/2023 10:00 AM EDT Imaging [facility] 2nd Floor Cardiology, [address] [place] [address] 12/07/2023 11:30 AM EDT Imaging [facility] 2nd Floor Cardiology, [address] [place] [address] 12/07/2023 12:30 PM EDT Imaging [facility] 2nd Floor Cardiology, [address] [place] [address] 12/07/2023 2:30 PM EDT Imaging [facility] 2nd Floor Cardiology, [address] [place] [address] 01/09/2024 10:00 AM EST Office Visit Neurology [address] [place] [phone] Nandini Nielson MD [address] [place] [address] 02/22/2024 9:00 AM EST Office Visit Gastroenterology, [facility] [address] [place] [address] Dolores Shaver CRNP [address] [place] [address] Health Maintenance Due Date Last Done Comments [...] Diagnoses Diagnosis Nausea and vomiting, unspecified vomiting type- Primary Dizziness Dizziness and giddiness Light-headed feeling Dizziness and giddiness Abdominal pain, epigastric documented in this encounter Care Teams Shellacker Relationship Specialty Start Date End Date Jesús Gale MD [address] [place] [id number] PCP - General Internal Medicine 12/03/20 documented as of this encounter"
--- OUTSIDE RECORDS SUMMARY | 2024-03-16 06:45 | External Medical Summary | Summary of Care ---
Author Name Unknown Organization [facility] Address [address] [place] [address] Phone [phone] Care Team Providers Care Seed Tester Name Role Phone Jesús Gale MD Primary Care Provider + Encounter Details Date Type Department Care Team (Late st Contact Info) Description 09/12/2023 Result Scan Unspecified Department <No scans attached> Allergies Active Allergy Reactions [...] AM EDT Office Visit General Internal [facility] [address] [place] [address] Jesús Gale MD [address] [place] [address] 12/07/2023 10:00 AM EDT Imaging [facility] 2nd Floor Cardiology, [place] [address] 12/07/2023 11:30 AM EDT Imaging [facility] 2nd Floor Cardiology, [place] [address] 12/07/2023 12:30 PM EDT Imaging [facility] 2nd Floor Cardiology, [place] [address] [place] [address] 12/07/2023 2:30 PM EDT Imaging [facility] 2nd Floor Cardiology, [address] [place] [address] 01/09/2024 10:00 AM EST Office Visit Neurology [address] [place] [address] Nandini Nielson MD [address] [facility] [place] [address] 02/22/2024 9:00 AM EST Office Visit Gastroenterology, [facility] [address] [facility] [place] [address] Dolores Shaver CRNP [address] [place] [address] Health Maintenance Due Date Last Done Comments [...] Procedure Name Priority Date/Time Associated Diagnosis Comments EKG SCANNED RESULT 09/12/2023 RADIOLOGY SCANNED RESULT 09/12/2023 RADIOLOGY SCANNED RESULT 09/12/2023 RADIOLOGY SCANNED RESULT 09/12/2023 documented in this encounter Results * RADIOLOGY SCANNED RESULT (09/12/2023) 09/12/2023 No Physician Data Unknown DIAGNOSTIC RAD IOLOGY SERVICES * RADIOLOGY SCANNED RESULT (09/12/2023) 09/12/2023 No Physician Data Unknown DIAGNOSTIC RAD IOLOGY SERVICES * RADIOLOGY SCANNED RESULT (09/12/2023) 09/12/2023 No Physician Data Unknown DIAGNOSTIC RAD IOLOGY SERVICES * EKG SCANNED RESULT (09/12/2023) 09/12/2023 No Physician Data Unknown EKG documented in this encounter Care Teams Seed Tester Relationship Specialty Start Date End Date Jesús Gale MD [address] [facility] [place] [address] PCP - General Internal Medicine 12/03/20 documented as of this encounter
--- OUTSIDE RECORDS SUMMARY | 2024-03-16 06:45 | External Medical Summary | Summary of Care ---
Author Name Unknown Organization [facility] Address [address] [place] [address] Phone [phone] Care Team Providers Care Head Animal Keeper Name Role Phone Jesús Gale MD Primary Care Provider + Reason for Visit * Reason Onset Date Comments Hospital Follow-Up [facility] discharg e 09.14.2023, pt states still feeling weak, concerns with blood pressure, and vomiting bile no blood present. Hospital Follow-Up 09/29/2023 Encounter Details Date Type Department Care Team (Late st Contact Info) Description 09/29/2023 10:20 AM EDT Office Visit General Internal Medicine [address] [place] [address] [place] [address] Emliia Alexandra MD [facility] [address] [facility] follow-up*; Nonerosive nonspecific gastritis; Ureteritis; Light-headed feeling Allergies Active Allergy Reactions Criticality Noted Date Comments Novocain 09/12/2013 Other Allergy (See Comments) Other (Please comment) 04/17/2015 Patient reports reaction to medication anal'gin; medication not available in [place]; medication caused increased pain Acetaminophen 08/10/2018 documented as of this encounter (statuses as of 09/29/2023) Medications Medication Sig Dispensed Refills Start Date End Date Status Cyanocobalamin (VITAMIN B-12) 1000 MCG TabletIndications :Low serum vitamin B12 Take 1 Tablet by mouth in the morning. 01/16/2019 Active Meclizine HCl 25 MG Oral Tablet (Antivert)Indicat ions:Migraine variant,Dizziness Take 0.5 Tablets by mouth 3 times a day as needed for Dizziness. 30 Tablet 1 02/17/2023 Active Additional Information Patient not taking.Reported on 09/29/2023 SUMAtriptan Succinate 25 MG Oral Tablet (Imitrex)Indicati ons:Migraine variant,Dizziness Take 2 tablets at onset of migraine and one tablet every 2 hours as needed, not more than 5 tablets in 24 hours 6 Tablet 11 02/17/2023 Active Additional Information Patient not taking.Reported on 09/29/2023 Omeprazole 20 MG Oral Capsule Delayed Release (PriLOSEC)Indicat ions:Gastroesopha geal reflux disease without esophagitis TAKE 1 CAPSULE BY MOUTH ONCE DAILY 1 hour prior to first meal of the day and 2nd dose at bedtime 180 Capsule 2 04/18/2023 Active Ondansetron HCl 4 MG Oral Tablet (Zofran)Indicatio ns:Nausea and vomiting, unspecified vomiting type TAKE ONE TABLET BY MOUTH EVERY EIGHT HOURS NEEDED FOR NAUSEA 30 Tablet 1 06/29/2023 Active Additional Information Patient not taking.Reported on 09/29/2023 Pantoprazole Sodium 40 MG Oral Tablet Delayed Release (Protonix) Take 1 Tablet by mouth in the morning and 1 Tablet before bedtime. 09/14/2023 Active predniSONE 10 MG Oral Tablet (Deltasone)Indica tions:Migraine variant Take 5 tabs for 2 days, 4 tabs for 2 days, 3 tabs for 2 days, 2 tabs for 2 days 1 tab for 2 days 30 Tablet 02/17/2023 4 Discontinue d(End of Procedure) documented as of this encounter (statuses as of 09/29/2023) Active Problems Problem Noted Date Diagnosed Date Mixed hyperlipidemia 04/10/2021 Gastroesophageal reflux disease without esophagi tis 10/03/2020 IBS (irritable bowel syndrome) 09/12/2013 documented as of this encounter (statuses as of 09/29/2023) Resolved Problems Problem Noted Date Diagnosed Date Resolved Date Mass on back 05/20/2017 10/27/2021 documented as of this encounter (statuses as of 09/29/2023) Social History Tobacco Use Types Packs/Day Years [...] Sign Reading Time Taken Comments Blood Pressure 128/72 09/29/2023 10:59 AM EDT Pulse 69 09/29/2023 10:59 AM EDT Temperature 36.2 C (97.2 F) 09/29/2023 1 0:59 AM EDT Respiratory Rate - - Oxygen Saturation 98% 09/29/2023 10: 59 AM EDT Inhaled Oxygen Concentration - - Weight 53.5 kg (117 lb 14.4 oz) 024 10:59 AM EDT Height 154.9 cm (5' 1") 09/29/2023 10:5 9 AM EDT Body Mass Index 22.28 09/29/2023 10:59 AM EDT documented in this encounter Progress Notes * Emilia Alexandra MD - 09/29/2023 11:05 AM EDT SUBJECTIVE: Khang Oates is a 73 year old female. Chief Complaint Patient presents with Hospital Follow-Up [facility] discharge 7.31.2024, pt states still feeling weak, concerns with blood pressure, and vomiting bile no blood present. Hospital Follow-Up HPI: Patient presents today for hospital follow-up appointment. Wt Readings from Last 4 Encounters: 09/29/23 53.5 kg (117 lb 14.4 oz) 04/18/23 59.5 kg (131 lb 1.6 oz) 02/17/23 63 kg (138 lb 14.4 oz) 12/08/22 66.7 kg (147 lb) BP Readings from Last 4 Encounters: 09/29/23 128/72 04/18/23 120/70 02/17/23 120/70 12/08/22 120/64 Reviewed available hospital records including history and physical, labs, imaging and discharge summary. Patient admitted 09/12/2023, discharged 09/15/2023, discharge diagnosis-nonerosive gastritis, ureteritis. Patient with a past medical history GERD, IBS, hyperlipidemia seen in the ED for evaluation of abdominal pain intractable nausea vomiting and vertigo. Labs-normal CBC except WBC 3.8 with hydration WBC 3.4 HB 11.6 Mg 1.7, normal CMP except sodium 136, potassium 3.3 lipase 22; at discharge sodium 139, potassium 3.8, UA initially concentrated otherwise negative. EKG-NSR at 75 B p.m., RBBB, LAFB. CT abdomen and pelvis IV contrast only-diverticulosis without diverticulitis, small hiatal hernia, history of appendectomy, bladder diffuse wall thickening, mild prominence of the bilateral ureteral long. CT head-no acute findings. Chest [id number], MRI brain-no evidence of acute findings mild nonspecific white matter changes. EGD-09/12/2023-normal esophagus, nonerosive gastritis-biopsied, normal duodenum. Pathology-mild to focally moderate diffuse chronic antritis , No l metaplasia not seen, H pylori negative, stomach body-diffuse chronic gastritis Given IV fluids, treated for nausea and vomiting symptomatically, IV PPI twice daily. GI and urology saw patient. Discharged on a Protonix 40 mg twice daily -1 mth rx, cephalexin 250 mg every 8 hours for 4 days, continued on Zofran as needed, Imitrex as needed, meclizine as needed. Son accompanies her today and translates for her. States has been taking the Protonix after she eats, eats breakfast at 11:00 a.m., lunch at 3:00 p.m., dinner at 7:00 p.m., does not drink much water and encouraged to, had regular bowel movement today. No further abdominal pain. No nausea or vomiting today. Has been eating a lot of vegetables, soups. Has appointment with GI 10/12/2023 and PCP in October Patient Active Problem List Diagnosis IBS (irritable bowel syndrome) Gastroesophageal reflux disease without esophagitis Mixed hyperlipidemia TSH Results: Lab Results Component Value Date/Time TSH - [facility] 3.16 11/30/2022 09:26 AM TSH - [facility] 2.13 09/12/2013 03:56 PM TSH - OUTSIDE LAB 1.270 03/09/2020 12:00 AM Current Outpatient Medications Medication Sig Dispense Refill Pantoprazole Sodium 40 MG Oral Tablet Delayed Release (Protonix) Take 1 Tablet by mouth in the morning and 1 Tablet before bedtime. Cyanocobalamin (VITAMIN B-12) 1000 MCG Tablet Take 1 Tablet by mouth in the morning. Meclizine HCl 25 MG Oral Tablet (Antivert) Take 0.5 Tablets by mouth 3 times a day as needed for Dizziness. (Patient not taking: Reported on 09/29/2023) 30 Tablet 1 SUMAtriptan Succinate 25 MG Oral Tablet (Imitrex) Take 2 tablets at onset of migraine and one tablet every 2 hours as needed, not more than 5 tablets in 24 hours (Patient not taking: Reported on 09/29/2023) 6 Tablet 11 predniSONE 10 MG Oral Tablet (Deltasone) Take 5 tabs for 2 days, 4 tabs for 2 days, 3 tabs for 2 days, 2 tabs for 2 days 1 tab for 2 days (Patient not taking: Reported on 04/18/2023) 30 Tablet 0 Omeprazole 20 MG Oral Capsule Delayed Release (PriLOSEC) TAKE 1 CAPSULE BY MOUTH ONCE DAILY 1 hour prior to first meal of the day and 2nd dose at bedtime 180 Capsule 2 Ondansetron HCl 4 MG Oral Tablet (Zofran) TAKE ONE TABLET BY MOUTH EVERY EIGHT HOURS NEEDED FOR NAUSEA (Patient not taking: Reported on 09/29/2023) 30 Tablet 1 No current facility-administered medications for this visit. Review of patient's allergies indicates: Allergen Reactions Novocain Other Allergy (See Comments) Other (Please comment) Patient reports reaction to medication anal'gin; medication not available in [place]; medication caused increased pain Tylenol [Acetaminophen] There is no immunization history on file for this patient. OBJECTIVE: BP 128/72 (BP Site: Left Arm, BP Position: Sitting, BP Cuff Size: Regular) | Pulse 69 | Temp 36.2 C (97.2 F) (Tympanic) | Ht 1.549 m (5' 1") | Wt 53.5 kg (117 lb 14.4 oz) | SpO2 98% | BMI 22.28 kg/m | BSA 1.52 m PHYSICAL EXAM: General: alert, healthy, no distress, well developed Neck: supple, no adenopathy, thyroid Not enlarged without nodularity Heart: regular rhythm and rate,No murmurs. Lungs: lungs clear to auscultation Extremities: no edema Abdomen: Soft, ML scar epigastrium,non-tender, normal bowel sounds, no masses or organomegaly ASSESSMENT/PLAN: Hospital discharge follow-up (Primary) - DISCH MED RECON CUR MED LIS Nonerosive nonspecific gastritis - DISCH MED RECON CUR MED LIS Ureteritis Light-headed feeling --discussed need to take Protonix 30-60 minutes before her 1st meal of the day and again at bedtime. Increase intake of fluids to 6 cups a day, is done with the antibiotics. Check with GI if she needs to be on the Protonix twice daily for 4 weeks or 8 weeks and then will need decrease to once daily Follow Up: Return if symptoms worsen or fail to improve. (This note was completed using the dictation program Fluency Direct. As such, there may be misspellings, word substitutions, or other variations that should not change the essence of the clinical content of this encounter note. If there is need for further clarification, please direct questions to the provider listed above.) Patient and / caregiver verbalizes understanding of above instructions and agrees with plan of care. Emilia Alexandra MD 09/29/2023 documented in this encounter Nursing Notes * Basilio Ariza, MED ASSIST - 09/29/2023 10:59 AM EDT The patient has been properly identified by confirmation of name and date of . Chief Complaint Patient presents with Hospital Follow-Up [facility] discharge 09.14.2023, pt states still feeling weak, concerns with blood pressure, and vomiting bile no blood present. documented in this encounter Plan of Treatment Upcoming Encounters Date Type Department Care Team (Late st Contact Info) Description 10/12/2023 8:00 AM EDT Office Visit Gastroenterology, [facility] [address] [place] [address] Dolores Shaver CRNP [address] [place] [address] 11/09/2023 10:00 AM EDT Office Visit General Internal Medicine [facility] [address] [place] [address] Jesús Gale MD [address] [place] [address] Health Maintenance Due Date Last Done Comments DXA Scan 1950 Hepatitis C Screening 1966 DTaP,Tdap,and Td Vaccines (1 - Tdap) 07/20/1967 Zoster Vaccines (1 of 2) 1998 Pneumococcal Vaccine: 65+ Ye ars (1 of 1 - PCV) 2013 Adult Wellness Visit 2014 COVID-19 Vaccine ( - 2022-2 4 season) 2022 Influenza Vaccine (FLU shot) (#1) 2023 Depression [...] as of this encounter Visit Diagnoses Diagnosis Hospital discharge follow-up- Primary Other follow-up examination Nonerosive nonspecific gastritis Unspecified gastritis and gastroduodenitis without mention of hemorrhage Ureteritis Other specified disorder of kidney and ureter Light-headed feeling Dizziness and giddiness documented in this encounter Care Teams Head Animal Keeper Relationship Specialty Start Date End Date Jesús Gale MD [address] [place] [address] PCP - General Internal Medicine 12/03/20 documented as of this encounter
--- OUTSIDE RECORDS SUMMARY | 2024-03-16 06:45 | External Medical Summary ---
Author Name Unknown Address Unknown Organization [facility] [address] [place] [address] Laboratory Report Ordering Provider Test Date Status DO REECELAURENCESTEPHANIE 11/09/2023 10:37:17 Final Observation Date Value Abnormality Reference (Units ) Status BUN 11/09/2023 10:37:17 22 Above high normal 6-20 (mg/dL) Final Creatinine 11/09/2023 10:37:17 1.0 0.5-1.0 (mg/dL) Final Glomerular filtration rate/1.73 sq M.predicted [Volume Rate/Area] in Serum, Plasma or Blood by Creatinine-based formula (CKD-EPI) 11/09/2023 10:37:17 57 Below low normal >=60 (mL/min) Final eGFR is calculated based on the CKD-EPI 2020 equation. Sodium 11/09/2023 10:37:17 143 135-146 (m mol/L) Final Potassium 11/09/2023 10:37:17 4.8 3.5-5.1 (m mol/L) Final Cl 11/09/2023 10:37:17 106 98-107 (mm ol/L) Final CO2 11/09/2023 10:37:17 27 22-32 (mmo l/L) Final Anion gap 11/09/2023 10:37:17 10 7-15 (mmol /L) Final Glucose 11/09/2023 10:37:17 99 70-120 (mg /dL) Final Albumin 11/09/2023 10:37:17 4.4 3.8-5.0 (g /dL) Final AST (Aspartate aminotransferase) 11/09/2023 10:37:17 21 10-35 (U/L) Final Alk Phos 11/09/2023 10:37:17 62 35-130 (U/ L) Final Bilirubin, Total 11/09/2023 10:37:17 0.3 <=1 .2 (mg/dL) Final Calcium 11/09/2023 10:37:17 9.6 8.4-10.2 ( mg/dL) Final Protein 11/09/2023 10:37:17 7.2 6.0-8.3 (g /dL) Final ALT (Alanine aminotransferase) 11/09/2023 10:37:17 13 10-35 (U/L) Final Performing Location [facility] [address] [place] [address]
--- OUTSIDE RECORDS SUMMARY | 2024-03-16 06:45 | External Medical Summary ---
Author Name Unknown Address Unknown Organization [id number]:[facility] [place] [address] Laboratory Report Ordering Provider Test Date Status MAREK NEWELL 11/09/2023 10:37:17 Final Observation Date Value Abnormality Reference (Units ) Status SYNC LEUKOCYTES IN BLOOD BY AUTOMATED COUNT 11/09/2023 10:37:17 3.27 Below low normal 4.00-10.80 (K/uL) Final Segs 11/09/2023 10:37:17 62.1 40.0-75.0 (%) Final Lymphs % 11/09/2023 10:37:17 30.6 18.0-42.0 (%) Final Monos 11/09/2023 10:37:17 6.1 1.0-11.0 (%) Final Eosinophils 11/09/2023 10:37:17 0.9 0.0-6.0 (%) Final Basos 11/09/2023 10:37:17 0.3 0.0-2.0 (%) Final Absolute Segs 11/09/2023 10:37:17 2.03 1.80-7.70 (K/uL) Final Lymphs, absolute 11/09/2023 10:37:17 1.00 1.00-4.80 (K/ul) Final Monos, Abs 11/09/2023 10:37:17 0.20 0.00-1.10 (K/uL) Final Eos, Abs 11/09/2023 10:37:17 0.03 0.00-0.70 (K/uL) Final Basos, Abs 11/09/2023 10:37:17 0.01 0.00-0.20 (K/uL) Final Performing Location [facility] [place] [address]
--- OUTSIDE RECORDS SUMMARY | 2024-03-16 06:45 | External Medical Summary ---
Author Name Unknown Address Unknown Organization K01:[facility] [place] [address] [place] [address] Laboratory Report Ordering Provider Test Date Status DO REECELAURENCETEIN 11/09/2023 10:37:17 Final Observation Date Value Abnormality Reference (Units ) Status Triglyceride 11/09/2023 10:37:17 97 <=174 ( mg/dL) Final Triglyceride Reference Range s (mg/dL):
<150 Acceptable
150-174 Borderline high
175-499 High
>=500 Very high Cholesterol 11/09/2023 10:37:17 247 Above high normal <200 (mg/dL) Final Total Cholesterol Reference Ranges (mg/dL):
<200 Desirable
200-239 Borderline high
>=240 High HDL 11/09/2023 10:37:17 57 >49 (mg/dL ) Final HDL Cholesterol Reference Ra nges (mg/dL):
>=60 High (Desirable)
<50 Low (Undesirable) For Females
<40 Low (Undesirable) For Males NON-HDL CHOLESTEROL 11/09/2023 10:37:17 190 Above high normal <=159 (mg/dL) Final Non-HDL Cholesterol Referenc e Range (mg/dL):
<100 Target level for high risk ASCVD patient
<130 Optimal for general population
130-159 Near optimal for general population
160-189 Borderline High
190-219 High
>=220 Very High LDL, (calculated) 11/09/2023 10:37:17 171 Above high n ormal <=129 (mg/dL) Final LDL Cholesterol Reference Ra nges (mg/dL):
<70 Target level for high risk ASCVD patient
<100 Optimal for general population
100-129 Near optimal for general population
130-159 Borderline high
160-189 High
>=190 Very high Performing Location [facility] [place] [address] [facility] [address]
--- OUTSIDE RECORDS SUMMARY | 2024-03-16 06:45 | External Medical Summary | Summary of Care ---
Author Name Unknown Organization [facility] Address [address] [place] [address] Phone [phone] Care Team Providers Care Transcription Typist Name Role Phone Jesús Gale MD Primary Care Provider + Reason for Visit * Reason Onset Date Comments Hospital Follow-Up 09/21/2023 Encounter Details Date Type Department Care Team (Late st Contact Info) Description 09/21/2023 Telephone General Internal Medicine [facility] [place] [address] [facility] [place] [address] Jesús Gale MD [address] [facility] [address] [facility] Follow-Up Allergies Active Allergy Reactions Criticality Noted Date Comments Magnesium 09/12/2013 Novocain 09/12/2013 Other Allergy (See Comments) Other (Please comment) 04/17/2015 Patient reports reaction to medication anal'gin; medication not available in [place]; medication caused increased pain Acetaminophen 08/10/2018 documented as of this encounter (statuses as of 09/22/2023) Medications Medication Sig Dispensed Refills Start Date End Date Status Cyanocobalamin (VITAMIN B-12) 1000 MCG TabletIndications: Low serum vitamin B12 Take 1 Tablet by mouth in the morning. 01/16/2019 Active Meclizine HCl 25 MG Oral Tablet (Antivert)Indicati ons:Migraine variant,Dizziness Take 0.5 Tablets by mouth 3 times a day as needed for Dizziness. 30 Tablet 1 02/17/2023 Active SUMAtriptan Succinate 25 MG Oral Tablet (Imitrex)Indicatio ns:Migraine variant,Dizziness Take 2 tablets at onset of migraine and one tablet every 2 hours as needed, not more than 5 tablets in 24 hours 6 Tablet 11 02/17/2023 Active predniSONE 10 MG Oral Tablet (Deltasone)Indicat ions:Migraine variant Take 5 tabs for 2 days, 4 tabs for 2 days, 3 tabs for 2 days, 2 tabs for 2 days 1 tab for 2 days 30 Tablet 02/17/2023 Active Additional Information Patient not taking.Reported on 04/18/2023 Omeprazole 20 MG Oral Capsule Delayed Release (PriLOSEC)Indicati ons:Gastroesophage al reflux disease without esophagitis TAKE 1 CAPSULE BY MOUTH ONCE DAILY 1 hour prior to first meal of the day and 2nd dose at bedtime 180 Capsule 2 04/18/2023 Active Ondansetron HCl 4 MG Oral Tablet (Zofran)Indication s:Nausea and vomiting, unspecified vomiting type TAKE ONE TABLET BY MOUTH EVERY EIGHT HOURS NEEDED FOR NAUSEA 30 Tablet 1 06/29/2023 Active documented as of this encounter (statuses as of 09/22/2023) Active Problems Problem Noted Date Diagnosed Date Mixed hyperlipidemia 04/10/2021 Gastroesophageal reflux disease without esophagi tis 10/03/2020 IBS (irritable bowel syndrome) 09/12/2013 documented as of this encounter (statuses as of 09/22/2023) Resolved Problems Problem Noted Date Diagnosed Date Resolved Date Mass on back 05/20/2017 10/27/2021 documented as of this encounter (statuses as of 09/22/2023) Social History Tobacco Use Types Packs/Day Years [...] encounter Miscellaneous Notes * Telephone Encounter - Freddie Watson OSA - 09/22/2023 9:51 AM EDT Spoke to son. Will call back to schedule. Refused at this time. Phone number provided. * Telephone Encounter - John Singer RN - 09/21/2023 3:41 PM EDT Attempted to call patient's son with no answer and unable to leave message - no voice mail. Please try again later. Please see Dr. Gale's previous message. * Telephone Encounter - Jesús Gale MD - 09/21/2023 1:58 PM EDT They need visit for assessment, schedule hospital follow up visit please! * Telephone Encounter - Belen Bond OSA - 09/21/2023 12:56 PM EDT Son Jaime canceled today's appointment. Asking if doctor can order something for blood pressure. Cannot get her to appointment as she is very weak and vomiting. 3rd time this is happening. documented in this encounter Plan of Treatment Upcoming Encounters Date Type Department Care Team (Late st Contact Info) Description 10/12/2023 8:00 AM EDT Office Visit Gastroenterology, [facility] [address] [place] [address] Dolores Shaver CRNP [address] [place] [address] 11/07/2023 11:00 AM EDT Office Visit General Internal Medicine [facility] [place] [address] [place] [address] Jesús Gale MD 200 [facility] [place] [address] Health Maintenance Due Date Last Done Comments [...] filedocumented as of this encounter Care Teams Transcription Typist Relationship Specialty Start Date End Date Jesús Gale MD [address] [facility] [place] [address] PCP - General Internal Medicine 12/03/20 documented as of this encounter
--- OUTSIDE RECORDS SUMMARY | 2024-03-16 06:45 | External Medical Summary | Summary of Care ---
Author Name Unknown Organization [facility] Address [address] [place] [address] Phone [phone] Care Team Providers Care Supervisor Welding Equipment Repairer Name Role Phone Jesús Gale MD Primary Care Provider + Reason for Visit * Reason Onset Date Comments Forms Request 10/25/2023 Encounter Details Date Type Department Care Team (Late st Contact Info) Description 10/25/2023 Telephone General Internal Medicine [facility] [address] Jesús Gale MD 200 [facility], [place] [address] Forms Request Allergies Active Allergy Reactions Criticality Noted Date Comments Novocain 09/12/2013 Other Allergy (See Comments) Other (Please comment) 04/17/2015 Patient reports reaction to medication anal'gin; medication not available in [place]; medication caused increased pain Acetaminophen 08/10/2018 documented as of this encounter (statuses as of 10/28/2023) Medications Medication Sig Dispensed Refills Start Date End Date Status Mirtazapine 15 MG Oral Tablet (Remeron) Take 1 Tablet by mouth at bedtime. 30 Tablet 12 10/12/2023 Active Pantoprazole Sodium 40 MG Oral Tablet Delayed Release (Protonix) Take 1 Tablet by mouth in the morning. 30 Tablet 3 10/25/2023 Active documented as of this encounter (statuses as of 10/28/2023) Active Problems Problem Noted Date Diagnosed Date Mixed hyperlipidemia 04/10/2021 Gastroesophageal reflux disease without esophagi tis 10/03/2020 IBS (irritable bowel syndrome) 09/12/2013 documented as of this encounter (statuses as of 10/28/2023) Resolved Problems Problem Noted Date Diagnosed Date Resolved Date Mass on back 05/20/2017 10/27/2021 documented as of this encounter (statuses as of 10/28/2023) Social History Tobacco Use Types Packs/Day Years [...] encounter Miscellaneous Notes * Telephone Encounter - Jasmin Wei MED ASSIST - 10/28/2023 2:01 PM EDT Patient's son stopped and picked up the signed form from the office. * Telephone Encounter - Soha Esparza LPN - 10/28/2023 1:27 PM EDT Patient's son Иван aware and verbalized understanding, will be in the office to knot picker cloth the form in the next 25 minutes. * Telephone Encounter - Jasmin Wei MED ASSIST - 10/28/2023 9:55 AM EDT Attempted to call patient's son, there was no answer, left voicemail. Please inform that physician certification form has been completed and signed and will be ready forpickup at their convenience. When patient returns call, ok for WAYNE to relay message, please refer to below documentation. If needed, can transfer to dedicated nurse line. Patient's next appt w/ Internal med is 11/09/2023. Can knot picker cloth at this time as well. Placed in [facility] nurse folder. * Telephone Encounter - Jasmin Wei MED ASSIST - 10/25/2023 3:40 PM EDT Patient inquired about physician certification form for half-way care at [facility] today with Yamileth Schaefer. Reprinted and placed in folder for signature as discussed. documented in this encounter Plan of Treatment Upcoming Encounters Date Type Department Care Team (Late st Contact Info) Description 11/09/2023 10:00 AM EDT Office Visit General Internal Medicine [facility] [place] [address] [place] [address] Jesús Gale MD [address] [facility] [place] [address] 12/07/2023 10:00 AM EDT Imaging [facility] 2nd Floor Cardiology, [place] [address] [facility] [place] [phone] 12/07/2023 11:30 AM EDT [address] [address] 12/07/2023 12:30 PM EDT [address] [place] [address] 12/07/2023 2:30 PM EDT [address] [place] [address] 01/09/2024 10:00 AM EST Office Visit Neurology [address] [place] [address] Nandini Nielson MD [address] [facility] [place] [address] 02/22/2024 9:00 AM EST Office Visit Gastroenterology, [address] [place] [address] Dolores Shaver CRNP 132 [facility] [place] [address] Health Maintenance Due Date Last Done Comments [...] as of this encounter Care Teams Supervisor Welding Equipment Repairer Relationship Specialty Start Date End Date Jesús Gale MD [address] [place] [address] PCP - General Internal Medicine 12/03/20 documented as of this encounter
--- OUTSIDE RECORDS SUMMARY | 2024-03-16 06:45 | External Medical Summary | Summary of Care ---
Author Name Unknown Organization [facility] Address [address] [place] [address] Phone [phone] Care Team Providers Care Assistant Counsel Name Role Phone Jesús Gale MD Primary Care Provider + Reason for Referral * Evaluate & Treat - Unlimited Visits (Within 30 days (routine)) - Pending Review Specialty Diagnoses / Procedures Referred By Clifford neri Referred To Contact Urology Diagnoses Ureteritis Jesús Gale MD [address] [place] [address] Referral ID Status Reason Start Date Expiration Date Visits Requested Visits Authorized [id number] Pending Review Specialty Services Required 11/09/[phone] Question Answer Referral Priority Within 30 days (routine) Where should this appointment be scheduled? [facility] What is the patient being referred for? Urinary Concerns - uretitis Reason for Visit * Reason Comments Physical-Exam Yearly check up Follow Up GI follow up Nausea Dizziness Referral Surgery referral for lipoma to right shoulder Encounter Details Date Type Department Care Team (Late st Contact Info) Description 11/09/2023 10:00 AM EDT Office Visit General Internal Medicine [facility] [place] [address] [place] [address] Jesús Gale MD [address] [place] [address] Nausea*; Acute gastritis without hemorrhage, unspecified gastritis type; Ureteritis; Dizziness; Gastroesophageal reflux disease without esophagitis; Mixed hyperlipidemia; PMB (postmenopausal bleeding); Mass of joint of right shoulder; Elevated blood pressure, situational Allergies Active Allergy Reactions Criticality Noted Date [...] Sign Reading Time Taken Comments Blood Pressure 110/56 11/09/2023 10:00 AM EDT Pulse 72 11/09/2023 10:00 AM EDT Temperature 35.9 C (96.6 F) 11/09/2023 1 0:00 AM EDT Respiratory Rate 12 11/09/2023 10:0 0 AM EDT Oxygen Saturation - - Inhaled Oxygen Concentration - - Weight 56.6 kg (124 lb 11.2 oz) 024 10:00 AM EDT Height 158.8 cm (5' 2.5") 11/09/2023 10 :00 AM EDT Body Mass Index 22.44 11/09/2023 10:00 AM EDT documented in this encounter Progress Notes * Jesús Gale MD - 11/09/2023 10:29 AM EDT Chief Complaint Patient presents with Physical-Exam Yearly check up Follow Up GI follow up Nausea Dizziness Referral Surgery referral for lipoma to right shoulder SUBJECTIVE: Khang Oates is a 73 year old female with PMH as below who presents for Follow up nausea, idb, lipids. No cp, sob, lees. Her nausea and vomiting are markedly improved sinceGI added mirtazapine in September. Still some nausea on weekend when bp can go to 160's, noticed bp goes high "when the weather changes" no cp, sob, lees, some dizziness at time, but feels overall better. No syncope or falls. No vomiting in a month or more. Having GES with GI to make sure no gastroparesis. She notes would like to see surgery for right shoulder lipoma like mass which is not painful orchanging, but large. 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 Patient and son offered translating services, both decline Patient Active Problem List Diagnosis IBS (irritable bowel syndrome) Gastroesophageal reflux disease without esophagitis Mixed hyperlipidemia Current Outpatient Medications Medication Sig Dispense Refill Mirtazapine 15 MG Oral Tablet (Remeron) Take 1 Tablet by mouth at bedtime. 30 Tablet 12 Pantoprazole Sodium 40 MG Oral Tablet Delayed Release (Protonix) Take 1 Tablet by mouth in the morning. 30 Tablet 3 No current facility-administered medications for this visit. Review of patient's allergies indicates: Allergen Reactions Novocain Other Allergy (See Comments) Other (Please comment) Patient reports reaction to medication anal'gin; medication not available in [place]; medication caused increased pain Tylenol [Acetaminophen] Health Maintenance Due Topic Date Due DXA Scan Never done Hepatitis C Screening Never done DTap/Tdap Vaccines (1 - Tdap) Never done Zoster Vaccines (1 of 2) Never done Pneumococcal Vaccine: 65+ Years (1 of 1 - PCV) Never done Adult Wellness Visit Never done Influenza Vaccine (FLU shot) (1) Never done COVID-19 Vaccine (2023- season) Never done Depression Screening 11/05/2023 ROS: CONSTITUTIONAL: No weakness and No fevers, sweats, or chills PULMONARY: No cough, sputum, or hemoptysis, No wheezing, No rales, No shortness of breath, and No recent change in breathing CARDIOVASCULAR: No chest pain, No shortness of breath, No dyspnea on exertion, No orthopnea, No paroxysmal nocturnal dyspnea, No edema, No palpitations, and No syncope ALL OTHER SYSTEMS NEGATIVE I reviewed social, [...] 02/14/1985 COLONOSCOPY HEMORRHOID LIGATION, INTERNAL, 1 COLUMN NM DELIVERY ONLY REMOVAL OF APPENDIX UPPER GI ENDOSCOPY Family History Problem Relation Name Age of Onset Stroke Mother Hypertension Father OBJECTIVE: PHYSICAL EXAM: BP 110/56 (BP Site: Left Arm, BP Position: Sitting, BP Cuff Size: Regular) | Pulse 72 | Temp 35.9 C (96.6 F) (Tympanic) | Resp 12 | Ht 1.588 m (5' 2.5") | Wt 56.6 kg (124 lb 11.2 oz) | BMI 22.44 kg/m | BSA 1.58 m General: alert, healthy, and no distress Head: Normocephalic, No masses, lesions, tenderness or abnormalities Eye Exam: conjunctiva are pink and non-injected, sclera clear Heart: regular rate & rhythm, no murmur, no gallops, PMI non-displaced, S-1 normal, and S-2 normal Lungs: normal respiratory rate and rhythm, lungs clear to auscultation Extremities: no edema, no clubbing, no cyanosis, +large mass posterior right shoulder, no pain Neuro: stands on own, to table w/o aid. Psych: normal affect, no flight of ideas or tangential thought, good eye contact, no pressured speech ASSESSMENT: (R11.0) Nausea (primary encounter diagnosis) (K29.00) Acute gastritis without hemorrhage, unspecified gastritis type (N28.89) Ureteritis (R42) Dizziness (K21.9) Gastroesophageal reflux disease without esophagitis (E78.2) Mixed hyperlipidemia (N95.0) PMB (postmenopausal bleeding) (M25.811) Mass of joint of right shoulder (R03.0) Elevated blood pressure, situational PLAN: Nausea (Primary) - COMPREHENSIVE METABOLIC PANEL; Future; Expected date: 11/09/2023 - CBC WITH WBC DIFFERENTIAL; Future; Expected date: 11/09/2023 Seems improved! Cont Protonix, mitrazapine Await ges Acute gastritis without hemorrhage, unspecified gastritis type Cont Protonix Ureteritis - ADULT/PEDS UROLOGY REFERRAL OP Due to see urology Symptoms abated Dizziness Cont eating, hydration Await labs Gastroesophageal reflux disease without esophagitis Cont ppi Mixed hyperlipidemia - LIPID PANEL WITH DIRECT LDL IF TG IS HIGH; Future; Expected date: 11/09/2023 Recheck PMB (postmenopausal bleeding) Son is rescheduling casino change attendant Mass of joint of right shoulder Discussed mri and what test is, they will do Elevated blood pressure, situational Ok here, will bring home cuff in to make sure reading ok Monitor home bp Follow Up: Return in about 6 months (around 05/08/2024), or if symptoms worsen or fail to improve, for Labs Today, BP Check in 2 Weeks. | For: Labs Today, BP Check in 2 Weeks | Check-out note: Pls schedule mri shoulder as ordered 12/2022 Declines vaccines and screens Jesús Gale MD documented in this encounter Nursing Notes * John Singer RN - 11/09/2023 10:02 AM EDT Chief Complaint Patient presents with Physical-Exam Yearly check up Follow Up GI follow up Nausea Dizziness Referral Surgery referral for lipoma to right shoulder Patient accompanied by son who is translating - declined vice president of business development. documented in this encounter Plan of Treatment Upcoming Encounters Date Type Department Care Team (Late st Contact Info) Description 11/23/2023 10:00 AM EDT Nurse Only Ancillary [facility] [place] [address] [place] [address] Nurse, Int Med [address] [facility] [place] [address] 12/02/2023 12:30 PM EDT Imaging Radiology [facility], [place] [facility] [place] [address] 12/07/2023 10:00 AM EDT Imaging [facility] 2nd Floor Cardiology, [place] [address] [facility] [place] [address] 12/07/2023 11:30 AM EDT Imaging [facility] 2nd Floor Cardiology, [address] [place] [address] 12/07/2023 12:30 PM EDT Imaging [facility] 2nd Floor Cardiology, [address] [place] [address] 12/07/2023 2:30 PM EDT Imaging [facility] 2nd Floor Cardiology, [place] [address] [facility] [place], [place] [address] 01/09/2024 10:00 AM EST Office Visit Neurology [address] [place] [address] Nandini Nielson MD [address] [place] [facility] [address] 01/27/2024 11:00 AM EST Office Visit Urology Sarah Lopez [address] [place] [address] [place] [address] Tashia Doan PA-C [address] [place] [address] 02/22/2024 9:00 AM EST Office Visit Gastroenterology, [facility] [address] [facility] [place] [address] Dolores Shaver CRNP [address] [facility] [place] [address] 07/31/2024 2:40 PM EDT Office Visit General Internal Medicine [facility] [address] [place] [address] Jesús Gale MD [address] [place] [address] Pending Results Name Type Priority Associated Diagnoses Date /Time COMPREHENSIVE METABOLIC PANEL Lab Routine Nausea 11/09/2023 10:37 AM EDT CBC WITH WBC DIFFERENTIAL Lab Routine Nausea 11/09/2023 10:37 AM EDT LIPID PANEL WITH DIRECT LDL IF TG IS HIGH Lab Routine Mixed hyperlipidemia 11/09/2023 10:37 AM EDT Scheduled Orders Name Type Priority Associated Diagnoses Orde r Schedule COMPREHENSIVE METABOLIC PANEL Lab Routine Nausea Expected: 11/09/2023 (Approximate), Expires: 11/08/2024 CBC WITH WBC DIFFERENTIAL Lab Routine Nausea Expected: 11/09/2023 (Approximate), Expires: 11/08/2024 LIPID PANEL WITH DIRECT LDL IF TG IS HIGH Lab Routine Mixed hyperlipidemia Expected: 11/09/2023, Expires: 11/08/2024 Scheduled Referrals Name Type Priority Associated Diagnoses Orde r Schedule ADULT/PEDS UROLOGY REFERRAL OP Referral Within 30 days (routine) Ureteritis Ordered: 11/09/2023 Health Maintenance Due Date Last Done Comments [...] as of this encounter Visit Diagnoses Diagnosis Nausea- Primary Nausea alone Acute gastritis without hemorrhage, unspecified gastritis type Ureteritis Other specified disorder of kidney and ureter Dizziness Dizziness and giddiness Gastroesophageal reflux disease without esophagitis Esophageal reflux Mixed hyperlipidemia PMB (postmenopausal bleeding) Postmenopausal bleeding Mass of joint of right shoulder Elevated blood pressure, situational Elevated blood pressure reading without diagnosis of hypertension documented in this encounter Care Teams Assistant Counsel Relationship Specialty Start Date End Date Jesús Gale MD 200 [facility] [place] [address] PCP - General Internal Medicine 12/03/20 documented as of this encounter
--- OUTSIDE RECORDS SUMMARY | 2024-03-16 06:45 | External Medical Summary | Summary of Care ---
Author Name Unknown Organization [facility] Address [address] [place] [address] Phone [phone] Care Team Providers Care Dipper Machine Operator Name Role Phone Jesús Gale MD Primary Care Provider + Reason for Referral * Evaluate & Treat - Unlimited Visits (Within 30 days (routine)) - Pending Review Specialty Diagnoses / Procedures Referred By Contac t Referred To Contact Neurology Diagnoses Nausea and vomiting, unspecified vomiting type Dizzinesses Hx of migraine headaches Dolores Shaver CRNP [address] [place] [address] [facility] Referral ID Status Reason Start Date Expiration Date Visits Requested Visits Authorized [id number] Pending Review Specialty Services Required 10/12/2023 [id number] Question Answer Referral Priority Within 30 days (routine) Where should this appointment be scheduled? [facility] Is this referral being placed for insurance purposes ONLY No, patient needs appointment [facility] NEUROLOGY REFERRAL QUESTIONS Headache Has the patient tried 1 abortive and 1 preventative medication? Yes Comments Frequent headaches; episodes of dizziness * Precert (Within 10 days (routine)) - Pending Review Specialty Diagnoses / Procedures Referred By Contac t Referred To Contact Radiology Diagnoses Nausea and vomiting, unspecified vomiting type Procedures NM GASTRIC EMPTYING STUDY SOLID Dolores Shaver CRNP [address] [place] [address] Referral ID Status Reason Start Date Expiration Date V isits Requested Visits Authorized [id number] Pending Review 10/19/[phone] Reason for Visit * Reason Comments NEW PATIENT Referred by Dr. Jose arechiga for Abdominal Pain, Nausea, Vomiting & dizziness. Was to [facility] ED 3 times. Pt reports a having a headache, dizziness and nausea. * Evaluate & Treat - Unlimited Visits (Within 30 days (routine)) - Pending Review Specialty Diagnoses / Procedures Referred By Contac t Referred To Contact Gastroenterology Diagnoses Abdominal pain, epigastric Nausea and vomiting, unspecified vomiting type Nikole Thibodeaux MD [address] [place] [address] Referral ID Status Reason Start Date Expiration Date Visits Requested Visits Authorized [id number] Pending Review Specialty Services Required 04/18/[phone] Encounter Details Date Type Department Care Team (Late st Contact Info) Description 10/12/2023 8:00 AM EDT Office Visit Gastroenterology, [facility] [address] [facility] [address] Dolores Shaver CR[facility] [address] [place] [address] Nausea and vomiting, unspecified vomiting type*; Dizzinesses; Hx of migraine headaches; Unintentional weight change Allergies Active Allergy Reactions Criticality Noted Date Comments Novocain 09/12/2013 Other Allergy (See Comments) Other (Please comment) 04/17/2015 Patient reports reaction to medication anal'gin; medication not available in [place]; medication caused increased pain Acetaminophen 08/10/2018 documented as of this encounter (statuses as of 10/12/2023) Medications Medication Sig Dispensed Refills Start Date End Date Status Pantoprazole Sodium 40 MG Oral Tablet Delayed Release (Protonix) Take 1 Tablet by mouth in the morning and 1 Tablet before bedtime. 09/14/2023 Active Mirtazapine 15 MG Oral Tablet (Remeron) Take 1 Tablet by mouth at bedtime. 30 Tablet 12 10/12/2023 Active Cyanocobalamin (VITAMIN B-12) 1000 MCG TabletIndication s:Low serum vitamin B12 Take 1 Tablet by mouth in the morning. 01/16/2019 10/12/19 24 Discontinued(Med ication List Clean Up) Meclizine HCl 25 MG Oral Tablet (Antivert)Indica tions:Migraine variant,Dizzines s Take 0.5 Tablets by mouth 3 times a day as needed for Dizziness. 30 Tablet 1 02/17/2023 10/12/19 24 Discontinued SUMAtriptan Succinate 25 MG Oral Tablet (Imitrex)Indicat ions:Migraine variant,Dizzines s Take 2 tablets at onset of migraine and one tablet every 2 hours as needed, not more than 5 tablets in 24 hours 6 Tablet 11 02/17/2023 10/12/19 24 Discontinued(Med ication List Clean Up) Omeprazole 20 MG Oral Capsule Delayed Release (PriLOSEC)Indica tions:Gastroesop hageal reflux disease without esophagitis TAKE 1 CAPSULE BY MOUTH ONCE DAILY 1 hour prior to first meal of the day and 2nd dose at bedtime 180 Capsule 2 04/18/2023 10/12/19 24 Discontinued(Med ication List Clean Up) Ondansetron HCl 4 MG Oral Tablet (Zofran)Indicati ons:Nausea and vomiting, unspecified vomiting type TAKE ONE TABLET BY MOUTH EVERY EIGHT HOURS NEEDED FOR NAUSEA 30 Tablet 1 06/29/2023 10/12/19 24 Discontinued(Med ication List Clean Up) documented as of this encounter (statuses as of 10/12/2023) Active Problems Problem Noted Date Diagnosed Date Mixed hyperlipidemia 04/10/2021 Gastroesophageal reflux disease without esophagi tis 10/03/2020 IBS (irritable bowel syndrome) 09/12/2013 documented as of this encounter (statuses as of 10/12/2023) Resolved Problems Problem Noted Date Diagnosed Date Resolved Date Mass on back 05/20/2017 10/27/2021 documented as of this encounter (statuses as of 10/12/2023) Social History Tobacco Use Types Packs/Day Years [...] Sign Reading Time Taken Comments Blood Pressure 135/63 10/12/2023 8:07 AM EDT Pulse 73 10/12/2023 8:07 AM EDT Temperature 36.7 C (98.1 F) 10/12/2023 8:07 AM ED T Respiratory Rate - - Oxygen Saturation - - Inhaled Oxygen Concentration - - Weight 53 kg (116 lb 12.8 oz) 10/12/2023 8:07 AM EDT Height 159 cm (5' 2.6") 10/12/2023 8:07 AM EDT Body Mass Index 20.96 10/12/2023 8:07 AM EDT documented in this encounter Progress Notes * Dolores Shaver CRNP - 10/12/2023 8:14 AM EDT Consult requested by REF: NIKOLE THIBODEAUX [place] [place] [address] (office) [phone] (fax) CC: Episodes of N/V HPI: 73 year old female pt of Jesús [...] just unable to eat. Gets upper abd pain with the N/V (under the ribs, both sides). In between these episodes, she has nausea - it is constant. If vomiting occurs, it is always beforeeating in the morning, occurs only once and consists of bile/liquids. After vomiting she "just knows that I can't eat the rest of the day." Has a hx of migraines, takes Imitrex, has had these for years, since young - gets the N/V with out headaches. Has chronic constipation, no pain with the constipation, passes a BM about every 2 days. Marijuana - no ne ETOH - none Meds tried: Meclizine: didn't work. Pantoprazole, Omeprazole, - tried a, took a few tablets, stopped. Does take ondansetron as needed for nausea but does not help. Has a very limited diet, mostly soup. Can not eat bread. Normally vomits every other day, if eats bread, vomits every day. Diagnostic Testing: Labs: August 2023 at [facility]: Hb 10.8, 11.6, Hct 33.9, WBC 3.44,MCV normalCMP w/o significant abnormalities EGD at [facility] August 2023: patchy mild gastric inflammation (non erosive gastritis) CTAP w IV April 2023: No acute intra-abdominal pathology Brain CT and MRI August 2023: no acute changes CTAP w IV August 2023 [facility]: 1. There is mild prominence and enhancement of the ureteral wall which can be seen in ureteritis. Correlation with urinalysis is recommended. 2. Diverticulosis without diverticulitis. 3. Small hiatal hernia. CTAP w IV Jan 2023 [facility]: No acute abnormalities to explain vomiting and abdominal pain. Colonoscopy in the [facility] about 30 yrs ago. ROS: GI, neurology + as per HPI, otherwise negative A total of 12 systems were reviewed, all others (-). ALLERGIES: Review of patient's allergies indicates: Allergen Reactions Novocain Other Allergy (See Comments) Other (Please comment) Patient reports reaction to medication anal'gin; medication not available in [place]; medication caused increased pain Tylenol [Acetaminophen] PMH/PSH/Soc Hx reviewed, significant for: Past Medical History: Diagnosis Date Gastroesophageal reflux disease without esophagitis 10/03/2020 IBS (irritable bowel syndrome) 09/12/2013 Mass on back 05/20/2017 Past Surgical History: Procedure Laterality Date ANESTH, CS DELIVERY 02/14/1982 CHOLECYSTOTOMY OR CHOLECYSTOSTOMY, OPEN 02/14/1985 COLONOSCOPY HEMORRHOID LIGATION, INTERNAL, 1 COLUMN UT DELIVERY ONLY REMOVAL OF APPENDIX UPPER GI ENDOSCOPY Social History Socioeconomic History Marital status: Tobacco [...] Food in the Last Year: Never true Social Connections Family history reviewed and significant for: Family History Problem Relation Name Age of Onset Stroke Mother Hypertension Father Current Outpatient Medications Medication Sig Dispense Refill Pantoprazole Sodium 40 MG Oral Tablet Delayed Release (Protonix) Take 1 Tablet by mouth in the morning and 1 Tablet before bedtime. Ondansetron HCl 4 MG Oral Tablet (Zofran) TAKE ONE TABLET BY MOUTH EVERY EIGHT HOURS NEEDED FOR NAUSEA (Patient not taking: Reported on 10/12/2023) 30 Tablet 1 Omeprazole 20 MG Oral Capsule Delayed Release (PriLOSEC) TAKE 1 CAPSULE BY MOUTH ONCE DAILY 1 hour prior to first meal of the day and 2nd dose at bedtime (Patient not taking: Reported on 10/12/2023) 180 Capsule 2 Meclizine HCl 25 MG Oral Tablet (Antivert) Take 0.5 Tablets by mouth 3 times a day as needed for Dizziness. (Patient not taking: Reported on 10/12/2023) 30 Tablet 1 SUMAtriptan Succinate 25 MG Oral Tablet (Imitrex) Take 2 tablets at onset of migraine and one tablet every 2 hours as needed, not more than 5 tablets in 24 hours (Patient not taking: Reported on 09/29/2023) 6 Tablet 11 Cyanocobalamin (VITAMIN B-12) 1000 MCG Tablet Take 1 Tablet by mouth in the morning. (Patient not taking: Reported on 10/12/2023) No current facility-administered medications for this visit. EXAM: BP 135/63 | Pulse 73 | Temp 36.7 C (98.1 F) | Ht 1.59 m (5' 2.6") | Wt 53 kg (116 lb 12.8 oz) |BMI 20.96 kg/m | BSA 1.53 m GENERAL: 73 year old female well developed and well nourished in no acute distress; tearful at times; especially when I asked her if she may be depressed; denies depression. Very thin. SKIN: no rashes, ulcers, or spider angiomata HEENT: normocephalic, sclera clear, pharynx normal NECK: supple, no lymphadenopathy, no masses or thyroid enlargement LUNGS: clear to auscultation anterior and posterior HEART: regular rate & rhythm, no murmurs and no gallops ABDOMEN: normo-active bowel sounds, soft, + diffusely tender, non-distended no masses, no hepatosplenomegaly, no rebound or guarding, no bruits EXTREMITIES: no palmar erythema, no edema, no skin discoloration, no clubbing, no cyanosis NEURO: no lateralizing findings, Sensory/Motor grossly normal IMPRESSION/RECOMMENDATIONS: 73 year old female with chronic episodic N/V that Doesn't believe she can endure a colonoscopy at this point. Willing to see neurology. Trial of mirtazapine to improve appetite. Nausea and vomiting, unspecified vomiting type (Primary) - NM GASTRIC EMPTYING STUDY SOLID; Future; Expected date: 10/19/2023 - ADULT NEUROLOGY REFERRAL OP Dizzinesses - ADULT NEUROLOGY REFERRAL OP Hx of migraine headaches - ADULT NEUROLOGY REFERRAL OP Unintentional weight loss - Mirtazapine 15 MG Oral Tablet (Remeron); Take 1 Tablet by mouth at bedtime. I spent a total of 60 minutes on the date of service in review of patient's record, and previously obtained information in person and appropriate medical visit, discussion and education of plan, withpatient and/or caregiver, placing orders for tests/referral/procedures as medically necessary and documentation of pertinent clinical information in patient's medical records for their visit today. MARCELLUS Jim[facility]nez [facility] Gastroenterology documented in this encounter Nursing Notes * Mariana Peterson LPN - 10/12/2023 7:48 AM EDT Chief Complaint Patient presents with NEW PATIENT Referred by Dr. Thibodeaux for Abdominal Pain, Nausea, Vomiting & dizziness. Was to [facility] ED 3 times. Pt reports a having a headache, dizziness and nausea. Yi Language Antonella- Juna ID- [id number] documented in this encounter Plan of Treatment Upcoming Encounters Date Type Department Care Team (Late st Contact Info) Description 11/09/2023 10:00 AM EDT Office Visit General Internal Medicine [facility] [place] [address] [facility] [place] [address] Jesús Gale MD [address] [facility] [place] [address] 12/07/2023 10:00 AM EDT Imaging [facility] 2nd Floor Cardiology, [address] [place] [address] 12/07/2023 11:30 AM EDT Imaging [facility] II 2nd Floor Cardiology, [address] [place] [address] 12/07/2023 12:30 PM EDT Imaging [facility] II 2nd Floor Cardiology, [address] [place] [address] 12/07/2023 2:30 PM EDT Imaging [facility] II 2nd Floor Cardiology, [address] [place] [address] 01/09/2024 10:00 AM EST Office Visit Neurology [address] [place] [phone] Nandini Nielson MD [address] [facility] [place] [address] 02/22/2024 9:00 AM EST Office Visit Gastroenterology, [facility] [address] [place] [address] Dolores Shaver CRNP [address] [place] [address] Scheduled Orders Name Type Priority Associated Diagnoses Orde r Schedule NM GASTRIC EMPTYING STUDY SOLID Medical Imaging Routine Nausea and vomiting, unspecified vomiting type Expected: 10/19/2023, Expires: 11/11/2024 Scheduled Referrals Name Type Priority Associated Diagnoses Orde r Schedule ADULT NEUROLOGY REFERRAL OP Referral Within 30 days (routine) Nausea and vomiting, unspecified vomiting type Dizzinesses Hx of migraine headaches Ordered: 10/12/2023 Health Maintenance Due Date Last Done Comments [...] Nausea and vomiting, unspecified vomiting type- Primary Dizzinesses Dizziness and giddiness Hx of migraine headaches Personal history of other disorders of nervous system and sense organs Unintentional weight change documented in this encounter Care Teams Dipper Machine Operator Relationship Specialty Start Date End Date Jesús Gale MD [address] [place], [place] [address] PCP - General Internal Medicine 12/03/20 documented as of this encounter
--- OUTSIDE RECORDS SUMMARY | 2024-03-16 06:45 | External Medical Summary | Summary of Care ---
Author Name Unknown Organization [facility] Address [address] [place] [address] Phone [phone] Care Team Providers Care Cottonseed Meat Presser Name Role Phone Jesús Gale MD Primary Care Provider + Encounter Details Date Type Department Care Team (Late st Contact Info) Description 10/16/2023 New Patient Triage (BUCKET TURNER USE ONLY) Neurology [address] [place] [phone] Karly Robertson PA-C [address] [place] [address] Allergies Active Allergy Reactions Criticality [...] as of this encounter Progress Notes * Charlette Aguilar OSA - 10/18/2023 5:22 PM EDT Pt will be contacted through automated system to confirm appt closer to appt time. * Karly Robertson PA-C - 10/16/2023 5:38 [...] of migraine headache Enter order ID here: [id number] Specialty specific documentation: Neuroscience: Neurology documented in this encounter Plan of Treatment Upcoming Encounters Date Type Department Care Team (Late st Contact Info) Description 10/25/2023 1:40 PM EDT Office Visit General Internal Medicine [facility] [address] [place] [address] Yamileth Schaefer PA-C [address] [place] [address] 11/09/2023 10:00 AM EDT Office Visit General Internal Medicine [facility] [address] [place] [address] Jesús Gale MD [address] [facility] [place] [address] 12/07/2023 10:00 AM EDT Imaging [facility] II 2nd Floor Cardiology, [address] [facility] [place] [address] 12/07/2023 11:30 AM EDT Imaging [facility] 2nd Floor Cardiology, [place] [address] [place] [address] 12/07/2023 12:30 PM EDT Imaging [facility] II 2nd Floor Cardiology, [place] [address] [place] [address] 12/07/2023 2:30 PM EDT Imaging [facility] [address] [facility] [phone] 01/09/2024 10:00 AM EST Office Visit Neurology [address] [place], [place] [phone] Nandini Nielson MD [address] [facility] [place] [address] 02/22/2024 9:00 AM EST Office Visit Gastroenterology, [facility] [address] [facility] [place] [address] Dolores Shaver CRNP [address] [place] [address] Health Maintenance Due Date Last Done Comments [...] filedocumented as of this encounter Care Teams Cottonseed Meat Presser Relationship Specialty Start Date End Date Jesús Gale MD [address] [place] [address] PCP - General Internal Medicine 12/03/20 documented as of this encounter
--- OUTSIDE RECORDS SUMMARY | 2024-03-16 06:46 | External Medical Summary | Summary of Care ---
Author Name Unknown Organization [facility] Address [address] [place] [address] Phone [phone] Care Team Providers Care Sales Agent Protective Service Name Role Phone Jesús Gael MD Primary Care Provider + Reason for Visit * Reason Onset Date Comments Forms Request 09/21/2023 Encounter Details Date Type Department Care Team (Late st Contact Info) Description 09/21/2023 Telephone General Internal Medicine [facility] [place] [address] [facility] [place] [address] Jesús Gale MD [address] [facility] [address] Forms Request Allergies Active Allergy Reactions Criticality Noted Date Comments Magnesium 09/12/2013 Novocain 09/12/2013 Other Allergy (See Comments) Other (Please comment) 04/17/2015 Patient reports reaction to medication anal'gin; medication not available in [place]; medication caused increased pain Acetaminophen 08/10/2018 documented as of this encounter (statuses as of 09/21/2023) Medications Medication Sig Dispensed Refills Start Date [...] as of this encounter (statuses as of 09/21/2023) Active Problems Problem Noted Date Diagnosed Date Mixed hyperlipidemia 04/10/2021 Gastroesophageal reflux disease without esophagi tis 10/03/2020 IBS (irritable bowel syndrome) 09/12/2013 documented as of this encounter (statuses as of 09/21/2023) Resolved Problems Problem Noted Date Diagnosed Date Resolved Date Mass on back 05/20/2017 10/27/2021 documented as of this encounter (statuses as of 09/21/2023) Social History Tobacco Use Types Packs/Day Years [...] Encounter - John Singer RN - 09/21/2023 5:02 PM EDT Completed and signed form for [place] [employer] Woven Blind Loom Tender faxed to them at withconfirmation. Form sent to scanning. documented in this encounter Plan of Treatment Upcoming Encounters Date Type Department Care Team (Late st Contact Info) Description 10/12/2023 8:00 AM EDT Office Visit Gastroenterology, [facility] [address] [facility] [place] [address] Dolores Shaver CRNP [address] [facility] [place] [address] 11/07/2023 11:00 AM EDT Office Visit General Internal Medicine [facility] [address] [facility] [place] [address] Jesús Gale MD [address] [facility] [place] [address] Health Maintenance Due Date Last Done Comments DXA Scan 1950 Hepatitis C Screening 1966 DTaP,Tdap,and Td Vaccines (1 - Tdap) 07/20/1967 Zoster Vaccines (1 of 2) 1998 Pneumococcal Vaccine: 65+ Ye ars (1 of 1 - PCV) 2013 Adult Wellness Visit 2014 COVID-19 Vaccine (2022-2 4 season) 2022 Influenza Vaccine (FLU shot) [...] filedocumented as of this encounter Care Teams Sales Agent Protective Service Relationship Specialty Start Date End Date Jesús Gale MD [address] [facility] [place] [address] PCP - General Internal Medicine 12/03/20 documented as of this encounter
[2024-03-16] MEDS: SODIUM CHLORIDE 0.9% 1,000 ML IV SCH (07:59)
[2024-03-16] MEDS: PANTOprazole 40 MG/10 ML SYR IV ONE (07:59)
--- NOTE | 2024-03-16 08:40 | History & Physical Report ---
Date of Service March 16, 2024 Assessment & Plan (1) Nausea & vomiting: (2) Diarrhea: (3) Irritable bowel syndrome (IBS): (4) Mixed hyperlipidemia: (5) GERD (gastroesophageal reflux disease): (6) Gastroenteritis due to norovirus: Plan -Admit to [facility] -Stool PCR + for Norovirus on admission, no known sick contacts, lives at home with -No obvious leukocytosis, Does have slight left shift -BUN and creatinine are slightly elevated compared to previous hospital stay numbers in September 2023, continue IV fluids x 1 more bag. Dc once allowed PO. -Monitor for any form of GI bleed - IV Protonix twice daily -Previous EGD from Sep 2023 reviewed personally showing diffuse nonbleeding enteritis - she has been on protonix 40 mg daily and remeron for nausea as outpt. Previously has followed with [facility]. -GI consultation - Dr. Moore for possible EGD before the weekend. She is NPO since 7p yesterday. -Antiemetics -Pain control ordered prn DVT ppx: teds, scds, ambulatory Lines: PIV x 1 FEN/GI: NPO for now for bowel rest CODE: Full code Dispo: From home, likely to remain in the hospital x 1-2 days A total of 75 minutes were spent with greater than 50% of that time face to face with the patient, personally reviewing all current laboratories, imaging studies, past medication reconciliation, outpatient chart review, and discussion with specialists to collaborate care for the patient with attending. Please see attending documentation for corrections and/or additions. History of Present Illness Chief Complaint: Abdominal pain, nausea, vomiting and diarrhea x 1 day Primary Care Provider: Jesús Gale MD This is a 73-year-old female with PMHx of IBS, GERD, HLD who is Prydeinig speaking, who presented to the ER for evaluation due to abdominal pain with intractable nausea/vomiting/pain which started yesterday. ER has recommended abdominal imaging however the patient has declined. Of note previous records indicate she has a history of diverticulosis. She underwent EGD in September 2023 which showed nonerosive gastritis, no ulcerations. Son is present with the patient at bedside and acts as a railroad car truck builder. He states that she has had issues with nausea vomiting over the past 1 year and that she has been prescribed pantoprazole and Remeron which seem to be overall helpful. She is status postcholecystectomy however whenever she has bouts of nausea and vomiting there is a large amount of bile which she throws up per the son. She also complains of having diarrhea 3 times yesterday, no blood. She has not eaten anything since yesterday at 7 PM. Patient also has a very specific diet due to her abdominal issues where she only eats like broth, salad, red beets. Stool PCR is pending, WBC 8.51, neutrophils of 7.21, BUN is slightly elevated at 27.9. Creatinine 1.06 compared to a baseline of 0.7 previously, urine appears clean. Allergies Allergy/AdvReac Type Severity Reaction Status Date / Time levofloxacin AdvReac Severe increased Verified 09/12/23 16:00 pain magnesium AdvReac Severe fainting Verified 09/12/23 16:00 NSAIDS (Non-Steroidal AdvReac Severe losses Verified 09/12/23 16:00 Anti-Inflamma consciousness procaine [From Novocain] AdvReac Severe Dizziness Verified 09/12/23 16:00 acetaminophen [From Tylenol] AdvReac Unknown PER PT'S Verified 09/12/23 22:13 SON, "WILL NOT TAKE". ANALGEN AdvReac Severe increased Uncoded 09/12/23 16:00 pain Home Medications Medication Instructions Recorded Confirmed Type ondansetron 4 mg disintegrating 4 mg PO Q8H PRN nausea and 02/02/23 03/16/24 Rx tablet vomiting #20 tabs meclizine 25 mg tablet 12.5 mg PO TID PRN Dizziness Or 09/12/23 03/16/24 History Vertigo sumatriptan succinate 25 mg tablet 50 mg PO Q2H PRN Migraine Headache 09/12/23 03/16/24 History mirtazapine 15 mg tablet 15 mg PO UD 03/16/24 03/16/24 History pantoprazole 40 mg tablet,delayed 40 mg PO UD 03/16/24 03/16/24 History release (Protonix) Past Med/Surg History Problem List (Updated 03/16/24 @ 10:31 by Reina Gonzales PA-C) Gastroenteritis due to norovirus Diarrhea (Acute) Nausea & vomiting (Acute) Ureteritis Lightheadedness Intractable nausea and vomiting Abdominal pain (Acute) Dizziness (Acute) Vomiting (Acute) Contact dermatitis (Acute) Medical History Irritable bowel syndrome (IBS) Mixed hyperlipidemia GERD (gastroesophageal reflux disease) Ambulatory dysfunction Social History Smoking Status: Never smoker Second Hand Exposure: No; Do You Dip or Chew Tobacco: No; Hx Alcohol Use: No Hx Substance Use: No Preferred Language: Ukranian Communication Ability: Ukranian Communication Ability Comment: Pt's son is her main railroad car truck builder Communication Tools: IPad Designer Writer Required: Yes Beliefs That Will Affect Care: None Current Living Situation: Spouse Current Living Situation Comment: son staying with her at her apartment. Other Information That Helps Us Care for You: No Feels Safe at Home: Yes Safety Concerns: Feels Safe At This Time Assistive Devices: Glasses Review of Systems Review of Systems: Constitutional: No fever, sweats or chills, no lightheadedness or dizziness Eyes: No diplopia, no worsening or blurred vision ENT: normal hearing, no trouble swallowing Respiratory: No cough, sputum, dyspnea at rest or on exertion Cardiovascular: No chest pain, tightness or palpitations Abdomen: Currently rates epigastric abdominal pain 3/4, + nausea, vomiting, diarrhea as per HPI Musculoskeletal: No joint pain, calf pain, swelling Neurologic: No weakness, numbness/tingling, or balance problems Psychiatric: No anxiety or depression Skin: No rash or itch Physical Exam Physical Exam: General: awake, alert, no apparent distress, Prydeinig speaking female Head: Normocephalic, atraumatic ENT: PERRL, EOMI, no pharyngeal exudate, mucous membranes moist Chest: Clear to auscultation, on room air, no adventitious breath sounds Cardiac: Regular rate and rhythm, no murmur, no JVD, normal peripheral pulses, good capillary refill Abdominal: NABS x 4 quadrants, soft, nondistended, + epigastric tender to palpation, no rebound or guarding Extremities: Normal inspection, no peripheral edema or erythema, calfs nontender to palpation Psych: Normal mood and affect Neuro: AAO x 3, strength intact bilaterally and rated 5/5, no motor deficits, speech is clear, no peripheral sensory deficits Results & Data Results & Data Vital Signs (Past 12 Hours) Vital Signs Temp Pulse Pulse Resp BP BP Pulse Ox 03/16/24 08:03 79 03/16/24 07:00 98 H 20 131/79 98 03/16/24 05:00 105 H 20 133/75 98 03/16/24 04:25 74 03/16/24 03:30 78 20 131/70 03/16/24 01:28 36.5 C 83 27 H 147/79 H 97 O2 Del Method 03/16/24 08:03 03/16/24 07:00 Room Air 03/16/24 05:00 Room Air 03/16/24 04:25 03/16/24 03:30 Room Air 03/16/24 01:28 Room Air Laboratory Results 03/16/24 03/16/24 05:50 01:36 WBC 8.51 RBC 4.27 Hgb 12.6 Hct 37.1 MCV 86.9 MCH 29.5 MCHC 34.0 RDW Std Deviation 40.0 RDW Coeff of Zahira 12.6 Plt Count 162 MPV 12.0 Immature Gran % (Auto) 0.2 Neut % (Auto) 84.8 Lymph % (Auto) 10.5 [place] % (Auto) 3.6 Eos % (Auto) 0.7 Baso % (Auto) 0.2 Neut # (Auto) 7.21 H Lymph # (Auto) 0.89 L [place] # (Auto) 0.31 Eos # (Auto) 0.06 Baso # (Auto) 0.02 Immature Gran # (Auto) 0.02 Sodium 140 Potassium 3.6 Chloride 106 Carbon Dioxide 26 Anion Gap 8 BUN 29 H Creatinine 1.06 Est Cr Clr Drug Dosing 41.2 eGFR 54.78 BUN/Creatinine Ratio 27.4 H Glucose 120 H Calcium 9.2 Magnesium 1.9 Total Bilirubin 0.3 AST 29 ALT 17 Alkaline Phosphatase 56 Total Protein 7.7 Albumin 4.5 Globulin 3.2 Albumin/Globulin Ratio 1.4 Lipase 44 Urine Color Yellow Urine Appearance Clear Urine pH 5.0 Ur Specific [place] 1.019 Urine Protein Negative Urine Glucose (UA) Negative Urine Ketones Negative Urine Blood Negative Urine Nitrite Negative Urine Bilirubin Negative Urine Urobilinogen Negative Ur Leukocyte Esterase Negative Code Status & VTE Plan Code Status Full code-discussed with the patient and her son at bedside Supervising Physician Co-Signing Physician Notes 73-year-old lady was seen and examined at bedside for nausea/vomiting/abdo priya pain/diarrhea that started since last evening. She does have a history of IBS. Labs are fairly WNL. Stool PCR came back positive for norovirus. Patient declined imaging To the ER physician and to myself. Patient noted to have norovirus related gastroenteritis. Monitor replete electrolytes, continue IV fluid, continue oral electrolyte solution, clear liquid diet. On exam: GENERAL: Alert and oriented x3. NAD, on RA. HEENT: No pallor, no icterus. Pupils equal, round and reactive to light. Oral mucosa moist. NECK: No JVD, no neck masses. HEART: S1 and S2 heard. Regular rate and rhythm. No murmur, no gallop. RESPIRATORY SYSTEM: Normal AP diameter. No accessory muscle use. No wheezing, no crackles. ABDOMEN: Soft, bowel sounds present, diffuse tender x mild, no distention. no rebound tender. CENTRAL NERVOUS SYSTEM: No facial droop. Speech is clear. Obeys simple commands. Moves extremities. EXTREMITIES: No edema, no erythema seen. I have seen and examined the patient and have discussed the case with the provider above. I agree with the assessment and plan as stated. Time spent: 20 min
[2024-03-16 09:20] LABS: Adenovirus F 40/41 PCR Not Detected (NotDetected); Astrovirus PCR Not Detected (NotDetected); Campylobacter PCR Not Detected (NotDetected); Cryptosporidium PCR Not Detected (NotDetected); Cyclospora cayetanensis PCR Not Detected (NotDetected); Entamoeba histolytica PCR Not Detected (NotDetected); Enteroaggregative E.coli(EAEC) Not Detected (NotDetected); Enteropathogenic E.coli (EPEC) Not Detected (NotDetected); Enterotoxigenic E.coli (ETEC) Not Detected (NotDetected); Giardia lamblia PCR Not Detected (NotDetected); Plesiomonas shigelloides PCR Not Detected (NotDetected); Rotavirus A PCR Not Detected (NotDetected); Salmonella PCR Not Detected (NotDetected); Sapovirus PCR Not Detected (NotDetected); Shiga-like Toxin E.coli (STEC) Not Detected (NotDetected); Shigella/Enteroinvasive E.coli Not Detected (NotDetected); Vibrio cholerae PCR Not Detected (NotDetected); Vibrio species PCR Not Detected (NotDetected); Yersinia enterocolitica PCR Not Detected (NotDetected)
[2024-03-16 09:24] LABS: Norovirus GI/GII PCR DETECTED (NotDetected)
[2024-03-16] MEDS ORDERED: MoRPHine SULFATE 2 MG/ML CARP IV PRN (10:19)
[2024-03-16] MEDS ORDERED: ONDANSETRON INJ 2 MG/ML 2 ML VIAL IV PRN (11:56)
[2024-03-16] MEDS ORDERED: ACETAMINOPHEN 325 MG TAB PO PRN (11:56)
--- NOTE | 2024-03-16 12:34 | Gastrointestinal Consultation ---
Date of Consultation March 16, 2024 Assessment & Plan (1) Gastroenteritis due to norovirus: 73 year old female w/ history of CCY, IBS, GERD, HLD who is Bel[place]an speaking, who presented to the ER for evaluation due to abdominal pain with intractable nausea/vomiting/pain which started yesterday - testing revealed norovirus. GI was asked to evaluate for endoscopy. There is no current indication for endoscopic evaluation - bilious emesis and stools Continue supportive measures IV fluids for fluid replacement Antiemetics PRN Analgesia PRN Once nausea/vomiting improve - advance diet as tolerated Continue follow up as outpatient w/ [facility] Will sign off. I spent a total of 60 minutes on the date of service in review of patient's record, and previously obtained information in person and appropriate medical visit, discussion and education of plan, with patient and/or caregiver, placing orders for tests/referral/procedures as medically necessary and documentation of pertinent clinical information in patient's medical records for their visit today. Thank you for allowing us to participate in the care of this patient. Please call with any acute changes, questions or concerns. Please see addendum below with additional recommendation from my supervising physician. Supervising Physician Co-Signing Physician Notes I personally saw and examined the patient. I have reviewed the chart and agree with the documentation provided by the WARE CLEANER including discussion about the assessment, treatment and plan. Briefly, 73 year old female w/ history of CCY, IBS, GERD, HLD who is Bel[place]an speaking, who presented to the ER for evaluation due to abdominal pain with intractable nausea/vomiting/pain which started yesterday - testing revealed norovirus. GI was asked to evaluate for endoscopy. EGD with gastritis in 2023. Her nausea is already better. I suspect this is all due to her enterocolitis from norovirus. The biggest issue is she should start a clear liquid diet either tonight or tomorrow but she will not need any food from the hospital. I have told her son to make her traditional soup from [place] and bring it to the hospital tomorrow morning. Supportive care at this point. Zofran as needed nausea. No role for endoluminal evaluation. GI will sign off. History of Present Illness Reason for Consultation: Possible EGD Requesting Physician: Brie Jenkins MD Attending Physician: Brie Jenkins MD History of Present Illness 73 year old female w/ history of CCY, IBS, GERD, HLD who is Bel[place]an speaking, who presented to the ER for evaluation due to abdominal pain with intractable nausea/vomiting/pain which started yesterday - testing revealed norovirus. GI was asked to evaluate for a possible EGD. Pt was seen and evaluated, chart reviewed. Family at bedside who were not agreeable to translation service. Notes symptoms started yesterday - bilious emesis and sotols. No black or bloody stools. Generalized abd pain. No fever, chills, CP, SOB. Of note she has chronic nausea/vomiting. Recently evaluated by [facility] Adrian for this and family notes whatever was prescribed has greatly helped her symptoms. Stool PCR positive for norovirus EGD 2023: The examined esophagus was normal. - Patchy mild inflammation characterized by congestion (edema) was found in the gastric antrum. Biopsies were taken with a cold forceps for his tology. - The examined duodenum was normal. Allergies Allergy/AdvReac Type Severity Reaction Status Date / Time levofloxacin AdvReac Severe increased Verified 09/12/23 16:00 pain magnesium AdvReac Severe fainting Verified 09/12/23 16:00 NSAIDS (Non-Steroidal AdvReac Severe losses Verified 09/12/23 16:00 Anti-Inflamma consciousness procaine [From Novocain] AdvReac Severe Dizziness Verified 09/12/23 16:00 acetaminophen [From Tylenol] AdvReac Unknown PER PT'S Verified 09/12/23 22:13 SON, "WILL NOT TAKE". ANALGEN AdvReac Severe increased Uncoded 09/12/23 16:00 pain Home Medications Medication Instructions Recorded Confirmed Type ondansetron 4 mg disintegrating 4 mg PO Q8H PRN nausea and 02/02/23 03/16/24 Rx tablet vomiting #20 tabs meclizine 25 mg tablet 12.5 mg PO TID PRN Dizziness Or 09/12/23 03/16/24 History Vertigo sumatriptan succinate 25 mg tablet 50 mg PO Q2H PRN Migraine Headache 09/12/23 03/16/24 History mirtazapine 15 mg tablet 15 mg PO UD 03/16/24 03/16/24 History pantoprazole 40 mg tablet,delayed 40 mg PO UD 03/16/24 03/16/24 History release (Protonix) Patient History Medical History Irritable bowel syndrome (IBS) Mixed hyperlipidemia GERD (gastroesophageal reflux disease) Ambulatory dysfunction Social History Smoking Status: Never smoker Second Hand Exposure: No; Do You Dip or Chew Tobacco: No; Hx Alcohol Use: No Hx Substance Use: No Preferred Language: Ukranian Communication Ability: Ukranian Communication Ability Comment: Pt's son is her main box maker paperboard Communication Tools: IPad Internal Medicine Physician Required: Yes Beliefs That Will Affect Care: None Current Living Situation: Spouse Current Living Situation Comment: son staying with her at her apartment. Other Information That Helps Us Care for You: No Feels Safe at Home: Yes Safety Concerns: Feels Safe At This Time Assistive Devices: Glasses Review of Systems Review of Systems: All other findings negative except as noted in HPI. Physical Exam Constitutional: WD/WN, vitals as above Respiratory: normal respiratory effort, lungs clear to auscultation Cardiovascular: Rate/Rhythm: regular rate Gastrointestinal (Abdomen): Inspection/Auscultation: normal bowel sounds Percussion/Palpation: + abdomen tender and abdomen soft; no guarding and abdomen not rigid Skin: no rashes, warm and dry Results & Data Vital Signs (Past 12 Hours) Vital Signs Temp Pulse Pulse Resp BP BP Pulse Ox 03/16/24 11:14 82 20 117/64 98 03/16/24 10:00 78 26 H 133/70 98 03/16/24 09:00 77 20 135/78 97 03/16/24 08:03 79 03/16/24 08:00 79 15 137/78 98 03/16/24 07:00 98 H 20 131/79 98 03/16/24 05:00 105 H 20 133/75 98 03/16/24 04:25 74 03/16/24 03:30 78 20 131/70 03/16/24 01:28 97.7 F 83 27 H 147/79 H 97 O2 Del Method 03/16/24 11:14 Room Air 03/16/24 10:00 03/16/24 09:00 03/16/24 08:03 03/16/24 08:00 03/16/24 07:00 Room Air 03/16/24 05:00 Room Air 03/16/24 04:25 03/16/24 03:30 Room Air 03/16/24 01:28 Room Air Laboratory Results 03/16/24 03/16/24 03/16/24 Range/Units 07:50 05:50 01:36 WBC 8.51 (4.8-10.8) K/ul RBC 4.27 (4.20-5.40) M/uL Hgb 12.6 (12.0-16.0) g/dl Hct 37.1 (37.0-47.0) % MCV 86.9 (80.0-100.0) fL MCH 29.5 (25.0-34.0) pg MCHC 34.0 (32.0-36.0) g/dL RDW Std Deviation 40.0 (36.4-46.3) fL RDW Coeff of Zahira 12.6 (11.5-14.5) % Plt Count 162 (130-400) K/uL MPV 12.0 (9.4-12.4) fL Immature Gran % (Auto) 0.2 % Neut % (Auto) 84.8 % Lymph % (Auto) 10.5 % [place] % (Auto) 3.6 % Eos % (Auto) 0.7 % Baso % (Auto) 0.2 % Neut # (Auto) 7.21 H (1.40-6.50) K/uL Lymph # (Auto) 0.89 L (1.20-3.40) K/uL [place] # (Auto) 0.31 (0.11-0.59) K/uL Eos # (Auto) 0.06 (0.00-0.50) K/uL Baso # (Auto) 0.02 (0.00-0.20) K/uL Immature Gran # (Auto) 0.02 (0.01-0.20) K/uL Sodium 140 (136-145) mmol/L Potassium 3.6 (3.5-5.1) mmol/L Chloride 106 (98-107) mmol/L Carbon Dioxide 26 (21-32) mmol/L Anion Gap 8 (3-11) BUN 29 H (6-23) mg/dl Creatinine 1.06 (0.6-1.2) mg/dl Est Cr Clr Drug Dosing 41.2 ml/min eGFR 54.78 BUN/Creatinine Ratio 27.4 H (10-20) Glucose 120 H (70-99(Fasting)) mg/dl Calcium 9.2 (8.6-10.3) mg/dl Magnesium 1.9 (1.7-2.4) mg/dl Total Bilirubin 0.3 (0.2-1.0) mg/dl AST 29 (13-39) U/L ALT 17 (7-52) U/L Alkaline Phosphatase 56 (34-104) U/L Total Protein 7.7 (6.0-8.3) gm/dl Albumin 4.5 (3.4-5.0) gm/dl Globulin 3.2 (2.5-4.0) gm/dl Albumin/Globulin Ratio 1.4 (0.9-2) Lipase 44 (11-82) U/L Urine Color Yellow Urine Appearance Clear (Clear) Urine pH 5.0 (4.5-7.5) Ur Specific [place] 1.019 (1.000-1.030) Urine Protein Negative (Negative) Urine Glucose (UA) Negative (Negative) Urine Ketones Negative (Negative) Urine Blood Negative (Negative) Urine Nitrite Negative (Negative) Urine Bilirubin Negative (Negative) Urine Urobilinogen Negative (Negative) Ur Leukocyte Esterase Negative (Negative) Stl C. cayetanensis PCR Not Detected (NotDetected) Stool Rotavirus A PCR Not Detected (NotDetected) Stl Adenov F 40/41 PCR Not Detected (NotDetected) Stool Astrovirus (PCR) Not Detected (NotDetected) Stool Campylobacter PCR Not Detected (NotDetected) Stool Cryptosporidium PCR Not Detected (NotDetected) Stl E.coli Shiga Tox PCR Not Detected (NotDetected) Stl Enterotoxigenic E PCR Not Detected (NotDetected) Stool EPEC (PCR) Not Detected (NotDetected) Stool EAEC (PCR) Not Detected (NotDetected) Stl E. histolytica PCR Not Detected (NotDetected) Stool Giardia Lamblia PCR Not Detected (NotDetected) Stool Salmonella PCR Not Detected (NotDetected) Stool Sapovirus (PCR) Not Detected (NotDetected) Stl P. shigelloides PCR Not Detected (NotDetected) Stl Shigella/EIEC PCR Not Detected (NotDetected) St Y.enterocolitica PCR Not Detected (NotDetected) Stool Vibrio (PCR) Not Detected (NotDetected) Stl Vibrio cholerae PCR Not Detected (NotDetected) Stl Norovirus GI/GII PCR DETECTED A* (NotDetected) PG Care Time/CCT Total # of Minutes Spent Total Time Spent with Patient: Total time spent is greater than 50% in coordination of care (as documented) at patient's floor/unit and/or counseling patient: Coding Level of Care Code 20152 INT INP/OBS CARE 2MIN Diagnoses Gastroenteritis due to norovirus A08.11
--- NOTE | 2024-03-16 14:34 | Electrocardiogram Report ---
Test Reason : Blood Pressure : */* mmHG Vent. Rate : 76 BPM Atrial Rate : 76 BPM P-R Int : 166 ms QRS Dur : 106 ms QT Int : 420 ms P-R-T Axes : 64 -41 45 degrees QTcB Int : 472 ms Normal sinus rhythm Left axis deviation Incomplete right bundle branch block Abnormal ECG When compared with ECG of 12-Sep-2023 13:42, No significant change was found Confirmed by Dennis Ireland ([id number]) on 03/16/2024 2:34:13 PM Referred By: REFERRED SELF Confirmed By: Dennis Ireland
[2024-03-16] MEDS: PANTOprazole 40 MG/10 ML SYR IV SCH (20:41)
[2024-03-16] MEDS: MIRTAZAPINE TAB 15 MG TAB PO SCH (20:46)
[2024-03-16 23:12] VITALS: O2SAT 95
[2024-03-17 07:16] LABS: BUN Creatinine Ratio 21.1 (10-20); Calcium 7.7 mg/dl (8.6-10.3); Creatinine Clr Calc Pharmacy 50.6 ml/min; Magnesium 1.8 mg/dl (1.7-2.4); Phosphorus 2.6 mg/dl (2.5-4.9); Potassium 3.6 mmol/L (3.5-5.1)
[2024-03-17 08:10] VITALS: BP 120/67; PULSE 61; RESP 16; TEMP 97.5
[2024-03-17 09:29] LABS: Hematocrit (blood only) 29.2 % (37.0-47.0); Hemoglobin 9.9 g/dl (12.0-16.0); Mean Corpuscular Hemoglobin 29.5 pg (25.0-34.0); Mean Corpuscular Hgb Conc 33.9 g/dL (32.0-36.0); Mean Corpuscular Volume 86.9 fL (80.0-100.0); Mean Platelet Volume 11.7 fL (9.4-12.4); Platelet Count 104 K/uL (130-400); RDW Coefficient of Variation 12.7 % (11.5-14.5); RDW Standard Deviation 40.2 fL (36.4-46.3); Red Blood Count 3.36 M/uL (4.20-5.40); White Blood Count 1.79 K/ul (4.8-10.8)
--- NOTE | 2024-03-17 12:15 | Discharge Summary ---
Date of Service March 17, 2024 Admission HPI Per Admitting Provider This is a 73-year-old female with PMHx of IBS, GERD, HLD who is Fijian speaking, who presented to the ER for evaluation due to abdominal pain with intractable nausea/vomiting/pain which started yesterday. ER has recommended abdominal imaging however the patient has declined. Of note previous records indicate she has a history of diverticulosis. She underwent EGD in September 2023 which showed nonerosive gastritis, no ulcerations. Son is present with the patient at bedside and acts as a manager life. He states that she has had issues with nausea vomiting over the past 1 year and that she has been prescribed p antoprazole and Remeron which seem to be overall helpful. She is status postcholecystectomy however whenever she has bouts of nausea and vomiting there is a large amount of bile which she throws up per the son. She also complains of having diarrhea 3 times yesterday, no blood. She has not eaten anything since yesterday at 7 PM. Patient also has a very specific diet due to her abdominal issues where she only eats like broth, salad, red beets. Stool PCR is pending, WBC 8.51, neutrophils of 7.21, BUN is slightly elevated at 27.9. Creatinine 1.06 compared to a baseline of 0.7 previously, urine appears clean. Admission Exam Per Admitting Provider General: awake, alert, no apparent distress, Fijian speaking female Head: Normocephalic, atraumatic ENT: PERRL, EOMI, no pharyngeal exudate, mucous membranes moist Chest: Clear to auscultation, on room air, no adventitious breath sounds Cardiac: Regular rate and rhythm, no murmur, no JVD, normal peripheral pulses, good capillary refill Abdominal: NABS x 4 quadrants, soft, nondistended, + epigastric tender to palpation, no rebound or guarding Extremities: Normal inspection, no peripheral edema or erythema, calfs nontender to palpation Psych: Normal mood and affect Neuro: AAO x 3, strength intact bilaterally and rated 5/5, no motor deficits, speech is clear, no peripheral sensory deficits Principal Diagnosis Norovirus gastroenteritis Discharge Exam GENERAL: Alert and oriented x3. NAD, on RA. HEENT: No pallor, no icterus. Pupils equal, round and reactive to light. Oral mucosa moist. NECK: No JVD, no neck masses. HEART: S1 and S2 heard. Regular rate and rhythm. No murmur, no gallop. RESPIRATORY SYSTEM: Normal AP diameter. No accessory muscle use. No wheezing, no crackles. ABDOMEN: Soft, bowel sounds present, non tender, no distention. CENTRAL NERVOUS SYSTEM: No facial droop. Speech is clear. Obeys simple commands. Moves extremities. EXTREMITIES: No edema, no erythema seen. Discharge Data Allergies Allergy/AdvReac Type Severity Reaction Status Date / Time levofloxacin AdvReac Severe increased Verified 09/12/23 16:00 pain magnesium AdvReac Severe fainting Verified 09/12/23 16:00 NSAIDS (Non-Steroidal AdvReac Severe losses Verified 09/12/23 16:00 Anti-Inflamma consciousness procaine [From Novocain] AdvReac Severe Dizziness Verified 09/12/23 16:00 acetaminophen [From Tylenol] AdvReac Unknown PER PT'S Verified 09/12/23 22:13 SON, "WILL NOT TAKE". ANALGEN AdvReac Severe increased Uncoded 09/12/23 16:00 pain Consultations 03/16/24 08:00 ED Decision to Admit Stat 03/16/24 10:17 Consult Gastroenterology Routine Hospital Course (1) Nausea & vomiting: (2) Diarrhea: (3) Irritable bowel syndrome (IBS): (4) Mixed hyperlipidemia: (5) GERD (gastroesophageal reflux disease): (6) Gastroenteritis due to norovirus: Plan 73-year-old lady was managed for norovirus related gastroenteritis. Today her nausea, vomiting, abdominal pain has resolved. Today her diarrhea has resolved. Her electrolytes are WNL. patient is tolerating her baseline diet, patient does not eat from the hospital, her son is bringing food for her from home. Her CBC shows slight leukopenia more so than her baseline leukopenia likely in the setting of acute viral illness, she will need to follow-up with PCP and will need to repeat CBC in 1 week time. They have been explained such at bedside [patient and her son]. Patient is hemodynamically stable and would like to go home. She is being discharged with following instructions at the point of discharge: Follow-up with your primary care physician within a week time and likely you will need labs CBC/CMP/magnesium/phosphorus. Take your medications as prescribed. Please make sure that you are able to get your medications today by calling your pharmacy before you leave the hospital so that your treatment continuity is not broken. Home Health Attestation I certify that this patient is under my care and that I, or a physicians wardrobe assistant working with me, had a face to-face encounter that meets the home health [id number] encounter requirements with this patient. The encounter with the patient was in whole, or in part, for the following medical condition, which is the primary reason for home health care (list medical condition): I certify that, based on my findings, the following services are medically necessary home health services: My clinical findings support the need for the above services because: Further, I certify that my clinical findings support that this patient is homebound (i.e. absences from home require considerable and taxing effort and are for medical reasons or druze services or infrequently or of short duration when for other reasons) because: Certification for Home Health Services: Based on the above findings, I certify that this patient is confined to the home and needs intermittent [facility] care, physical therapy and/or speech therapy or continues to need occupational therapy. The patient is under my care, and I have initiated the establishment of the plan of care. This patient will be followed by a physician who will periodically review the plan of care. Total Time Total Time Spent Total Time Spent (In Minutes): 35 Discharge Plan Discharge Items Patient Disposition: Home - Self-Care Reason For Visit: GASTROENTERITIS Discharge Diagnosis: Norovirus gastroenteritis Activity: Resume your previous activity Non-emergency contact: Primary Care Provider Call non-emergency contact if: you have any medication questions and your symptoms worsen Follow-up/Referrals: Jesús Gale MD [Primary Care Provider] - Diet: Regular Addtl Attending Provider Instructions: Follow-up with your primary care physician within a week time and likely you will need labs CBC/CMP/magnesium/phosphorus. Take your medications as prescribed. Please make sure that you are able to get your medications today by calling your pharmacy before you leave the hospital so that your treatment continuity is not broken. Pending Studies at Discharge: No Stand-Alone Forms: [facility], Smoking Cessation Medications and DC Order Prescriptions: Continued ondansetron 4 mg tablet,disintegrating 4 mg PO Q8H PRN (Reason: nausea and vomiting) Qty: 20 0RF Rx Instructions: No fill history available PER PT'S SON "DOES NOT HELP". sumatriptan succinate 25 mg tablet 50 mg PO Q2H PRN (Reason: Migraine Headache) Rx Instructions: No fill history available Take 2 tablets at onset of migraine and one tablet every 2 hours as needed, not more than 5 tablets in 24 hours. meclizine 25 mg tablet 12.5 mg PO TID PRN (Reason: Dizziness Or Vertigo) Rx Instructions: No fill history/OTC unable to verify Take 0.5 Tablets by mouth 3 times a day as needed for dizziness. mirtazapine 15 mg tablet 15 mg PO UD Rx Instructions: 15 mg po daily. filled 03/12/24 30 day supply pantoprazole [Protonix] 40 mg tablet,delayed release (DR/EC) 40 mg PO UD Rx Instructions: original: 40 mg po bid. filled 02/25/24 30 day supply #30 Discharge Orders: Discharge Order (Routine); Ordered 03/17/24 Ordered By: Brie Jenkins Admission Data Admit Date/Time: 03/16/24 09:43 Attending Provider: Brie Jenkins Admit Provider: Brie Jenkins Primary Care Provider: Jesús Gale Other Providers: Kalen Moore; Brie Jenkins
[2024-03-18] MEDS ORDERED: PANTOprazole 40 MG TAB PO SCH (09:00)
== END 2024-03-17 13:18 | disposition home or self-care (01) | DRG 392 ==
LOC: ED 01:23 → INTOOBSV 09:43 → 3E 09:43

== ENCOUNTER 2024-06-06 10:32 | Observation (INO) ==
--- NOTE | 2024-06-06 10:42 | Emergency Department Note ---
Impression & Plan Nausea & vomiting, Abdominal pain, Weakness, Vertigo, Headache ED Provider Note NAME: TRISTAN COLLINS AGE: 73 SEX: F : 1950 ARRIVES VIA: Ambulance INFORMANT: Patient, son ED PROVIDER(S): Joni Gibbons MD CHIEF COMPLAINT: Vertigo, nausea vomiting, headache and ear pain MEDICAL DECISION MAKING: Patient does present with multiple complaints. Unclear as to whether or not there is just 1 causing the rest or she could have multiple causes. Right EAC with cerumen impaction left TM is clear. The patient does not have any focal logic deficits she does have some left upper quadrant discomfort. The patient was ordered IV fluids IV Zofran as well as IM Bentyl as reportedly an injectable was helped in the past. Does have a history of IBS. Patient was ordered CT head CT angiography's of the head and neck as well as abdomen and pelvis. Patient still having some symptoms the patient was ordered additional IV fluids. The patient was ordered additional antiemetics. Patient CTs are unremarkable. Patient was reassessed several times Wesley medications given patient still with weakness and abdominal pain I did speak to the on-call hospital service MARCELLUS Pinto and the patient was admitted by Dr. Parks. Discussion w/ other healthcare providers: MARCELLUS Pinto and Dr. Parks inpatient medicine service Prior /Outside records reviewed: I reviewed part of a discharge summary from Dr. Jenkins from March 17, 2024. Known history of IBS GERD hyperlipidemia Hebrew speaking primarily who present with nausea vomiting and pain. Patient also with prior history of nonerosive gastritis noted ulcerations from EGD completed September 2023. Patient diagnosed with norovirus related gastroenteritis at the time. Differential diagnosis: Benign positional vertigo, dehydration, hypovolemia, anemia, infection, hypoglycemia, electrolyte abnormalities, arrhythmia, tox among others were considered. Diagnostics, as interpreted by me: ECG: Normal sinus rhythm, rate of 61, normal intervals, left axis deviation T wave version in V2. No obvious STEMI. Cardiac monitoring: An order was placed for continuous cardiac monitoring. The monitor shows a rate of 62 with sinus rhythm. Patient was placed on pulse oximetry Medical decision rules: None Imaging studies: I informally interpreted the patient's CT head does not show obvious ICH with formal report to follow. HPI: Patient presents due to concern for vertigo. Reportedly began last evening. The son reports that whenever she has the vertigo she will have higher blood pressure but does not take any blood pressure medication. He also reports that she has been having some nausea and vomiting. No falls or trauma. She does have some left upper quadrant pain as well as some frontal headache. She is Hebrew speaking and he is providing interpretation services which she is comfortable with doing so visit was offered formal interpretive services but declined at this time. He reports that she has had vertigo in the past. Patient has been having this dizziness with the vertigo. This last happened maybe in December. PAST MEDICAL HISTORY: See Below PAST SURGICAL HISTORY: See Below SOCIAL HISTORY: See Below HOME MEDICATIONS: See Below ALLERGIES: See Below VITALS: See Below PHYSICAL EXAMINATION: GENERAL: NAD, non-toxic. Wearing a moist towel on forehead. EYE EXAM: Normal conjunctiva. PERRL, no anisocoria and EOM's grossly intact w/o pain. Ears: Right EAC with cerumen impaction, left TM is clear with good light reflex. OROPHARYNX: Moist mucus membranes, grossly normal dentition. NECK: Trachea midline, no stridor. Supple, no nuchal rigidity, no adenopathy, non-tender. No signs of meningismus. FROM of the neck with good chin to chest and neck extension. LUNGS: Clear to auscultation. Normal chest wall mechanics. HEART: NSR, no MRG. ABDOMEN: Abdomen soft, left upper quadrant pain, no masses, no rebound or guarding. BACK: No CVA TTP. SKIN: No rashes and no bruising. UPPER EXTREMITIES: Upper extremities are grossly normal. LOWER EXTREMITIES: Grossly normal, no edema. NEURO EXAM: A&O x3, cranial nerves II-XII grossly intact, normal speech, moves all 4 extremities. Past Med/Surg History Problem List (Updated 06/08/24 @ 15:36 by Joni Gibbons MD) Headache (Acute) Vertigo (Acute) Weakness (Acute) Migraine without aura Gastroparesis GERD (gastroesophageal reflux disease) Nausea & vomiting (Acute) Abdominal pain (Acute) Dizziness (Acute) Medical History Gastroenteritis due to norovirus Diarrhea Ureteritis Lightheadedness Intractable nausea and vomiting Vomiting Contact dermatitis Irritable bowel syndrome (IBS) Mixed hyperlipidemia Ambulatory dysfunction Social History Smoking Status: Never smoker Second Hand Exposure: No; Do You Dip or Chew Tobacco: No; Tobacco Cessation Education Requested by Patient: No Hx Alcohol Use: No Hx Substance Use: No Preferred Language: Ukranian Communication Ability: Effective Communication Ability Comment: 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 Other Information That Helps Us Care for You: No Feels Safe at Home: Yes Safety Concerns: Feels Safe At This Time Assistive Devices: None Allergies Allergies Allergy/AdvReac Type Severity Reaction Status Date / Time levofloxacin AdvReac Severe increased Verified 09/12/23 16:00 pain magnesium AdvReac Severe fainting Verified 09/12/23 16:00 NSAIDS (Non-Steroidal AdvReac Severe losses Verified 09/12/23 16:00 Anti-Inflamma consciousness procaine [From Novocain] AdvReac Severe Dizziness Verified 09/12/23 16:00 acetaminophen [From Tylenol] AdvReac Unknown PER PT'S Verified 09/12/23 22:13 SON, "WILL NOT TAKE". ANALGEN AdvReac Severe increased Uncoded 09/12/23 16:00 pain Home Meds Home Medications Medication Instructions Recorded Confirmed sumatriptan succinate 25 mg tablet 50 mg PO UD PRN Migraine Headache 09/12/23 06/06/24 mirtazapine 15 mg tablet 15 mg PO DAILY 03/16/24 06/06/24 pantoprazole 40 mg tablet,delayed 40 mg PO DAILY 03/16/24 06/06/24 release (Protonix) ondansetron 4 mg disintegrating 4 mg PO UD PRN nausea and vomiting 06/06/24 06/06/24 tablet Previous Rx's Medication Instructions Recorded meclizine 25 mg tablet 25 mg PO TID PRN Dizziness Or 06/07/24 Vertigo #30 tabs Results & Data (ED) Vital Signs Vital Signs - 24 hr 06/06/24 10:44 Temperature 36.5 C Temperature Source Oral Pulse Rate 65 Respiratory Rate 20 Respiratory Effort / Characteristics Non-Labored Spontaneous Respiratory Depth Normal Respiratory Pattern Regular Blood Pressure 192/85 H Blood Pressure Mean 120 Pulse Oximetry 97 Oxygen Delivery Method Room Air Sepsis Recent Fever Within 48 Hours No Sepsis New/Unexplained Change in Mental Status N/A Sepsis Action Taken by Nursing No Action Required Home Medications Current Medication List: was personally reviewed by me Laboratory Data Attestation: I reviewed the patient's lab results. 06/07/24 05:20 06/07/24 05:20 Lab Results 06/06/24 Range/Units 10:57 WBC 5.77 (4.8-10.8) K/ul RBC 4.03 L (4.20-5.40) M/uL Hgb 11.8 L (12.0-16.0) g/dl Hct 34.6 L (37.0-47.0) % MCV 85.9 (80.0-100.0) fL MCH 29.3 (25.0-34.0) pg MCHC 34.1 (32.0-36.0) g/dL RDW Std Deviation 40.7 (36.4-46.3) fL RDW Coeff of Zahira 13.1 (11.5-14.5) % Plt Count 156 (130-400) K/uL MPV 11.3 (9.4-12.4) fL Immature Gran % (Auto) 0.5 % Neut % (Auto) 84.6 % Lymph % (Auto) 10.4 % [place] % (Auto) 3.5 % Eos % (Auto) 0.7 % Baso % (Auto) 0.3 % Neut # (Auto) 4.88 (1.40-6.50) K/uL Lymph # (Auto) 0.60 L (1.20-3.40) K/uL [place] # (Auto) 0.20 (0.11-0.59) K/uL Eos # (Auto) 0.04 (0.00-0.50) K/uL Baso # (Auto) 0.02 (0.00-0.20) K/uL Immature Gran # (Auto) 0.03 (0.01-0.20) K/uL PT 10.3 (9.0-12.0) Seconds INR 0.9 (0.9-1.1) APTT 23 (21-31) Seconds PTT Ratio 0.9 Sodium 138 (136-145) mmol/L Potassium 3.8 (3.5-5.1) mmol/L Chloride 106 (98-107) mmol/L Carbon Dioxide 24 (21-32) mmol/L Anion Gap 8 (3-11) BUN 25 H (6-23) mg/dl Creatinine 0.97 (0.6-1.2) mg/dl Est Cr Clr Drug Dosing 46.9 ml/min eGFR 60.94 BUN/Creatinine Ratio 25.8 H (10-20) Glucose 141 H (70-99(Fasting)) mg/dl Calcium 9.2 (8.6-10.3) mg/dl Total Bilirubin 0.4 (0.2-1.0) mg/dl AST 17 (13-39) U/L ALT 13 (7-52) U/L Alkaline Phosphatase 54 (34-104) U/L Troponin I High Sens < 2.3 (0-14) pg/ml Total Protein 7.1 (6.0-8.3) gm/dl Albumin 4.3 (3.4-5.0) gm/dl Globulin 2.8 (2.5-4.0) gm/dl Albumin/Globulin Ratio 1.5 (0.9-2) Administered Medications Discontinued Medications Al Hydrox/Mg Hydrox/Simethicone (Aluminum/Magnesium Susp 30 Ml Udc) 30 ml PO NOW STA Stop: 06/06/24 13:52 Last Admin: 06/06/24 14:51 Dose: 30 ml Documented By: SHANE Dexamethasone Sodium Phosphate (DexamethasonePf 10 Mg/Ml Vial) 10 mg IV NOW ONE Stop: 06/06/24 15:27 Last Admin: 06/06/24 15:41 Dose: 10 mg Documented By: SHANE Dicyclomine HCl (Dicyclomine Hcl 10 Mg/Ml 2 Ml Amp/Vial) 20 mg IM NOW ONE Stop: 06/06/24 10:53 Last Admin: 06/06/24 11:13 Dose: 20 mg Documented By: SHANE Enoxaparin Sodium (Enoxaparin Inj 40 Mg/0.4 Ml Syr) 40 mg SQ Q24H JAVIER Stop: 07/06/24 21:59 Last Admin: 06/06/24 23:41 Dose: 40 mg Documented By: PNMalou Sodium Chloride (Nss) 1,000 mls @ 999 mls/hr IV .Q1H1M ONE Stop: 06/06/24 13:55 Last Infusion: 06/06/24 13:46 Dose: Infused Documented By: Admin: 06/06/24 12:58 Dose: 999 mls/hr Documented By: SHANE Sodium Chloride (Nss) 1,000 mls @ 999 mls/hr IV .Q1H1M ONE Stop: 06/06/24 14:50 Last Infusion: 06/06/24 16:35 Dose: Infused Documented By: Admin: 06/06/24 14:30 Dose: 999 mls/hr Documented By: SHANE Sodium Chloride (Nss) 500 mls @ 999 mls/hr IV .Q31M ONE Stop: 06/06/24 14:20 Last Infusion: 06/06/24 16:35 Dose: Infused Documented By: Admin: 06/06/24 14:54 Dose: 999 mls/hr Documented By: SHANE Pantoprazole Sodium (Protonix) 40 mg in 10 mls @ 5 mls/min IV NOW ONE Stop: 06/06/24 13:52 Last Admin: 06/06/24 14:43 Dose: 5 mls/min Documented By: SHANE Sodium Chloride (Nss) 1,000 mls @ 50 mls/hr IV .Q20H [facility] Stop: 06/07/24 13:44 Last Admin: 06/06/24 18:38 Dose: 50 mls/hr Documented By: SHANE Ioversol (Optiray 320 125ml) 112 ml IV ONCE ONE Stop: 06/06/24 12:10 Last Admin: 06/06/24 12:09 Dose: 112 ml Documented By: RAQUEL Lansoprazole (Lansoprazole 30 Mg Soltab) 30 mg PO QAM JAVIER Stop: 07/07/24 09:39 Last Admin: 06/07/24 10:17 Dose: 30 mg Documented By: FLORA Meclizine HCl (Meclizine Hcl 25 Mg Tab) 25 mg PO NOW STA Stop: 06/06/24 15:27 Last Admin: 06/06/24 15:47 Dose: 25 mg Documented By: SHANE Meclizine HCl (Meclizine Hcl 25 Mg Tab) 25 mg PO TID PRN PRN Reason: Dizziness or Vertigo Stop: 07/06/24 22:14 Last Admin: 06/07/24 08:08 Dose: 25 mg Documented By: FLORA Metoclopramide HCl (Metoclopramide Hcl Inj 5 Mg/Ml 2 Ml Vial) 5 mg IV ONE ONE Stop: 06/06/24 15:27 Last Admin: 06/06/24 15:45 Dose: 5 mg Documented By: SHANE Metoclopramide HCl (Metoclopramide Hcl Inj 5 Mg/Ml 2 Ml Vial) 10 mg IV Q6H PRN PRN Reason: Nausea Stop: 07/06/24 22:14 Last Admin: 06/06/24 23:42 Dose: 10 mg Documented By: MADYSON Mirtazapine (Mirtazapine Tab 15 Mg Tab) 15 mg PO DAILY JAVIER Stop: 07/07/24 08:59 Last Admin: 06/07/24 08:09 Dose: 15 mg Documented By: FLORA Morphine Sulfate (Morphine Sulfate 4 Mg/Ml 1 Ml Carp\\Vial) 4 mg IV NOW STA Stop: 06/06/24 12:44 Last Admin: 06/06/24 12:47 Dose: 4 mg Documented By: SHANE Ondansetron HCl (Ondansetron Inj 2 Mg/Ml 2 Ml Vial) 4 mg IV NOW STA Stop: 06/06/24 10:52 Last Admin: 06/06/24 11:10 Dose: 4 mg Documented By: SHANE Ondansetron HCl (Ondansetron Inj 2 Mg/Ml 2 Ml Vial) 4 mg IV NOW STA Stop: 06/06/24 12:44 Last Admin: 06/06/24 12:50 Dose: 4 mg Documented By: SHANE Pantoprazole Sodium (Pantoprazole 40 Mg Tab) 40 mg PO DAILY JAVIER Stop: 07/07/24 08:59 Last Admin: 06/07/24 09:45 Dose: Not Given Documented By: FLORA Imaging Data Radiologist's Impression: Head CT 06/06/24 10:51 CT SCAN OF THE BRAIN WITHOUT IV CONTRAST CLINICAL HISTORY: Dizziness. COMPARISON STUDY: MRI of the brain and head CT September 12, 2023. TECHNIQUE: Unenhanced axial CT scan of the brain was performed from the vertex to the skull base. A dose lowering technique was utilized adhering to the principles of ALARA. FINDINGS: Brain parenchyma: No acute intracranial hemorrhage, midline shift or mass effect is present. Wagner-white matter differentiation is preserved. There are no extra- axial fluid collections. There are no findings to suggest acute dural sinus thrombosis or acute territorial infarct. A few white matter hypodensities are unchanged and favor small vessel disease. Ventricles, sulci, cisterns: There is no hydrocephalus. The basal cisterns are patent. Calvarium: Unremarkable. Sinuses and mastoids: The visualized paranasal sinuses are clear. The mastoid air cells are well pneumatized. Orbits: The bony orbits are grossly intact. IMPRESSION: No acute intracranial findings. ACT 112: Negative or not required by law. Electronically signed by: Al Ding M.D. 06/06/2024 12:37 PM Abdomen/Pelvis CT 06/06/24 10:[address] WITH IV CONTRAST CT DOSE: 2015.61 mGy.cm HISTORY: upper ab pain, n/v/vertigo TECHNIQUE: Multiaxial CT images of the abdomen and pelvis were performed following the IV administration of 112 cc of Optiray, A dose lowering technique was utilized adhering to the principles of ALARA. COMPARISON STUDY: 09/12/2023 FINDINGS: ABDOMEN: Stable tiny cyst in the left hepatic lobe. Otherwise the liver, spleen, and pancreas are unremarkable. Stable mild thickening of the adrenal glands. Kidneys show no hydronephrosis. There are scattered atherosclerotic calcifications. No abdominal aortic aneurysm. Pelvis: Uterus and adnexal regions are grossly unremarkable. Urinary bladder is nondistended. There is sigmoid diverticulosis. No acute diverticulitis. There is mild retained stool. No bowel inflammation or obstruction seen. No free fluid, free air, or abscess. No enlarged adenopathy. Osseous structures: There are minimal degenerative changes at the lumbar spine. No acute osseous findings. IMPRESSION: No acute findings. ACT 112: Negative or not required by law. The above report was generated using voice recognition software. It may contain grammatical, syntax or spelling errors. Electronically signed by: Jaylon Morales M.D. 06/06/2024 12:32 PM Head CTA 06/06/24 10:52 CT angio head w con, CT angio neck with con CLINICAL HISTORY: 73 years-old Female with vertigo. Acute vertigo COMPARISON STUDY: Head CT of same day TECHNIQUE: Following the IV administration of 112 cc of Optiray, CT angiogram of the head and neck was performed from the aortic arch to the skull apex. Images are reviewed in the axial, sagittal, and coronal planes. 3-D MIPS images are created and assessed. IV contrast was administered without complication. All measurements were obtained according to NASCET criteria. A dose lowering technique was utilized adhering to the principles of ALARA. FINDINGS: CT BRAIN: Dictated separately. CT ANGIOGRAM OF THE HEAD AND NECK: Atherosclerosis of the thoracic aortic arch. Patency of the innominate and image subclavian arteries. The common carotid arteries are patent. Minimal atherosclerotic plaque of the carotid bulbs without significant stenosis. Patent internal carotid arteries. The bilateral anterior and middle cerebral arteries are also patent. The vertebrobasilar system and posterior cerebral arteries are widely patent. 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 There is no aneurysm, high-grade stenosis, or proximal branch occlusion identified. Dural sinuses appear patent. Unremarkable soft tissues. Degenerative changes of the spine. Lung apices are clear without pneumothorax. No acute fracture. IMPRESSION: Unremarkable CTA of the head and neck. ACT 112: Negative or not required by law. The above report was generated using voice recognition software. It may contain grammatical, syntax or spelling errors. Electronically signed by: John Alarcon M.D. 06/06/2024 12:51 PM Neck CTA 06/06/24 10:52 CT angio head w con, CT angio neck with con CLINICAL HISTORY: 73 years-old Female with vertigo. Acute vertigo COMPARISON STUDY: Head CT of same day TECHNIQUE: Following the IV administration of 112 cc of Optiray, CT angiogram of the head and neck was performed from the aortic arch to the skull apex. Images are reviewed in the axial, sagittal, and coronal planes. 3-D MIPS images are created and assessed. IV contrast was administered without complication. All measurements were obtained according to NASCET criteria. A dose lowering technique was utilized adhering to the principles of ALARA. FINDINGS: CT BRAIN: Dictated separately. CT ANGIOGRAM OF THE HEAD AND NECK: Atherosclerosis of the thoracic aortic arch. Patency of the innominate and image subclavian arteries. The common carotid arteries are patent. Minimal atherosclerotic plaque of the carotid bulbs without significant stenosis. Patent internal carotid arteries. The bilateral anterior and middle cerebral arteries are also patent. The vertebrobasilar system and posterior cerebral arteries are widely patent. 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 There is no aneurysm, high-grade stenosis, or proximal branch occlusion identified. Dural sinuses appear patent. Unremarkable soft tissues. Degenerative changes of the spine. Lung apices are clear without pneumothorax. No acute fracture. IMPRESSION: Unremarkable CTA of the head and neck. ACT 112: Negative or not required by law. The above report was generated using voice recognition software. It may contain grammatical, syntax or spelling errors. Electronically signed by: John Alarcon M.D. 06/06/2024 12:51 PM Discharge Plan Visit Data Chief Complaint: Vertigo Stated Complaint: VERTIGO SX ED Provider: Joni Gibbons Discharge Problem: Nausea & vomiting, Abdominal pain, Weakness, Vertigo, Headache Patient Disposition: Admitted As Inpatient Discharge Instructions Interventions: ED Discharge Assessment Last Done: 06/06/24 21:18 Discharge Problem: Nausea & vomiting Qualifiers: Vomiting type: unspecified Qualified Code(s): R11.2 - Nausea with vomiting, unspecified Abdominal pain Qualifiers: Abdominal location: left upper quadrant Qualified Code(s): R10.12 - Left upper quadrant pain Headache Qualifiers: Headache type: unspecified Headache chronicity pattern: acute headache I ntractability: not intractable Qualified Code(s): R51.9 - Headache, unspecified
[2024-06-06] MEDS: ONDANSETRON INJ 2 MG/ML 2 ML VIAL IV STA ×2 (11:10→12:50)
[2024-06-06] MEDS: DICYCLOMINE HCL 10 MG/ML 2 ML AMP/VIAL IM ONE (11:13)
[2024-06-06 11:25] LABS: Basophils # (auto) 0.02 K/uL (0.00-0.20); Basophils % (auto) 0.3 %; Eosinophils # (auto) 0.04 K/uL (0.00-0.50); Eosinophils % (auto) 0.7 %; Hematocrit (blood only) 34.6 % (37.0-47.0); Hemoglobin 11.8 g/dl (12.0-16.0); Immature Granulocytes # (auto) 0.03 K/uL (0.01-0.20); Immature Granulocytes % (auto) 0.5 %; Lymphocytes % (auto) 10.4 %; Mean Corpuscular Hemoglobin 29.3 pg (25.0-34.0); Mean Corpuscular Hgb Conc 34.1 g/dL (32.0-36.0); Mean Corpuscular Volume 85.9 fL (80.0-100.0); Mean Platelet Volume 11.3 fL (9.4-12.4); Monocytes % (auto) 3.5 %; Neutrophils # (auto) 4.88 K/uL (1.40-6.50); Neutrophils % (auto) 84.6 %; Platelet Count 156 K/uL (130-400); RDW Coefficient of Variation 13.1 % (11.5-14.5); RDW Standard Deviation 40.7 fL (36.4-46.3); Red Blood Count 4.03 M/uL (4.20-5.40); White Blood Count 5.77 K/ul (4.8-10.8)
[2024-06-06 11:42] LABS: Alanine Aminotransferase 13 U/L (7-52); Albumin Globulin Ratio 1.5 (0.9-2); Albumin Level 4.3 gm/dl (3.4-5.0); Alkaline Phosphatase 54 U/L (34-104); Anion Gap 8 (3-11); Aspartate Aminotransferase 17 U/L (13-39); BUN Creatinine Ratio 25.8 (10-20); Bilirubin,Total 0.4 mg/dl (0.2-1.0); Blood Urea Nitrogen 25 mg/dl (6-23); Calcium 9.2 mg/dl (8.6-10.3); Carbon Dioxide 24 mmol/L (21-32); Chloride 106 mmol/L (98-107); Creatinine Clr Calc Pharmacy 46.9 ml/min; Globulin 2.8 gm/dl (2.5-4.0); Glucose 141 mg/dl (70-99(Fasting)); Potassium 3.8 mmol/L (3.5-5.1); Sodium 138 mmol/L (136-145); Total Protein 7.1 gm/dl (6.0-8.3)
[2024-06-06 11:47] LABS: Troponin I High Sensitivity < 2.3 pg/ml (0-14)
[2024-06-06 11:51] LABS: INR 0.9 (0.9-1.1); Partial Thromboplastin Ratio 0.9; Partial Thromboplastin Time 23 Seconds (21-31); Prothrombin Time 10.3 Seconds (9.0-12.0)
[2024-06-06] MEDS: OPTIRAY 320 125ml IV ONE (12:09)
--- NOTE | 2024-06-06 12:34 | CT Scan Report ---
ABDOMEN AND PELVIS CT WITH IV CONTRAST CT DOSE: 2015.61 mGy.cm HISTORY: upper ab pain, n/v/vertigo TECHNIQUE: Multiaxial CT images of the abdomen and pelvis were performed following the IV administrat ion of 112 cc of Optiray, A dose lowering technique was utilized adhering to the principles of ALARA . COMPARISON STUDY: 09/12/2023 FINDINGS: ABDOMEN: Stable tiny cyst in the left hepatic lobe. Otherwise the liver, spleen, and pancreas are unr emarkable. Stable mild thickening of the adrenal glands. Kidneys show no hydronephrosis. There are sc attered atherosclerotic calcifications. No abdominal aortic aneurysm. Pelvis: Uterus and adnexal regions are grossly unremarkable. Urinary bladder is nondistended. There i s sigmoid diverticulosis. No acute diverticulitis. There is mild retained stool. No bowel inflammatio n or obstruction seen. No free fluid, free air, or abscess. No enlarged adenopathy. Osseous structures: There are minimal degenerative changes at the lumbar spine. No acute osseous find ings. IMPRESSION: No acute findings. ACT 112: Negative or not required by law. The above report was generated using voice recognition software. It may contain grammatical, syntax o r spelling errors. Electronically signed by: Jaylon Morales M.D. 06/06/2024 12:32 PM
--- NOTE | 2024-06-06 12:39 | CT Scan Report ---
CT SCAN OF THE BRAIN WITHOUT IV CONTRAST CLINICAL HISTORY: Dizziness. COMPARISON STUDY: MRI of the brain and head CT September 12, 2023. TECHNIQUE: Unenhanced axial CT scan of the brain was performed from the vertex to the skull base. A dose lowering technique was utilized adhering to the principles of ALARA. FINDINGS: Brain parenchyma: No acute intracranial hemorrhage, midline shift or mass effect is present. Wagner-whi te matter differentiation is preserved. There are no extra-axial fluid collections. There are no find ings to suggest acute dural sinus thrombosis or acute territorial infarct. A few white matter hypoden sities are unchanged and favor small vessel disease. Ventricles, sulci, cisterns: There is no hydrocephalus. The basal cisterns are patent. Calvarium: Unremarkable. Sinuses and mastoids: The visualized paranasal sinuses are clear. The mastoid air cells are well pneu matized. Orbits: The bony orbits are grossly intact. IMPRESSION: No acute intracranial findings. ACT 112: Negative or not required by law. Electronically signed by: Al Ding M.D. 06/06/2024 12:37 PM
[2024-06-06] MEDS: MoRPHine SULFATE 4 MG/ML 1 ML CARP\\VIAL IV STA (12:47)
--- NOTE | 2024-06-06 12:52 | CT Scan Report ---
CT angio head w con, CT angio neck with con CLINICAL HISTORY: 73 years-old Female with vertigo. Acute vertigo COMPARISON STUDY: Head CT of same day TECHNIQUE: Following the IV administration of 112 cc of Optiray, CT angiogram of the head and neck wa s performed from the aortic arch to the skull apex. Images are reviewed in the axial, sagittal, and c oronal planes. 3-D MIPS images are created and assessed. IV contrast was administered without complic ation. All measurements were obtained according to NASCET criteria. A dose lowering technique was uti lized adhering to the principles of ALARA. FINDINGS: CT BRAIN: Dictated separately. CT ANGIOGRAM OF THE HEAD AND NECK: Atherosclerosis of the thoracic aortic arch. Patency of the innominate and image subclavian arteries. The common carotid arteries are patent. Minimal atherosclerotic plaque of the carotid bulbs without significant stenosis. Patent internal carotid arteries. The bilateral anterior and middle cerebral ar teries are also patent. The vertebrobasilar system and posterior cerebral arteries are widely patent. 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 There is no aneurys m, high-grade stenosis, or proximal branch occlusion identified. Dural sinuses appear patent. Unremarkable soft tissues. Degenerative changes of the spine. Lung apices are clear without pneumotho rax. No acute fracture. IMPRESSION: Unremarkable CTA of the head and neck. ACT 112: Negative or not required by law. The above report was generated using voice recognition software. It may contain grammatical, syntax o r spelling errors. Electronically signed by: John Alarcon M.D. 06/06/2024 12:51 PM
[2024-06-06] MEDS: SODIUM CHLORIDE 0.9% 1,000 ML IV ONE ×2 (12:58→14:30)
[2024-06-06] MEDS: PANTOprazole 40 MG/10 ML SYR IV ONE (14:43)
[2024-06-06] MEDS: ALUMINUM/MAGNESIUM SUSP 30 ML UDC PO STA (14:51)
[2024-06-06] MEDS: SODIUM CHLORIDE 0.9% 500 ML IV ONE (14:54)
[2024-06-06] MEDS: dexAMETHasone**PF** 10 MG/ML VIAL IV ONE (15:41)
[2024-06-06] MEDS: METOCLOPRAMIDE HCL INJ 5 MG/ML 2 ML VIAL IV ONE (15:45)
[2024-06-06] MEDS: MECLIZINE HCL 25 MG TAB PO STA (15:47)
--- NOTE | 2024-06-06 17:15 | Electrocardiogram Report ---
Test Reason : Blood Pressure : */* mmHG Vent. Rate : 61 BPM Atrial Rate : 61 BPM P-R Int : 148 ms QRS Dur : 110 ms QT Int : 452 ms P-R-T Axes : -17 -53 29 degrees QTcB Int : 455 ms Normal sinus rhythm Incomplete right bundle branch block Left anterior fascicular block Bifascicular block Abnormal ECG When compared with ECG of 16-Mar-2024 03:27, No significant change was found Confirmed by Timur Scott ([id number]) on 06/06/2024 5:15:19 PM Referred By: Confirmed By: Timur Scott
--- NOTE | 2024-06-06 17:36 | History & Physical Report ---
Date of Service June 06, 2024 Assessment & Plan (1) Dizziness: (2) Weakness: (3) Nausea & vomiting: (4) Abdominal pain: (5) GERD (gastroesophageal reflux disease): (6) Gastroparesis: (7) Migraine without aura: Plan 73 year old female with PMH significant for GERD, gastroparesis, and migraines who presented to the ED this morning with dizziness, abdominal pain, and vomiting since this morning. Dizziness Likely BPPV due to sensation of room spinning and dizziness provoked by head movement Head CT and CTA head/neck negative EKG and labs unremarkable PT consult for Maged mota Meclizine as needed for dizziness Weakness PT and OT consults Nausea and vomiting Metoclopramide as needed for nausea MIVF at 50mL/hr Regular diet ordered but son prefers to bring in food from home for patient Abdominal pain CT abdomen negative Dicyclomine as needed for abdominal pain High blood pressure Elevated readings in the ED BP 138/82 when I checked it in the ED Monitor BPs overnight and consider antihypertensives at discharge if persistently elevated GERD Follows with GI outpatient - next appt 08/21 Continue pantoprazole per home dosing Gastroparesis Follows with GI outpatient - next appt 08/21 Continue mirtazapine per home dosing Migraine without aura Follows with Neurology outpatient - next appt 02/04 Continue mirtazapine per home dosing DVT Prophylaxis: SQ lovenox Code Status: FULL CODE - As per discussion at bedside with the patient. PCP: Dr Jesús Gale MD Disposition: admit to med/surg Patient seen in collaboration with Dr Parks. Please see addendum. I spent a total of 75 minutes coordinating, documenting and providing care for this patient excluding time spent in the performance of separately billed services or time spent by another provider/QHP. Admission and Anticipated Discharge Date Admission Date: 06/06/2024 History of Present Illness Chief Complaint: abdominal pain, nausea, dizziness Primary Care Provider: Jesús Gale MD 73 year old female with PMH significant for GERD, gastroparesis, and migraines who presented to the ED this morning with dizziness, abdominal pain, and vomiting since this morning. Patient is Ukranian speaking and her son is with her and served as a crime data specialist for HPI as they did not want a crime data specialist ipad used. Her son reports that patient started feeling dizzy this morning around 0900 where she felt like the room was spinning. She had associated nausea and vomiting of bile, no hematemesis. She also reports a headache that wraps around her head like a band and aching abdominal pain in all quadrants. She feels extremely weak. She did not have any falls but had to crawl on her hands and knees because of her weakness and dizziness. Her son notes that this is her fourth time coming to the hospital for these same issues. She denies fevers, chills, cough, cold symptoms, chest pain, SOB, constipation, diarrhea, dysuria. Allergies Allergy/AdvReac Type Severity Reaction Status Date / Time levofloxacin AdvReac Severe increased Verified 09/12/23 16:00 pain magnesium AdvReac Severe fainting Verified 09/12/23 16:00 NSAIDS (Non-Steroidal AdvReac Severe losses Verified 09/12/23 16:00 Anti-Inflamma consciousness procaine [From Novocain] AdvReac Severe Dizziness Verified 09/12/23 16:00 acetaminophen [From Tylenol] AdvReac Unknown PER PT'S Verified 09/12/23 22:13 SON, "WILL NOT TAKE". ANALGEN AdvReac Severe increased Uncoded 09/12/23 16:00 pain Home Medications Medication Instructions Recorded Confirmed Type meclizine 25 mg tablet 12.5 mg PO TID PRN Dizziness Or 09/12/23 06/06/24 History Vertigo sumatriptan succinate 25 mg tablet 50 mg PO UD PRN Migraine Headache 09/12/23 06/06/24 History mirtazapine 15 mg tablet 15 mg PO DAILY 03/16/24 06/06/24 History pantoprazole 40 mg tablet,delayed 40 mg PO DAILY 03/16/24 06/06/24 History release (Protonix) ondansetron 4 mg disintegrating 4 mg PO UD PRN nausea and vomiting 06/06/24 06/06/24 History tablet Past Med/Surg History Problem List (Updated 06/06/24 @ 18:07 by MARCELLUS Saenz) Weakness Migraine without aura Gastroparesis GERD (gastroesophageal reflux disease) Nausea & vomiting (Acute) Abdominal pain (Acute) Dizziness (Acute) Medical History (Updated 06/06/24 @ 18:07 by MARCELLUS Saenz) Gastroenteritis due to norovirus Diarrhea Ureteritis Lightheadedness Intractable nausea and vomiting Vomiting Contact dermatitis Irritable bowel syndrome (IBS) Mixed hyperlipidemia Ambulatory dysfunction Social History Smoking Status: Never smoker Second Hand Exposure: No; Do You Dip or Chew Tobacco: No; Hx Alcohol Use: No Hx Substance Use: No Preferred Language: Ukranian Communication Ability: Ukranian Communication Ability Comment: Pt's son is her main crime data specialist Communication Tools: IPad Cloth Folder Machine Required: Yes Beliefs That Will Affect Care: None Current Living Situation: Spouse Current Living Situation Comment: son staying with her at her apartment. Feels Safe at Home: Yes Assistive Devices: Glasses Review of Systems Review of Systems: All systems reviewed & are unremarkable except as noted in HPI & below Physical Exam Physical Exam: General/Psych: WD/WN, sitting up in bed, NAD, conversing easily, euthymic affect Head: normocephalic, atraumatic Eyes: normal inspection, PERRL, conjunctivae pink, anicteric sclerae ENT: external ear and nose normal, oropharynx normal Neck: normal visual inspection, trachea midline, no thyromegaly Respiratory: normal respiratory effort, lungs clear to auscultation, no wheeze/rales/rhonchi, no accessory muscle use Cardiovascular: regular rate and rhythm, no murmur/rub/gallop, no JVD Extremities: no cyanosis or clubbing, normal peripheral pulses, no BLE edema Abdomen/GI: normal bowel sounds, soft, tender on palpation of all four quadrants, no hepatosplenomegaly Neurologic/MSK: A+Ox3, motor strength 4/5, moves all extremities Skin: no rashes, normal color, warm and dry Results & Data Results & Data Vital Signs (Past 12 Hours) Vital Signs Temp Pulse Pulse Resp BP BP Pulse Ox 06/06/24 15:47 71 06/06/24 15:00 67 18 156/82 H 100 06/06/24 13:30 70 14 160/82 H 97 06/06/24 12:40 66 20 172/88 H 97 06/06/24 11:40 66 06/06/24 11:30 59 L 18 166/81 H 97 06/06/24 11:22 61 17 98 06/06/24 10:44 36.5 C 65 20 192/85 H 97 O2 Del Method 06/06/24 15:47 06/06/24 15:00 Room Air 06/06/24 13:30 Room Air 06/06/24 12:40 Room Air 06/06/24 11:40 06/06/24 11:30 Room Air 06/06/24 11:22 Room Air 06/06/24 10:44 Room Air Laboratory Results Short CBC 06/06/24 Range/Units 10:57 WBC 5.77 (4.8-10.8) K/ul Hgb 11.8 L (12.0-16.0) g/dl Hct 34.6 L (37.0-47.0) % Plt Count 156 (130-400) K/uL BMP 06/06/24 10:57 Sodium 138 Potassium 3.8 Chloride 106 Carbon Dioxide 24 BUN 25 H Creatinine 0.97 Glucose 141 H Calcium 9.2 Liver Function 06/06/24 Range/Units 10:57 Total Bilirubin 0.4 (0.2-1.0) mg/dl AST 17 (13-39) U/L ALT 13 (7-52) U/L Alkaline Phosphatase 54 (34-104) U/L Albumin 4.3 (3.4-5.0) gm/dl I have independently reviewed and interpreted patient's admitting labs including CBC, CMP, PTT, PT/INR, and troponin. Diagnostic Findings Head CT 06/06/24 10:51 CT SCAN OF THE BRAIN WITHOUT IV CONTRAST CLINICAL HISTORY: Dizziness. COMPARISON STUDY: MRI of the brain and head CT September 12, 2023. TECHNIQUE: Unenhanced axial CT scan of the brain was performed from the vertex to the skull base. A dose lowering technique was utilized adhering to the principles of ALARA. FINDINGS: Brain parenchyma: No acute intracranial hemorrhage, midline shift or mass effect is present. Wanger-white matter differentiation is preserved. There are no extra- axial fluid collections. There are no findings to suggest acute dural sinus thrombosis or acute territorial infarct. A few white matter hypodensities are unchanged and favor small vessel disease. Ventricles, sulci, cisterns: There is no hydrocephalus. The basal cisterns are patent. Calvarium: Unremarkable. Sinuses and mastoids: The visualized paranasal sinuses are clear. The mastoid air cells are well pneumatized. Orbits: The bony orbits are grossly intact. IMPRESSION: No acute intracranial findings. ACT 112: Negative or not required by law. Electronically signed by: Al Ding M.D. 06/06/2024 12:37 PM Abdomen/Pelvis CT 06/06/24 10:[address] WITH IV CONTRAST CT DOSE: 2015.61 mGy.cm HISTORY: upper ab pain, n/v/vertigo TECHNIQUE: Multiaxial CT images of the abdomen and pelvis were performed following the IV administration of 112 cc of Optiray, A dose lowering technique was utilized adhering to the principles of ALARA. COMPARISON STUDY: 09/12/2023 FINDINGS: ABDOMEN: Stable tiny cyst in the left hepatic lobe. Otherwise the liver, spleen, and pancreas are unremarkable. Stable mild thickening of the adrenal glands. Kidneys show no hydronephrosis. There are scattered atherosclerotic calcifications. No abdominal aortic aneurysm. Pelvis: Uterus and adnexal regions are grossly unremarkable. Urinary bladder is nondistended. There is sigmoid diverticulosis. No acute diverticulitis. There is mild retained stool. No bowel inflammation or obstruction seen. No free fluid, free air, or abscess. No enlarged adenopathy. Osseous structures: There are minimal degenerative changes at the lumbar spine. No acute osseous findings. IMPRESSION: No acute findings. ACT 112: Negative or not required by law. The above report was generated using voice recognition software. It may contain grammatical, syntax or spelling errors. Electronically signed by: Jaylon Morales M.D. 06/06/2024 12:32 PM Head CTA 06/06/24 10:52 CT angio head w con, CT angio neck with con CLINICAL HISTORY: 73 years-old Female with vertigo. Acute vertigo COMPARISON STUDY: Head CT of same day TECHNIQUE: Following the IV administration of 112 cc of Optiray, CT angiogram of the head and neck was performed from the aortic arch to the skull apex. Images are reviewed in the axial, sagittal, and coronal planes. 3-D MIPS images are created and assessed. IV contrast was administered without complication. All measurements were obtained according to NASCET criteria. A dose lowering technique was utilized adhering to the principles of ALARA. FINDINGS: CT BRAIN: Dictated separately. CT ANGIOGRAM OF THE HEAD AND NECK: Atherosclerosis of the thoracic aortic arch. Patency of the innominate and image subclavian arteries. The common carotid arteries are patent. Minimal atherosclerotic plaque of the carotid bulbs without significant stenosis. Patent internal carotid arteries. The bilateral anterior and middle cerebral arteries are also patent. The vertebrobasilar system and posterior cerebral arteries are widely patent. 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 There is no aneurysm, high-grade stenosis, or proximal branch occlusion identified. Dural sinuses appear patent. Unremarkable soft tissues. Degenerative changes of the spine. Lung apices are clear without pneumothorax. No acute fracture. IMPRESSION: Unremarkable CTA of the head and neck. ACT 112: Negative or not required by law. The above report was generated using voice recognition software. It may contain grammatical, syntax or spelling errors. Electronically signed by: John Alarcon M.D. 06/06/2024 12:51 PM Neck CTA 06/06/24 10:52 CT angio head w con, CT angio neck with con CLINICAL HISTORY: 73 years-old Female with vertigo. Acute vertigo COMPARISON STUDY: Head CT of same day TECHNIQUE: Following the IV administration of 112 cc of Optiray, CT angiogram of the head and neck was performed from the aortic arch to the skull apex. Images are reviewed in the axial, sagittal, and coronal planes. 3-D MIPS images are created and assessed. IV contrast was administered without complication. All measurements were obtained according to NASCET criteria. A dose lowering technique was utilized adhering to the principles of ALARA. FINDINGS: CT BRAIN: Dictated separately. CT ANGIOGRAM OF THE HEAD AND NECK: Atherosclerosis of the thoracic aortic arch. Patency of the innominate and image subclavian arteries. The common carotid arteries are patent. Minimal atherosclerotic plaque of the carotid bulbs without significant stenosis. Patent internal carotid arteries. The bilateral anterior and middle cerebral arteries are also patent. The vertebrobasilar system and posterior cerebral arteries are widely patent. 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 There is no aneurysm, high-grade stenosis, or proximal branch occlusion identified. Dural sinuses appear patent. Unremarkable soft tissues. Degenerative changes of the spine. Lung apices are clear without pneumothorax. No acute fracture. IMPRESSION: Unremarkable CTA of the head and neck. ACT 112: Negative or not required by law. The above report was generated using voice recognition software. It may contain grammatical, syntax or spelling errors. Electronically signed by: John Alarcon M.D. 06/06/2024 12:51 PM Medications Administered Current Inpatient Medications Sodium Chloride (Nss) 1,000 mls @ 50 mls/hr IV .Q20H JAVIER Stop: 06/07/24 13:44 ECG Additional Comments: I have independently reviewed and interpreted patient's admitting EKG which revealed: NSR at rate of 61bpm Code Status & VTE Plan Code Status Full Code Supervising Physician Co-Signing Physician Notes Attending addendum: The patient was seen and examined in presence of the son who helped with history taking and also examination part She has been complaining of abdominal pain in the epigastrium and mid abdomen since early this morning associated with nausea vomiting and vertigo. She has had similar presentation on September 13 with abdominal pain, lightheadedness, dizziness and intractable nausea vomiting Does not have any fever and no chills, any chest pain or shortness of breath, any problem with urination or bowel habit On examination Lying in bed without any significant symptoms Hemodynamically stable with a blood pressure of 156/82 Chest was clear to auscultate bilaterally HeartS1-S2, regular Abdomenbenign Extremitiesno edema CNSno neck stiffness neck movement is not painful and no focal sensory and/or motor deficit appreciated Her admission labs, imaging studies and medications reviewed Has significant nausea vomiting and dizziness associated with nonspecific abdominal pain Exactly similar presentation in August of last year with unremarkable investigation including MRI of the head Her symptoms gets better with intravenous fluid and hydration Will give meclizine and medications to control blood pressure as needed and may be starting with Norvasc 2.5 mg regularly Will get PT and Maged maneuver Agree with assessment and plan as outlined above by Ophelia GERMAIN and take the full responsible care in the hospital Total time taken to document all this and examination was [address] Malou Parks
--- OUTSIDE RECORDS SUMMARY | 2024-06-06 18:15 | External Medical Summary | Summary of Care ---
Author Name Unknown Organization [facility] Address [address] [place] [address] Phone [phone] Care Team Providers Care Spice Mixer Name Role Phone Jesús Gale MD Primary Care Provider + Reason for Visit * Reason Onset Date Comments Test Results 03/26/2024 Encounter Details Date Type Department Care Team (Late st Contact Info) Description 03/26/2024 Telephone General Internal Medicine [facility] [address] [facility] [id number] Jesús Gale MD [address] [facility], [place] [address] Test Results Allergies Active Allergy Reactions Criticality Noted Date Comments Novocain 09/12/2013 Other Allergy (See Comments) Other (Please comment) 04/17/2015 Patient reports reaction to medication anal'gin; medication not available in [place]; medication caused increased pain Acetaminophen 08/10/2018 documented as of this encounter (statuses as of 05/08/2024) Medications Mirtazapine 15 MG Oral Tablet (Remeron) Take 1 Tablet by mouth at bedtime. 30 Tablet 12 10/12/2023 Active Rosuvastatin Calcium 5 MG Oral Tablet (Crestor) Take 1 Tablet by mouth in the morning. 90 Tablet 3 11/11/2023 Active Metoclopramide HCl 10 MG Oral Tablet (Reglan)Indicati ons:Migraine without aura and without status migrainosus, not intractable Take 2 tablets by mouth every 6-8 hours for head pain and nausea. Take no more than 3 days a week. 30 Tablet 6 01/09/2024 Active Pantoprazole Sodium 40 MG Oral Tablet Delayed Release (Protonix) Take 1 Tablet by mouth in the morning. 30 Tablet 2 02/24/2024 Active documented as of this encounter (statuses as of 05/08/2024) Active Problems Problem Noted Date Diagnosed Date Chronic kidney disease, stage 3a 03/26/2024 Overview: Per CKD protocol Migraine without aura and wi thout status migrainosus, not intractable 01/09/2024 Balance problem 01/09/2024 Mixed hyperlipidemia 04/10/2021 Gastroesophageal reflux disease without esophagi tis 10/03/2020 IBS (irritable bowel syndrome) 09/12/2013 documented as of this encounter (statuses as of 05/08/2024) Resolved Problems Problem Noted Date Diagnosed Date Resolved Date Mass on back 05/20/2017 10/27/2021 documented as of this encounter (statuses as of 05/08/2024) Social History Tobacco Use Types Packs/Day Years [...] ages 0-17 years) Not on file 01/09/2024 Food Insecurity Answer Date Recorded Within the past 12 months, y ou worried that your food would run out before you got the money to buy more. Patient declined Within the past 12 months, t he food you bought just didn't last and you didn't have money to get more. Patient declined Do you need food for this week? No 01/09/2024 Comments No Sex and Gender Information Value Date Recorded Sex Assigned at Female 09/14/2019 12:18 PM EDT Legal Sex Female 4:21 PM EDT Gender Identity Female 09/14/2019 12:18 PM EDT Sexual Orientation Straight 09/14/2019 12 :18 PM EDT documented as of this encounter Miscellaneous Notes * Telephone Encounter - Jonna Muñoz OSA - 05/08/2024 1:40 PM EDT Patient's son called. Advised of message. Is going to talk to Mom about it and give a call back if she is okay with seeing Nutrition Services Assistant. Thank you. * Telephone Encounter - John Singer RN - 04/06/2024 4:24 PM EST Called language line press tool maker and spoke with Ukranian press tool maker Bobbi ID [id number]. Third attempt made to call patient and left message to return call to the dedicated nurse call center. Letter sent for patient to call the dedicated nurse call center. Please see Dr. Gale's result message. * Telephone Encounter - John Singer RN - 03/30/2024 8:15 AM EST Called language line press tool maker and spoke with Ukranian press tool maker Georgi ID [id number]. Second attempt made to call patient and left message to return call to the dedicated nurse call center. Please see Dr. Gale's result message. * Telephone Encounter - John Singer RN - 03/26/2024 11:22 AM EST Called language line press tool maker and spoke with Ukranian press tool maker Ry ID [id number]. Called, left message for patient to return call to the dedicated nurse call center. Please see Dr. Gale's previous message. * Telephone Encounter - John Singer RN - 03/26/2024 11:20 AM EST ----- Message from Jesús Gale MD sent at 03/25/2024 12:11 PM EST ----- Labs show wbc still decreased and lower then 3 months ago. I would like her to see a dealer development manager if she is agreeable to further work this up. Let me know Gfr improving, good news. Will repeat 3 months to follow Needs Venezuelan plastics patternmaker documented in this encounter Plan of Treatment Upcoming Encounters Date Type Department Care Team (Late st Contact Info) Description 07/31/2024 2:40 PM EDT Office Visit General Internal Medicine [facility] [address] [facility] [place] [address] Jesús Gale MD [address] [place] [address] 08/21/2024 9:00 AM EDT Office Visit Gastroenterology, [facility] [address] [place] [id number] Dolores Shaver CRNP [address] [place] [id number] 02/04/2025 2:20 PM EST Office Visit Neurology [facility] [place] [address] [place] [address] Nandini Nielson MD [address] [facility] [address] Health Maintenance Due Date Last Done Comments DXA Scan 1950 Albumin/Creatinine Ratio 1966 Hepatitis C Screening 1966 DTap/Tdap Vaccines (1 - Tdap) 07/20/1967 Pneumococcal Vaccine: 50+ Years (1 of 1 - PCV) 1998 Zoster Vaccines (1 of 2) 1998 Adult Wellness Visit 2014 COVID-19 Vaccine (1 - season) 2023 Influenza Vaccine (FLU shot) (#1) 2023 Depression Screening 11/05/2023 11/04/2022 GFR 09/20/2024 03/23/2024, 01/14, 12/16/2023, Additional history exists CKD HGB USE SMARTSET 19862 03/23/202503/23, 03/23/2024, 12/16/2023, Additional history exists CKD PHOS USE SMARTSET 27088 03/23/2025 03/23/2024 HPV (Gardasil) Vaccine Aged Out No lo nger eligible based on patient's age to complete this topic Hepatitis B Vaccine Aged Out No longe r eligible based on patient's age to complete this topic MENINGOCOCCAL (MENACTRA/MENVEO) Aged Out No longer eligible based on patient's age to complete this topic Meningitis B Vaccine (Bexsero/Trumemba) Aged Out No longer eligible based on patient's age to complete this topic documented as of this encounter Medical Devices Not on filedocumented as of this encounter Care Teams Spice Mixer Relationship Specialty Start Date End Date Jesús Gale MD [address] [place] [address] PCP - General Internal Medicine 12/03/20 documented as of this encounter
--- OUTSIDE RECORDS SUMMARY | 2024-06-06 18:15 | External Medical Summary | Summary of Care ---
Author Name Unknown Organization [facility] Address [address] [place] [address] Phone [phone] Care Team Providers Care Student Records Coordinator Name Role Phone Jesús Gale MD Primary Care Provider + Reason for Visit * Reason Onset Date Comments Hospital Follow-Up Hospital Follow-Up 03/23/2024 Encounter Details Date Type Department Care Team (Late st Contact Info) Description 03/23/2024 12:40 PM EST Office Visit General Internal Medicine [facility] [place] [address] [place] [address] Jesús Gale MD [address] [facility] [place] [address] Hospital discharge follow-up*; Nausea vomiting and diarrhea; Leukopenia, unspecified type; Mass of joint of right shoulder Allergies Active Allergy Reactions Criticality Noted Date Comments Novocain 09/12/2013 Other Allergy (See Comments) Other (Please comment) 04/17/2015 Patient reports reaction to medication anal'gin; medication not available in [place]; medication caused increased pain Acetaminophen 08/10/2018 documented as of this encounter (statuses as of 03/23/2024) Medications Mirtazapine 15 MG Oral Tablet (Remeron) [...] as of this encounter (statuses as of 03/23/2024) Active Problems Problem Noted Date Diagnosed Date Migraine without aura and wi thout status migrainosus, not intractable 01/09/2024 Balance problem 01/09/2024 Mixed hyperlipidemia 04/10/2021 Gastroesophageal reflux disease without esophagi tis 10/03/2020 IBS (irritable bowel syndrome) 09/12/2013 documented as of this encounter (statuses as of 03/23/2024) Resolved Problems Problem Noted Date Diagnosed Date Resolved Date Mass on back 05/20/2017 10/27/2021 documented as of this encounter (statuses as of 03/23/2024) Social History Tobacco Use Types Packs/Day Years [...] Sign Reading Time Taken Comments Blood Pressure 110/68 03/23/2024 12:36 PM EST Pulse 75 03/23/2024 12:36 PM EST Temperature 36.7 °C (98.1 °F) 03/23/2024 12:[address] Respiratory Rate - - Oxygen Saturation 96% 03/23/2024 12:36 PM EST Inhaled Oxygen Concentration - - Weight 61.8 kg (136 lb 4.8 oz) 03/23/2024 12:36 PM EST Height - - Body Mass Index 24.53 01/09/2024 9:51 AM EST documented in this encounter Progress Notes * Jesús Gale MD - 03/23/2024 12:57 PM EST Chief Complaint Patient presents with Hospital Follow-Up Hospital Follow-Up SUBJECTIVE: Khang Oates is a 73 year old female with PMH as below who presents for hospital follow up. Director Energy done with [employer] "Obdulia" who was on voice (no video). She was admitted to [facility] 03/16-03/17/24 for n/v/d, weakness. [place] to have gastroenteritis, given IVF and slowly improved. Sent home, no more vomiting. Still some luq pain, but is able to eat (beets and eggs for breakfast), and is moving bowels. She has no fever. Is weak, but better Patient Active Problem List Diagnosis IBS (irritable bowel syndrome) Gastroesophageal reflux disease without esophagitis Mixed hyperlipidemia Migraine without aura and without status migrainosus, not intractable Balance problem Current Outpatient Medications Medication Sig Dispense Refill Mirtazapine 15 MG Oral Tablet (Remeron) Take 1 Tablet by mouth at bedtime. 30 Tablet 12 Rosuvastatin Calcium 5 MG Oral Tablet (Crestor) Take 1 Tablet by mouth in the morning. 90 Tablet 3 Metoclopramide HCl 10 MG Oral Tablet (Reglan) Take 2 tablets by mouth every 6-8 hours for head painand nausea. Take no more than 3 days a week. 30 Tablet 6 Pantoprazole Sodium 40 MG Oral Tablet Delayed Release (Protonix) Take 1 Tablet by mouth in the morning. 30 Tablet 2 No current facility-administered medications for this [...] (1 of 2) Never done Pneumococcal Vaccine: 50+ Years (1 of 1 - PCV) Never done Adult Wellness Visit Never done Influenza Vaccine (FLU shot) (1) Never done COVID-19 Vaccine ( - 2023- season) Never done Depression Screening 11/05/2023 ROS: CONSTITUTIONAL: No change in weight, No weakness, and No fevers, sweats, or chills PULMONARY: [...] on file Social Needs Financial Resource Strain: Low Risk (01/09/2024) Financial Resource Strain Do you have any trouble paying for your medications, or do you think you might in the future? (Adult - for ages 18 years and over): No Does your family have trouble paying for medicine? (Household - for ages 0-17 years): Not on file Food Insecurity: Unknown (01/09/2024) Food Insecurity Worried About Running Out of Food in the Last Year: Patient declined Ran Out of Food in the Last Year: Patient declined Do you need food for this week? (Adult - for ages 18 years and over): No Transportation Needs: No Transportation Needs (01/09/2024) Transportation Needs Do you have trouble getting a ride to medical visits or work? (Adult - for ages 18 years and over):Not on file Does your family have a hard time getting a ride to doctors’ visits? (Household - for ages 0-17 years): Not on file Has lack of transportation kept you from medical appointments, meetings, work, or from getting things needed for daily living? Check all that apply. (Adult - for ages 18 years and over): No Do you (or your family) have trouble finding or paying for a ride (transportation)? (Household - for ages 0-17 years): Not on file Social Connections: Socially Integrated (01/09/2024) Social Connections How often do you feel lonely or isolated from those around you? (Adult - for ages 18 years and over): Never Housing Stability: Low Risk (01/09/2024) Housing Stability Do you currently live in a custodial or have no steady place to sleep at night? (Adult - for ages 18 years and over): No Do you think you are at risk of becoming homeless? (Adult - for ages 18 years and over): Not on file Does your family worry about paying for your home or becoming homeless? (Household - for ages 0-17 years): Not on file Are you homeless or worried that you might be in the future? (Adult - for ages 18 years and over): No Are you (or your family) homeless or worried that you might be in the future? (Household - for ages0-17 years): Not on file Past Medical History: Diagnosis Date Gastroesophageal reflux disease without esophagitis 10/03/2020 IBS (irritable bowel syndrome) 09/12/2013 Mass on back 05/20/2017 Past Surgical History: Procedure Laterality Date ANESTH, CS DELIVERY 02/14/1982 CHOLECYSTOTOMY OR CHOLECYSTOSTOMY, OPEN 02/14/1985 COLONOSCOPY HEMORRHOID LIGATION, INTERNAL, 1 [place] DELIVERY ONLY REMOVAL OF APPENDIX UPPER GI ENDOSCOPY Family History Problem Relation Name Age of Onset Stroke Mother Hypertension Father OBJECTIVE: PHYSICAL EXAM: BP 110/68 | Pulse 75 | Temp 98.1 °F (36.7 °C) | Wt 136 lb 4.8 oz (61.8 kg) | SpO2 96% | BMI 24.53kg/m² | BSA 1.65 m² General: alert, healthy, and no distress Head: Normocephalic, No masses, lesions, or abnormalities Heart: regular rate & rhythm, no murmur, no gallops, PMI non-displaced, S-1 normal, and S-2 normal Lungs: normal respiratory rate and rhythm, lungs clear to auscultation Abdomen: abdomen soft, mild tenderness ruq pain with deep palpation normal bowel sounds, and no masses or organomegaly Psych: normal affect, no flight of ideas or tangential thought, good eye contact, no pressured speech Neuro: to table w/o aid, normal gait Ext: large right shoulder mass D/C Summary: (1) Nausea & vomiting: (2) Diarrhea: (3) Irritable bowel syndrome (IBS): (4) Mixed hyperlipidemia: (5) GERD (gastroesophageal reflux disease): (6) Gastroenteritis due to norovirus: Plan 73-year-old lady was managed for norovirus related gastroenteritis. Today her nausea, vomiting, abdominal pain has resolved. Today her diarrhea has resolved. Her electrolytes are WNL. patient is tolerating her baseline diet, patient does not eat from the hospital, her son is bringing food for her from home. Her CBC shows slight leukopenia more so than her baseline leukopenia likely in the settingof acute viral illness, she will need to follow-up with PCP and will need to repeat CBC in 1 week time. They have been explained such at bedside [patient and her son]. Patient is hemodynamically stable and would like to go home. She is being discharged with followinginstructions at the point of discharge: Follow-up with your primary care physician within a week time and likely you will need labs CBC/CMP/magnesium/phosphorus. Take your medications as prescribed. Please make sure that you are able to get your medications today by calling your pharmacy before you leave the hospital so that your treatment continuity is not broken. ASSESSMENT: (Z09) Hospital discharge follow-up (primary encounter diagnosis) (R11.2, R19.7) Nausea vomiting and diarrhea (D72.819) Leukopenia, unspecified type (M25.811) Mass of joint of right shoulder PLAN: Hospital discharge follow-up (Primary) - DISCH MED RECON CUR MED LIS Nausea vomiting and diarrhea - COMPREHENSIVE METABOLIC PANEL; Future; Expected date: 03/23/2024 - MAGNESIUM; Future; Expected date: 03/23/2024 - PHOSPHORUS; Future; Expected date: 03/23/2024 +norovirus, likely caused, discussed Advanced diet Recheck labs Leukopenia, unspecified type - CBC WITH WBC DIFFERENTIAL; Future; Expected date: 03/23/2024 Mass of joint of right shoulder Again discussed need for ortho, possible malignancy/cancer, they will schedule Follow Up: Return if symptoms worsen or fail to improve and as scheduled, for Labs Today. | For: Labs Today | Check-out note: Pls assist with ortho as referred, may need david given referral Jesús Gale MD documented in this encounter Nursing Notes * Belen Esparza [facility] - 03/23/2024 12:35 PM EST Pt is here for hospital follow up pt did not take medication today because of stomach problems pt'sson is here to help with lauage pt does not have fevers documented in this encounter Plan of Treatment Upcoming Encounters Date Type Department Care Team (Late st Contact Info) Description 07/31/2024 2:40 PM EDT Office Visit General Internal Medicine [facility] [address] [place] [address] Jesús Gale MD [address] [place] [address] 08/21/2024 9:00 AM EDT Office Visit Gastroenterology, [facility] [address] [place] [address] Dolores Shaver CRNP [address] [facility] [place] [address] 02/04/2025 2:20 PM EST Office Visit Neurology [address] [place] [phone] Nandini Nielson MD [address] [facility] [place] [address] Health Maintenance Due Date Last [...] filedocumented as of this encounter Results * PHOSPHORUS (03/23/2024 1:07 PM EST) Phosphorus 4.5 2.5 - 4.8 mg/dL 03/23/2024 1:59 PM EST [facility] 56-02 Blood Venous blood specimen / Unknown Venipuncture / Unknown 03/23/2024 1:07 PM EST 03/23/2024 1:07 PM EST Jesús Gale MD LAB BLOOD ORDERABLES Fin al Result [facility] 56- [address] [place] [address] * MAGNESIUM (03/23/2024 1:07 PM EST) Magnesium 2.2 1.5 - 2.6 mg/dL 03/23/2024 1:59 PM EST [facility] 56-02 Blood Venous blood specimen / Unknown Venipuncture / Unknown 03/23/2024 1:07 PM EST 03/23/2024 1:07 PM EST Jesús Gale MD LAB BLOOD ORDERABLES Fin al Result [facility] [address] [place] [address] * (ABNORMAL) COMPREHENSIVE METABOLIC PANEL (03/23/2024 1:07 PM EST) BUN 24(H) 6 - 20 mg/dL 03/23/2024 1:59 PM EST [facility] 56- CREATININE 1.1(H) 0.5 - 1.0 mg/dL 03/23/2024 1:59 PM EST [facility] 56- EGFR 54(L) >=60 mL/min 03/23/2024 1:59 PM [facility] 56-02 Comment:eGFR is calculated b ased on the CKD-EPI 2020 equation. SODIUM 141 135 - 146 mmol/L 03/23/2024 1:59 PM [facility] 56-02 POTASSIUM 4.5 3.5 - 5.1 mmol/L 03/23/2024 1:59 PM [facility] 56- CHLORIDE 104 98 - 107 mmol/L 03/23/2024 1:59 PM [facility] 56- CO2 25 22 - 32 mmol/L 03/23/2024 1:59 PM [facility] 56- ANION GAP 12 7 - 15 mmol/L 03/23/2024 1:59 PM [facility] 56- GLUCOSE 99 70 - 120 mg/dL 03/23/2024 1:59 PM [facility] 56- Albumin 4.4 3.8 - 5.0 g/dL 03/23/2024 1:59 PM [facility] 56- AST 22 10 - 35 U/L 03/23/2024 1:59 PM [facility] 56- Alkaline Phosphatase 60 35 - 130 U/L 03/23/2024 1:59 PM [facility] 56- Bilirubin, Total 0.4 <=1.2 mg/dL 03/23/2024 1:59 PM [facility] 56- CALCIUM 9.3 8.4 - 10.2 mg/dL 03/23/2024 1:59 PM [facility] 56- Protein 7.1 6.0 - 8.3 g/dL 03/23/2024 1:59 PM [facility] 56- ALT 19 10 - 35 U/L 03/23/2024 1:59 PM [facility] 56-02 Blood Venous blood specimen / Unknown Venipuncture / Unknown 03/23/2024 1:07 PM EST 03/23/2024 1:07 PM EST us Jesús Gale MD LAB BLOOD ORDERABLES Fin al Result [facility] [address] [place] [address] documented in this encounter Visit Diagnoses Diagnosis Hospital discharge follow-up- Primary Other follow-up examination Nausea vomiting and diarrhea Diarrhea Leukopenia, unspecified type Mass of joint of right shoulder documented in this encounter Care Teams Student Records Coordinator Relationship Specialty Start Date End Date Jesús Gale MD [address] [place] [address] PCP - General Internal Medicine 12/03/20 documented as of this encounter
--- OUTSIDE RECORDS SUMMARY | 2024-06-06 18:15 | External Medical Summary | Summary of Care ---
Author Name Unknown Organization [facility] Address [address] [facility] [address] Phone [phone] Care Team Providers Care Nanofabrication Specialist Name Role Phone Jesús Gale MD Primary Care Provider + Reason for Visit * Reason Onset Date Comments Hospital Follow-Up 03/20/2024 [facility] ([facility]) Encounter Details Date Type Department Care Team (Late st Contact Info) Description 03/20/2024 Telephone [facility] [address] [place] [address] Jane Fajardo, MOHAMUD Hospital Follow-Up ([facility] ([facility])) Allergies Active Allergy Reactions Criticality Noted Date Comments Novocain 09/12/2013 Other Allergy (See Comments) Other (Please comment) 04/17/2015 Patient reports reaction to medication anal'gin; medication not available in [place]; medication caused increased pain Acetaminophen 08/10/2018 documented as of this encounter (statuses as of 03/21/2024) Medications Mirtazapine 15 MG Oral Tablet (Remeron) [...] as of this encounter (statuses as of 03/21/2024) Active Problems Problem Noted Date Diagnosed Date Migraine without aura and wi thout status migrainosus, not intractable 01/09/2024 Balance problem 01/09/2024 Mixed hyperlipidemia 04/10/2021 Gastroesophageal reflux disease without esophagi tis 10/03/2020 IBS (irritable bowel syndrome) 09/12/2013 documented as of this encounter (statuses as of 03/21/2024) Resolved Problems Problem Noted Date Diagnosed Date Resolved Date Mass on back 05/20/2017 10/27/2021 documented as of this encounter (statuses as of 03/21/2024) Social History Tobacco Use Types Packs/Day Years [...] encounter Miscellaneous Notes * Telephone Encounter - Jane Fajardo RN - 03/20/2024 1:22 PM EST Transitions of Care Note Reason for Referral:Recent Admission Phone visit for follow up: NANCY #1 Admitted to: [facility], Date: 03/16/2024 Discharged to: Home, Date: 03/17/2024 Diagnosis driving hospitalization: Norovirus Gastroenteritis [employer] utilized - Sim Castañeda # [id number] Source/Contact: Patient Attempted Phone Call First Attempt Call Outcome Left Voicemail/Message documented in this encounter Plan of Treatment Upcoming Encounters Date Type Department Care Team (Late st Contact Info) Description 03/23/2024 12:40 PM EST Office Visit General Internal Medicine [address] [place] [address] [place] [address] Jesús Gale MD [address] [place] [address] 07/31/2024 2:40 PM EDT Office Visit General Internal Medicine [facility] [address] [place] [address] Jesús Gale MD [address] [place] [address] 08/21/2024 9:00 AM EDT Office Visit Gastroenterology, [facility] [address] [facility] [place] [address] Dolores Shaver CRNP [address] [place] [address] 02/04/2025 2:20 PM EST Office Visit Neurology [address] [place] [phone] Nandini Nielson MD [address] [place] [address] Health Maintenance Due Date Last Done [...] filedocumented as of this encounter Care Teams Nanofabrication Specialist Relationship Specialty Start Date End Date Jesús Gale MD [address] [place] [address] PCP - General Internal Medicine 12/03/20 documented as of this encounter
--- OUTSIDE RECORDS SUMMARY | 2024-06-06 18:15 | External Medical Summary | Summary of Care ---
Author Name Unknown Organization [facility] Address [address] [facility] [address] Phone [phone] Care Team Providers Care Solo Musician Name Role Phone Jesús Gale MD Primary Care Provider + Reason for Visit * Reason Onset Date Comments Hospital [facility] Encounter Details Date Type Department Care Team (Late st Contact Info) Description 03/20/[address] [facility] [address] [place] [address] Jane Fajardo, MOHAMUD Hospital Follow-Up ([facility] [...] Diagnosis driving hospitalization: Norovirus Gastroenteritis Language [employer] utilized - Sim Castañeda # [id number] Attempted Phone Call First Attempt Call Outcome Left Voicemail/Message Message left on voicemail for patient. When they call back please transfer them to me at [phone]. If you are unable to reach me or my voicemail please route this message back to me. Thank you. Transitions of Care Note Reason for Referral:Recent Admission Phone visit for follow up: NANCY #2 Admitted to: [facility], Date: 03/16/2024 Discharged to: Home, Date: 03/17/2024 Diagnosis driving hospitalization: Norovirus Gastroenteritis [employer] utilized - Vin Alvarez # [id number] Attempted Phone Call Second Attempt Call Outcome Left Voicemail/Message Message left on voicemail for patient. When they call back please transfer them to me at [phone]. If you are unable to reach me or my voicemail please route this message back to me. Thank you. documented in this encounter Plan of Treatment Upcoming Encounters Date Type Department Care Team (Late st Contact Info) Description 03/23/2024 12:40 PM EST Office Visit General Internal Medicine [facility] [address] [facility] [place] [address] Jesús Gale MD [address] [facility] [place] [address] 07/31/2024 2:40 PM EDT Office Visit General Internal Medicine [facility] [address] [place] [address] Jesús Gale MD [address] [facility] [place] [address] 08/21/2024 9:00 AM EDT Office Visit Gastroenterology, [facility] [address] [place] [address] Dolores Shaver CRNP [address] [place] [address] 02/04/2025 2:20 PM EST Office Visit Neurology [address] [place] [phone] Nandini Nielson MD [address] [facility] [place] [id number] Health Maintenance Due Date Last Done Comments [...] filedocumented as of this encounter Care Teams Solo Musician Relationship Specialty Start Date End Date Jesús Gale MD [address] [facility] [address] PCP - General Internal Medicine 12/03/20 documented as of this encounter
--- OUTSIDE RECORDS SUMMARY | 2024-06-06 18:15 | External Medical Summary | Summary of Care ---
Author Name Unknown Organization [facility] Address [address] [place] [address] Phone [phone] Care Team Providers Care Film Cutter Name Role Phone Jesús Gale MD Primary Care Provider + Reason for Visit * Reason Onset Date Comments Test Results 03/26/2024 Encounter Details Date Type Department Care Team (Late st Contact Info) Description 03/26/2024 Telephone General Internal Medicine [facility] [address] [facility] [address] Jesús Gale MD [address] [facility], [place] [address] Test Results Allergies Active Allergy Reactions Criticality Noted Date Comments Novocain 09/12/2013 Other Allergy (See Comments) Other (Please comment) 04/17/2015 Patient reports reaction to medication anal'gin; medication not available in [place]; medication caused increased pain Acetaminophen 08/10/2018 documented as of this encounter (statuses as of 04/07/2024) Medications Mirtazapine 15 MG Oral Tablet (Remeron) [...] as of this encounter (statuses as of 04/07/2024) Active Problems Problem Noted Date Diagnosed Date Chronic kidney disease, stage 3a 03/26/2024 Overview: Per CKD protocol Migraine without aura and wi thout status migrainosus, not intractable 01/09/2024 Balance problem 01/09/2024 Mixed hyperlipidemia 04/10/2021 Gastroesophageal reflux disease without esophagi tis 10/03/2020 IBS (irritable bowel syndrome) 09/12/2013 documented as of this encounter (statuses as of 04/07/2024) Resolved Problems Problem Noted Date Diagnosed Date Resolved Date Mass on back 05/20/2017 10/27/2021 documented as of this encounter (statuses as of 04/07/2024) Social History Tobacco Use Types Packs/Day Years [...] 04/06/2024 4:24 PM EST Called language line butter fat tester and spoke with Ukranian butter fat tester Bobbi ID [id number]. Third attempt made to call patient and left message to return call to the dedicated nurse call center. Letter sent for patient to call the dedicated nurse call center. Please see Dr. Gale's result message. * Telephone Encounter - John Singer RN - 03/30/2024 8:15 AM EST Called language line butter fat tester and spoke with Ukranian butter fat tester Georgi ID [id number]. Second attempt made to call patient and left message to return call to the dedicated nurse call center. Please see Dr. Gale's result message. * Telephone Encounter - John Singer RN - 03/26/2024 11:22 AM EST Called language line butter fat tester and spoke with Ukranian butter fat tester Ry ID [id number]. Called, left message for patient to return call to the dedicated nurse call center. Please see Dr. Gale's previous message. * Telephone Encounter - John Singer RN - 03/26/2024 11:20 AM EST ----- Message from Jesús Gale MD sent at 03/25/2024 12:11 PM EST ----- Labs show wbc still decreased and lower then 3 months ago. I would like her to see a zipper ironer if she is agreeable to further work this up. Let me know Gfr improving, good news. Will repeat 3 months to follow Needs Bangladeshi supervisor forming and tempering documented in this encounter Plan of Treatment Upcoming Encounters Date Type Department Care Team (Late st Contact Info) Description 07/31/2024 2:40 PM EDT Office Visit General Internal Medicine [facility] [place] [address] [facility] [place] [address] Jesús Gale MD 200 [facility] [place] [address] 08/21/2024 9:00 AM EDT Office Visit Gastroenterology, [facility] [address] [facility] [place] [address] Dolores Shaver CRNP [address] [place] [address] 02/04/2025 2:20 PM EST Office Visit Neurology [address] [place] [address] Nandini Nielson MD [address] [facility] [place] [address] Health Maintenance Due Date Last Done Comments DXA Scan 1948 Albumin/Creatinine Ratio 1966 Hepatitis C Screening 1966 DTap/Tdap Vaccines (1 - Tdap) 07/20/1967 Pneumococcal Vaccine: 50+ Years (1 of 1 - PCV) 1998 Zoster Vaccines (1 of 2) 1998 Adult Wellness Visit 2014 COVID-19 Vaccine ( - season) 2023 Influenza Vaccine (FLU shot) (#1) 2023 Depression Screening 11/05/2023 11/04/2022 GFR 09/20/2024 03/23/2024, 01/14, 12/16/2023, Additional history exists CKD HGB USE SMARTSET 75938 03/23/202503/23, 03/23/2024, 12/16/2023, Additional history exists CKD PHOS USE SMARTSET 06945 03/23/2025 03/23/2024 HPV (Gardasil) Vaccine Aged Out [...] filedocumented as of this encounter Care Teams Film Cutter Relationship Specialty Start Date End Date Jesús Gale MD [address] [place] [address] PCP - General Internal Medicine 12/03/20 documented as of this encounter
--- OUTSIDE RECORDS SUMMARY | 2024-06-06 18:15 | External Medical Summary ---
Author Name Unknown Address Unknown Organization [id number]:[facility] [place] [address] Laboratory Report Ordering Provider Test Date Status MAREK NEWELL 03/23/2024 13:07:13 Final Observation Date Value Abnormality Reference (Units ) Status Phosphate 03/23/2024 13:07:13 4.5 2.5-4.8 (m g/dL) Final Performing Location [facility] [place] [address]
--- OUTSIDE RECORDS SUMMARY | 2024-06-06 18:15 | External Medical Summary ---
Author Name Unknown Address Unknown Organization [email or web address]:[facility] [place] [address] Laboratory Report Ordering Provider Test Date Status DO REECERENEE 03/23/2024 13:07:13 Final Observation Date Value Abnormality Reference (Units ) Status BUN 03/23/2024 13:07:13 24 Above high normal 6-20 (mg/dL) Final Creatinine 03/23/2024 13:07:13 1.1 Above high normal 0.5-1.0 (mg/dL) Final Glomerular filtration rate/1.73 sq M.predicted [Volume Rate/Area] in Serum, Plasma or Blood by Creatinine-based formula (CKD-EPI) 03/23/2024 13:07:13 54 Below low normal >=60 (mL/min) Final eGFR is calculated based on the CKD-EPI 2020 equation. Sodium 03/23/2024 13:07:13 141 135-146 (m mol/L) Final Potassium 03/23/2024 13:07:13 4.5 3.5-5.1 (m mol/L) Final Cl 03/23/2024 13:07:13 104 98-107 (mm ol/L) Final CO2 03/23/2024 13:07:13 25 22-32 (mmo l/L) Final Anion gap 03/23/2024 13:07:13 12 7-15 (mmol /L) Final Glucose 03/23/2024 13:07:13 99 70-120 (mg /dL) Final Albumin 03/23/2024 13:07:13 4.4 3.8-5.0 (g /dL) Final AST (Aspartate aminotransferase) 03/23/2024 13:07:13 22 10-35 (U/L) Final Alk Phos 03/23/2024 13:07:13 60 35-130 (U/ L) Final Bilirubin, Total 03/23/2024 13:07:13 0.4 <=1 .2 (mg/dL) Final Calcium 03/23/2024 13:07:13 9.3 8.4-10.2 ( mg/dL) Final Protein 03/23/2024 13:07:13 7.1 6.0-8.3 (g /dL) Final ALT (Alanine aminotransferase) 03/23/2024 13:07:13 19 10-35 (U/L) Final Performing Location [facility] [address] [place] [address]
--- OUTSIDE RECORDS SUMMARY | 2024-06-06 18:15 | External Medical Summary ---
Author Name Unknown Address Unknown Organization K09[facility] [place] [address] Laboratory Report Ordering Provider Test Date Status MAREK NEWELL 03/23/2024 13:07:13 Final Observation Date Value Abnormality Reference (Units ) Status Magnesium 03/23/2024 13:07:13 2.2 1.5-2.6 (m g/dL) Final Performing Location [place] [place] [address]
--- OUTSIDE RECORDS SUMMARY | 2024-06-06 18:15 | External Medical Summary ---
Author Name Unknown Address Unknown Organization K09:[facility] [place] [address] Laboratory Report Ordering Provider Test Date Status MAREK NEWELL 03/23/2024 13:07:13 Final Observation Date Value Abnormality Reference (Units ) Status SYNC LEUKOCYTES IN BLOOD BY AUTOMATED COUNT 03/23/2024 13:07:13 3.23 Below low normal 4.00-10.80 (K/uL) Final Segs 03/23/2024 13:07:13 57.0 40.0-75.0 (%) Final Lymphs % 03/23/2024 13:07:13 34.4 18.0-42.0 (%) Final Monos 03/23/2024 13:07:13 7.4 1.0-11.0 (%) Final Eosinophils 03/23/2024 13:07:13 0.9 0.0-6.0 (%) Final Basos 03/23/2024 13:07:13 0.3 0.0-2.0 (%) Final Absolute Segs 03/23/2024 13:07:13 1.84 1.80-7.70 (K/uL) Final Lymphs, absolute 03/23/2024 13:07:13 1.11 1.00-4.80 (K/ul) Final Monos, Abs 03/23/2024 13:07:13 0.24 0.00-1.10 (K/uL) Final Eos, Abs 03/23/2024 13:07:13 0.03 0.00-0.70 (K/uL) Final Basos, Abs 03/23/2024 13:07:13 0.01 0.00-0.20 (K/uL) Final Performing Location [facility] [place] [address]
--- OUTSIDE RECORDS SUMMARY | 2024-06-06 18:15 | External Medical Summary ---
Author Name Unknown Address Unknown Organization K09:[facility] [place] [address] Laboratory Report Ordering Provider Test Date Status MAREK NEWELL 03/23/2024 13:07:13 Final Observation Date Value Abnormality Reference (Units ) Status WBC, Total 03/23/2024 13:07:13 3.23 Below low normal 4. 00-10.80 (K/uL) Final RBC 03/23/2024 13:07:13 4.01 3.85-5.15 (M/uL) Final Hemoglobin 03/23/2024 13:07:13 11.7 Below low normal 12 .0-15.3 (g/dL) Final HCT 03/23/2024 13:07:13 35.2 Below low normal 36. 0-45.2 (%) Final MCV 03/23/2024 13:07:13 87.8 81.5-97.5 (fL) Final MCH 03/23/2024 13:07:13 29.2 27.0-34.0 (pg) Final MCHC 03/23/2024 13:07:13 33.2 32.0-36.0 (g/dL) Final RDW 03/23/2024 13:07:13 12.7 11.5-15.5 (%) Final Platelets 03/23/2024 13:07:13 174 140-400 (K /uL) Final MPV 03/23/2024 13:07:13 10.9 6.6-11.1 ( fL) Final Performing Location [facility] [place] [address]
--- OUTSIDE RECORDS SUMMARY | 2024-06-06 18:15 | External Medical Summary | Summary of Care ---
Author Name Unknown Organization [facility] Address [address] [place] [address] Phone [phone] Care Team Providers Care Wedding Transportation Driver Name Role Phone Jesús Gale MD Primary Care Provider + Reason for Visit * Reason Comments Outpatient Testing Encounter Details Date Type Department Care Team (Late st Contact Info) Description 03/23/2024 1:10 PM EST Laboratory Laboratory [facility] [place] [address] [place] [address] [facility] [facility] [place] [address] Leukopenia, unspecified type; Nausea vomiting and diarrhea Allergies Active Allergy Reactions Criticality Noted Date [...] PM EDT Office Visit General Internal Medicine [facility] [address] [place] [address] Jesús Gale MD [address] [place] [address] 08/21/2024 9:00 AM EDT Office Visit Gastroenterology, [facility] [address] [place] [address] Dolores Shaver CRNP [address] [place] [address] 02/04/2025 2:20 PM EST Office Visit Neurology [address] [place], [place] [address] Nandini Nielson MD [address] [facility] [place] [address] Health Maintenance Due [...] Procedure Name Priority Date/Time Associated Diagnosis Comments DIFFERENTIAL, AUTOMATED Routine 03/23/2024 1:07 PM EST Leukopenia, unspecified type COMPREHENSIVE METABOLIC PANEL Routine 03/23/2024 1:07 PM EST Nausea vomiting and diarrhea CBC Routine 03/23/2024 1:07 PM EST Leukopenia, unspecified type PHOSPHORUS Routine 03/23/2024 1:07 PM EST Nausea vomiting and diarrhea CBC Routine 03/23/2024 1:07 PM EST Leukopenia, unspecified type MAGNESIUM Routine 03/23/2024 1:07 PM EST Nausea vomiting and diarrhea documented in this encounter Results * (ABNORMAL) DIFFERENTIAL, AUTOMATED (03/23/2024 1:07 PM EST) WBC 3.23(L) 4.00 - 10.80 K/uL 03/23/2024 1:13 PM EST [facility] 56-02 Neutrophils % 57.0 40.0 - 75.0 % 03/23/2024 1:13 PM EST [facility] 56-02 Lymphocytes % 34.4 18.0 - 42.0 % 03/23/2024 1:13 PM EST [facility] 56-02 Monocytes % 7.4 1.0 - 11.0 % 03/23/2024 1:13 PM EST [facility] 56-02 Eosinophils % 0.9 0.0 - 6.0 % 03/23/2024 1:13 PM EST [facility] 56-02 Basophils % 0.3 0.0 - 2.0 % 03/23/2024 1:13 PM EST [facility]-[address] Absolute Neutrophils 1.84 1.80 - 7.70 K/uL 03/23/2024 1:13 PM EST [facility] 56-[address] Absolute Lymphocytes 1.11 1.00 - 4.80 K/ul 03/23/2024 1:13 PM EST [facility] 56-[address] Absolute Monocytes 0.24 0.00 - 1.10 K/uL 03/23/2024 1:13 PM EST [facility]-[address] Absolute Eosinophils 0.03 0.00 - 0.70 K/uL 03/23/2024 1:13 PM EST [facility] 56-[address] Absolute Basophils 0.01 0.00 - 0.20 K/uL 03/23/2024 1:13 PM EST [facility] 56-02 Blood Venous blood specimen / Unknown Venipuncture / Unknown 03/23/2024 1:07 PM EST 03/23/2024 1:07 PM EST us Jesús Gale MD LAB BLOOD ORDERABLES Fin al Result [facility] [address] [place] [address] * (ABNORMAL) CBC (03/23/2024 1:07 PM EST) WBC 3.23(L) 4.00 - 10.80 K/uL 03/23/2024 1:13 PM EST [facility] 56-02 RBC 4.01 3.85 - 5.15 M/uL 03/23/2024 1:13 PM EST [facility] 5602 HGB 11.7(L) 12.0 - 15.3 g/dL 03/23/2024 1:13 PM [facility] 56 HCT 35.2(L) 36.0 - 45.2 % 03/23/2024 1:13 PM [facility] 56 MCV 87.8 81.5 - 97.5 fL 03/23/2024 1:13 PM [facility] 56 MCH 29.2 27.0 - 34.0 pg 03/23/2024 1:13 PM [facility] 56 MCHC 33.2 32.0 - 36.0 g/dL 03/23/2024 1:13 PM [facility] 5602 RDW 12.7 11.5 - 15.5 % 03/23/2024 1:13 PM [facility] 5602 PLT 174 140 - 400 K/uL 03/23/2024 1:13 PM [facility] 5602 MPV 10.9 6.6 - 11.1 fL 03/23/2024 1:13 PM [facility] 5602 Blood Venous blood specimen / Unknown Venipuncture / Unknown 03/23/2024 1:07 PM EST 03/23/2024 1:07 PM EST us Jesús Gale MD LAB BLOOD ORDERABLES Fin al Result [facility] [address] [place] [address] * PHOSPHORUS (03/23/2024 1:07 PM EST) Phosphorus 4.5 2.5 - 4.8 mg/dL 03/23/2024 1:59 PM EST [facility] 5602 Blood Venous blood specimen / Unknown Venipuncture / Unknown 03/23/2024 1:07 PM EST 03/23/2024 1:07 PM EST Jesús Gale MD LAB BLOOD ORDERABLES Fin al Result Performing Organization Address City/[facility]/ZIP Co de Phone Number [facility] [place] [address] * MAGNESIUM (03/23/2024 1:07 PM EST) Pathologist [facility] Magnesium 2.2 1.5 - 2.6 mg/dL 03/23/2024 1:59 PM EST [facility] 56- Blood Venous blood specimen / Unknown Venipuncture / Unknown 03/23/2024 1:07 PM EST 03/23/2024 1:07 PM EST Jesús Gale MD LAB BLOOD ORDERABLES Fin al Result Performing Organization Address [facility] Co de Phone Number [facility] [place] [address] * (ABNORMAL) COMPREHENSIVE METABOLIC PANEL (03/23/2024 1:07 PM EST) Pathologist [facility] BUN 24(H) 6 - 20 mg/dL 03/23/2024 1:59 PM EST [facility] 56- CREATININE 1.1(H) 0.5 - 1.0 mg/dL 03/23/2024 1:59 PM EST [facility] 56- EGFR 54(L) >=60 mL/min 03/23/2024 1:59 PM EST [facility] 56- Comment:eGFR is calculated b ased on the CKD-EPI 2020 equation. SODIUM 141 135 - 146 mmol/L 03/23/2024 1:59 PM EST [facility]-02 POTASSIUM 4.5 3.5 - 5.1 mmol/L 03/23/2024 1:59 PM EST [facility] 56- CHLORIDE 104 98 - 107 mmol/L 03/23/2024 1:59 PM EST [facility] 56- CO2 25 22 - 32 mmol/L 03/23/2024 1:59 PM [facility]-02 ANION GAP 12 7 - 15 mmol/L 03/23/2024 1:59 PM [facility]-02 GLUCOSE 99 70 - 120 mg/dL 03/23/2024 1:59 PM [facility] 56-02 Albumin 4.4 3.8 - 5.0 g/dL 03/23/2024 1:59 PM [facility] 56-02 AST 22 10 - 35 U/L 03/23/2024 1:59 PM [facility] 56-02 Alkaline Phosphatase 60 35 - 130 U/L 03/23/2024 1:59 PM [facility]-02 Bilirubin, Total 0.4 <=1.2 mg/dL 03/23/2024 1:59 PM [facility]-02 CALCIUM 9.3 8.4 - 10.2 mg/dL 03/23/2024 1:59 PM [facility] 56-02 Protein 7.1 6.0 - 8.3 g/dL 03/23/2024 1:59 PM [facility] 56-02 ALT 19 10 - 35 U/L 03/23/2024 1:59 PM [facility] 56-02 Blood Venous blood specimen / Unknown Venipuncture / Unknown 03/23/2024 1:07 PM EST 03/23/2024 1:07 PM EST us Jesús Gale MD LAB BLOOD ORDERABLES Fin al Result [facility] 56- [address] [facility] [place] [address] documented in this encounter Visit Diagnoses Diagnosis Leukopenia, unspecified type Nausea vomiting and diarrhea Diarrhea documented in this encounter Care Teams Wedding Transportation Driver Relationship Specialty Start Date End Date Jesús Gale MD [address] [facility] [address] PCP - General Internal Medicine 12/03/20 documented as of this encounter
--- OUTSIDE RECORDS SUMMARY | 2024-06-06 18:15 | External Medical Summary | Summary of Care ---
Author Name Unknown Organization [facility] Address [address] [place] [address] Phone [phone] Care Team Providers Care Academic Services Professional Name Role Phone Jesús Jara MD Primary Care Provider + Reason for Visit * Reason Comments eRx-Medication Refill Encounter Details Date Type Department Care Team (Late st Contact Info) Description 05/24/2024 Refill General Internal Medicine [facility] [address] [place] [address] Yamileth Schaefer PA-C [address] [place] [address] Allergies Active Allergy Reactions Criticality Noted Date Comments Novocain 09/12/2013 Other Allergy (See Comments) Other (Please comment) 04/17/2015 Patient reports reaction to medication anal'gin; medication not available in [place]; medication caused increased pain Acetaminophen 08/10/2018 documented as of this encounter (statuses as of 05/24/2024) Medications Mirtazapine 15 MG Oral Tablet (Remeron) [...] in the morning. 30 Tablet 2 5 025 Discontinued documented as of this encounter (statuses as of 05/24/2024) Active Problems Problem Noted Date Diagnosed Date Chronic kidney disease, stage 3a 03/26/2024 Overview: Per CKD protocol Migraine without aura and wi thout status migrainosus, not intractable 01/09/2024 Balance problem 01/09/2024 Mixed hyperlipidemia 04/10/2021 Gastroesophageal reflux disease without esophagi tis 10/03/2020 IBS (irritable bowel syndrome) 09/12/2013 documented as of this encounter (statuses as of 05/24/2024) Resolved Problems Problem Noted Date Diagnosed Date Resolved Date Mass on back 05/20/2017 10/27/2021 documented as of this encounter (statuses as of 05/24/2024) Social History Tobacco Use Types Packs/Day Years [...] encounter Miscellaneous Notes * Telephone Encounter - Rosa Portillo [facility] - 05/24/2024 3:50 PM EDT Signed Prescriptions: Disp Refills Pantoprazole Sodium 40 MG Oral Tablet Charleen*30 Tab*2 Sig: Take 1 Tablet by mouth in the morning.Authorizing Provider: JESÚS JARA User: ROSA PORTILLO documented in this encounter Plan of Treatment Upcoming Encounters Date Type Department Care Team (Late st Contact Info) Description 07/31/2024 2:40 PM EDT Office Visit General Internal Medicine [facility] [address] [place] [address] Jesús Jara MD [address] [facility] [place] [address] 08/21/2024 9:00 AM EDT Office Visit Gastroenterology, [facility] [address] [place] [id number] Dolores Shaver CRNP [address] [place] [address] 02/04/2025 2:20 PM EST Office Visit Neurology [address] [place] [address] Nandini Nielson MD [address] [facility] [place] [address] Health Maintenance Due Date Last Done Comments DXA Scan 1950 Depression Screening 1960 Albumin/Creatinine Ratio 1966 Hepatitis C Screening 1966 DTap/Tdap Vaccines (1 - Tdap) 07/20/1967 Pneumococcal Vaccine: 50+ Years (1 of 1 - PCV) 1998 Zoster Vaccines (1 of 2) 1998 Adult Wellness Visit 2014 COVID-19 Vaccine (1 - 2023- season) 2023 GFR 09/20/2024 03/23/2024, 01/14, 12/16/2023, Additional history exists Influenza Vaccine (FLU shot) (Season Ended) 2024 CKD HGB USE SMARTSET 66688 03/23/202503/23, 03/23/2024, 12/16/2023, Additional history exists CKD PHOS USE SMARTSET 41984 03/23/2025 03/23/2024 HPV (Gardasil) Vaccine Aged Out [...] filedocumented as of this encounter Care Teams Academic Services Professional Relationship Specialty Start Date End Date Jesús Jara MD [address] [place] [address] PCP - General Internal Medicine 12/03/20 documented as of this encounter
[2024-06-06] MEDS: SODIUM CHLORIDE 0.9% 1,000 ML IV SCH (18:38)
[2024-06-06] MEDS ORDERED: DICYCLOMINE HCL 20 MG TAB PO PRN (22:15)
[2024-06-06 23:01] VITALS: TEMP 98.1
[2024-06-06] MEDS: ENOXAPARIN INJ 40 MG/0.4 ML SYR SQ SCH (23:41)
[2024-06-06] MEDS: METOCLOPRAMIDE HCL INJ 5 MG/ML 2 ML VIAL IV PRN (23:42)
[2024-06-07 06:15] LABS: BUN Creatinine Ratio 22.1 (10-20); Creatinine Clr Calc Pharmacy 52.9 ml/min; Hematocrit (blood only) 30.3 % (37.0-47.0); Hemoglobin 10.2 g/dl (12.0-16.0); Mean Corpuscular Hemoglobin 29.1 pg (25.0-34.0); Mean Corpuscular Hgb Conc 33.7 g/dL (32.0-36.0); Mean Corpuscular Volume 86.3 fL (80.0-100.0); Mean Platelet Volume 11.2 fL (9.4-12.4); Platelet Count 165 K/uL (130-400); Potassium 3.7 mmol/L (3.5-5.1); RDW Coefficient of Variation 13.5 % (11.5-14.5); RDW Standard Deviation 42.2 fL (36.4-46.3); Red Blood Count 3.51 M/uL (4.20-5.40); White Blood Count 4.07 K/ul (4.8-10.8)
[2024-06-07 07:59] VITALS: BP 111/65; PULSE 59; RESP 16; O2SAT 95
[2024-06-07] MEDS: MECLIZINE HCL 25 MG TAB PO PRN (08:08)
[2024-06-07] MEDS: MIRTAZAPINE TAB 15 MG TAB PO SCH (08:09)
[2024-06-07] MEDS: PANTOprazole 40 MG TAB PO SCH (09:45)
[2024-06-07] MEDS: LANSOPRAZOLE 30 MG SOLTAB PO SCH (10:17)
--- NOTE | 2024-06-07 10:30 | Discharge Summary ---
Discharge Summary Date of Service June 07, 2024 Principal Dx & Hospital Course #1 = Principal Diagnosis (1) Dizziness: (2) Weakness: (3) Nausea & vomiting: (4) Abdominal pain: (5) GERD (gastroesophageal reflux disease): (6) Gastroparesis: (7) Migraine without aura: Plan 73 year old female with PMH significant for GERD, gastroparesis, and migraines who presented to the ED this morning with dizziness, abdominal pain, and v omiting since this morning. Dizziness Likely BPPV due to sensation of room spinning and dizziness provoked by head movement Head CT and CTA head/neck negative EKG and labs unremarkable Meclizine as needed for dizziness Symptoms have since resolved after IVF and meclizine. Pt will be discharged to home with son later this morning. Weakness recommend continuing outpt PT/OT Nausea and vomiting resolved, resume diet when returns home per son pt is on a strict diet at home and can't eat our food/drink water recommend d/c home Abdominal pain CT abdomen negative resolved High blood pressure Elevated readings in the ED BP 138/82 when re-checked it in the ED Bps have normalized, I suspect elevated BP in setting of dizziness Recommended to son to monitor bp twice daily as an outpt and keep log to take to PCP follow up GERD Follows with GI outpatient - next appt 08/21 Continue pantoprazole per home dosing Gastroparesis Follows with GI outpatient - next appt 08/21 Continue mirtazapine per home dosing Migraine without aura Follows with Neurology outpatient - next appt 02/04 Continue mirtazapine per home dosing PCP: Dr Jesús Gale MD Disposition: Discharge to home with son Patient seen in collaboration with Dr Fischer. Please see addendum. I spent a total of 55 minutes coordinating, documenting and providing care for this patient excluding time spent in the performance of separately billed services or time spent by another provider/QHP. Notes For Next Care Provider Pt encouraged to monitor BP closely as an outpt and bring log to next appt. Pt may benefit from ambulatory BP monitoring if able to set up. Son is requesting a cardiology referral. I discussed with him this will need to be placed as an outpt. Medication Changes From Visit Continue current medications. Admission HPI Per Admitting Provider 73 year old female with PMH significant for GERD, gastroparesis, and migraines who presented to the ED this morning with dizziness, abdominal pain, and vomiting since this morning. Patient is Ukranian speaking and her son is with her and served as a hand salter for HPI as they did not want a hand salter ipad used. Her son reports that patient started feeling dizzy this morning around 0900 where she felt like the room was spinning. She had associated nausea and vomiting of bile, no hematemesis. She also reports a headache that wraps around her head like a band and aching abdominal pain in all quadrants. She feels extremely weak. She did not have any falls but had to crawl on her hands and knees because of her weakness and dizziness. Her son notes that this is her fourth time coming to the hospital for these same issues. She denies fevers, chills, cough, cold symptoms, chest pain, SOB, constipation, diarrhea, dysuria. Admission Exam Per Admitting Provider General/Psych: WD/WN, sitting up in bed, NAD, conversing easily, euthymic affect Head: normocephalic, atraumatic Eyes: normal inspection, PERRL, conjunctivae pink, anicteric sclerae ENT: external ear and nose normal, oropharynx normal Neck: normal visual inspection, trachea midline, no thyromegaly Respiratory: normal respiratory effort, lungs clear to auscultation, no wheeze/rales/rhonchi, no accessory muscle use Cardiovascular: regular rate and rhythm, no murmur/rub/gallop, no JVD Extremities: no cyanosis or clubbing, normal peripheral pulses, no BLE edema Abdomen/GI: normal bowel sounds, soft, tender on palpation of all four quadrants, no hepatosplenomegaly Neurologic/MSK: A+Ox3, motor strength 4/5, moves all extremities Skin: no rashes, normal color, warm and dry Discharge Exam Gen: WD/WN, elderly, F, Maori speaking, NAD, A&O x3 HEENT: Normocephalic, atraumatic, conjunctivae moist, sclerae anicteric, mucous membranes moist. Lung: Clear to Auscultation bilaterally, no wheezes/rales/rhonchi Heart: Regular rate, regular rhythm, no murmurs, rubs, or gallops Abdomen: Soft, NT, ND +BS x 4 Extremities: No edema Skin: Warm, no rash, negative turgor. Neuro: no nystagmus, no reproducible vertigo during my exam Updated Medication List Medication Instructions Recorded Confirmed Type sumatriptan succinate 25 mg tablet 50 mg PO UD PRN Migraine Headache 09/12/23 06/06/24 History mirtazapine 15 mg tablet 15 mg PO DAILY 03/16/24 06/06/24 History pantoprazole 40 mg tablet,delayed 40 mg PO DAILY 03/16/24 06/06/24 History release (Protonix) ondansetron 4 mg disintegrating 4 mg PO UD PRN nausea and vomiting 06/06/24 06/06/24 History tablet meclizine 25 mg tablet 25 mg PO TID PRN Dizziness Or 06/07/24 Rx Vertigo #30 tabs Hospital Stay Data Consultations 06/06/24 16:33 ED Decision to Admit Stat Diagnostic Imagining Performed Head CT 06/06/24 10:51 CT SCAN OF THE BRAIN WITHOUT IV CONTRAST CLINICAL HISTORY: Dizziness. COMPARISON STUDY: MRI of the brain and head CT September 12, 2023. TECHNIQUE: Unenhanced axial CT scan of the brain was performed from the vertex to the skull base. A dose lowering technique was utilized adhering to the principles of ALARA. FINDINGS: Brain parenchyma: No acute intracranial hemorrhage, midline shift or mass effect is present. Wagner-white matter differentiation is preserved. There are no extra- axial fluid collections. There are no findings to suggest acute dural sinus thrombosis or acute territorial infarct. A few white matter hypodensities are unchanged and favor small vessel disease. Ventricles, sulci, cisterns: There is no hydrocephalus. The basal cisterns are patent. Calvarium: Unremarkable. Sinuses and mastoids: The visualized paranasal sinuses are clear. The mastoid air cells are well pneumatized. Orbits: The bony orbits are grossly intact. IMPRESSION: No acute intracranial findings. ACT 112: Negative or not required by law. Electronically signed by: lA Ding M.D. 06/06/2024 12:37 PM Abdomen/Pelvis CT 06/06/24 10:[address] WITH IV CONTRAST CT DOSE: 2015.61 mGy.cm HISTORY: upper ab pain, n/v/vertigo TECHNIQUE: Multiaxial CT images of the abdomen and pelvis were performed following the IV administration of 112 cc of Optiray, A dose lowering technique was utilized adhering to the principles of ALARA. COMPARISON STUDY: 09/12/2023 FINDINGS: ABDOMEN: Stable tiny cyst in the left hepatic lobe. Otherwise the liver, spleen, and pancreas are unremarkable. Stable mild thickening of the adrenal glands. Kidneys show no hydronephrosis. There are scattered atherosclerotic calcifications. No abdominal aortic aneurysm. Pelvis: Uterus and adnexal regions are grossly unremarkable. Urinary bladder is nondistended. There is sigmoid diverticulosis. No acute diverticulitis. There is mild retained stool. No bowel inflammation or obstruction seen. No free fluid, free air, or abscess. No enlarged adenopathy. Osseous structures: There are minimal degenerative changes at the lumbar spine. No acute osseous findings. IMPRESSION: No acute findings. ACT 112: Negative or not required by law. The above report was generated using voice recognition software. It may contain grammatical, syntax or spelling errors. Electronically signed by: Jaylon Morales M.D. 06/06/2024 12:32 PM Head CTA 06/06/24 10:52 CT angio head w con, CT angio neck with con CLINICAL HISTORY: 73 years-old Female with vertigo. Acute vertigo COMPARISON STUDY: Head CT of same day TECHNIQUE: Following the IV administration of 112 cc of Optiray, CT angiogram of the head and neck was performed from the aortic arch to the skull apex. Images are reviewed in the axial, sagittal, and coronal planes. 3-D MIPS images are created and assessed. IV contrast was administered without complication. All measurements were obtained according to NASCET criteria. A dose lowering technique was utilized adhering to the principles of ALARA. FINDINGS: CT BRAIN: Dictated separately. CT ANGIOGRAM OF THE HEAD AND NECK: Atherosclerosis of the thoracic aortic arch. Patency of the innominate and image subclavian arteries. The common carotid arteries are patent. Minimal atherosclerotic plaque of the carotid bulbs without significant stenosis. Patent internal carotid arteries. The bilateral anterior and middle cerebral arteries are also patent. The vertebrobasilar system and posterior cerebral arteries are widely patent. 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 There is no aneurysm, high-grade stenosis, or proximal branch occlusion identified. Dural sinuses appear patent. Unremarkable soft tissues. Degenerative changes of the spine. Lung apices are clear without pneumothorax. No acute fracture. IMPRESSION: Unremarkable CTA of the head and neck. ACT 112: Negative or not required by law. The above report was generated using voice recognition software. It may contain grammatical, syntax or spelling errors. Electronically signed by: John Alarcon M.D. 06/06/2024 12:51 PM Neck CTA 06/06/24 10:52 CT angio head w con, CT angio neck with con CLINICAL HISTORY: 73 years-old Female with vertigo. Acute vertigo COMPARISON STUDY: Head CT of same day TECHNIQUE: Following the IV administration of 112 cc of Optiray, CT angiogram of the head and neck was performed from the aortic arch to the skull apex. Images are reviewed in the axial, sagittal, and coronal planes. 3-D MIPS images are created and assessed. IV contrast was administered without complication. All measurements were obtained according to NASCET criteria. A dose lowering technique was utilized adhering to the principles of ALARA. FINDINGS: CT BRAIN: Dictated separately. CT ANGIOGRAM OF THE HEAD AND NECK: Atherosclerosis of the thoracic aortic arch. Patency of the innominate and image subclavian arteries. The common carotid arteries are patent. Minimal ath erosclerotic plaque of the carotid bulbs without significant stenosis. Patent internal carotid arteries. The bilateral anterior and middle cerebral arteries are also patent. The vertebrobasilar system and posterior cerebral arteries are widely patent. 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 There is no aneurysm, high-grade stenosis, or proximal branch occlusion identified. Dural sinuses appear patent. Unremarkable soft tissues. Degenerative changes of the spine. Lung apices are clear without pneumothorax. No acute fracture. IMPRESSION: Unremarkable CTA of the head and neck. ACT 112: Negative or not required by law. The above report was generated using voice recognition software. It may contain grammatical, syntax or spelling errors. Electronically signed by: John Alarcon M.D. 06/06/2024 12:51 PM Pending Results Patient Have Any Pending Studies at Discharge: No Discharge Instructions Given to Patient (Per Discharging Provider) MEDICATION CHANGES: Meclizine 25mg every 8 hours as needed for dizziness. Please continue all other home medications as prescribed. SUMMARY OF TEST RESULTS: You were admitted to the hospital due to dizziness/vertigo, nausea, vomiting and high blood pressure. You underwent a CT of your head, neck, abdomen and pelvis which was unremarkable. It was felt you were suffering from benign position vertigo. This resolved with IV fluids and meclizine. Your blood pressure was high on admission. It is felt this was due to your dizziness and nausea. Your blood pressure was normal on day of discharge without treatment. PENDING TEST RESULTS: None RECOMMENDATIONS FOR FOLLOW-UP: Please follow up with your primary care provider as scheduled. Please keep a log of your blood pressure. Please check it at least twice daily, first thing in the morning and in the evening. Take this log with you to your primary care provider appointment so it can be reviewed. Your primary care provider also has the ability to order an ambulatory blood pressure test to monitor as well to determine if she is having any high blood pressure while in outpatient. You can participate in outpatient physical therapy for your vertigo if it becomes recurrent. Please stay well hydrated drinking 60-70 oz of water daily. OTHER INSTRUCTIONS: Seek medical attention if you have: * temperature above 101 * chest pain or trouble breathing * abdominal pain, nausea, vomiting * diarrhea, dark stools or bloody stools * any unanswered questions or concerns Call 911 if symptoms are severe. Please take good care of yourself. It has been a pleasure taking care of you. Please take care of yourself. If you have any questions regarding your recent hospitalization please contact [facility] and request Rafi Jourdanist @ [phone]. Total Time Total Time Spent Total Time Spent (In Minutes): 55 minutes Supervising Physician Co-Signing Physician Notes Patient seen and examined independently. Discussed with above provider. Patient reports that she has been feeling much better compared to previous day. She denies any nausea, vomiting, abdominal pain or dizziness. Her son also reports that patient has significant improvement on her symptoms and would like to take her home. I have reviewed the advanced practitioner's documentation, and I agree with, and take responsibility for the plan of care I spent a total of 20 minutes coordinating, documenting, and providing care for this patient excluding time spent in the performance of separately billed services. All of the aforementioned completed while collaborating with the assigned advanced practitioner for a full treatment plan
== END 2024-06-07 11:55 | disposition home or self-care (01) ==
LOC: ED 10:32 → 3W 10:32 → SUATTDRO 17:49 → 3W 21:18